=== PATIENT | male | born 1990 | race Caucasian/White ===

== ENCOUNTER 2016-06-02 12:19 | Emergency (ER) | payer OTHER ==
[2016-06-02 12:43] VITALS: BP 153/84; PULSE 72; RESP 20; TEMP 97.4
[2016-06-02] MEDS ORDERED: DIPH,PERTUS(ACELL)TETVAC-LF 0.5 ML VIAL IM ONE (13:10)
--- NOTE | 2016-06-02 13:13 | ED ---
Wound/Laceration HPI - General Chief Complaint: Wound/Laceration Stated Complaint: Finger Laceration Time Seen by Provider: 06/02/16 12:49 Source: patient, RN notes reviewed Mode of arrival: ambulatory Limitations: no limitations - History of Present Illness Initial Comments: 26-year-old male presents emergency Department chief complaint of left hand fifth digit laceration. Patient states she is cleaning some stuff up cut his finger on a piece of sheet metal. Patient states his tetanus is not up-to- date. Patient denies any decreased range of motion or paresthesias. Patient states that he did rinse out the wound and covered it. - Related Data Previous Rx's Medication Instructions Recorded Ibuprofen [Motrin] 600 mg PO Q8HR PRN #20 tab 02/02/16 Methocarbamol [Robaxin-750] 750 mg PO TID PRN #30 tablet 02/02/16 Allergies Allergy/AdvReac Type Severity Reaction Status Date / Time No Known Allergies Allergy Verified 02/02/16 04:05 Review of Systems ROS Statement: Those systems with pertinent positive or pertinent negative responses have been documented in the HPI. ROS Other: All systems not noted in ROS Statement are negative. Past Medical History Past Medical History: No Reported History Additional Past Medical History / Comment(s): chronic back pain History of Any Multi-Drug Resistant Organisms: None Reported Past Surgical History: Orthopedic Surgery Past Psychological History: No Psychological Hx Reported Smoking Status: Current every day smoker Past Alcohol Use History: Occasional Past Drug Use History: Marijuana General Exam Limitations: no limitations General appearance: alert, in no apparent distress Head exam: Present: atraumatic, normocephalic, normal inspection Respiratory exam: Present: normal lung sounds bilaterally. Absent: respiratory distress, wheezes, rales, rhonchi, stridor Cardiovascular Exam: Present: regular rate, normal rhythm, normal heart sounds. Absent: systolic murmur, diastolic murmur, rubs, gallop, clicks Extremities exam: Present: other (left hand fifth digit there is a 2 cm laceration patient has full range of motion neurovascular intact no active bleeding.) Course Vital Signs 06/02/16 12:41 Temperature 97.4 F L Pulse Rate 72 Respiratory 20 Rate Blood Pressure 153/84 O2 Sat by Pulse 99 Oximetry Procedures - Laceration Laceration #1 Consent Obtained: verbal consent Indication: laceration Site: hand (left hand fifth digit) Size (cm): 2 Description: linear Depth: simple, single layer Anesthetic Used: lidocaine 1%, without epi Anesthesia Technique: local infiltration Amount (mls): 2 Pre-repair: wound explored, irrigated extensively Type of Sutures: nylon Size of Sutures: 4-0 Number of Sutures: 3 Technique: simple, interrupted Patient Tolerated Procedure: well, no complications Disposition Clinical Impression: Laceration of finger of left hand Disposition: HOME SELF-CARE Condition: Stable Instructions: Care For Your Stitches (ED), Finger Laceration (ED) Additional Instructions: having your sutures removed in 10 days.Please return to the Emergency Department if symptoms worsen or any other concerns. Time of Disposition: 13:13
== END 2016-06-02 13:31 | disposition home or self-care (01) ==
LOC: EC 12:19
DX: S61.217A Laceration without foreign body of left little finger without damage to nail, initial encounter (principal); F17.200 Nicotine dependence, unspecified, uncomplicated; Z23 Encounter for immunization; W45.8XXA Other foreign body or object entering through skin, initial encounter; Y93.89 Activity, other specified
CPT/HCPCS: 12001; 90471; 90715; 99282

== ENCOUNTER → 2016-12-04 | Outpatient (CLI) | payer OTHER ==
[2016-12-04 16:42] LABS: CH 31.2; CHCM 33.7; HCT 47.2 % (39.0-53.0); HGB 16.2 gm/dL (13.0-17.5); MCH 31.9 pg (25.0-35.0); MCHC 34.3 g/dL (31.0-37.0); MCV 93.1 fL (80.0-100.0); Mean Platelet Volume 6.8; RBC 5.07 m/uL (4.30-5.90); RDW 13.8 % (11.5-15.5)
[2016-12-04 16:44] LABS: WBC 25.3 k/uL (3.8-10.6)
[2016-12-04 16:53] LABS: ALT 35 U/L (21-72); AST 19 U/L (17-59); Alkaline Phosphatase 50 U/L (38-126); Anion Gap 13 mmol/L; Blood Urea Nitrogen 12 mg/dL (9-20); C Reactive Protein <5.0 mg/L (<10.0); Calcium 10.5 mg/dL (8.4-10.2); Carbon Dioxide 28 mmol/L (22-30); Chloride 102 mmol/L (98-107); Glucose 104 mg/dL (74-99); Non-African American GFR(MDRD) >60 (>60 ml/min/1.73 sqM); Potassium 4.6 mmol/L (3.5-5.1); Sodium 143 mmol/L (137-145); Total Bilirubin 0.6 mg/dL (0.2-1.3); Total Protein 7.7 g/dL (6.3-8.2)
[2016-12-04 17:56] LABS: Erythrocyte Sedimentation Rate 2 mm/hr (0-15)
[2016-12-05 01:17] LABS: Gliadin AB IgA, Deaminated NEGATIVE (NEGATIVE); Gliadin AB IgG, Deaminated NEGATIVE (NEGATIVE); Gliadin AB IgG, Unit 0.4 U/mL; Tis Transglutaminase IgA Unit <0.5 AI; Tis Transglutaminase IgG Unit <0.8 U/mL
== END | disposition home or self-care (01) ==
LOC: LABWHC1 16:18
PROVIDERS: ATTEND Internal Medicine Gastroenterology
DX: K58.9 Irritable bowel syndrome, unspecified (principal)
CPT/HCPCS: 36415; 80053; 83516; 85027; 85652; 86140

== ENCOUNTER → 2017-06-12 | Outpatient (CLI) | payer OTHER ==
--- NOTE | 2017-06-12 23:11 | MR ---
EXAMINATION TYPE: MR knee LT wo con DATE OF EXAM: 06/12/2017 COMPARISON: NONE HISTORY: Left knee pain/injured playing hockey several years ago TECHNIQUE: Multiplanar, multisequence imaging of the left knee is performed without IV contrast. FINDINGS: The anterior and posterior cruciate ligaments are intact. There is a mild to moderate knee joint effu leah. There is a small truncation defect in the posterior horn medial meniscus. The anterior horn med ial meniscus appears intact. The lateral meniscus appears intact. The collateral ligaments are intact. There is no evidence of a f racture. I see no bony destructive process. The patella appears intact. IMPRESSION: There is a [id number] knee joint effusion. There is a vertical tear through the posterior horn of the medial meniscus. No fracture. No evidence of ligamentous tear.
== END | disposition home or self-care (01) ==
LOC: RADMRIMAIN 18:01
PROVIDERS: ATTEND Orthopaedic Surgery
DX: S83.242A Other tear of medial meniscus, current injury, left knee, initial encounter (principal)

== ENCOUNTER → 2017-06-30 | Outpatient (CLI) | payer OTHER ==
[2017-06-30 11:58] LABS: Basophils # (A) 0.1 k/uL (0-0.2); Basophils % (A) 0 %; Eosinophils # (A) 0.1 k/uL (0-0.7); Eosinophils % (A) 1 %; HCT 48.3 % (39.0-53.0); HGB 16.8 gm/dL (13.0-17.5); Lymphocytes # (A) 2.2 k/uL (1.0-4.8); Lymphocytes % (A) 16 %; MCH 31.1 pg (25.0-35.0); MCHC 34.7 g/dL (31.0-37.0); MCV 89.7 fL (80.0-100.0); Mean Platelet Volume 6.5; Monocytes # (A) 0.7 k/uL (0-1.0); Monocytes % (A) 5 %; Neutrophils # (A) 10.3 k/uL (1.3-7.7); Neutrophils % (A) 76 %; Platelet Count 308 k/uL (150-450); RBC 5.38 m/uL (4.30-5.90); RDW 13.7 % (11.5-15.5); WBC 13.5 k/uL (3.8-10.6)
[2017-06-30 12:10] LABS: Potassium 3.5 mmol/L (3.5-5.1)
== END | disposition home or self-care (01) ==
LOC: LABPAT 11:44
PROVIDERS: ATTEND Orthopaedic Surgery
DX: Z01.812 Encounter for preprocedural laboratory examination (principal); M23.92 Unspecified internal derangement of left knee
CPT/HCPCS: 36415; 80051; 85025

== ENCOUNTER 2017-07-03 07:47 | Day surgery (SDC) | payer OTHER ==
[2017-06-30 15:32] VITALS: BMI 23.5
--- NOTE | 2017-07-02 08:36 | HP ---
HISTORY AND PHYSICAL CHIEF COMPLAINT: Left knee pain. HISTORY OF PRESENT ILLNESS: The patient is a 27-year-old male who presents with progressive left knee pain, worsening over the past several months. He notes he had an old hockey injury when he was younger. He had 2 previous surgeries for that. He notes intermittent locking and giving way. He also has pain with stairs and at night. He has been taking anti- inflammatories. PAST MEDICAL HISTORY: Significant for depression. PAST SURGICAL HISTORY: Significant for bilateral knee arthroscopies. CURRENT MEDICATIONS: 1. Naprosyn. 2. Remeron. 3. Zanaflex. ALLERGIES: He denies drug allergies. FAMILY HISTORY: Significant for cancer. SOCIAL HISTORY: Significant for 1 pack per day tobacco use. REVIEW OF SYSTEMS: Sixteen-point review of systems otherwise reviewed and is noncontributory. PHYSICAL EXAMINATION: On examination, the patient is approximately 6 feet 1 inch, 160 pounds of mesomorphic habitus. HEENT exam is nonfocal. Neck is supple. He has painless passive motion of his left hip. Straight leg raise is negative. Active motion left knee -6 to 120 degrees of flexion. He has a trace effusion. He is tender about the medial joint line. Collaterals are stable, Mina's negative, Gabino's elicits medial pain. His distal neurovascular exam appears intact in the left lower extremity. MRI report for the left knee from 06/12/2017 shows a posterior medial meniscal tear. IMPRESSION: 1. Left knee internal derangement with symptomatic medial meniscal tear. 2. Left knee mild medial compartment osteoarthrosis. RECOMMENDATIONS: I talked to the patient at length regarding his treatment options. At this point, he is having persistent pain and mechanical symptoms that limit him. After thorough discussion, he opts to proceed with surgery. We will plan to proceed with arthroscopic evaluation with probable partial medial meniscectomy. Risks and benefits were discussed at length in layman's terms. We will likely perform that as an outpatient procedure. MMODL / IJN: [id number] /
[~2017-07-03 07:47] MED LIST: DEXAMETHASONE SOD PHOSPHATE 10 MG/ML 1 ML VIAL IV ONE; LACTATED RINGERS 1,000 ML IV SCH; MIDAZOLAM 2 MG/2 ML VIAL IV PRN; ONDANSETRON 4 MG/2 ML VIAL IVP ONE; SCOPOLAMINE 1.5MG/72HR PATCH TRANSDERM ONE; ceFAZolin 1,000 MG in DEXTROSE/WATER 1 50ML.BAG IVPB ONE; fentaNYL (PF) 50 MCG/ML 2 ML AMP IV PRN
[2017-07-03] MEDS ORDERED: MIDAZOLAM 2 MG/2 ML VIAL ONE (09:26)
[2017-07-03] MEDS ORDERED: fentaNYL (PF) 50 MCG/ML 2 ML AMP ONE (09:26)
[2017-07-03] MEDS ORDERED: SUCCINYLCHOLINE CHLORIDE 100 MG/5 ML SYR IV ONE (09:26)
[2017-07-03] MEDS ORDERED: LIDOCAINE 1% INJ 10MG/ML (20 ML MDV) ONE (09:26)
[2017-07-03] MEDS ORDERED: PROPOFOL 10 MG/ML 20 ML VIAL IV ONE (09:26)
[2017-07-03] MEDS ORDERED: KETOROLAC 30 MG/ML 1 ML VIAL ONE (09:26)
[2017-07-03] MEDS ORDERED: EPINEPHrine (PF) 1 ML in SODIUM CHLORIDE 0.9% IRRIGATIO 3,000 ML IRRIGATION ONE ×4 (09:30)
--- NOTE | 2017-07-03 10:19 | P.OP ---
Date of Procedure: 07/03/17 Preoperative Diagnosis: Left knee internal derangement Postoperative Diagnosis: Left knee posterior medial meniscal tear/middle one third lateral meniscal tear/ grade 3 chondral injury medial patellar facet/reactive synovitis Procedure(s) Performed: Left knee arthroscopic partial medial meniscectomy/partial lateral meniscectomy/ medial patellar facet chondroplasty/partial synovectomy of the medial, lateral, and patellofemoral compartments Anesthesia: GETA Surgeon: Mayur Velazquez Estimated Blood Loss (ml): 10 Pathology: none sent Condition: stable Disposition: PACU Indications for Procedure: The patient's a 27-year-old male who presents progressive left knee pain and mechanical symptoms despite conservative measures. A discussion of the risks and benefits of operative intervention versus continued conservative measures was made with the patient. He opted to proceed with surgery. Operative risks to include infection, neurovascular injury, development of blood clots, possible incomplete resolution of symptoms, possible worsening symptoms and need for subsequent procedures was discussed. Informed consent was obtained. Operative Findings: As below Description of Procedure: The patient was brought to the operating room, and after induction of general anesthesia examined the left knee. Collaterals were stable, Mina was negative, and posterior drawer was negative. The left lower extremity was prepped and draped in normal fashion. A superior lateral portals made through a 3 mm skin incision superior and lateral to the patella. This was used for outflow. A lateral portal was made through a 5 mm vertical skin incision lateral to the patella tendon above the joint line. Diagnostic arthroscopy was performed. A medial portal was made through a similar incision medial to the patella tendon above the joint line. On inspection the medial compartment, and oblique tear involving the posterior horn of the medial meniscus was noted. This was not amenable to repair. This debrided back to stable base with straight baskets and a motorized shaver. The edges were contoured. The previous partial meniscectomy was also noted. Mild degenerative changes involving medial compartment were noted. Reactive synovitis involving anterior medial and anterolateral compartments was debrided with motorized shaver. On inspection the notch the anterior cruciate ligament appeared to be intact. On inspection lateral compartment, and oblique tear involving the middle one third of the lateral meniscus was noted in the white-white junction. This was debrided back to a stable base with straight baskets and a motorized shaver. The remaining lateral meniscus was stable and intact. Grade 2 chondral changes were noted involving the distal central portion lateral femoral condyle. On inspection patellofemoral articulation, there is marked rectus and advised to be with a motorized shaver. A grade 3 chondral injury involving the medial patella facet was noted with a loose chondral fragment. It was debrided back to a stable base with a motorized shaver. The gutters were clear of debris. The knee was then thoroughly irrigated. The portals were closed with Steri- Strips. A sterile dressing was applied in addition to a compression stocking. The patient was awoken from general anesthesia and transferred to recovery room in good condition. Blood loss was estimated at 10 mL. No complications were incurred.
[2017-07-03 10:22] VITALS: TEMP 97.4
[2017-07-03] MEDS: MEPERIDINE 50 MG/ML SYRINGE IVP ONE ×2 (10:29→10:43)
[2017-07-03] MEDS ORDERED: PROMETHAZINE INJ 25 MG/ML 1 ML VIAL IVPB ONE (11:08)
[2017-07-03] MEDS ORDERED: HYDROcodone/APAP 5-325MG 1 EACH TAB PO ONE (11:58)
[2017-07-03 12:19] VITALS: BP 137/84; PULSE 49; RESP 16
== END 2017-07-03 12:41 | disposition home or self-care (01) ==
LOC: OR 07:47
PROVIDERS: ATTEND Orthopaedic Surgery
DX: S83.242A Other tear of medial meniscus, current injury, left knee, initial encounter (principal); S83.282A Other tear of lateral meniscus, current injury, left knee, initial encounter; S83.32XA Tear of articular cartilage of left knee, current, initial encounter; X58.XXXA Exposure to other specified factors, initial encounter; F17.210 Nicotine dependence, cigarettes, uncomplicated; K21.9 Gastro-esophageal reflux disease without esophagitis; F32.9 Major depressive disorder, single episode, unspecified; Z79.1 Long term (current) use of non-steroidal anti-inflammatories (NSAID); Z79.899 Other long term (current) drug therapy
CPT/HCPCS: 29880; J2250; J1100; J2550; J2175; J2405; J0171; J2001; J3010; J1885; J0690; J0330; J2704

== ENCOUNTER → 2017-07-10 | Outpatient (CLI) | payer OTHER ==
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
== END | disposition home or self-care (01) ==
LOC: RADMRIMAIN 14:48
PROVIDERS: ATTEND Psychiatry & Neurology Neurology
DX: M50.222 Other cervical disc displacement at C5-C6 level (principal); M51.27 Other intervertebral disc displacement, lumbosacral region
CPT/HCPCS: 72141; 72148

== ENCOUNTER → 2017-09-30 | Outpatient (CLI) | payer OTHER ==
--- NOTE | 2017-09-30 16:18 | US ---
EXAMINATION TYPE: US thyroid st tissue head/neck DATE OF EXAM: 09/30/2017 COMPARISON: NONE CLINICAL HISTORY: E04.1 thyroid nodule. Hoarseness x 6 months. Pain on left side of neck. GLAND SIZE: Right Lobe: 5.2 x 2.0 x 1.5 cm cm Overall Parenchyma: homogenous Left Lobe: 5.3 x 2.4 x 1.3 cm cm Overall Parenchyma: homogeneous Isthmus Thickness: 0.5 cm NODULES RIGHT: # of nodules measured on right: 1 1. 0.3 X 0.3 x 0.2 cm hypoechoic cystic nodule at the mid pole with well-defined margins; . This n odule is wider than tall and shows no intranodular vascularity. Prior size: No previous LEFT: # of nodules measured on left: 0 ISTHMUS: # of nodules measured in the isthmus: 0 Bilateral neck scanned, no evidence of lymphadenopathy. IMPRESSION: Small cystic nodule right thyroid lobe. Otherwise unremarkable study.
== END | disposition home or self-care (01) ==
LOC: RADUSWWP 15:38
PROVIDERS: ATTEND Family Medicine
DX: E04.1 Nontoxic single thyroid nodule (principal)
CPT/HCPCS: 76536

== ENCOUNTER → 2017-10-30 | Outpatient (CLI) | payer OTHER ==
--- NOTE | 2017-11-01 15:16 | CT ---
EXAMINATION TYPE: CT soft tissue neck wo con DATE OF EXAM: 10/30/2017 HISTORY: Dysphonia x 6 months. COMPARISON: Thyroid ultrasound dated 09/23/2016 CT DLP: 407 mGycm. Automated Exposure Control for Dose Reduction was Utilized. TECHNIQUE: CT scan of the neck is performed without contrast, axial images are obtained, coronal and sagittal reformatted images are reviewed. FINDINGS: Airway: The supraglottic airway and infraglottic airway are patent. Valleculae and piriform sinuses a re symmetric and unremarkable. There is slight thickening of the true vocal cords bilaterally, left m inimally greater than right. No focal mass is seen although evaluation is limited without intravenous contrast. False vocal cords are symmetric and unremarkable. Fossa of Rosenmuller are symmetric and u nremarkable. Torus tubarius and epiglottis are also unremarkable. Uvula and palatine tonsils are with in normal limits. Parotid/submandibular glands: No surrounding fat stranding is seen to suggest inflammatory process. Carotid/Vascular Structures: No significant calcific atheromatous change. There is limitation without intravenous contrast. Osseous Structures: Osseous structures are intact. Small posterior disc osteophyte complexes seen at C6-C7 without significant spinal canal stenosis on CT Other: Solitary bleb is noted within the right upper lobe. Within the anterior superior mediastinum s trand-like density likely represents residual thymic gland. No enlarged adenopathy in the neck. IMPRESSION: Slightly asymmetric thickening of the true vocal cords that could relate to focal lesion or sequela o f inflammatory change. Direct visualization is recommended. False focal cords are unremarkable and ai rway is maintained.
== END ==
LOC: RADCTMAIN 17:59
PROVIDERS: ATTEND Family Medicine
DX: R49.0 Dysphonia (principal)
CPT/HCPCS: 70490

== ENCOUNTER 2017-11-06 15:58 | Emergency (ER) | payer OTHER ==
[2017-11-06 16:09] VITALS: BP 130/78; PULSE 105; RESP 18; TEMP 96.1
[2017-11-06] MEDS ORDERED: LIDOCAINE 1% INJ 10MG/ML (20 ML MDV) SQ ONE (16:10)
--- NOTE | 2017-11-06 16:26 | XR ---
EXAMINATION TYPE: XR finger RT DATE OF EXAM: 11/06/2017 COMPARISON: NONE HISTORY: Right thumb laceration from chainsaw injury TECHNIQUE: 3 views of the right thumb were obtained FINDINGS: There is no evidence of osseous laceration or fracture. No radiopaque foreign body is seen. Right thumb appears intact. Osseous mineralization is within normal limits. No significant arthropat hy. IMPRESSION: No evidence of osseous fracture, laceration, or radiopaque foreign body within the right thumb.
--- NOTE | 2017-11-06 16:35 | ED ---
Wound/Laceration HPI - General Chief Complaint: Wound/Laceration Stated Complaint: Thumb Lac Time Seen by Provider: 11/06/17 16:07 Source: patient, RN notes reviewed Mode of arrival: ambulatory Limitations: no limitations - History of Present Illness Initial Comments: this is a 27-year-old male who presents to the emergency department with chief complaint of right thumb laceration. Patient states that approximately 45 minutes to an hour ago he accidentally cut his right thumb with a chainsaw. He states he is up-to-date with his tetanus vaccination. States he has full range of motion of the right thumb and has normal sensation. Denies any other injuries or trauma. Denies recent fevers or chills, chest pain or shortness of breath, abdominal pain, nausea or vomiting, no numbness or tingling, weakness. - Related Data Home Medications Medication Instructions Recorded Confirmed Dicyclomine [Bentyl] 10 mg PO BID PRN 06/30/17 07/03/17 Mirtazapine [Remeron] 30 mg PO HS 06/30/17 07/03/17 Naproxen [Naprosyn] 500 mg PO Q12HR PRN 06/30/17 06/30/17 Nicotine 21Mg/24Hr Patch [Habitrol 1 each TRANSDERM DAILY 06/30/17 07/03/17 21Mg/24Hr Patch] Wellbutrin(Dose Unknown) 1 tab PO DAILY 06/30/17 06/30/17 tiZANidine [Zanaflex] 2 mg PO TID PRN 06/30/17 06/30/17 Previous Rx's Medication Instructions Recorded Hydrocodone/Acetaminophen [Madison 1 each PO Q6HR PRN #20 tab 07/03/17 5-325] Allergies Allergy/AdvReac Type Severity Reaction Status Date / Time No Known Allergies Allergy Verified 11/06/17 16:07 Review of Systems ROS Statement: Those systems with pertinent positive or pertinent negative responses have been documented in the HPI. ROS Other: All systems not noted in ROS Statement are negative. Past Medical History Past Medical History: No Reported History Additional Past Medical History / Comment(s): chronic back pain History of Any Multi-Drug Resistant Organisms: None Reported Past Surgical History: Orthopedic Surgery Past Psychological History: Anxiety, Depression Smoking Status: Current some day smoker Past Alcohol Use History: Occasional Past Drug Use History: Marijuana General Exam Limitations: no limitations General appearance: alert, in no apparent distress Head exam: Present: atraumatic, normocephalic Eye exam: Present: normal appearance, PERRL, EOMI ENT exam: Present: normal exam, normal oropharynx, mucous membranes moist Neck exam: Present: normal inspection, full ROM Respiratory exam: Present: normal lung sounds bilaterally. Absent: respiratory distress, wheezes, rales, rhonchi, stridor Cardiovascular Exam: Present: regular rate, tachycardia, normal heart sounds Extremities exam: Present: full ROM, other (1.0 cm linear laceration right proximal dorsal thumb. bleeding controlled. sensation is intact. radial pulses are 2+, equal and palpable bilaterally. ) Course Vital Signs 11/06/17 16:07 Temperature 96.1 F L Pulse Rate 105 H Respiratory 18 Rate Blood Pressure 130/78 O2 Sat by Pulse 98 Oximetry Procedures - Laceration Laceration #1 Consent Obtained: verbal consent Indication: laceration Site: upper extremity (right proximal dorsal thumb ) Size (cm): 1 Description: linear, flap Depth: simple, single layer Anesthetic Used: lidocaine 1% Anesthesia Technique: nerve block Amount (mls): 2 Pre-repair: wound explored, irrigated extensively, deep structures intact Type of Sutures: nylon Size of Sutures: 5-0 Number of Sutures: 5 Technique: simple, interrupted Patient Tolerated Procedure: well, no complications Medical Decision Making - Medical Decision Making this is a 27-year-old male who presents to the emergency department with chief complaint of right thumb laceration. Patient sustained an approximately 1.0 cm linear, flap like laceration to the dorsal aspect of the right thumb. X-ray was obtained which revealed no acute abnormalities. Wound was cleansed and 5 sutures are placed. Patient tolerated the procedure well without complication. Recommended removal of sutures in 10-14 days. Patient is in no acute distress and will be discharged home at this time. He is in agreement with plan and voices understanding. All questions were answered. - Radiology Data Radiology results: report reviewed X-ray of right thumb impression: No evidence of osseous fracture, laceration, or radiopaque foreign body within the right thumb. Disposition Clinical Impression: Thumb laceration Disposition: HOME SELF-CARE Condition: Good Instructions: Finger Laceration (ED) Additional Instructions: Please have sutures removed in 10-14 days. Please return to emergency department if she develops any new or worsening symptoms. Is patient prescribed a controlled substance at d/c from ED?: No Referrals: Lamonte Schwab Jr, DO [Primary Care Provider] - 1-2 days Time of Disposition: 16:40
== END 2017-11-06 16:51 | disposition home or self-care (01) ==
LOC: EC 15:58
DX: S61.011A Laceration without foreign body of right thumb without damage to nail, initial encounter (principal); F41.9 Anxiety disorder, unspecified; F32.9 Major depressive disorder, single episode, unspecified; F17.200 Nicotine dependence, unspecified, uncomplicated; Z79.899 Other long term (current) drug therapy; W29.3XXA Contact with powered garden and outdoor hand tools and machinery, initial encounter
CPT/HCPCS: 73140; 99283; 12001; J2001

== ENCOUNTER → 2017-12-28 | Outpatient (CLI) | payer OTHER ==
[2017-12-28 17:25] LABS: HCT 42.3 % (39.0-53.0); MCH 30.6 pg (25.0-35.0); MCV 92.9 fL (80.0-100.0); Mean Platelet Volume 6.7; Platelet Count 287 k/uL (150-450); RBC 4.56 m/uL (4.30-5.90); RDW 13.4 % (11.5-15.5); WBC 11.2 k/uL (3.8-10.6)
== END | disposition home or self-care (01) ==
LOC: LABWHC1 16:35
PROVIDERS: ATTEND Otolaryngology Otolaryngic Allergy
DX: D38.0 Neoplasm of uncertain behavior of larynx (principal)
CPT/HCPCS: 36415; 85027

== ENCOUNTER → 2018-01-16 | Outpatient (CLI) | payer OTHER ==
--- NOTE | 2018-01-16 17:50 | PE ---
EXAMINATION TYPE: PET CT fusion skull to thigh DATE OF EXAM: 01/16/2018 COMPARISON: CT neck October 30, 2017 HISTORY: Laryngeal cancer on biopsy December 2017. TECHNIQUE: Following the intravenous administration of 13.35 mCi of F-18 FDG, whole body images are performed from the skull base to the midthigh. Images are reviewed on the computer in the coronal, a xial, and sagittal planes. Reconstructed rotating images are created on independent workstation and reviewed on the computer. A noncontrast CT is performed in conjunction with the PET scan. Dedicated PET/CT imaging of the neck is also performed. SCAN: Initial Scan FINDINGS: SKULL BASE AND NECK: Corresponding to area of concern on prior CT there is further increase in asymm etric soft tissue thickening at level of left false and true vocal cords there are axial image 62 wit h some obliteration of the left paraform sinus on current study and mass effect on the left wall of t he hypopharyngeal airway, mass lesion now measures roughly 2.3 x 1.3 cm with max SUV of 11.05, hyperm etabolic uptake is more prominent anteriorly in the lesion which may be falsely measured larger on no ncontrast CT. No definitive areas of additional hypermetabolic uptake or suspicious adenopathy identified. CHEST, MEDIASTINUM, AND HILAR REGION: No suspicious areas of hypermetabolic uptake are present. ABDOMEN AND PELVIS: No suspicious areas of abnormal hypermetabolic uptake are seen. OSSEOUS STRUCTURES: No suspicious areas of hypermetabolic uptake are present. OTHER CT: Mild underlying emphysematous change is felt present. Patient has very little intra-abdominal fat. IMPRESSION: Abnormal uptake at known site of biopsy-proven malignancy left vocal cords. No evidence f or abnormal thoracic adenopathy or metastatic malignancy.
== END | disposition home or self-care (01) ==
LOC: RADPETMAIN 12:27
PROVIDERS: ATTEND Otolaryngology Otolaryngic Allergy
DX: R94.8 Abnormal results of function studies of other organs and systems (principal); C32.8 Malignant neoplasm of overlapping sites of larynx
CPT/HCPCS: 78815; A9552

== ENCOUNTER 2018-05-03 13:36 | Emergency (ER) | payer OTHER ==
[2018-05-03 13:41] VITALS: BP 125/71; PULSE 66; RESP 18; TEMP 97.4
--- NOTE | 2018-05-03 14:15 | ED ---
ENT HPI - General Chief complaint: ENT Stated complaint: Ear pain Time Seen by Provider: 05/03/18 13:58 Source: patient, RN notes reviewed, old records reviewed Mode of arrival: ambulatory Limitations: no limitations - History of Present Illness Initial comments: 28-year-old male presents restarted today with complaints of left ear pain onset 1 day. He states that the pain radiates finger slightly to the neck. It is tender to palpation over the area. Patient has a history of larynx and vocal cord cancer. He reports that he completed radiation. He does have follow -up on with his ENT specialist. Patient states that it seems like the pain seems started just today. Patient is a smoker occasional smoker. Patient states that he has had no fevers or chills. He denies any chest pain associated shortness breath or coughing. He reports that he has a chronic sore throat after the radiation treatments. Patient states that he has had no fevers or chills. Denies any history of sick contacts. He reports he does feel some pressure behind the left ear. - Related Data Home Medications Medication Instructions Recorded Confirmed Dicyclomine [Bentyl] 10 mg PO BID PRN 06/30/17 07/03/17 Mirtazapine [Remeron] 30 mg PO HS 06/30/17 07/03/17 Naproxen [Naprosyn] 500 mg PO Q12HR PRN 06/30/17 06/30/17 Nicotine 21Mg/24Hr Patch [Habitrol 1 each TRANSDERM DAILY 06/30/17 07/03/17 21Mg/24Hr Patch] Wellbutrin(Dose Unknown) 1 tab PO DAILY 06/30/17 06/30/17 tiZANidine [Zanaflex] 2 mg PO TID PRN 06/30/17 06/30/17 Previous Rx's Medication Instructions Recorded Hydrocodone/Acetaminophen [[place] 1 each PO Q6HR PRN #20 tab 07/03/17 5-325] Amoxicillin 500 mg PO Q12HR #14 cap 05/03/18 Allergies Allergy/AdvReac Type Severity Reaction Status Date / Time No Known Allergies Allergy Verified 11/06/17 16:07 Review of Systems ROS Statement: Those systems with pertinent positive or pertinent negative responses have been documented in the HPI. ROS Other: All systems not noted in ROS Statement are negative. Past Medical History Past Medical History: No Reported History, Cancer Additional Past Medical History / Comment(s): chronic back pain, larnyx cancer History of Any Multi-Drug Resistant Organisms: None Reported Past Surgical History: Orthopedic Surgery Additional Past Surgical History / Comment(s): B knee, Past Psychological History: Anxiety, Depression Smoking Status: Current some day smoker Past Alcohol Use History: Occasional Past Drug Use History: Marijuana General Exam Limitations: no limitations General appearance: alert, in no apparent distress Head exam: Present: atraumatic, normocephalic, normal inspection Eye exam: Present: normal appearance, PERRL, EOMI. Absent: scleral icterus, conjunctival injection, periorbital swelling ENT exam: Present: mucous membranes moist, other (Tenderness to palpation over the left anterior auricle.). Absent: normal exam (Slightly erythematous left TM.), TM's normal bilaterally Neck exam: Present: normal inspection. Absent: tenderness, meningismus, lymphadenopathy Respiratory exam: Present: normal lung sounds bilaterally. Absent: respiratory distress, wheezes, rales, rhonchi, stridor Cardiovascular Exam: Present: regular rate, normal rhythm, normal heart sounds. Absent: systolic murmur, diastolic murmur, rubs, gallop, clicks GI/Abdominal exam: Present: soft, normal bowel sounds. Absent: distended, tenderness, guarding, rebound, rigid Extremities exam: Present: normal inspection, full ROM, normal capillary refill. Absent: tenderness, pedal edema, joint swelling, calf tenderness Back exam: Present: normal inspection Neurological exam: Present: alert, oriented X3, CN II-XII intact Psychiatric exam: Present: normal affect, normal mood Skin exam: Present: warm, dry, intact, normal color. Absent: rash Course Vital Signs 05/03/18 13:38 Temperature 97.4 F L Pulse Rate 66 Respiratory 18 Rate Blood Pressure 125/71 O2 Sat by Pulse 98 Oximetry Medical Decision Making - Medical Decision Making Patient is a 28 year old male presents to ED with complaints of left TM pain. Patient reports that the symptoms started today. He does have a slightly erythematous TM. He reports that is tender to palpation of the auricle and towards the neck. He denies any chest pain or shortness of breath. He does have history of larynx cancer. He is otherwise healthy. He has had no fever. Does report some sinus congestion. This time recommended Patient to use decongestant medication such as Sudafed. Also recommended with his history of throat cancer for correction we'll put the Patient a short course of amoxicillin. Discussed strict return parameters. Patient has an appointment on with ENT specialist. Patient agrees treatment plan will comply. Return parameters were discussed. Disposition Clinical Impression: Left ear pain, Muscle pain, cervical Disposition: HOME SELF-CARE Condition: Good Instructions (If sedation given, give patient instructions): Earache (ED) Additional Instructions: Patient is to follow-up with the primary care physician and ENT specialist. Also recommend using decongestant medications. Patient has a Motrin Tylenol as erected. Patient should apply warm compresses over the area. Return to emergency department if any alarming signs or symptoms occur. Return to emergency department if any alarming signs or symptoms occur. Prescriptions: Amoxicillin 500 mg PO Q12HR #14 cap Is patient prescribed a controlled substance at d/c from ED?: No Referrals: Juan Kim MD [Primary Care Provider] - 1-2 days Time of Disposition: 14:14
== END 2018-05-03 14:31 | disposition home or self-care (01) ==
LOC: EC 13:36
DX: H92.02 Otalgia, left ear (principal); M79.18 Myalgia, other site; H73.892 Other specified disorders of tympanic membrane, left ear; R09.81 Nasal congestion; J31.2 Chronic pharyngitis; F32.9 Major depressive disorder, single episode, unspecified; F41.9 Anxiety disorder, unspecified; F17.200 Nicotine dependence, unspecified, uncomplicated; Z79.899 Other long term (current) drug therapy; Z92.3 Personal history of irradiation; Z85.21 Personal history of malignant neoplasm of larynx
CPT/HCPCS: 99283

== ENCOUNTER 2018-05-17 09:05 | Emergency (ER) | payer OTHER ==
[2018-05-17 09:09] VITALS: BP 143/77; PULSE 83; RESP 18; TEMP 97.5
[2018-05-17] MEDS ORDERED: ONDANSETRON 4 MG/2 ML VIAL IVP STA ×2 (09:27→12:30)
[2018-05-17] MEDS ORDERED: SODIUM CHLORIDE 0.9% 1,000 ML IV ONE (09:27)
[2018-05-17] MEDS ORDERED: FAMOTIDINE 20 MG/2 ML VIAL IV STA (09:28)
[2018-05-17] MEDS ORDERED: SODIUM CHLORIDE 0.9% 1,000 ML IV STA ×2 (09:28)
[2018-05-17] MEDS ORDERED: KETOROLAC 30 MG/ML 1 ML VIAL IVP STA (09:28)
[2018-05-17] MEDS ORDERED: SODIUM CHLORIDE 0.9% 1,000 ML IV SCH (09:30)
--- NOTE | 2018-05-17 09:36 | ED ---
Nausea/Vomiting/Diarrhea HPI - General Chief complaint: Nausea/Vomiting/Diarrhea Stated complaint: vomiting Time Seen by Provider: 05/17/18 09:11 Source: patient, RN notes reviewed, old records reviewed Mode of arrival: ambulatory Limitations: no limitations - History of Present Illness Initial comments: Patient is a 28-year-old male presents return today with 1 day of nausea and vomiting and epigastric abdominal pain. Patient states these had some episodes of diarrhea as well. Patient reports that his sister and nephew had similar symptoms. Patient states that he's been having persistent vomiting for the past few hours and is only able to vomit bile. Patient reports Patient has a history of laryngeal cancer which she is recently in remission after radiation. Denies any recent antibiotic use. He was seen by myself a few weeks ago for right otitis media peritonitis. He states he never had the antibiotic prescription filled. - Related Data Previous Rx's Medication Instructions Recorded Ondansetron Odt [Zofran Odt] 4 mg PO Q8HR PRN #20 tab 05/17/18 Allergies Allergy/AdvReac Type Severity Reaction Status Date / Time No Known Allergies Allergy Verified 05/17/18 09:34 Review of Systems ROS Statement: Those systems with pertinent positive or pertinent negative responses have been documented in the HPI. ROS Other: All systems not noted in ROS Statement are negative. Past Medical History Past Medical History: Cancer Additional Past Medical History / Comment(s): chronic back pain, larnyx cancer History of Any Multi-Drug Resistant Organisms: None Reported Past Surgical History: Orthopedic Surgery Additional Past Surgical History / Comment(s): B knee, Past Psychological History: Anxiety, Depression Smoking Status: Current some day smoker Past Alcohol Use History: Occasional Past Drug Use History: Marijuana General Exam - General Exam Comments Initial Comments: Well appearing 28 year old male, no distress. Limitations: no limitations General appearance: alert, in no apparent distress Head exam: Present: atraumatic, normocephalic, normal inspection Eye exam: Present: normal appearance, PERRL, EOMI. Absent: scleral icterus, conjunctival injection, periorbital swelling ENT exam: Present: normal exam, mucous membranes moist Neck exam: Present: normal inspection. Absent: tenderness, meningismus, lymphadenopathy Respiratory exam: Present: normal lung sounds bilaterally. Absent: respiratory distress, wheezes, rales, rhonchi, stridor Cardiovascular Exam: Present: regular rate, normal rhythm, normal heart sounds. Absent: systolic murmur, diastolic murmur, rubs, gallop, clicks GI/Abdominal exam: Present: soft, normal bowel sounds, hyperactive bowel sounds. Absent: distended, tenderness, guarding, rebound, rigid Back exam: Present: normal inspection Neurological exam: Present: alert, oriented X3, CN II-XII intact Psychiatric exam: Present: normal affect, normal mood Skin exam: Present: warm, dry, intact, normal color. Absent: rash Course Vital Signs 05/17/18 05/17/18 09:06 14:15 Temperature 97.5 F L 97.5 F L Pulse Rate 83 83 Respiratory 18 18 Rate Blood Pressure 143/77 143/77 O2 Sat by Pulse 98 98 Oximetry Medical Decision Making - Medical Decision Making Patient is a 28 year old male whom presents today with complaints of nausea and vomiting for one day. Patient has history of sick contacts in home with sgastroenteritis. Patient has had some episode of diarrhea and vomiting in ED. Given 2 L bolus and nausea medication. Patient has no abdominal tenderness. Patient has lab work obtained, some leukocytosis noted, likely in response to vomiting. Discussed close follow up with PCP and will DC with nausea medication. - Lab Data Result diagrams: 05/17/18 09:24 05/17/18 09:24 Lab Results 05/17/18 05/17/18 05/17/18 Range/Units 09:24 09:24 11:12 WBC 15.7 H (3.8-10.6) k/uL RBC 5.65 (4.30-5.90) m/uL Hgb 17.0 (13.0-17.5) gm/dL Hct 50.5 (39.0-53.0) % MCV 89.4 (80.0-100.0) fL MCH 30.2 (25.0-35.0) pg MCHC 33.8 (31.0-37.0) g/dL RDW 14.3 (11.5-15.5) % Plt Count 279 (150-450) k/uL Neutrophils % 80 % Lymphocytes % 12 % Monocytes % 5 % Eosinophils % 2 % Basophils % 1 % Neutrophils # 12.5 H (1.3-7.7) k/uL Lymphocytes # 1.8 (1.0-4.8) k/uL Monocytes # 0.8 (0-1.0) k/uL Eosinophils # 0.4 (0-0.7) k/uL Basophils # 0.1 (0-0.2) k/uL Sodium 142 (137-145) mmol/L Potassium 4.3 (3.5-5.1) mmol/L Chloride 107 (98-107) mmol/L Carbon Dioxide 23 (22-30) mmol/L Anion Gap 12 mmol/L BUN 12 (9-20) mg/dL Creatinine 0.86 (0.66-1.25) mg/dL Est GFR (CKD-EPI)AfAm >90 (>60 ml/min/1.73 sqM) Est GFR (CKD-EPI)NonAf >90 (>60 ml/min/1.73 sqM) Glucose 98 (74-99) mg/dL Calcium 10.6 H (8.4-10.2) mg/dL Total Bilirubin 0.7 (0.2-1.3) mg/dL AST 33 (17-59) U/L ALT 40 (21-72) U/L Alkaline Phosphatase 49 (38-126) U/L Total Protein 8.7 H (6.3-8.2) g/dL Albumin 5.3 H (3.5-5.0) g/dL Amylase 118 H (30-110) U/L Lipase 68 (23-300) U/L Urine Color Light [place] Urine Appearance Turbid (Clear) Urine pH 5.5 (5.0-8.0) Ur Specific [place] 1.024 (1.001-1.035) Urine Protein 1+ H (Negative) Urine Glucose (UA) Negative (Negative) Urine Ketones Trace H (Negative) Urine Blood Negative (Negative) Urine Nitrite Negative (Negative) Urine Bilirubin Negative (Negative) Urine Urobilinogen <2.0 (<2.0) mg/dL Ur Leukocyte Esterase Negative (Negative) Amorphous Sediment Few H (None) /hpf Urine Mucus Many H (None) /hpf - Radiology Data Radiology results: report reviewed Normal KUB gas pattern. Disposition Clinical Impression: Gastroenteritis Disposition: HOME SELF-CARE Condition: Good Instructions (If sedation given, give patient instructions): Acute Nausea and Vomiting (ED) Additional Instructions: Patient advised to rest, have a bland diet for the next 24-48 hours. Encourage fluid intake. Return to emergency department if any alarming signs or symptoms occur. Prescriptions: Ondansetron Odt [Zofran Odt] 4 mg PO Q8HR PRN #20 tab PRN Reason: Nausea Is patient prescribed a controlled substance at d/c from ED?: No Referrals: Juan Kim MD [Primary Care Provider] - 1-2 days Time of Disposition: 12:30
[2018-05-17 10:04] LABS: ALT 40 U/L (21-72); AST 33 U/L (17-59); Albumin 5.3 g/dL (3.5-5.0); Alkaline Phosphatase 49 U/L (38-126); Amylase 118 U/L (30-110); Anion Gap 12 mmol/L; Blood Urea Nitrogen 12 mg/dL (9-20); Calcium 10.6 mg/dL (8.4-10.2); Carbon Dioxide 23 mmol/L (22-30); Chloride 107 mmol/L (98-107); Glucose 98 mg/dL (74-99); Lipase 68 U/L (23-300); Potassium 4.3 mmol/L (3.5-5.1); Sodium 142 mmol/L (137-145); Total Bilirubin 0.7 mg/dL (0.2-1.3); Total Protein 8.7 g/dL (6.3-8.2)
[2018-05-17 10:11] LABS: Basophils # (A) 0.1 k/uL (0-0.2); Basophils % (A) 1 %; Eosinophils # (A) 0.4 k/uL (0-0.7); Eosinophils % (A) 2 %; HCT 50.5 % (39.0-53.0); Lymphocytes # (A) 1.8 k/uL (1.0-4.8); Lymphocytes % (A) 12 %; MCH 30.2 pg (25.0-35.0); MCHC 33.8 g/dL (31.0-37.0); MCV 89.4 fL (80.0-100.0); Mean Platelet Volume 6.4; Monocytes # (A) 0.8 k/uL (0-1.0); Monocytes % (A) 5 %; Neutrophils # (A) 12.5 k/uL (1.3-7.7); Neutrophils % (A) 80 %; Platelet Count 279 k/uL (150-450); RBC 5.65 m/uL (4.30-5.90); RDW 14.3 % (11.5-15.5); WBC 15.7 k/uL (3.8-10.6)
[2018-05-17 12:00] LABS: Amorphous Sediment,Urine Few /hpf; Appearance,Urine Turbid (Clear); Bilirubin,Urine Negative (Negative); Blood,Urine Negative (Negative); Color,Urine Light Orange; Glucose,Urine (UA) Negative (Negative); Ketones,Urine Trace (Negative); Leukocyte Esterase,Urine Negative (Negative); Mucus,Urine Many /hpf; Nitrite,Urine Negative (Negative); PH, Urine 5.5 (5.0-8.0); Protein,Urine 1+ (Negative); Specific Gravity,Urine 1.024 (1.001-1.035); Urobilinogen,Urine <2.0 mg/dL (<2.0)
[2018-05-17] MEDS ORDERED: METOCLOPRAMIDE 5 MG/ML 2 ML VIAL IVP STA (12:57)
[2018-05-17] MEDS ORDERED: diphenhydrAMINE 50 MG/ML 1 ML VIAL IVP STA (12:57)
--- NOTE | 2018-05-17 13:11 | XR ---
EXAMINATION TYPE: XR KUB DATE OF EXAM: 05/17/2018 COMPARISON: NONE HISTORY: Pain TECHNIQUE: Single supine KUB image of the abdomen is obtained FINDINGS: Small bowel demonstrates no evidence for dilatation or air fluid levels. Gas and fecal material is seen in non-distended colon. No convincing evidence for pneumoperitoneum. No unusual calcifications. The lung bases are clear. The osseous structures are intact. IMPRESSION: 1. Overall nonobstructive bowel gas pattern.
== END 2018-05-17 14:29 | disposition home or self-care (01) ==
LOC: EC 09:05
DX: K52.9 Noninfective gastroenteritis and colitis, unspecified (principal); D72.829 Elevated white blood cell count, unspecified; F17.200 Nicotine dependence, unspecified, uncomplicated; Z85.21 Personal history of malignant neoplasm of larynx
CPT/HCPCS: 99284; 96374; 96375 ×4; 96376; 96361 ×2; 36415; 80053; 82150; 83690; 85025; 81001; 74018; J1200; J2765; J2405; J1885

== ENCOUNTER → 2018-05-22 | Outpatient (CLI) | payer OTHER ==
--- NOTE | 2018-05-26 18:55 | PE ---
EXAMINATION TYPE: PET CT fusion skull to thigh DATE OF EXAM: 05/22/2018 COMPARISON: CT neck 10/30/2017 Prior PET/CT: 01/16/2018 HISTORY: Throat cancer TECHNIQUE: Following the intravenous administration of 11.85 mCi of F-18 FDG, whole body images are performed from the skull base to the midthigh. Images are reviewed on the computer in the coronal, a xial, and sagittal planes. Reconstructed rotating images are created on independent workstation and reviewed on the computer. A localization and attenuation correction CT is performed in conjunction with the PET scan. DLP: 66.2 and 237.78 mGycm SCAN: Subsequent Blood glucose: 82 mg/dL Average Mediastinum SUV: 1.15 Average Liver SUV: 1.65 FINDINGS: NECK: There is intense uptake to the bilateral tonsillar pillars. SUV 3.4 - 5.47 . Some contiguous intense uptake appears to be along the soft palate. Intense uptake is within the tongue region of lef t and right of midline. Tongue uptake could be related to motion following the patient's radiotracer injection. There is uptake within the prevertebral space at the level of the vocal cords. This extends to the po sterior left and right vocal cord level. This area is new compared to the prior study but may be rela law to treatment of the vocal cord level. Correlate with history. SUV value 2.75. THORAX: No abnormal uptake ABDOMEN: No abnormal uptake PELVIS: No abnormal uptake OSSEOUS STRUCTURES: No abnormal uptake LOCALIZATION CT: No obvious masses within the throat are evident. There is very subtle asymmetry at t he level with slight straightening of the left vocal cord. The ascending thoracic aorta at the level the main pulmonary artery is 3.0 cm the main pulmonary samaria ry bifurcation is 3.0 cm. COMPARISON: Exam is compared to 01/16/2018 PET/CT uptake within the tonsillar pillars soft palate and tongue regions appear stable. Previous anterior left vocal cord uptake has largely resolved. Uptake within the posterior larynx and prevertebral space is new. This could be postsurgical in nature. Correlate with history. IMPRESSION: 1. Intense uptake within the bilateral tonsillar pillars with extension towards soft palate has an MAHONEY V value of 5.7. This appears to be increasing. Correlate with the surgical history and direct visuali zation is recommended. 2. There is some increasing uptake within the tongue bilaterally. This could be related to motion dur ing the injection. 3. Previous anterior left vocal cord uptake has largely resolved. There is new uptake within the post erior left and right vocal cord levels and prevertebral space, which could be related to patient's tr eatment. Correlate with the patient's history. Consider direct visualization. 4. No suspicious distant uptake to suggest metastatic disease.
== END | disposition home or self-care (01) ==
LOC: RADPETMAIN 10:21
PROVIDERS: ATTEND Otolaryngology
DX: C14.0 Malignant neoplasm of pharynx, unspecified (principal); R94.8 Abnormal results of function studies of other organs and systems
CPT/HCPCS: 78815; A9552

== ENCOUNTER 2018-10-05 11:20 | Emergency (ER) | payer OTHER ==
[2018-10-05 11:45] VITALS: BP 121/73
[2018-10-05] MEDS ORDERED: KETOROLAC 30 MG/ML 1 ML VIAL IVP STA (12:24)
--- NOTE | 2018-10-05 12:26 | ED ---
General Adult HPI - General Chief complaint: Recheck/Abnormal Lab/Rx Stated complaint: neck & face pain/swelling Time Seen by Provider: 10/05/18 11:42 Source: patient, RN notes reviewed Mode of arrival: ambulatory Limitations: no limitations - History of Present Illness Initial comments: Duane is a 28-year-old male who presents to the emergency department for a chief complaint of neck swelling. Patient has a history of larynx cancer. Patient last received radiation in March 2018 and had his epiglottis and surrounding lymph nodes removed 08/28/2018. Patient states that he woke up today and he had significant edema noted to the external neck and face. States his eyelids are swollen as well. States that this did improve significantly after he was awake. States that he called his surgeon who recommended he be evaluated in the emergency determine. Patient denies any difficulty breathing or swelling. Denies feeling any sensation of swelling in the throat. States this has not happened to him before.Patient has no other complaints at this time including shortness of breath, chest pain, abdominal pain, nausea or vomiting, headache, or visual changes. - Related Data Home Medications Medication Instructions Recorded Confirmed Acetaminophen [Tylenol 8 Hour] 1,300 mg PO BID PRN 10/05/18 10/05/18 Ibuprofen [Motrin Ib] 400 - 800 mg PO TID PRN 10/05/18 10/05/18 Allergies Allergy/AdvReac Type Severity Reaction Status Date / Time No Known Allergies Allergy Verified 10/05/18 12:03 Review of Systems ROS Statement: Those systems with pertinent positive or pertinent negative responses have been documented in the HPI. ROS Other: All systems not noted in ROS Statement are negative. 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 Absent: scleral icterus, conjunctival injection, periorbital swelling ENT exam: Present: normal exam, normal oropharynx (Unremarkable), mucous membranes moist, normal external ear exam Neck exam: Present: normal inspection, full ROM, other (Mild left-sided soft tissue edema noted. No significant edema. No erythema or increased warmth.). Absent: tenderness, meningismus, lymphadenopathy Respiratory exam: Present: normal lung sounds bilaterally. Absent: respiratory distress, wheezes, rales, rhonchi, stridor Cardiovascular Exam: Present: regular rate, normal rhythm, normal heart sounds. Absent: systolic murmur, diastolic murmur, rubs, gallop, clicks Neurological exam: Present: alert, oriented X3, CN II-XII intact Psychiatric exam: Present: normal affect, normal mood Course Vital Signs 10/05/18 11:42 Temperature 97 F L Pulse Rate 58 L Respiratory 18 Rate Blood Pressure 121/73 O2 Sat by Pulse 97 Oximetry Medical Decision Making - Medical Decision Making Duane is a 28-year-old male who presents to the emergency department for a chief complaint of neck swelling. Patient has a history of larynx cancer and last received radiation in March 2018 and had his epiglottis and surrounding lymph nodes removed on 08/28/2018. She states this morning he woke up and had significant edema noted of his neck and face. States that this had resolved before he came to the emergency Department but when he called his surgeon he wanted him to be evaluated. On exam this is very minimal soft tissue swelling. Vitals are stable. Patient is well appearing. Denies any difficulty swallowing or breathing and oropharynx appears patent. CBC and CMP are unremarkable. CT soft tissue neck with contrast showed diffuse neck soft tissue edema involving the subcutaneous tissues, musculature ,mucosal space. No retropharyngeal cellulitis abscess or airway compromise. Patient reevaluated, feeling well at this time. Swelling could be secondary to the lymph node removal and seems dependent in nature. Patient will be discharged home to follow-up with his surgeon. Patient will return here if he has any worsening symptoms. - Lab Data Result diagrams: 10/05/18 12:33 10/05/18 12:33 Lab Results 10/05/18 10/05/18 Range/Units 12:33 12:33 WBC 7.0 (3.8-10.6) k/uL RBC 4.00 L (4.30-5.90) m/uL Hgb 11.7 L (13.0-17.5) gm/dL Hct 36.3 L (39.0-53.0) % MCV 90.6 (80.0-100.0) fL MCH 29.3 (25.0-35.0) pg MCHC 32.4 (31.0-37.0) g/dL RDW 13.8 (11.5-15.5) % Plt Count 252 (150-450) k/uL Neutrophils % 68 % Lymphocytes % 20 % Monocytes % 6 % Eosinophils % 4 % Basophils % 1 % Neutrophils # 4.7 (1.3-7.7) k/uL Lymphocytes # 1.4 (1.0-4.8) k/uL Monocytes # 0.4 (0-1.0) k/uL Eosinophils # 0.3 (0-0.7) k/uL Basophils # 0.1 (0-0.2) k/uL Sodium 142 (137-145) mmol/L Potassium 4.0 (3.5-5.1) mmol/L Chloride 105 (98-107) mmol/L Carbon Dioxide 29 (22-30) mmol/L Anion Gap 8 mmol/L BUN 12 (9-20) mg/dL Creatinine 0.71 (0.66-1.25) mg/dL Est GFR (CKD-EPI)AfAm >90 (>60 ml/min/1.73 sqM) Est GFR (CKD-EPI)NonAf >90 (>60 ml/min/1.73 sqM) Glucose 91 (74-99) mg/dL Calcium 9.1 (8.4-10.2) mg/dL Total Bilirubin 0.1 L (0.2-1.3) mg/dL AST 17 (17-59) U/L ALT 20 L (21-72) U/L Alkaline Phosphatase 34 L (38-126) U/L Total Protein 5.9 L (6.3-8.2) g/dL Albumin 3.7 (3.5-5.0) g/dL Disposition Clinical Impression: History of neck swelling Disposition: HOME SELF-CARE Condition: Good Instructions (If sedation given, give patient instructions): Lymphadenopathy (ED) Additional Instructions: Please follow-up with your surgeon as soon as possible. If you're having any worsening symptoms, worsening swelling, or difficulty swallowing or breathing return immediately to the nearest emergency department. Is patient prescribed a controlled substance at d/c from ED?: No Referrals: Juan Kim MD [Primary Care Provider] - 1-2 days Time of Disposition: 14:48
[2018-10-05 12:50] LABS: Basophils # (A) 0.1 k/uL (0-0.2); Basophils % (A) 1 %; Eosinophils # (A) 0.3 k/uL (0-0.7); Eosinophils % (A) 4 %; HCT 36.3 % (39.0-53.0); HGB 11.7 gm/dL (13.0-17.5); Lymphocytes # (A) 1.4 k/uL (1.0-4.8); Lymphocytes % (A) 20 %; MCH 29.3 pg (25.0-35.0); MCHC 32.4 g/dL (31.0-37.0); MCV 90.6 fL (80.0-100.0); Mean Platelet Volume 6.9; Monocytes # (A) 0.4 k/uL (0-1.0); Monocytes % (A) 6 %; Neutrophils # (A) 4.7 k/uL (1.3-7.7); Neutrophils % (A) 68 %; Platelet Count 252 k/uL (150-450); RDW 13.8 % (11.5-15.5)
[2018-10-05 13:01] LABS: ALT 20 U/L (21-72); AST 17 U/L (17-59); African American GFR (CKD) >90 (>60 ml/min/1.73 sqM); Albumin 3.7 g/dL (3.5-5.0); Alkaline Phosphatase 34 U/L (38-126); Anion Gap 8 mmol/L; Blood Urea Nitrogen 12 mg/dL (9-20); Calcium 9.1 mg/dL (8.4-10.2); Carbon Dioxide 29 mmol/L (22-30); Chloride 105 mmol/L (98-107); Glucose 91 mg/dL (74-99); Sodium 142 mmol/L (137-145); Total Bilirubin 0.1 mg/dL (0.2-1.3); Total Protein 5.9 g/dL (6.3-8.2)
--- NOTE | 2018-10-05 14:03 | CT ---
EXAMINATION TYPE: CT soft tissue neck w con DATE OF EXAM: 10/05/2018 COMPARISON: 05/22/2018 HISTORY: 28-year-old male Neck & face swelling. Patient with history of left vocal fold cancer. TECHNIQUE: Contiguous axial scanning of the soft tissues of the neck performed with IV Contrast, kolby ent injected with 100 mL of Isovue 300. Coronal/sagittal reconstructions performed. CT DLP: 231.7 mGycm Automated exposure control for dose reduction was used. FINDINGS: Visualized intracranial structures, paranasal sinuses, and mastoid air cells appear clear. Nasopharynx and oropharynx appears clear. Epiglottis and prevertebral soft tissues are normal. There is marked generalized soft tissue swelling along the neck. Edematous change extends along the deeper planes with mild generalized thickening of the mucosal spac e. Slight asymmetric soft tissue prominence along the left aryepiglottic fold is unchanged. The tracheal column is clear. Minimal emphysematous change in the visualized upper lungs. There is no airway compromise. No obvious lymphadenopathy though assessment is limited due to the diffuse edema. Thyroid gland, subm andibular glands, and parotid glands appear satisfactory. IMPRESSION: CLINICALLY CORRELATE TO THE ETIOLOGY OF PATIENT'S DIFFUSE NECK SOFT TISSUE EDEMA INVOLVING THE SUB CUTANEOUS TISSUES, MUSCULATURE, DEEPER PLANES, AND MUCOSAL SPACE. QUERY ANY RECENT RADIATION THERAPY. THERE IS NO RETROPHARYNGEAL CELLULITIS, ABSCESS, OR AIRWAY COMPROMISE SEEN.
[2018-10-05 14:59] VITALS: PULSE 63; RESP 19; TEMP 98.3
== END 2018-10-05 14:58 | disposition home or self-care (01) ==
LOC: EC 11:20
DX: R22.1 Localized swelling, mass and lump, neck (principal); Z85.21 Personal history of malignant neoplasm of larynx; Z92.3 Personal history of irradiation; Z87.891 Personal history of nicotine dependence
CPT/HCPCS: 36415; 80053; 85025; 70491; 99284; 96374; J1885; Q9967

== ENCOUNTER 2018-11-14 13:44 | Emergency (ER) | payer OTHER ==
[2018-11-14 13:48] VITALS: TEMP 97.7
[2018-11-14] MEDS ORDERED: SODIUM CHLORIDE 0.9% 2,000 ML IV STA (14:12)
[2018-11-14] MEDS ORDERED: diphenhydrAMINE 50 MG/ML 1 ML VIAL IVP STA (14:12)
[2018-11-14] MEDS ORDERED: ONDANSETRON 4 MG/2 ML VIAL IVP STA (14:12)
--- NOTE | 2018-11-14 14:34 | ED ---
Nausea/Vomiting/Diarrhea HPI - General Chief complaint: Nausea/Vomiting/Diarrhea Stated complaint: Vomiting Time Seen by Provider: 11/14/18 13:53 Source: patient, RN notes reviewed Mode of arrival: ambulatory Limitations: no limitations - History of Present Illness Initial comments: 28-year-old male presented emergency from chief complaint of nausea vomiting. Patient states started 4 hours ago. Patient states she's had he has some abdominal discomfort. Patient denies any fevers or chills. Does admit to some hot and cold flashes. Patient denies any sick contacts at this time no diarrhea. Patient states she's had no prior abdominal surgeries. Patient states that he just feels dehydrated he denies any other associated complaints. - Related Data Home Medications Medication Instructions Recorded Confirmed Acetaminophen [Tylenol 8 Hour] 1,300 mg PO BID PRN 10/05/18 10/05/18 Ibuprofen [Motrin Ib] 400 - 800 mg PO TID PRN 10/05/18 10/05/18 Previous Rx's Medication Instructions Recorded Ondansetron Odt [Zofran Odt] 4 mg PO Q8HR PRN #10 tab 11/14/18 Allergies Allergy/AdvReac Type Severity Reaction Status Date / Time No Known Allergies Allergy Verified 10/05/18 12:03 Review of Systems ROS Statement: Those systems with pertinent positive or pertinent negative responses have been documented in the HPI. ROS Other: All systems not noted in ROS Statement are negative. 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 History of Any Multi-Drug Resistant Organisms: None Reported Past Surgical History: Orthopedic Surgery Additional Past Surgical History / Comment(s): B knee, tumor removal from larynx with lymph node removal Past Psychological History: Anxiety, Depression Smoking Status: Former smoker Past Alcohol Use History: Occasional Past Drug Use History: Marijuana General Exam Limitations: no limitations General appearance: alert, in no apparent distress Head exam: Present: atraumatic, normocephalic, normal inspection ENT exam: Present: normal exam, mucous membranes moist Neck exam: Present: normal inspection, full ROM. Absent: tenderness, meningismus, lymphadenopathy Respiratory exam: Present: normal lung sounds bilaterally. Absent: respiratory distress, wheezes, rales, rhonchi, stridor Cardiovascular Exam: Present: regular rate, normal rhythm, normal heart sounds. Absent: systolic murmur, diastolic murmur, rubs, gallop, clicks GI/Abdominal exam: Present: soft, tenderness (Mild diffuse), normal bowel sounds. Absent: distended, guarding, rebound, rigid Back exam: Absent: CVA tenderness (R), CVA tenderness (L) Skin exam: Present: warm, dry, intact, normal color. Absent: rash Course Vital Signs 11/14/18 13:45 Temperature 97.7 F Pulse Rate 56 L Respiratory 18 Rate Blood Pressure 145/72 O2 Sat by Pulse 97 Oximetry Medical Decision Making - Medical Decision Making 28-year-old male presents emergency Department with chief complaint of nausea vomiting. Patient's and diffuse abdominal discomfort no localized pain. Patient had urinalysis labs is given antiemetics and IV fluids and which sym ptoms have greatly improved. Patient will be discharged at this time with antiemetics and will follow-up with PCP. - Lab Data Result diagrams: 11/14/18 14:20 11/14/18 14:20 Lab Results 11/14/18 11/14/18 11/14/18 Range/Units 14:20 14:20 15:06 WBC 14.6 H (3.8-10.6) k/uL RBC 5.22 (4.30-5.90) m/uL Hgb 15.8 D (13.0-17.5) gm/dL Hct 47.4 (39.0-53.0) % MCV 90.7 (80.0-100.0) fL MCH 30.2 (25.0-35.0) pg MCHC 33.3 (31.0-37.0) g/dL RDW 15.6 H (11.5-15.5) % Plt Count 294 (150-450) k/uL Neutrophils % 83 % Lymphocytes % 11 % Monocytes % 3 % Eosinophils % 1 % Basophils % 0 % Neutrophils # 12.2 H (1.3-7.7) k/uL Lymphocytes # 1.7 (1.0-4.8) k/uL Monocytes # 0.5 (0-1.0) k/uL Eosinophils # 0.1 (0-0.7) k/uL Basophils # 0.1 (0-0.2) k/uL Sodium 143 (137-145) mmol/L Potassium 4.6 (3.5-5.1) mmol/L Chloride 106 (98-107) mmol/L Carbon Dioxide 25 (22-30) mmol/L Anion Gap 12 mmol/L BUN 10 (9-20) mg/dL Creatinine 0.70 (0.66-1.25) mg/dL Est GFR (CKD-EPI)AfAm >90 (>60 ml/min/1.73 sqM) Est GFR (CKD-EPI)NonAf >90 (>60 ml/min/1.73 sqM) Glucose 102 H (74-99) mg/dL Calcium 10.2 (8.4-10.2) mg/dL Total Bilirubin 0.5 (0.2-1.3) mg/dL AST 26 (17-59) U/L ALT 35 (21-72) U/L Alkaline Phosphatase 52 (38-126) U/L Total Protein 8.2 (6.3-8.2) g/dL Albumin 5.1 H (3.5-5.0) g/dL Lipase 35 (23-300) U/L Urine Color Yellow Urine Appearance Clear (Clear) Urine pH 7.5 (5.0-8.0) Ur Specific [place] 1.018 (1.001-1.035) Urine Protein Negative (Negative) Urine Glucose (UA) Negative (Negative) Urine Ketones Negative (Negative) Urine Blood Negative (Negative) Urine Nitrite Negative (Negative) Urine Bilirubin Negative (Negative) Urine Urobilinogen <2.0 (<2.0) mg/dL Ur Leukocyte Esterase Negative (Negative) Disposition Clinical Impression: Nausea & vomiting Disposition: HOME SELF-CARE Condition: Stable Instructions (If sedation given, give patient instructions): Acute Nausea and Vomiting (ED) Additional Instructions: Please return to the Emergency Department if symptoms worsen or any other concerns. Prescriptions: Ondansetron Odt [Zofran Odt] 4 mg PO Q8HR PRN #10 tab PRN Reason: Nausea Is patient prescribed a controlled substance at d/c from ED?: No Referrals: Juan Kim MD [Primary Care Provider] - 1-2 days Time of Disposition: 15:50
[2018-11-14 14:46] LABS: ALT 35 U/L (21-72); AST 26 U/L (17-59); African American GFR (CKD) >90 (>60 ml/min/1.73 sqM); Albumin 5.1 g/dL (3.5-5.0); Alkaline Phosphatase 52 U/L (38-126); Anion Gap 12 mmol/L; Basophils # (A) 0.1 k/uL (0-0.2); Basophils % (A) 0 %; Blood Urea Nitrogen 10 mg/dL (9-20); Calcium 10.2 mg/dL (8.4-10.2); Carbon Dioxide 25 mmol/L (22-30); Chloride 106 mmol/L (98-107); Eosinophils # (A) 0.1 k/uL (0-0.7); Eosinophils % (A) 1 %; Glucose 102 mg/dL (74-99); HCT 47.4 % (39.0-53.0); Lymphocytes # (A) 1.7 k/uL (1.0-4.8); Lymphocytes % (A) 11 %; MCH 30.2 pg (25.0-35.0); MCHC 33.3 g/dL (31.0-37.0); MCV 90.7 fL (80.0-100.0); Monocytes # (A) 0.5 k/uL (0-1.0); Monocytes % (A) 3 %; Neutrophils # (A) 12.2 k/uL (1.3-7.7); Neutrophils % (A) 83 %; Non-African American GFR(CKD) >90 (>60 ml/min/1.73 sqM); Platelet Count 294 k/uL (150-450); Potassium 4.6 mmol/L (3.5-5.1); RBC 5.22 m/uL (4.30-5.90); RDW 15.6 % (11.5-15.5); Sodium 143 mmol/L (137-145); Total Bilirubin 0.5 mg/dL (0.2-1.3); Total Protein 8.2 g/dL (6.3-8.2); WBC 14.6 k/uL (3.8-10.6)
[2018-11-14 14:47] LABS: HGB 15.8 gm/dL (13.0-17.5)
[2018-11-14 15:18] LABS: Appearance,Urine Clear (Clear); Bilirubin,Urine Negative (Negative); Blood,Urine Negative (Negative); Color,Urine Yellow; Glucose,Urine (UA) Negative (Negative); Ketones,Urine Negative (Negative); Leukocyte Esterase,Urine Negative (Negative); Nitrite,Urine Negative (Negative); PH, Urine 7.5 (5.0-8.0); Protein,Urine Negative (Negative); Specific Gravity,Urine 1.018 (1.001-1.035); Urobilinogen,Urine <2.0 mg/dL (<2.0)
[2018-11-14 16:49] VITALS: BP 132/76; PULSE 73; RESP 16
== END 2018-11-14 16:49 | disposition home or self-care (01) ==
LOC: EC 13:44
DX: R11.2 Nausea with vomiting, unspecified (principal); R19.8 Other specified symptoms and signs involving the digestive system and abdomen; Z87.891 Personal history of nicotine dependence; Z85.21 Personal history of malignant neoplasm of larynx; Z92.3 Personal history of irradiation; Z98.890 Other specified postprocedural states
CPT/HCPCS: 36415; 80053; 83690; 85025; 81003; 99284; 96374; 96375; 96361 ×2; J1200; J2405

== ENCOUNTER → 2018-12-27 | Outpatient (CLI) | payer OTHER ==
--- NOTE | 2018-12-27 17:50 | CT ---
EXAMINATION TYPE: CT neck chest w con DATE OF EXAM: 12/27/2018 COMPARISON: 10/05/2018 HISTORY: Laryngeal cancer follow up. CT DLP: 1217 mGycm CONTRAST: Patient injected with 100 mL of Isovue 300. TECHNIQUE: Axial images at 3 mm thick sections. Reconstructed images in the coronal plane and sagitt al plane are reviewed. FINDINGS: Limited CT sections are obtained the lung apices. The lung apices appear clear. CT neck: The torus tubarius and fossa of Rosenmuller are normal. Wrecking Mechanic spaces are normal. Para nasal sinuses and mastoid air cells are clear. Parotid glands appear normal and symmetrical. Submandibular glands, are normal. Parapharyngeal spac es are normal. No suspicious adenopathy is evident. The hypopharynx appears within normal limits. Vocal cord level appear symmetrical. There does appear to be some change between the 10/05/2018 and the current examination to the vocal cord level. Thyroid as visualized is normal. Osseous structures are normal. IMPRESSIONS: 1. No suspicious changes within the soft tissues of the neck EXAMINATION TYPE: CT neck chest w con DATE OF EXAM: 12/27/2018 COMPARISON: None HISTORY: Laryngeal cancer follow up. CT DLP: 1217 mGycm, Automated exposure control for dose reduction was used. CONTRAST: Performed injected with 100 mL of Isovue 300. TECHNIQUE: Axial images were obtained at 5 mm thick sections. Reconstructed images are reviewed on [employer] computer in the coronal plane. FINDINGS: Portion of the thyroid visualized is normal. No suspicious lung nodules or focal infiltrates are present. No enlarged mediastinal or hilar adenopathy is evident. The ascending aorta diameter at the level o f the main pulmonary artery is 2.7 cm. The main pulmonary artery diameter at the bifurcation is 2.[address] sections are obtained through the upper abdomen. Abdomen is essentially unremarkable. IMPRESSIONS: 1. No suspicious changes to suggest recurrent or metastatic laryngeal carcinoma.
== END | disposition home or self-care (01) ==
LOC: RADCTMAIN 15:05
PROVIDERS: ATTEND Otolaryngology
DX: C32.0 Malignant neoplasm of glottis (principal); F17.210 Nicotine dependence, cigarettes, uncomplicated; Z92.3 Personal history of irradiation
CPT/HCPCS: 70491; 71260; Q9967

== ENCOUNTER → 2019-01-08 | Outpatient (CLI) | payer OTHER ==
--- NOTE | 2019-01-08 16:42 | CT ---
EXAMINATION TYPE: CT abdomen pelvis wo con DATE OF EXAM: 01/08/2019 COMPARISON: None HISTORY: Back pain and LLQ pain CT DLP: 345.1 mGycm Automated exposure control for dose reduction was used. TECHNIQUE: Helical acquisition of images was performed from the lung bases through the pelvis. FINDINGS: The lung bases are clear. There is no pleural effusion. Heart size is normal. There is no sign of per icardial effusion. Liver spleen pancreas stomach gallbladder appear normal. Bile ducts are not dilate d. There is no adrenal mass. Kidneys have normal size. There is no hydronephrosis. Ureters are not dilat ed. Appendix appears normal. There is no retroperitoneal adenopathy. Bladder distends smoothly. There is no inguinal hernia. There is no free fluid in the pelvis. There i s no small bowel mesenteric edema. There is no sign of ascites or free air. There is no evidence of a bowel obstruction. There is very minimal edema around the proximal sigmoid colon and descending colo n. Lumbar vertebra have normal spacing and alignment. Posterior elements are intact. There is no comp ression fracture. Bony pelvis appears intact. IMPRESSION: THERE IS VERY MINIMAL INFLAMMATORY CHANGES AROUND THE DESCENDING COLON AND PROXIMAL SIGMOID COLON JOSHUA T COULD RELATE TO MILD COLITIS. NORMAL APPENDIX.
== END ==
LOC: RADCTMAIN 10:07
PROVIDERS: ATTEND Family Medicine
DX: R19.09 Other intra-abdominal and pelvic swelling, mass and lump (principal); R10.31 Right lower quadrant pain
CPT/HCPCS: 74176

== ENCOUNTER 2019-02-28 10:14 | Emergency (ER) | payer OTHER ==
[2019-02-28 10:22] VITALS: BP 118/51; PULSE 67; RESP 18; TEMP 97.9
[2019-02-28] MEDS ORDERED: TOBRAMYCIN 0.3% OPHTH DROPS 5 ML BTL LEFT EYE STA (10:31)
[2019-02-28] MEDS ORDERED: PROPARACAINE 0.5% OPHTH DROPS 15 ML BTL LEFT EYE STA (10:31)
--- NOTE | 2019-02-28 10:37 | ED ---
Eye Problem HPI - General Chief complaint: Eye Problems Stated complaint: eye injury Time Seen by Provider: 02/28/19 10:29 Source: patient, RN notes reviewed Mode of arrival: ambulatory Limitations: no limitations - History of Present Illness Initial comments: 29-year-old male presents emergency Department with chief complaint left eye pain. Patient states that he was clearing some brush states that a branch scratched his left eye. He states he put an eye patch on last night states he woke up states that some irritation had intermittent blurred vision with tearing. Patient states his last tetanus was approximately 3 years ago. He does not wear any contacts or glasses. - Related Data Home Medications Medication Instructions Recorded Confirmed Acetaminophen [Tylenol 8 Hour] 1,300 mg PO BID PRN 10/05/18 10/05/18 Ibuprofen [Motrin Ib] 400 - 800 mg PO TID PRN 10/05/18 10/05/18 Previous Rx's Medication Instructions Recorded Ondansetron Odt [Zofran Odt] 4 mg PO Q8HR PRN #10 tab 11/14/18 Allergies Allergy/AdvReac Type Severity Reaction Status Date / Time No Known Allergies Allergy Verified 02/28/19 10:19 Review of Systems ROS Statement: Those systems with pertinent positive or pertinent negative responses have been documented in the HPI. ROS Other: All systems not noted in ROS Statement are negative. 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 Absent: normal appearance, scleral icterus, periorbital swelling Pupils: Present: normal accommodation, other (Patient for relief of symptoms with proparacaine, no blurred vision, fluorescein dye and Wood's lamp were used there is uptake in the central cornea region no foreign body identified) ENT exam: Present: normal exam, normal oropharynx, mucous membranes moist, TM's normal bilaterally, normal external ear exam Neck exam: Present: normal inspection, full ROM. Absent: tenderness, meningismus, lymphadenopathy Respiratory exam: Present: normal lung sounds bilaterally. Absent: respiratory distress, wheezes, rales, rhonchi, stridor Cardiovascular Exam: Present: regular rate, normal rhythm, normal heart sounds. Absent: systolic murmur, diastolic murmur, rubs, gallop, clicks Neurological exam: Present: alert, oriented X3 Skin exam: Present: warm, dry, intact, normal color. Absent: rash Course Vital Signs 02/28/19 10:19 Temperature 97.9 F Pulse Rate 67 Respiratory 18 Rate Blood Pressure 118/51 O2 Sat by Pulse 97 Oximetry Medical Decision Making - Medical Decision Making Patient's found to have a left corneal abrasion. Patient was placed on Tobrex eyedrops instructed use one dropperful 4 hours for next 7 days. Patient will be given follow-up. Disposition Clinical Impression: Corneal abrasion Disposition: HOME SELF-CARE Condition: Stable Instructions (If sedation given, give patient instructions): Corneal Abrasion (ED) Additional Instructions: Please return to the Emergency Department if symptoms worsen or any other concerns. Is patient prescribed a controlled substance at d/c from ED?: No Referrals: Juan Kim MD [Primary Care Provider] - 1-2 days Stanley Landis MD [STAFF PHYSICIAN] - 1-2 days Time of Disposition: 10:55
== END 2019-02-28 11:38 | disposition home or self-care (01) ==
LOC: EC 10:14
DX: S05.02XA Injury of conjunctiva and corneal abrasion without foreign body, left eye, initial encounter (principal); Z87.891 Personal history of nicotine dependence; W22.8XXA Striking against or struck by other objects, initial encounter
CPT/HCPCS: 99283

== ENCOUNTER 2019-04-14 09:06 | Emergency (ER) | payer OTHER ==
[2019-04-14 09:11] VITALS: TEMP 97.4
[2019-04-14] MEDS ORDERED: KETOROLAC 30 MG/ML 1 ML VIAL IVP STA (09:59)
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
--- NOTE | 2019-04-14 10:19 | XR ---
EXAMINATION TYPE: XR chest 2V DATE OF EXAM: 04/14/2019 COMPARISON: NONE HISTORY: Chest pain TECHNIQUE: Frontal and lateral views of the chest are obtained. FINDINGS: There is no focal air space opacity, pleural effusion, or pneumothorax seen. The cardiac silhouette size is within normal limits. The osseous structures are intact. Surgical clips are seen from the lung apices. IMPRESSION: No acute cardiopulmonary process.
[2019-04-14 10:24] LABS: Basophils # (A) 0.1 k/uL (0-0.2); Basophils % (A) 1 %; Eosinophils # (A) 0.5 k/uL (0-0.7); Eosinophils % (A) 5 %; HGB 14.8 gm/dL (13.0-17.5); Lymphocytes % (A) 24 %; MCH 30.6 pg (25.0-35.0); MCHC 33.6 g/dL (31.0-37.0); MCV 90.9 fL (80.0-100.0); Mean Platelet Volume 7.5; Monocytes # (A) 0.4 k/uL (0-1.0); Monocytes % (A) 5 %; Neutrophils # (A) 5.3 k/uL (1.3-7.7); Neutrophils % (A) 64 %; Platelet Count 277 k/uL (150-450); RBC 4.84 m/uL (4.30-5.90); RDW 13.8 % (11.5-15.5); WBC 8.4 k/uL (3.8-10.6)
[2019-04-14 10:35] LABS: ALT 15 U/L (4-49); AST 27 U/L (17-59); African American GFR (CKD) >90 (>60 ml/min/1.73 sqM); Albumin 4.4 g/dL (3.5-5.0); Alkaline Phosphatase 43 U/L (38-126); Anion Gap 8 mmol/L; Blood Urea Nitrogen 9 mg/dL (9-20); C Reactive Protein <5.0 mg/L (<10.0); Calcium 9.4 mg/dL (8.4-10.2); Carbon Dioxide 26 mmol/L (22-30); Chloride 106 mmol/L (98-107); Glucose 85 mg/dL (74-99); Magnesium 1.9 mg/dL (1.6-2.3); Non-African American GFR(CKD) >90 (>60 ml/min/1.73 sqM); Potassium 4.2 mmol/L (3.5-5.1); Sodium 140 mmol/L (137-145); Total Bilirubin 0.4 mg/dL (0.2-1.3); Total Protein 7.2 g/dL (6.3-8.2)
[2019-04-14 10:42] LABS: D-Dimer 0.2 mg/L FEU (<0.60); INR 0.9 (<1.2); Partial Thromboplastin Time 27.7 sec (22.0-30.0)
[2019-04-14 11:39] VITALS: PULSE 50; RESP 18
[2019-04-14 12:20] VITALS: BP 133/70
== END 2019-04-14 12:20 | disposition home or self-care (01) ==
LOC: EC 09:06
DX: R07.9 Chest pain, unspecified (principal); Z85.21 Personal history of malignant neoplasm of larynx; Z87.891 Personal history of nicotine dependence
CPT/HCPCS: 36415; 93005; 85379; 80053; 83690; 83735; 84484; 85025; 85610; 85730; 86140; 71046; 99285; 96374; J1885

== ENCOUNTER → 2019-04-22 | Outpatient (CLI) | payer OTHER ==
[2019-04-22 20:30] LABS: T4, Free (Free Thyroxine) 1.2 ng/dL (0.80-1.80)
== END | disposition home or self-care (01) ==
LOC: LABWHC1 13:16
PROVIDERS: ATTEND Otolaryngology
DX: C32.0 Malignant neoplasm of glottis (principal); F17.210 Nicotine dependence, cigarettes, uncomplicated; Z92.3 Personal history of irradiation; Z85.21 Personal history of malignant neoplasm of larynx
CPT/HCPCS: 36415; 84439; 84443; 84481

== ENCOUNTER 2019-05-21 11:34 | Emergency (ER) | payer OTHER ==
[2019-05-21 11:40] VITALS: RESP 20; TEMP 98
--- NOTE | 2019-05-21 12:02 | ED ---
Upper Extremity HPI - General Chief Complaint: Extremity Injury, Upper Stated Complaint: Right Wrist Pain Time Seen by Provider: 05/21/19 11:41 Source: patient Mode of arrival: ambulatory Limitations: no limitations - History of Present Illness Initial Comments: 29-year-old male presenting today for chief complaint of right distal forearm pain x 1 week. Patient states that 2 weeks ago he punched something with his right hand he states he mostly noted pain in the knuckles however once the pain and knuckles subsided he began to notice pain in the right wrist along the side of the thumb. Patient states is more the distal forearm rather than the wrist joint itself. 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 Patient denies any hand swelling, chest pain. He states he feels that there is some swelling localized over the dorsal aspect of the left left forearm radial side. Patient denies redness, skin changes. Patient was concerned that when he punched the wall that he had hurt his forearm and no noticed secondary to the hand pain. Remaining ROS (-). Upon arrival patient appears well there is no signs of acute distress. - Related Data Home Medications Medication Instructions Recorded Confirmed No Known Home Medications 02/28/19 04/14/19 Allergies Allergy/AdvReac Type Severity Reaction Status Date / Time No Known Allergies Allergy Verified 05/21/19 11:40 Review of Systems ROS Statement: Those systems with pertinent positive or pertinent negative responses have been documented in the HPI. ROS Other: All systems not noted in ROS Statement are negative. 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 No nystagmus. There is normal conjunctiva bilaterally. No signs of icterus. Cardiovascular: There is a regular rate and rhythm. No murmur, rub or gallop is appreciated. Respiratory: Lungs are clear to auscultation, respirations are non-labored, breath sounds are equal. No wheezes, stridor, rales, or rhonchi. Musculoskeletal: Upon inspection of the wrist bilaterally there is no erythema there is slight raised area on radial aspect of distal forearm dorsal side, + Mary Anne. Patient has no pain over the ventral aspect of wrist. Patient has no hand swelling, or pain along humerous, proximal forearm. Normal ROM at the wrist and elbow joints there is no tenderness. No scaphoid tenderness to palpation. Strength 5/5. Sensation intact. Radial pulses equal bilaterally 2+. Neurological: A&O x 3. CN II-XII intact grossly, There are no obvious motor or sensory deficits. Coordination appears grossly intact. Speech is normal. Skin: Skin is warm and dry and no rashes or lesions are noted. Psychiatric: Cooperative, appropriate mood & affect, normal judgment. Limitations: no limitations Course Vital Signs 05/21/19 05/21/19 05/21/19 11:38 11:40 12:40 Temperature 98.0 F Pulse Rate 60 62 Respiratory 20 20 20 Rate Blood Pressure 126/70 121/78 O2 Sat by Pulse 99 99 Oximetry 05/21/19 12:54 Temperature Pulse Rate Respiratory 20 Rate Blood Pressure O2 Sat by Pulse Oximetry Medical Decision Making - Medical Decision Making XR (-) for osseous injury. Able to range at wrist, no redness, no fevers. + Mary Anne. Repetitive hammering motion with right wrist. At this time I feel this is most likely a tendonitis from overuse Patient will be treated wtih nsaids, rest, ICE and orthopedic and PCP f/u Patient agreeable to care plan. discussed care plan with Dr. Mathis who is agreeable to discharge. Disposition Clinical Impression: Right forearm pain, Overuse injury Disposition: HOME SELF-CARE Condition: Good Instructions (If sedation given, give patient instructions): Tendinitis (ED) Additional Instructions: Please use medication as discussed. Please follow-up with family doctor in the next 2 days, if symptoms are persistent please follow-up with orthopedics as discussed otherwise he may follow up with primary care provider. Please return to emergency room if the symptoms increase or worsen or for any other concerns. Is patient prescribed a controlled substance at d/c from ED?: No Referrals: Lamonte Schwab Jr, DO [Primary Care Provider] - 1-2 days Ivan Mosher DO [Medical Doctor] - 1-2 days Time of Disposition: 12:43
[2019-05-21] MEDS ORDERED: ACET/COD 300 MG/30 MG STARTER PACK 6 TAB BTL PO STA (12:43)
[2019-05-21 12:53] VITALS: BP 121/78; PULSE 62
--- NOTE | 2019-05-21 13:01 | XR ---
EXAMINATION TYPE: XR forearm RT , 2 VIEWS DATE OF EXAM ORDERED: 05/21/2019 HISTORY: pain, injury 2 weeks ago. COMPARISON: None. FINDINGS: No fracture or dislocation is seen. IMPRESSION: NO ACUTE OSSEOUS LESION.
== END 2019-05-21 12:54 | disposition home or self-care (01) ==
LOC: EC 11:34
DX: S69.91XA Unspecified injury of right wrist, hand and finger(s), initial encounter (principal); M79.631 Pain in right forearm; Z87.891 Personal history of nicotine dependence; Z85.21 Personal history of malignant neoplasm of larynx; Z92.3 Personal history of irradiation; Z98.890 Other specified postprocedural states; W22.01XA Walked into wall, initial encounter
CPT/HCPCS: 99283

== ENCOUNTER 2019-06-09 13:38 | Emergency (ER) | payer OTHER ==
[2019-06-09 13:43] VITALS: BP 125/69; PULSE 58; RESP 18; TEMP 97.6
[2019-06-09] MEDS ORDERED: PANTOPRAZOLE 40 MG/10 ML VIAL IVP STA (14:19)
[2019-06-09] MEDS ORDERED: ONDANSETRON 4 MG/2 ML VIAL IVP STA (14:19)
[2019-06-09] MEDS ORDERED: SODIUM CHLORIDE 0.9% 1,000 ML IV STA ×2 (14:19)
[2019-06-09 15:14] LABS: Basophils % (A) 0 %; Eosinophils # (A) 0.3 k/uL (0-0.7); Eosinophils % (A) 3 %; HCT 41.7 % (39.0-53.0); HGB 14.2 gm/dL (13.0-17.5); Lymphocytes # (A) 2.8 k/uL (1.0-4.8); Lymphocytes % (A) 25 %; MCH 30.8 pg (25.0-35.0); MCHC 33.9 g/dL (31.0-37.0); MCV 90.7 fL (80.0-100.0); Mean Platelet Volume 7.2; Monocytes # (A) 0.7 k/uL (0-1.0); Monocytes % (A) 6 %; Neutrophils % (A) 64 %; Platelet Count 252 k/uL (150-450); RDW 13.8 % (11.5-15.5)
[2019-06-09 15:20] LABS: ALT 14 U/L (4-49); AST 22 U/L (17-59); African American GFR (CKD) >90 (>60 ml/min/1.73 sqM); Albumin 4.2 g/dL (3.5-5.0); Alkaline Phosphatase 36 U/L (38-126); Anion Gap 7 mmol/L; Blood Urea Nitrogen 11 mg/dL (9-20); Carbon Dioxide 26 mmol/L (22-30); Chloride 105 mmol/L (98-107); Glucose 91 mg/dL (74-99); Non-African American GFR(CKD) >90 (>60 ml/min/1.73 sqM); Potassium 3.9 mmol/L (3.5-5.1); Sodium 138 mmol/L (137-145); Total Bilirubin 0.4 mg/dL (0.2-1.3); Total Protein 6.8 g/dL (6.3-8.2)
--- NOTE | 2019-06-09 15:22 | ED ---
GI Bleed HPI - General Chief complaint: GI Bleed Stated complaint: rectal bleeding Time Seen by Provider: 06/09/19 13:49 Source: patient, RN notes reviewed, old records reviewed Mode of arrival: ambulatory Limitations: no limitations - History of Present Illness Initial comments: Patient is a pleasant 29-year-old male with a history of throat cancer currently in remission. He presents emergency Department today with complaints of bloody stools, and left sided abdominal pain severe cramping for the past 24 hours. Patient reports is not on blood thinners. Patient reports he's been diagnosed intimately with colitis. He states that he's been on steroids or sees a GI specialist at this time. Patient denies any fevers or chills. - Related Data Previous Rx's Medication Instructions Recorded Amoxic-Pot Clav 875-125Mg 1 tab PO Q12HR #20 tablet 06/09/19 [Augmentin 875-125] Allergies Allergy/AdvReac Type Severity Reaction Status Date / Time No Known Allergies Allergy Verified 06/09/19 13:43 Review of Systems ROS Statement: Those systems with pertinent positive or pertinent negative responses have been documented in the HPI. ROS Other: All systems not noted in ROS Statement are negative. 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 No significant distress. Limitations: no limitations General appearance: alert, in no apparent distress Head exam: Present: atraumatic, normocephalic, normal inspection Eye exam: Present: normal appearance ENT exam: Present: normal exam, mucous membranes moist Neck exam: Present: normal inspection. Absent: tenderness, meningismus, lymphadenopathy Respiratory exam: Present: normal lung sounds bilaterally. Absent: respiratory distress, wheezes, rales, rhonchi, stridor Cardiovascular Exam: Present: regular rate, normal rhythm, normal heart sounds. Absent: systolic murmur, diastolic murmur, rubs, gallop, clicks GI/Abdominal exam: Present: soft, normal bowel sounds. Absent: distended, tenderness, guarding, rebound, rigid Extremities exam: Present: normal inspection, full ROM, normal capillary refill. Absent: tenderness, pedal edema, joint swelling, calf tenderness Back exam: Present: normal inspection Neurological exam: Present: alert, oriented X3, CN II-XII intact Psychiatric exam: Present: normal affect, normal mood Skin exam: Present: warm, dry, intact, normal color. Absent: rash Course Vital Signs 06/09/19 13:39 Temperature 97.6 F Pulse Rate 58 L Respiratory 18 Rate Blood Pressure 125/69 O2 Sat by Pulse 98 Oximetry Medical Decision Making - Medical Decision Making 29-year-old male presented today for evaluation for bloody stools left-sided abdominal pain for one day. Patient admits to some left-sided tenderness. No significant rebound or guarding. Patient's labwork was reviewed also normal. Hemoglobin is stable. CT abdomen and pelvis shows evidence of focal colitis. Discussed treatment for treatment of this time with antibiotic anti-inflammatory medication. I discussed return parameters and PCP follow-up. All questions were answered return parameters were discussed. - Lab Data Result diagrams: 06/09/19 15:00 06/09/19 15:00 Lab Results 06/09/19 06/09/19 06/09/19 Range/Units 15:00 15:00 15:00 WBC 11.0 H (3.8-10.6) k/uL RBC 4.60 (4.30-5.90) m/uL Hgb 14.2 (13.0-17.5) gm/dL Hct 41.7 (39.0-53.0) % MCV 90.7 (80.0-100.0) fL MCH 30.8 (25.0-35.0) pg MCHC 33.9 (31.0-37.0) g/dL RDW 13.8 (11.5-15.5) % Plt Count 252 (150-450) k/uL Neutrophils % 64 % Lymphocytes % 25 % Monocytes % 6 % Eosinophils % 3 % Basophils % 0 % Neutrophils # 7.0 (1.3-7.7) k/uL Lymphocytes # 2.8 (1.0-4.8) k/uL Monocytes # 0.7 (0-1.0) k/uL Eosinophils # 0.3 (0-0.7) k/uL Basophils # 0.0 (0-0.2) k/uL APTT 25.2 (22.0-30.0) sec Sodium 138 (137-145) mmol/L Potassium 3.9 (3.5-5.1) mmol/L Chloride 105 (98-107) mmol/L Carbon Dioxide 26 (22-30) mmol/L Anion Gap 7 mmol/L BUN 11 (9-20) mg/dL Creatinine 0.75 (0.66-1.25) mg/dL Est GFR (CKD-EPI)AfAm >90 (>60 ml/min/1.73 sqM) Est GFR (CKD-EPI)NonAf >90 (>60 ml/min/1.73 sqM) Glucose 91 (74-99) mg/dL Calcium 9.0 (8.4-10.2) mg/dL Total Bilirubin 0.4 (0.2-1.3) mg/dL AST 22 (17-59) U/L ALT 14 (4-49) U/L Alkaline Phosphatase 36 L (38-126) U/L Total Protein 6.8 (6.3-8.2) g/dL Albumin 4.2 (3.5-5.0) g/dL - Radiology Data Radiology results: report reviewed Short segment of wall thickening mid to lower descending colon with mild focal that stranding. Correlating for regional colitis. Additional circumferential bladder wall thickening. Correlate to exclude cystitis. Disposition Clinical Impression: Colitis Disposition: HOME SELF-CARE Condition: Good Instructions (If sedation given, give patient instructions): Colitis (ED) Additional Instructions: Patient advised clear liquid diet for the next 12-24 hours and advance to bananas, rice applesauce and toast diet. Follow-up with your primary care doctor. Return to the emergency department if any alarming signs or symptoms occur. Prescriptions: Amoxic-Pot Clav 875-125Mg [Augmentin 875-125] 1 tab PO Q12HR #20 tablet Is patient prescribed a controlled substance at d/c from ED?: No Referrals: Lamonte Schwab Jr, DO [Primary Care Provider] - 1-2 days Mikie Mirza MD [STAFF PHYSICIAN] - 1-2 days Time of Disposition: 16:39
--- NOTE | 2019-06-09 16:32 | CT ---
EXAMINATION TYPE: CT abdomen pelvis w con DATE OF EXAM: 06/09/2019 COMPARISON: 01/08/2019 HISTORY: 29-year-old male pain, Rectal bleeding TECHNIQUE: Contiguous axial scanning of the abdomen and pelvis following administration of 100 ml Iso libby 300 IV contrast. Delayed images through the kidneys and coronal/sagittal reconstructions perform ed. CT DLP: 903.4 mGycm Automated exposure control for dose reduction was used. FINDINGS: LUNG BASES: Some dependent hazy atelectasis. No pleural effusion. Tiny hiatal hernia. LIVER/GB: No significant abnormality is appreciated. No biliary ductal dilatation. Portal venous syst em is patent. PANCREAS: No significant abnormality is seen. SPLEEN: No significant abnormality is seen. ADRENALS: No significant abnormality is seen. KIDNEYS: No significant abnormality is seen. LYMPH NODES: No mesenteric or retroperitoneal lymphadenopathy. REPRODUCTIVE ORGANS: Prostate gland measures 4.5 cm wide. Mild circumferential bladder wall thickenin g. No abnormal fluid collection in the pelvis or pelvic lymphadenopathy. BOWEL: No dilated small bowel, free fluid, or free air. Normal appendix. Short segment circumferent ial wall thickening mid to lower descending colon. Minimal pericolonic fat stranding is noted here. N o other pericolonic inflammatory change identified. BONES: No osseous destructive process. IMPRESSION: 1. Short segment wall thickening of the mid to lower descending colon with mild focal fat stranding h ere. Correlate for mild nonspecific regional colitis. 2. Additional mild circumferential bladder wall thickening. Correlate to exclude cystitis.
[2019-06-09] MEDS ORDERED: AMOXIC-POT CLAV 875MG STARTER PACK 2 TAB BTL PO STA (16:40)
[2019-06-09] MEDS ORDERED: ACET/COD 300 MG/30 MG STARTER PACK 6 TAB BTL PO STA (16:41)
== END 2019-06-09 17:05 | disposition home or self-care (01) ==
LOC: EC 13:38
DX: K50.10 Crohn's disease of large intestine without complications (principal); Z85.819 Personal history of malignant neoplasm of unspecified site of lip, oral cavity, and pharynx; Z87.891 Personal history of nicotine dependence; Z92.3 Personal history of irradiation; Z98.890 Other specified postprocedural states
CPT/HCPCS: 36415; 80053; 85025; 85730; 82272; 74177; 96374; 96375; 96361; 99285; J2405; C9113; Q9967

== ENCOUNTER 2019-11-04 21:08 | Emergency (ER) | payer OTHER ==
[2019-11-04 21:12] VITALS: RESP 16; TEMP 98.4
[2019-11-04] MEDS ORDERED: DEXAMETHASONE SOD PHOSPHATE 10 MG/ML 1 ML VIAL IM STA (21:55)
--- NOTE | 2019-11-04 22:12 | ED ---
General Adult HPI - General Chief complaint: ENT Stated complaint: throat pain Time Seen by Provider: 11/04/19 21:25 Source: patient, RN notes reviewed Mode of arrival: ambulatory Limitations: no limitations - History of Present Illness Initial comments: 29-year-old male with a past medical history of laryngeal cancer with radiation and resection one year ago presents to the emergency room for a chief complaint of throat pain. Patient states he's had a sore throat for about 3 days. States it feels a little swollen as well. states the pain in his throat is causing him to speak differently and his voice to be hoarse. Patient states he was seen in urgent care and had a negative strep test performed. This was yesterday. Patient denies fevers or chills. Patient denies any difficulty swallowing solids. States it is painful to swallow liquids but he is able to do so.Patient has no other complaints at this time including shortness of breath, chest pain, abdominal pain, nausea or vomiting, headache, or visual changes. - Related Data Home Medications Medication Instructions Recorded Confirmed Acetaminophen Tab [Tylenol] 650 mg PO Q4H PRN 11/04/19 11/04/19 Betamethasone Dipropionate 1 applic TOPICAL HS 11/04/19 11/04/19 [Betamethasone Dipropionate 0.05%] Ibuprofen [Motrin Ib] 600 mg PO Q8H PRN 11/04/19 11/04/19 Allergies Allergy/AdvReac Type Severity Reaction Status Date / Time No Known Allergies Allergy Verified 11/04/19 21:52 Review of Systems ROS Statement: Those systems with pertinent positive or pertinent negative responses have been documented in the HPI. ROS Other: All systems not noted in ROS Statement are negative. 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 Absent: scleral icterus, conjunctival injection, periorbital swelling ENT exam: Present: normal exam, mucous membranes moist, TM's normal bilaterally, normal external ear exam. Absent: normal oropharynx (patient has erythema noted to the posterior oropharynx however no tonsillar exudates bilaterally. No evidence for peritonsillar abscess. No swelling of the tonsils.) Neck exam: Present: normal inspection, full ROM. Absent: tenderness, meningismus, lymphadenopathy Respiratory exam: Present: normal lung sounds bilaterally. Absent: respiratory distress, wheezes, rales, rhonchi, stridor Cardiovascular Exam: Present: regular rate, normal rhythm, normal heart sounds. Absent: systolic murmur, diastolic murmur, rubs, gallop, clicks GI/Abdominal exam: Present: soft, normal bowel sounds. Absent: distended, tenderness, guarding, rebound, rigid Neurological exam: Present: alert Course Vital Signs 11/04/19 21:09 Temperature 98.4 F Pulse Rate 62 Respiratory 16 Rate Blood Pressure 158/70 O2 Sat by Pulse 97 Oximetry Medical Decision Making - Medical Decision Making I did offer to do a CT of patient's soft tissue neck however he reports that he just had a CT last month which was clear. He reports he has an appointment with his surgeon early next week. Strep was repeated which was negative. Heterophile profile negative. No fevers. Patient will be given a dose of Decadron here in the emergency room. he is tolerating oral intake. He has no difficulty handling oral secretions. He will follow up with primary care in 1-2 days. He will return here for any worsening symptoms. - Lab Data Lab Results 11/04/19 11/04/19 Range/Units 22:01 22:02 Heterophile Antibody Negative (Negative) Group A Strep Rapid Negative (Negative) Disposition Clinical Impression: Pharyngitis Disposition: HOME SELF-CARE Condition: Good Instructions (If sedation given, give patient instructions): Pharyngitis (ED) Additional Instructions: Please follow up with your surgeon next week at your appointment. however if you develop worsening symptoms return to the emergency room. Is patient prescribed a controlled substance at d/c from ED?: No Referrals: Lamonte Schwab Jr, [Primary Care Provider] - 1-2 days Time of Disposition: 22:34
[2019-11-04 22:42] VITALS: BP 130/90; PULSE 64
== END 2019-11-04 22:43 | disposition home or self-care (01) ==
LOC: EC 21:08
DX: J02.9 Acute pharyngitis, unspecified (principal); Z20.828 Contact with and (suspected) exposure to other viral communicable diseases; Z87.891 Personal history of nicotine dependence; Z92.3 Personal history of irradiation; Z85.21 Personal history of malignant neoplasm of larynx; Z98.890 Other specified postprocedural states
CPT/HCPCS: 36415; 86308; 87081; 87430; 99283; 96372; U0003; J1100

== ENCOUNTER 2019-11-06 05:58 | Emergency (ER) | payer OTHER ==
[2019-11-06 06:06] VITALS: RESP 16
[2019-11-06] MEDS ORDERED: ACET/COD 300 MG/30 MG STARTER PACK 6 TAB BTL PO STA (06:25)
[2019-11-06] MEDS ORDERED: methylPREDNISolone SOD SUCCI 125 MG/2 ML VIAL IM STA (06:25)
--- NOTE | 2019-11-06 06:53 | ED ---
General Adult HPI - General Chief complaint: ENT Stated complaint: Throat pain Time Seen by Provider: 11/06/19 06:18 Source: patient, RN notes reviewed, old records reviewed Mode of arrival: ambulatory Limitations: no limitations - History of Present Illness Initial comments: 29-year-old male patient past medical history of laryngeal cancer status post resection and radiation approximately one year ago presents ED chief complaint of sore throat. Patient reports that has ongoing for the last 3 days. Denies any shortness of breath or any fevers. Patient reports that he was in here 2 days ago and he has started shot which he felt helped. He felt relief for a day and then pain again last night. Patient reports that he is seeing his surgeon on and will defer imaging to him. He reports that he had a computed tomography scan and endoscopy last month which was negative. He is requesting symptomatic relief. He states he available to tolerate orals without difficulty. He denies any other acute complaints. Systemic: Pt denies fatigue, fever/chills, rash. Pt denies weakness, night sweats, weight loss. Neuro: Pt denies headache, visual disturbances, syncope or pre-syncope. HEENT: Pt denies ocular discharge or irritation, otalgia, rhinorrhea, or notable lymphadenopathy. Cardiopulmonary: Pt denies chest pain, SOB, heart palpitations, dyspnea on exertion. Abdominal/GI: Pt denies abdominal pain, n/v/d. : Pt denies dysuria, burning w/ urination, frequency/urgency. Denies new onset urinary or bowel incontinence. MSK: Pt denies myalgia, loss of strength or function in extremities. Neuro: Pt denies new onset weakness, paresthesias. - Related Data Home Medications Medication Instructions Recorded Confirmed Acetaminophen Tab [Tylenol] 650 mg PO Q4H PRN 11/04/19 11/04/19 Betamethasone Dipropionate 1 applic TOPICAL HS 11/04/19 11/04/19 [Betamethasone Dipropionate 0.05%] Ibuprofen [Motrin Ib] 600 mg PO Q8H PRN 11/04/19 11/04/19 Previous Rx's Medication Instructions Recorded predniSONE [predniSONE 5 MG/5 ML 25 mg PO Q12HR 4 Days #1 bottle 11/06/19 Oral Soln] Allergies Allergy/AdvReac Type Severity Reaction Status Date / Time No Known Allergies Allergy Verified 11/04/19 21:52 Review of Systems ROS Statement: Those systems with pertinent positive or pertinent negative responses have been documented in the HPI. ROS Other: All systems not noted in ROS Statement are negative. 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 HEENT: NC/AT, trachea midline, neck supple, no lymphadenopathy. Left anterior cervical region is mildly tender to palpation without any skin changes warmth or fluctuance. Posterior pharynx non erythematous, without exudates. External ears appear normal, without discharge. Mucous membranes moist. Eyes PERRLA, EOM intact. There is no scleral icterus. No pallor noted. Cardiopulmonary: RRR, no murmurs, rubs or gallops, no JVD noted. Lungs CTAB in anterior and posterior saini. No peripheral edema. Abdominal exam: Abdomen soft and non-distended. Abdomen non-tender to palpation in all 4 quadrants. Bowel sounds active in LLQ. No hepatosplenomegaly. No ecchymosis Neuro: CN II-XII grossly intact. No nuchal rigidity. No raccon eyes, no tamayo sign, no hemotympanum. No cervical spinal tenderness. MSK: Full active ROM in upper and lower extremities, 5/5 stregnth. Limitations: no limitations Course Vital Signs 11/06/19 11/06/19 06:02 07:22 Temperature 98.1 F 97.6 F Pulse Rate 72 62 Respiratory 16 16 Rate Blood Pressure 140/94 138/102 O2 Sat by Pulse 96 96 Oximetry Medical Decision Making - Medical Decision Making 29-year-old male patient proceeded chief complaint of sore throat. Patient is requesting symptomatic relief. Patient will be initiated on burst steroid treatment will follow-up with his primary care provider as well as his surgery on . He will return to ED if condition worsens. Csae discussed with Dr. Gupta. Disposition Clinical Impression: Sore throat Disposition: HOME SELF-CARE Condition: Stable Instructions (If sedation given, give patient instructions): Strep Throat (ED) Additional Instructions: Follow-up with primary care provider tomorrow follow-up with surgeon at scheduled appointment. Return to ER if any worsening symptoms. Prescriptions: predniSONE [predniSONE 5 MG/5 ML Oral Soln] 25 mg PO Q12HR 4 Days #1 bottle Is patient prescribed a controlled substance at d/c from ED?: No Referrals: Lamonte Schwab Jr, [Primary Care Provider] - 1-2 days
[2019-11-06 07:23] VITALS: BP 138/102; PULSE 62; TEMP 97.6
== END 2019-11-06 07:23 | disposition home or self-care (01) ==
LOC: EC 05:58
DX: J02.9 Acute pharyngitis, unspecified (principal); Z87.891 Personal history of nicotine dependence; Z85.21 Personal history of malignant neoplasm of larynx; Z92.3 Personal history of irradiation
CPT/HCPCS: 99283; 96372; J2930

== ENCOUNTER 2019-11-07 08:33 | Emergency (ER) | payer OTHER ==
[2019-11-07 08:38] VITALS: TEMP 97.9
--- NOTE | 2019-11-07 08:40 | ED ---
ENT HPI - General Chief complaint: ENT Stated complaint: throat problems-revisit Time Seen by Provider: 11/07/19 08:38 Source: patient Mode of arrival: ambulatory - History of Present Illness Initial comments: Patient is a 29-year-old male with history of laryngeal cancer presenting to the emergency department with a chief complaint of sore throat. Patient states she underwent radiation 2 years ago and had throat surgery last year with complete left ovary removal in the neck. Patient states over the last week he has developed sore throat with increasing severity. Patient reports her last 2 days developed dysphagia and down aphasia. Patient reports he is also developed a hoarse voice. Patient states that this point is only able to keep fluids down or even that is painful. Denies any night sweats fevers or chills. Denies any facial or semitubular swelling. States she has appointment with the surgeon on . States he was given Decadron yesterday which helped the symptoms and was discharged with prednisone. Patient does report improvement of symptoms. Patient states he had a CAT scan and scope by the surgeon and it was unremarkable. - Related Data Home Medications Medication Instructions Recorded Confirmed Acetaminophen-Codeine 300-30mg 1 tab PO Q6H PRN 11/07/19 11/07/19 [Tylenol w/codeine #3] predniSONE [Deltasone] 20 mg PO BID 11/07/19 11/07/19 Allergies Allergy/AdvReac Type Severity Reaction Status Date / Time No Known Allergies Allergy Verified 11/07/19 09:07 Review of Systems ROS Statement: Those systems with pertinent positive or pertinent negative responses have been documented in the HPI. ROS Other: All systems not noted in ROS Statement are negative. 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 History of Any Multi-Drug Resistant Organisms: None Reported Past Surgical History: Orthopedic Surgery Additional Past Surgical History / Comment(s): B knee, tumor removal from larynx with lymph node removal Past Psychological History: Anxiety, Depression Smoking Status: Former smoker Past Alcohol Use History: Occasional Past Drug Use History: Marijuana General Exam Limitations: no limitations General appearance: alert, in no apparent distress Head exam: Present: atraumatic, normocephalic, normal inspection Eye exam: Present: normal appearance, PERRL, EOMI Pupils: Present: normal accommodation ENT exam: Present: normal exam, mucous membranes moist, TM's normal bilaterally, normal external ear exam, other (Scarring from previous surgery in the anterior aspect of the neck. No submandibular tenderness or any tenderness on the floor the mouth.). Absent: normal oropharynx (Mild to moderate pharyngeal and tonsillar erythema but no exudates or swelling.) Neck exam: Present: normal inspection, full ROM. Absent: tenderness Respiratory exam: Present: normal lung sounds bilaterally. Absent: respiratory distress, wheezes, rales Cardiovascular Exam: Present: regular rate, normal rhythm, normal heart sounds Extremities exam: Present: normal inspection, full ROM. Absent: tenderness Course Vital Signs 11/07/19 11/07/19 08:35 11:17 Temperature 97.9 F Pulse Rate 71 60 Respiratory 18 14 Rate Blood Pressure 137/80 129/82 O2 Sat by Pulse 98 98 Oximetry Medical Decision Making - Medical Decision Making Patient is a 29-year-old male with history of laryngeal cancer presenting to emergency Department with chief complaint of sore throat. Patient has been in the emergency department twice previously for the exact same symptoms. Patient was started on Decadron and then discharged with prednisone which she has not been able to take because her tablets. No signs of fluids angina. There is no significant some inability swelling. Exam only reveals pharyngeal erythema with no signs of edema or exudates. CT of the soft tissue neck reveals asymmetry the vocal cords with vallecula left greater than the right with hypoechoic mass noted in the left measuring 1.3 cm. Recurrent neoplasm cannot be excluded. Patient does have hoarse voice which could be explained by this finding. Prior to discharge, patient was able to tolerate orals. He ate some parts of his sandwich, multiple puddings. Tolerating fluids without an issue. I spoke with from [facility] who states there is a concerned for recurrance of the cancer. He will f/p with patient in 3 days. Strict return parameters were thoroughly discussed with patient's attending agreeable. Case discussed physician. - Lab Data Result diagrams: 11/07/19 09:11 11/07/19 09:11 Lab Results 11/07/19 11/07/19 Range/Units 09:11 09:11 WBC 20.3 H (3.8-10.6) k/uL RBC 4.38 (4.30-5.90) m/uL Hgb 13.2 (13.0-17.5) gm/dL Hct 40.5 (39.0-53.0) % MCV 92.4 (80.0-100.0) fL MCH 30.2 (25.0-35.0) pg MCHC 32.7 (31.0-37.0) g/dL RDW 13.7 (11.5-15.5) % Plt Count 312 (150-450) k/uL Neutrophils % 89 % Lymphocytes % 6 % Monocytes % 3 % Eosinophils % 1 % Basophils % 0 % Neutrophils # 17.9 H (1.3-7.7) k/uL Lymphocytes # 1.3 (1.0-4.8) k/uL Monocytes # 0.7 (0-1.0) k/uL Eosinophils # 0.2 (0-0.7) k/uL Basophils # 0.0 (0-0.2) k/uL Sodium 138 (137-145) mmol/L Potassium 3.8 (3.5-5.1) mmol/L Chloride 103 (98-107) mmol/L Carbon Dioxide 26 (22-30) mmol/L Anion Gap 9 mmol/L BUN 15 (9-20) mg/dL Creatinine 0.62 L (0.66-1.25) mg/dL Est GFR (CKD-EPI)AfAm >90 (>60 ml/min/1.73 sqM) Est GFR (CKD-EPI)NonAf >90 (>60 ml/min/1.73 sqM) Glucose 125 H (74-99) mg/dL Calcium 9.1 (8.4-10.2) mg/dL Total Bilirubin 0.6 (0.2-1.3) mg/dL AST 24 (17-59) U/L ALT 17 (4-49) U/L Alkaline Phosphatase 43 (38-126) U/L Total Protein 7.1 (6.3-8.2) g/dL Albumin 4.3 (3.5-5.0) g/dL Disposition Clinical Impression: Sore throat, Vocal cord mass Disposition: HOME SELF-CARE Condition: Stable Instructions (If sedation given, give patient instructions): Strep Throat (DC) Additional Instructions: Follow-up with your surgeon. Return to emergency department if symptoms worsen. Is patient prescribed a controlled substance at d/c from ED?: No Referrals: Lamonte Schwab Jr, [Primary Care Provider] - 1-2 days Time of Disposition: 11:45
[2019-11-07] MEDS ORDERED: SODIUM CHLORIDE 0.9% 1,000 ML IV STA (09:03)
[2019-11-07] MEDS ORDERED: DEXAMETHASONE SOD PHOSPHATE 10 MG/ML 1 ML VIAL IV STA (09:03)
[2019-11-07 09:21] LABS: Basophils % (A) 0 %; Eosinophils # (A) 0.2 k/uL (0-0.7); Eosinophils % (A) 1 %; HCT 40.5 % (39.0-53.0); HGB 13.2 gm/dL (13.0-17.5); Lymphocytes # (A) 1.3 k/uL (1.0-4.8); Lymphocytes % (A) 6 %; MCH 30.2 pg (25.0-35.0); MCHC 32.7 g/dL (31.0-37.0); MCV 92.4 fL (80.0-100.0); Mean Platelet Volume 7.2; Monocytes # (A) 0.7 k/uL (0-1.0); Monocytes % (A) 3 %; Neutrophils # (A) 17.9 k/uL (1.3-7.7); Neutrophils % (A) 89 %; Platelet Count 312 k/uL (150-450); RBC 4.38 m/uL (4.30-5.90); RDW 13.7 % (11.5-15.5); WBC 20.3 k/uL (3.8-10.6)
[2019-11-07 09:34] LABS: ALT 17 U/L (4-49); AST 24 U/L (17-59); African American GFR (CKD) >90 (>60 ml/min/1.73 sqM); Albumin 4.3 g/dL (3.5-5.0); Alkaline Phosphatase 43 U/L (38-126); Anion Gap 9 mmol/L; Blood Urea Nitrogen 15 mg/dL (9-20); Calcium 9.1 mg/dL (8.4-10.2); Carbon Dioxide 26 mmol/L (22-30); Chloride 103 mmol/L (98-107); Glucose 125 mg/dL (74-99); Non-African American GFR(CKD) >90 (>60 ml/min/1.73 sqM); Potassium 3.8 mmol/L (3.5-5.1); Sodium 138 mmol/L (137-145); Total Bilirubin 0.6 mg/dL (0.2-1.3); Total Protein 7.1 g/dL (6.3-8.2)
--- NOTE | 2019-11-07 09:42 | CT ---
EXAMINATION TYPE: CT soft tissue neck w con DATE OF EXAM: 11/07/2019 COMPARISON: None HISTORY: Sore thraot and difficulty swallowing for 7 days, CT DLP: 325.4 mGycm CONTRAST: CT scan of the neck is performed with IV Contrast, patient injected with 100 mL of Isovue 300. Contrast enhanced CT of the neck was performed from the skull base through the lung apices. AIRWAY: There is asymmetry of the vocal cords and vallecula left greater than right with hypoechoic m ass noted on the left measuring 1.3 cm. Direct visualization is advised. Recurrent neoplasm not exclu ded. Base of the tongue is unremarkable. Supra glottic airway is within normal limits. SALIVARY GLANDS: The submandibular and parotid glands are free of mass or inflammatory process. THYROID GLAND: No nodules or masses seen. LYMPH NODES: Changes of left-sided lymph node dissection within the internal jugular chain. No adenop athy seen greater than 1cm. LUNG APICES: No nodule or mass is seen. OTHER: Vascular structures are patent. No significant degenerative change of the cervical spine. N o abscess seen. IMPRESSION: 1.There is asymmetry of the vocal cords and vallecula left greater than right with hypoechoic mass no law on the left measuring 1.3 cm. Direct visualization is advised. Recurrent neoplasm not excluded.
[2019-11-07] MEDS ORDERED: KETOROLAC 30 MG/ML 1 ML VIAL IVP STA (09:51)
[2019-11-07] MEDS ORDERED: MORPHINE SULFATE 4 MG/ML SYRINGE IVP STA (10:40)
[2019-11-07 11:17] VITALS: BP 129/82; PULSE 60; RESP 14
== END 2019-11-07 11:47 | disposition home or self-care (01) ==
LOC: EC 08:33
DX: J02.9 Acute pharyngitis, unspecified (principal); R22.1 Localized swelling, mass and lump, neck; G89.29 Other chronic pain; M54.9 Dorsalgia, unspecified; Z79.52 Long term (current) use of systemic steroids; Z87.891 Personal history of nicotine dependence; Z92.23 Personal history of estrogen therapy; Z90.89 Acquired absence of other organs; Z85.21 Personal history of malignant neoplasm of larynx
CPT/HCPCS: 36415; 80053; 85025; 70491; 99284; 96374; 96375 ×2; 96361; J2270; J1100; J1885; Q9967

== ENCOUNTER 2020-05-04 16:30 | Emergency (ER) | payer OTHER ==
[2020-05-04 16:47] VITALS: BP 130/80; PULSE 62; RESP 18; TEMP 98.3
[2020-05-04] MEDS ORDERED: SULFAMETHOX-TMP 800-160MG 1 EACH TAB PO STA (17:09)
--- NOTE | 2020-05-04 17:17 | ED ---
Skin/Abscess/FB HPI - General Chief complaint: Skin/Abscess/Foreign Body Stated complaint: Facial Abscess Time Seen by Provider: 05/04/20 16:50 Source: patient Mode of arrival: ambulatory Limitations: no limitations - History of Present Illness Initial comments: 30-year-old male with history of laryngeal cancer presents emergency from chief complaint of an abscess. Patient reports he does have a history of cysts on his face which typically are not problematic. However, over the last few days noticed increased discomfort on an existing cyst on the right-sided face. States he attempted to squeeze and only blood was removed with some clear liquid. He denies any overlying cellulitic skin changes but does report tenderness to the touch. States it also grew in size. He denies any night sweats or chills. - Related Data Home Medications Medication Instructions Recorded Confirmed Acetaminophen-Codeine 300-30mg 1 tab PO Q6H PRN 11/07/19 11/07/19 [Tylenol w/codeine #3] predniSONE [Deltasone] 20 mg PO BID 11/07/19 11/07/19 Previous Rx's Medication Instructions Recorded Sulfamethox-Tmp 800-160Mg [Bactrim 1 each PO Q12HR #20 tab 05/04/20 Ds] Allergies Allergy/AdvReac Type Severity Reaction Status Date / Time No Known Allergies Allergy Verified 05/04/20 16:47 Review of Systems ROS Statement: Those systems with pertinent positive or pertinent negative responses have been documented in the HPI. ROS Other: All systems not noted in ROS Statement are negative. 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 History of Any Multi-Drug Resistant Organisms: None Reported Past Surgical History: Orthopedic Surgery Additional Past Surgical History / Comment(s): B knee, tumor removal from larynx with lymph node removal Past Psychological History: Anxiety, Depression Smoking Status: Former smoker Past Alcohol Use History: None Reported Past Drug Use History: Marijuana General Exam Limitations: no limitations General appearance: alert, in no apparent distress Head exam: Present: atraumatic, normocephalic, normal inspection Eye exam: Present: normal appearance, PERRL, EOMI Pupils: Present: normal accommodation ENT exam: Present: normal exam, normal oropharynx (Upper dentures.), mucous membranes moist, TM's normal bilaterally, normal external ear exam, other (Skin lesion noted on the right side of the fascia measuring approximately 1.5cm in diameter. It is fluctuant. No overlying cellulitic skin changes.) Neck exam: Present: normal inspection, full ROM, lymphadenopathy (Right submandibular lymph node). Absent: tenderness Respiratory exam: Present: normal lung sounds bilaterally. Absent: respiratory distress, wheezes, rales Cardiovascular Exam: Present: regular rate, normal rhythm, normal heart sounds Extremities exam: Present: normal inspection, full ROM, normal capillary refill. Absent: tenderness, pedal edema, joint swelling Back exam: Present: normal inspection, full ROM Neurological exam: Present: alert, oriented X3, normal gait Psychiatric exam: Present: normal affect, normal mood Skin exam: Present: warm, dry, intact, normal color Course Vital Signs 05/04/20 16:45 Temperature 98.3 F Pulse Rate 62 Respiratory 18 Rate Blood Pressure 130/80 O2 Sat by Pulse 100 Oximetry Procedures - Incision & Drainage Consent Obtained: verbal consent Indication: Abscess Site: face Size (cm): 2 I&D Cleaning Method: Alcohol Wipe Sterile Field Used?: No Needle Aspiration Performed?: Yes Irrigation Performed?: No I&D Drainage Obtained: Blood Culture Obtained?: No Patient Tolerated Procedure: well, no complications Medical Decision Making - Medical Decision Making 30-year-old male presents to emergency department with chief complaint of an abscess. Physical examination, there is a lesion on the right side of his measuring approximately 1.5 cm in diameter. No overlying cellulitic skin changes. He will be started on Bactrim. He cannot swallow tablets while soda tablets will be crushed and this was okayed by inpatient pharmacy. He'll be discharged in 10 day course of Bactrim. I did perform needle aspiration and only blood was removed. No signs of any pustular drainage. He was advised to apply warm compresses to the region. Return parameters discussed the patient is understanding and agreeable. Case discussed with Dr owens Disposition Clinical Impression: Cutaneous abscess Disposition: HOME SELF-CARE Condition: Stable Instructions (If sedation given, give patient instructions): Abscess (ED) Additional Instructions: Take prescribed medication as directed. Follow up with specialist. Return to emergency department if symptoms worsen. Prescriptions: Sulfamethox-Tmp 800-160Mg [Bactrim Ds] 1 each PO Q12HR #20 tab Is patient prescribed a controlled substance at d/c from ED?: No Referrals: Lamonte Schwab Jr, [Primary Care Provider] - 1-2 days Time of Disposition: 17:18
== END 2020-05-04 17:28 | disposition home or self-care (01) ==
LOC: EC 16:30
DX: L02.01 Cutaneous abscess of face (principal); Z85.21 Personal history of malignant neoplasm of larynx; Z87.891 Personal history of nicotine dependence; Z92.3 Personal history of irradiation; Z98.890 Other specified postprocedural states
CPT/HCPCS: 10060; 99282

== ENCOUNTER 2020-05-12 16:27 | Emergency (ER) | payer OTHER ==
[2020-05-12 16:33] VITALS: BP 134/84; PULSE 54; RESP 18; TEMP 98.6
[2020-05-12] MEDS ORDERED: MORPHINE SULFATE 4 MG/ML SYRINGE IM STA (16:52)
[2020-05-12] MEDS ORDERED: KETOROLAC 15 MG/ML 1 ML VIAL IM STA (16:52)
[2020-05-12] MEDS ORDERED: CEPHALEXIN 500MG STARTER PACK 4 CAP BTL PO STA (17:06)
[2020-05-12] MEDS ORDERED: DOXYCYCLINE 100 MG CAP PO STA (17:06)
--- NOTE | 2020-05-12 17:11 | ED ---
General Adult HPI - General Chief complaint: Recheck/Abnormal Lab/Rx Stated complaint: Cyst, ENT Time Seen by Provider: 05/12/20 16:35 Source: patient, RN notes reviewed, old records reviewed Mode of arrival: ambulatory Limitations: no limitations - History of Present Illness Initial comments: 30-year-old male history of laryngeal cancer, currently following with oncology presenting for reevaluation of a right facial abscess. Patient was seen approximately one week ago had a needle aspiration and was started on antibiotics of a right facial abscess. He states that he was unable to tolerate the antibiotics secondary to ALLERGIC reaction. He was put on Bactrim at that time. He states that this is continuing to swell, no significant drainage. No fevers. He reports only minimal surrounding redness. He's been trying warm compresses with minimal relief. - Related Data Home Medications Medication Instructions Recorded Confirmed Acetaminophen-Codeine 300-30mg 1 tab PO Q6H PRN 11/07/19 11/07/19 [Tylenol w/codeine #3] predniSONE [Deltasone] 20 mg PO BID 11/07/19 11/07/19 Previous Rx's Medication Instructions Recorded Sulfamethox-Tmp 800-160Mg [Bactrim 1 each PO Q12HR #20 tab 05/04/20 Ds] Cephalexin [Keflex] 500 mg PO Q6HR 7 Days #28 cap 05/12/20 Doxycycline [Vibramycin] 100 mg PO BID 1 Days #14 capsule 05/12/20 HYDROcodone/APAP 5-325MG [[place] 1 tab PO Q6HR PRN #12 tab 05/12/20 5-325] Allergies Allergy/AdvReac Type Severity Reaction Status Date / Time sulfamethoxazole Allergy Rash/Hives Verified 05/12/20 16:33 [From Bactrim] trimethoprim [From Bactrim] Allergy Rash/Hives Verified 05/12/20 16:33 Review of Systems ROS Statement: Those systems with pertinent positive or pertinent negative responses have been documented in the HPI. ROS Other: All systems not noted in ROS Statement are negative. 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 History of Any Multi-Drug Resistant Organisms: None Reported Past Surgical History: Orthopedic Surgery Additional Past Surgical History / Comment(s): B knee, tumor removal from larynx with lymph node removal, half of epigottis removed Past Psychological History: Anxiety, Depression Smoking Status: Former smoker Past Alcohol Use History: None Reported Past Drug Use History: Marijuana General Exam Limitations: no limitations General appearance: alert, in no apparent distress Head exam: Present: atraumatic, normocephalic Eye exam: Present: normal appearance ENT exam: Present: other (Right cheek, there is a approximately 2 cm x 2 cm abscess with central fluctuance, minimal surrounding cellulitis) Neck exam: Absent: lymphadenopathy Respiratory exam: Present: normal lung sounds bilaterally. Absent: respiratory distress, wheezes Cardiovascular Exam: Present: regular rate, normal rhythm GI/Abdominal exam: Present: soft. Absent: distended, tenderness, guarding Extremities exam: Present: normal inspection, normal capillary refill. Absent: pedal edema Neurological exam: Present: alert, oriented X3, CN II-XII intact. Absent: motor sensory deficit Psychiatric exam: Present: normal affect, normal mood Skin exam: Present: warm Course Vital Signs 05/12/20 16:29 Temperature 98.6 F Pulse Rate 54 L Respiratory 18 Rate Blood Pressure 134/84 O2 Sat by Pulse 98 Oximetry Procedures - Incision & Drainage Consent Obtained: verbal consent (Patient advised that this may leave more significant of a scar and needle aspiration but that incision with 11 blade was recommended given the size of this abscess. Patient in full agreement, requesti ng drainage of abscess.) Site: face Size (cm): 2 I&D Cleaning Method: Chloroprep Sterile Field Used?: Yes Scalpel Used: #11 Needle Aspiration Performed?: No Irrigation Performed?: No I&D Drainage Obtained: Pus, Blood Packing: Iodoform Culture Obtained?: Yes Patient Tolerated Procedure: well Medical Decision Making - Medical Decision Making 30-year-old male presenting for right facial abscess. Patient nontoxic appearing unable to tolerate Bactrim secondary to ALLERGIC reaction. Patient is requesting incision and drainage, I did discuss the aspiration versus incision with 11 blade and the patient prefers mL complete drainage at this time. A 5 mm incision is made over the central fluctuant region of the abscess with approximately 10 mL of purulent drainage with minimal blood. Iodoform packing is placed. Patient will continue warm compresses. He is switched to Keflex and doxycycline. He has a follow-up with his oncologist within the next 2 weeks. He will follow-up with his primary care physician for reevaluation within 24-48 hours. Disposition Clinical Impression: Facial abscess, Cutaneous abscess Disposition: HOME SELF-CARE Condition: Fair Instructions (If sedation given, give patient instructions): Abscess Incision and Drainage (ED), Abscess (ED) Prescriptions: Cephalexin [Keflex] 500 mg PO Q6HR 7 Days #28 cap HYDROcodone/APAP 5-325MG [[place] 5-325] 1 tab PO Q6HR PRN #12 tab PRN Reason: Pain Doxycycline [Vibramycin] 100 mg PO BID 1 Days #14 capsule Is patient prescribed a controlled substance at d/c from ED?: No Referrals: Lamonte Schwab Jr, [Primary Care Provider] - 1-2 days Time of Disposition: 17:11
== END 2020-05-12 17:31 | disposition home or self-care (01) ==
LOC: EC 16:27
DX: L02.01 Cutaneous abscess of face (principal); Z88.1 Allergy status to other antibiotic agents; Z88.2 Allergy status to sulfonamides; Z87.891 Personal history of nicotine dependence; Z85.21 Personal history of malignant neoplasm of larynx; Z92.3 Personal history of irradiation
CPT/HCPCS: 87070; 87205; 99283; 96372 ×2; 10060; J2270; J1885

== ENCOUNTER 2020-05-14 10:33 | Emergency (ER) | payer OTHER ==
--- NOTE | 2020-05-14 11:28 | ED ---
Chest Pain HPI - General Chief Complaint: Chest Pain Stated Complaint: chest pain, hand/foot numbness Time Seen by Provider: 05/14/20 11:13 Source: patient Mode of arrival: ambulatory Limitations: no limitations - History of Present Illness Initial Comments: 30-year-old male with history of active larynx cancer with previous removal of left side of larynx and removal of 1/2 epiglottis (2016) presenting for cc of intermittent chest pain 1 month (states "main complaint"), episode of neck pain left sided that lasted 10 minutes last night, tingling in hands and feet b/l for the past 3 days. Patient states that he has had intermittent sharp stabbing chest pain as mostly left side that has been ongoing for the last month. Patient denies any significant shortness of breath denies calf pain, hemoptysis. He denies a nausea vomiting he denies pressure he does of being a pattern with ambulation or activity. Patient states is very intermittent and random when it does occur. Patient states last night near his area of radiation and previous laryngectomy he had a sharp pain in the neck that lasted approximately 10 minutes and has resolved and not returned. He states he does have chronic left- sided neck pain since the surgery until 15. Patient also states a past days he has had a tingling sensation in his hands and feet bilaterally states today he feels better he denies unilateral tingling weakness sensation deficits states changes visual changes or loss of vision, speech changes. Pt denies cough, fevers. Patient denies additional complaints. Upon arrival patient appears well nontoxic in no distress. - Related Data Home Medications Medication Instructions Recorded Confirmed Levothyroxine Sodium [Synthroid] 100 mcg PO DAILY 05/14/20 05/14/20 Previous Rx's Medication Instructions Recorded Cephalexin [Keflex] 500 mg PO Q6HR 7 Days #28 cap 05/12/20 Doxycycline [Vibramycin] 100 mg PO BID 1 Days #14 capsule 05/12/20 HYDROcodone/APAP 5-325MG [[place] 1 tab PO Q6HR PRN #12 tab 05/12/20 5-325] Allergies Allergy/AdvReac Type Severity Reaction Status Date / Time sulfamethoxazole Allergy Rash/Hives Verified 05/14/20 11:47 [From Bactrim] trimethoprim [From Bactrim] Allergy Rash/Hives Verified 05/14/20 11:47 Review of Systems ROS Statement: Those systems with pertinent positive or pertinent negative responses have been documented in the HPI. ROS Other: All systems not noted in ROS Statement are negative. 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 History of Any Multi-Drug Resistant Organisms: None Reported Past Surgical History: Orthopedic Surgery Additional Past Surgical History / Comment(s): B knee, tumor removal from larynx with lymph node removal, half of epigottis removed Past Psychological History: Anxiety, Depression Smoking Status: Former smoker Past Alcohol Use History: None Reported Past Drug Use History: Marijuana General Exam - General Exam Comments Initial Comments: General: The patient is awake and alert, in no distress Eye: +3 mm pupils are equal, round and reactive to light, extra-ocular movements are intact. No nystagmus. There is normal conjunctiva bilaterally. No signs of icterus. Ears, nose, mouth and throat: There are moist mucous membranes and no oral lesions. Neck: The neck is supple, there is no tenderness or JVD. Cardiovascular: There is a regular rate and rhythm. No murmur, rub or gallop is appreciated. Respiratory: Lungs are clear to auscultation, respirations are non-labored, breath sounds are equal. No wheezes, stridor, rales, or rhonchi. Gastrointestinal: [Soft, non-distended, non-tender abdomen without masses or organomegaly noted. There is no rebound or guarding present. Musculoskeletal: Normal ROM, no tenderness. Strength 5/5 of the UE and LE b/l including admin dir strength. Sensation intact of the UE and LE equal b/l. Radial and DP pulses equal bilaterally 2+. Neurological: A&O x 3. CN II-XII intact, There are no obvious motor or sensory deficits. Coordination appears grossly intact. Speech is normal. Skin: Skin is warm and dry and no rashes or lesions are noted. No calf pain, no LE edema. Psychiatric: Cooperative, appropriate mood & affect, normal judgment. Limitations: no limitations Course Vital Signs 05/14/20 05/14/20 10:48 13:36 Temperature 98.2 F 97.8 F Pulse Rate 61 58 L Respiratory 18 16 Rate Blood Pressure 135/89 128/70 O2 Sat by Pulse 98 98 Oximetry Chest Pain MDM - MDM 30yo male presenting for cc of neck pain x once. paresthesias x 3 dayss b/l hands and feet. Chest pain x 1 month, sharp. Pt CTA no PE. No aneursym. Trop (- ). EKG bradycardia otherwise no ischemic findings. Patient labs stable. CT of neck no acute findings. pt pain appear atypical. pt case discussed with Dr. العلي who reviewed EKG.at this time we feel patient is stable for discharge with outpatient follow-up return for any shortness of breath worsening pain or progressive symptoms/ Patient agreeable tot his care plan. pt was requesting pa in medications for his chronic pain-not new pains. patient discharged appearing well, agreeable to care plan. Disposition Clinical Impression: Chest pain, Neck pain Disposition: HOME SELF-CARE Condition: Good Instructions (If sedation given, give patient instructions): Chest Pain (ED) Additional Instructions: Please use medication as discussed. Please follow-up with family doctor in the next 2 days. Please return to emergency room if the symptoms increase or worsen or for any other concerns. Is patient prescribed a controlled substance at d/c from ED?: No Referrals: Lamonte Schwab Jr, DO [Primary Care Provider] - 1-2 days Time of Disposition: 13:07
[2020-05-14 11:45] LABS: Basophils # (A) 0.1 k/uL (0-0.2); Basophils % (A) 2 %; Eosinophils # (A) 0.7 k/uL (0-0.7); Eosinophils % (A) 8 %; HCT 49.6 % (39.0-53.0); HGB 16.6 gm/dL (13.0-17.5); Lymphocytes # (A) 2.5 k/uL (1.0-4.8); Lymphocytes % (A) 31 %; MCH 28.1 pg (25.0-35.0); MCHC 33.4 g/dL (31.0-37.0); Monocytes # (A) 0.4 k/uL (0-1.0); Monocytes % (A) 5 %; Neutrophils # (A) 4.2 k/uL (1.3-7.7); Neutrophils % (A) 52 %; Platelet Count 345 k/uL (150-450); RDW 14.7 % (11.5-15.5)
[2020-05-14] MEDS ORDERED: HYDROmorphone 0.5 MG/0.5 ML SYRINGE IVP STA (11:54)
[2020-05-14 11:56] LABS: ALT 25 U/L (4-49); AST 30 U/L (17-59); African American GFR (CKD) >90 (>60 ml/min/1.73 sqM); Albumin 5.4 g/dL (3.5-5.0); Alkaline Phosphatase 57 U/L (38-126); Anion Gap 14 mmol/L; Blood Urea Nitrogen 8 mg/dL (9-20); Calcium 10.5 mg/dL (8.4-10.2); Carbon Dioxide 25 mmol/L (22-30); Chloride 103 mmol/L (98-107); Glucose 90 mg/dL (74-99); Non-African American GFR(CKD) >90 (>60 ml/min/1.73 sqM); Potassium 4.4 mmol/L (3.5-5.1); Sodium 142 mmol/L (137-145); Total Bilirubin 0.6 mg/dL (0.2-1.3); Total Protein 9.1 g/dL (6.3-8.2)
[2020-05-14 12:02] LABS: Partial Thromboplastin Time 27.5 sec (22.0-30.0); Prothrombin Time 11.1 sec (9.0-12.0)
--- NOTE | 2020-05-14 12:20 | XR ---
EXAMINATION TYPE: XR chest 2V DATE OF EXAM: 05/14/2020 COMPARISON: 04/14/2019 HISTORY: 30-year-old male chest pain TECHNIQUE: AP and lateral views FINDINGS: The cardiomediastinal silhouette, aorta, and pulmonary vasculature are within normal limits. Lungs an d pleural spaces are clear. Surgical clips along the base of the neck on both sides. IMPRESSION: No acute cardiopulmonary process.
--- NOTE | 2020-05-14 12:33 | CT ---
EXAMINATION TYPE: CT chest angio for PE DATE OF EXAM: 05/14/2020 COMPARISON: None HISTORY: chest pain, neck pain, larynx CA CT DLP: 367.3 mGycm CONTRAST: CT chest with contrast and 3D reconstruction with MIP imaging is performed with IV Contrast, patient injected with 80 mL of Isovue 370. Contrast-enhanced CT of the chest was performed through the course of the pulmonary arteries with nella g and mediastinal window settings submitted. 3D reconstruction with MIP imaging was also performed. PULMONARY ARTERIES: The pulmonary arteries and their major tributaries are patent. I do not see brayan dence for sizable filling defect to suggest pulmonary embolic process. LUNGS: The lungs are clear and free of infiltrate. No evidence for atelectasis. No pulmonary nodule or mass is detected. No pleural effusion. MEDIASTINUM: Thoracic aorta is of normal caliber,however, evaluation is limited given timing of the contrast bolus. If there is concern for thoracic aortic pathology consider CLAUDETTE. Correlate clinicall y . The heart is not enlarged. No evidence for mediastinal mass. No mediastinal lymph nodes greater than 1cm. HILAR STRUCTURES: No evidence for mass. No hilar lymph nodes greater than 1 cm. UPPER ABDOMEN: No significant abnormality is seen. IMPRESSION: 1. No evidence for Pulmonary embolism at this time.
--- NOTE | 2020-05-14 12:36 | CT ---
EXAMINATION TYPE: CT angio neck DATE OF EXAM: 05/14/2020 COMPARISON: None HISTORY: chest pain, neck pain, larynx CA CT DLP: 367.3 mGycm CONTRAST: CTA cervical carotids is performed and with IV Contrast, patient injected with 80 mL of Isovue 370. Contrast CTA of the cervical carotids was performed 3-D reconstruction imaging obtained at a separate workstation. Right carotid system: No plaque is seen of the right common carotid artery. There is no significant plaque noted at the carotid bulb or proximal ICA. ECA is patent. Right vertebral artery appears un remarkable. Left carotid system: No plaque is seen of the left common carotid artery. There is no significant no law at the carotid bulb ECA is patent. Left vertebral artery appears unremarkable. IMPRESSION: No evidence for dissection or hemodynamically significant stenosis.
[2020-05-14] MEDS ORDERED: MORPHINE SULFATE 2 MG/ML SYRINGE IVP STA (13:10)
[2020-05-14 13:37] VITALS: BP 128/70; PULSE 58; RESP 16; TEMP 97.8
== END 2020-05-14 13:37 | disposition home or self-care (01) ==
LOC: EC 10:33
DX: C32.9 Malignant neoplasm of larynx, unspecified (principal); R07.9 Chest pain, unspecified; Z92.3 Personal history of irradiation; Z87.891 Personal history of nicotine dependence; Z90.02 Acquired absence of larynx; Z88.1 Allergy status to other antibiotic agents; Z88.2 Allergy status to sulfonamides
CPT/HCPCS: 36415; 93005; 83880; 80053; 83735; 84484; 85025; 85610; 85730; 71046; 70498; 71275; 99285; 96374; 96375; J2270; J1170; Q9967

== ENCOUNTER 2020-05-31 16:28 | Emergency (ER) | payer OTHER ==
[2020-05-31] MEDS ORDERED: ACETAMINOPHEN TAB 500 MG TAB PO STA (17:17)
[2020-05-31] MEDS ORDERED: ONDANSETRON 4 MG/2 ML VIAL IVP STA (17:17)
[2020-05-31] MEDS ORDERED: SODIUM CHLORIDE 0.9% 1,000 ML IV ONE (17:17)
[2020-05-31 17:26] LABS: Basophils % (A) 0 %; Eosinophils # (A) 0.2 k/uL (0-0.7); Eosinophils % (A) 2 %; HGB 15.3 gm/dL (13.0-17.5); Lymphocytes # (A) 1.1 k/uL (1.0-4.8); Lymphocytes % (A) 12 %; MCH 28.5 pg (25.0-35.0); MCHC 34.7 g/dL (31.0-37.0); MCV 82.2 fL (80.0-100.0); Mean Platelet Volume 6.5; Monocytes # (A) 0.5 k/uL (0-1.0); Monocytes % (A) 5 %; Neutrophils # (A) 7.9 k/uL (1.3-7.7); Neutrophils % (A) 80 %; Platelet Count 280 k/uL (150-450); RBC 5.35 m/uL (4.30-5.90); RDW 14.2 % (11.5-15.5); WBC 9.9 k/uL (3.8-10.6)
[2020-05-31 17:40] LABS: ALT 18 U/L (4-49); AST 22 U/L (17-59); African American GFR (CKD) >90 (>60 ml/min/1.73 sqM); Alkaline Phosphatase 54 U/L (38-126); Anion Gap 13 mmol/L; Blood Urea Nitrogen 7 mg/dL (9-20); Carbon Dioxide 26 mmol/L (22-30); Chloride 98 mmol/L (98-107); Creatine Kinase 97 U/L (55-170); Glucose 108 mg/dL (74-99); Non-African American GFR(CKD) >90 (>60 ml/min/1.73 sqM); Potassium 3.6 mmol/L (3.5-5.1); Sodium 137 mmol/L (137-145); Total Bilirubin 0.6 mg/dL (0.2-1.3); Total Protein 8.1 g/dL (6.3-8.2)
--- NOTE | 2020-05-31 18:09 | ED ---
General Adult HPI - General Chief complaint: Recheck/Abnormal Lab/Rx Stated complaint: Chest pain Time Seen by Provider: 05/31/20 16:30 Source: patient Mode of arrival: ambulatory Limitations: no limitations - History of Present Illness Initial comments: 30-year-old male with past medical history of chronic back pain, laryngeal cancer with radiation who presents to the emergency department with reported myalgias and fevers. Patient states that he received his second Moderna vaccine yesterday around 11 AM. He reports that when he went to bed around 9 PM he began having shaking chills and diffuse body aches. He did not attempt to take any medications for his symptoms. Did not have this reaction with this first vaccine. No nausea, vomiting or diarrhea. No chest pain or shortness of breath. Denies known Covid infection. No adverse events to vaccines in the past. Has not attempted to take any medications for his symptoms. Denies any numbness or tingling in his extremities. No other alleviating, precipitating or modifying factors - Related Data Home Medications Medication Instructions Recorded Confirmed Levothyroxine Sodium [Synthroid] 100 mcg PO DAILY 05/14/20 05/14/20 Previous Rx's Medication Instructions Recorded Cephalexin [Keflex] 500 mg PO Q6HR 7 Days #28 cap 05/12/20 Doxycycline [Vibramycin] 100 mg PO BID 1 Days #14 capsule 05/12/20 HYDROcodone/APAP 5-325MG [[place] 1 tab PO Q6HR PRN #12 tab 05/12/20 5-325] Allergies Allergy/AdvReac Type Severity Reaction Status Date / Time sulfamethoxazole Allergy Rash/Hives Verified 05/14/20 11:47 [From Bactrim] trimethoprim [From Bactrim] Allergy Rash/Hives Verified 05/14/20 11:47 Review of Systems ROS Statement: Those systems with pertinent positive or pertinent negative responses have been documented in the HPI. ROS Other: All systems not noted in ROS Statement are negative. 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 History of Any Multi-Drug Resistant Organisms: None Reported Past Surgical History: Orthopedic Surgery Additional Past Surgical History / Comment(s): B knee, tumor removal from larynx with lymph node removal, half of epigottis removed Past Psychological History: Anxiety, Depression Smoking Status: Former smoker Past Alcohol Use History: None Reported Past Drug Use History: Marijuana General Exam Limitations: no limitations General appearance: alert, in no apparent distress Head exam: Present: atraumatic, normocephalic, normal inspection Eye exam: Present: normal appearance, PERRL, EOMI. Absent: scleral icterus, conjunctival injection, periorbital swelling ENT exam: Present: normal exam, mucous membranes moist Neck exam: Present: normal inspection. Absent: tenderness, meningismus, lymphadenopathy Respiratory exam: Present: normal lung sounds bilaterally. Absent: respiratory distress, wheezes, rales, rhonchi, stridor Cardiovascular Exam: Present: regular rate, normal rhythm, normal heart sounds. Absent: systolic murmur, diastolic murmur, rubs, gallop, clicks GI/Abdominal exam: Present: soft, normal bowel sounds. Absent: distended, tenderness, guarding, rebound, rigid Extremities exam: Present: normal inspection, full ROM, normal capillary refill. Absent: tenderness, pedal edema, joint swelling, calf tenderness Back exam: Present: normal inspection Neurological exam: Present: alert, oriented X3, CN II-XII intact Psychiatric exam: Present: normal affect, normal mood Skin exam: Present: warm, dry, intact, normal color. Absent: rash Course Vital Signs 05/31/20 05/31/20 05/31/20 16:32 17:00 17:06 Temperature 98.3 F 100.2 F H Pulse Rate 98 88 Respiratory 18 18 18 Rate Blood Pressure 142/85 150/89 O2 Sat by Pulse 99 100 Oximetry 05/31/20 05/31/20 18:08 19:32 Temperature 99.2 F 98.7 F Pulse Rate 99 63 Respiratory 16 16 Rate Blood Pressure 136/74 138/57 O2 Sat by Pulse 98 97 Oximetry Medical Decision Making - Medical Decision Making Upon arrival the patient is placed into room 10. A thorough history and physical exam was performed. IV is established. Laboratory studies are conducted. Patient was given 4 mg of Zofran and thousand milligrams of Tylenol. Laboratory studies are conducted and reviewed. Patient does have a slight fever upon arrival. Temp is rechecked and is normal. Patient is requesting pain medication for his chronic back pain. He was given a dose of Toradol. Patient is reevaluated after medication minutes duration reports improvement in his symptoms. Patient will be discharged home at this time. Encourage fluid intake. May alternate taking Motrin and Tylenol for fever and pain. Follow up with his doctor in 2-4 days. Return to the emergency room for any new or worsening symptoms. She was in agreement with plan and discharged home in stable condition - Lab Data Result diagrams: 05/31/20 17:20 05/31/20 17:20 Lab Results 05/31/20 05/31/20 05/31/20 Range/Units 17:20 17:20 17:20 WBC 9.9 (3.8-10.6) k/uL RBC 5.35 (4.30-5.90) m/uL Hgb 15.3 (13.0-17.5) gm/dL Hct 44.0 (39.0-53.0) % MCV 82.2 (80.0-100.0) fL MCH 28.5 (25.0-35.0) pg MCHC 34.7 (31.0-37.0) g/dL RDW 14.2 (11.5-15.5) % Plt Count 280 (150-450) k/uL MPV 6.5 Neutrophils % 80 % Lymphocytes % 12 % Monocytes % 5 % Eosinophils % 2 % Basophils % 0 % Neutrophils # 7.9 H (1.3-7.7) k/uL Lymphocytes # 1.1 (1.0-4.8) k/uL Monocytes # 0.5 (0-1.0) k/uL Eosinophils # 0.2 (0-0.7) k/uL Basophils # 0.0 (0-0.2) k/uL Sodium 137 (137-145) mmol/L Potassium 3.6 (3.5-5.1) mmol/L Chloride 98 (98-107) mmol/L Carbon Dioxide 26 (22-30) mmol/L Anion Gap 13 mmol/L BUN 7 L (9-20) mg/dL Creatinine 1.02 (0.66-1.25) mg/dL Est GFR (CKD-EPI)AfAm >90 (>60 ml/min/1.73 sqM) Est GFR (CKD-EPI)NonAf >90 (>60 ml/min/1.73 sqM) Glucose 108 H (74-99) mg/dL Calcium 10.0 (8.4-10.2) mg/dL Total Bilirubin 0.6 (0.2-1.3) mg/dL AST 22 (17-59) U/L ALT 18 (4-49) U/L Alkaline Phosphatase 54 (38-126) U/L Creatine Kinase 97 (55-170) U/L Total Protein 8.1 (6.3-8.2) g/dL Albumin 5.0 (3.5-5.0) g/dL Coronavirus (PCR) Not Detected (Not Detectd) Disposition Clinical Impression: Myalgia after COVID-19 vaccination, Pyrexia Disposition: HOME SELF-CARE Condition: Stable Instructions (If sedation given, give patient instructions): Adverse Drug Reaction (ED) Additional Instructions: Please follow up with the primary care doctor in 2-4 days. Return to the emergency room for any new or worsening symptoms. Take Motrin and Tylenol alternating for pain and fevers Is patient prescribed a controlled substance at d/c from ED?: No Referrals: Lamonte Schwab Jr, [Primary Care Provider] - 1-2 days Time of Disposition: 18:08
[2020-05-31 18:11] VITALS: RESP 16
[2020-05-31] MEDS ORDERED: KETOROLAC 15 MG/ML 1 ML VIAL IVP STA (18:27)
[2020-05-31 19:33] VITALS: BP 138/57; PULSE 63; TEMP 98.7
== END 2020-05-31 19:33 | disposition home or self-care (01) ==
LOC: EC 16:28
DX: R50.83 Postvaccination fever (principal); T50.Z95A Adverse effect of other vaccines and biological substances, initial encounter; M79.10 Myalgia, unspecified site; Z20.822 Contact with and (suspected) exposure to COVID-19; Z88.1 Allergy status to other antibiotic agents; Z88.2 Allergy status to sulfonamides; Z87.891 Personal history of nicotine dependence; Z85.21 Personal history of malignant neoplasm of larynx; Z90.49 Acquired absence of other specified parts of digestive tract; Z92.3 Personal history of irradiation
CPT/HCPCS: 36415; 80053; 82550; 85025; 87635; 99284; 96374; 96375; 96361; J2405; J1885

== ENCOUNTER 2020-06-12 20:22 | Emergency (ER) | payer OTHER ==
[2020-06-12 20:26] VITALS: BP 143/84; PULSE 102; RESP 18; TEMP 97.4
--- NOTE | 2020-06-12 21:16 | ED ---
Upper Extremity HPI - General Chief Complaint: Extremity Injury, Upper Stated Complaint: Rib Pain Time Seen by Provider: 06/12/20 20:27 Source: patient, RN notes reviewed Mode of arrival: ambulatory Limitations: no limitations - History of Present Illness Initial Comments: This a 30-year-old male presents emergency Department chief complaint of fall one week ago. Patient states he slipped on ice. Patient complains of right sided rib pain. Patient states he did strike his head but states it no loss conscious he has no headache dizziness. Vision or any neck pain this time. Patient states his shoulder was sore there is also improving. [id number] full range of motion. - Related Data Home Medications Medication Instructions Recorded Confirmed Levothyroxine Sodium [Synthroid] 100 mcg PO DAILY 05/14/20 05/14/20 Previous Rx's Medication Instructions Recorded Cephalexin [Keflex] 500 mg PO Q6HR 7 Days #28 cap 05/12/20 Doxycycline [Vibramycin] 100 mg PO BID 1 Days #14 capsule 05/12/20 HYDROcodone/APAP 5-325MG [[place] 1 tab PO Q6HR PRN #12 tab 05/12/20 5-325] Ibuprofen [Motrin] 600 mg PO Q8HR PRN #20 tab 06/12/20 Allergies Allergy/AdvReac Type Severity Reaction Status Date / Time sulfamethoxazole Allergy Rash/Hives Verified 06/12/20 20:26 [From Bactrim] trimethoprim [From Bactrim] Allergy Rash/Hives Verified 06/12/20 20:26 Review of Systems ROS Statement: Those systems with pertinent positive or pertinent negative responses have been documented in the HPI. ROS Other: All systems not noted in ROS Statement are negative. 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 Absent: scleral icterus, conjunctival injection, periorbital swelling ENT exam: Present: normal exam, normal oropharynx, mucous membranes moist Neck exam: Present: normal inspection, full ROM. Absent: tenderness, meningismus, lymphadenopathy Respiratory exam: Present: normal lung sounds bilaterally, chest wall tenderness (Right lateral to posterior rib tenderness). Absent: respiratory distress, wheezes, rales, rhonchi, stridor Cardiovascular Exam: Present: regular rate, normal rhythm, normal heart sounds. Absent: systolic murmur, diastolic murmur, rubs, gallop, clicks Extremities exam: Present: normal inspection, full ROM, normal capillary refill. Absent: tenderness, pedal edema, joint swelling, calf tenderness Back exam: Present: full ROM. Absent: tenderness, paraspinal tenderness, vertebral tenderness Neurological exam: Present: alert, oriented X3, CN II-XII intact, reflexes normal. Absent: motor sensory deficit Skin exam: Present: warm, dry, intact, normal color. Absent: rash Course Vital Signs 06/12/20 20:24 Temperature 97.4 F L Pulse Rate 102 H Respiratory 18 Rate Blood Pressure 143/84 O2 Sat by Pulse 97 Oximetry Medical Decision Making - Medical Decision Making X-rays are negative for acute fracture. Patient has right-sided rib contusion. Patient discharged in stable condition return parameters were discussed. Disposition Clinical Impression: Fall, Contusion of rib on right side Disposition: HOME SELF-CARE Condition: Stable Instructions (If sedation given, give patient instructions): Rib Contusion (ED) Additional Instructions: Please return to the Emergency Department if symptoms worsen or any other concerns. Prescriptions: Ibuprofen [Motrin] 600 mg PO Q8HR PRN #20 tab PRN Reason: Pain Is patient prescribed a controlled substance at d/c from ED?: No Referrals: Juan Kim MD [Primary Care Provider] - 1-2 days Time of Disposition: 22:04
--- NOTE | 2020-06-12 21:29 | XR ---
EXAMINATION TYPE: XR ribs RT w pa chest xray DATE OF EXAM: 06/12/2020 CLINICAL HISTORY: History of laryngeal cancer presents with chest and right-sided rib pain after fall injury. TECHNIQUE: Single frontal view of the chest is obtained. A frontal and oblique images of the right-si ded ribs. COMPARISON: Chest x-ray May 2020. FINDINGS: There is chronic parenchyma change without suspicious new focal air space opacity, pleural effusion, or pneumothorax seen. The cardiac silhouette size is stable and within normal limits. T he osseous structures are intact. Surgical changes bilateral Supraclavicular regions are demonstrated . Dedicated images right-sided ribs show no acute displaced fracture. Overlying soft tissue is unremark able. IMPRESSION: 1. No acute cardiopulmonary process. 2. No acute displaced right-sided rib fracture.
[2020-06-12] MEDS ORDERED: ACET/COD 300 MG/30 MG STARTER PACK 6 TAB BTL PO STA (22:04)
== END 2020-06-12 22:34 | disposition home or self-care (01) ==
LOC: EC 20:22
DX: S20.211A Contusion of right front wall of thorax, initial encounter (principal); G89.29 Other chronic pain; M54.9 Dorsalgia, unspecified; F41.9 Anxiety disorder, unspecified; F32.9 Major depressive disorder, single episode, unspecified; F12.90 Cannabis use, unspecified, uncomplicated; Z79.1 Long term (current) use of non-steroidal anti-inflammatories (NSAID); Z87.891 Personal history of nicotine dependence; Z88.1 Allergy status to other antibiotic agents; Z88.2 Allergy status to sulfonamides; W00.0XXA Fall on same level due to ice and snow, initial encounter
CPT/HCPCS: 99284

== ENCOUNTER 2020-07-09 13:36 | Emergency (ER) | payer OTHER ==
[2020-07-09 13:46] VITALS: BP 118/87; PULSE 66; RESP 18; TEMP 97.6
--- NOTE | 2020-07-09 13:47 | ED ---
General Adult HPI - General Stated complaint: chest pain Time Seen by Provider: 07/09/20 13:44 Source: patient, RN notes reviewed Mode of arrival: ambulatory Limitations: no limitations - History of Present Illness Initial comments: This a 30-year-old male presents emergency Department chief complaint chest pain. Patient states that he was admitted a month ago for chest pain but states he [employer]. Patient States She's Having Worsening Chest Pain. He Does Have Shortness Breath. Patient Has a History of Laryngeal Cancer. Patient Did Have Surgery. Patient Had Chemotherapy. He States Is Chronic Changes to His Voice. - Related Data Home Medications Medication Instructions Recorded Confirmed Levothyroxine Sodium [Synthroid] 100 mcg PO DAILY 05/14/20 05/14/20 Previous Rx's Medication Instructions Recorded Doxycycline [Vibramycin] 100 mg PO BID 1 Days #14 capsule 05/12/20 HYDROcodone/APAP 5-325MG [[place] 1 tab PO Q6HR PRN #12 tab 05/12/20 5-325] cephALEXin [Keflex] 500 mg PO Q6HR 7 Days #28 cap 05/12/20 Ibuprofen [Motrin] 600 mg PO Q8HR PRN #20 tab 06/12/20 Allergies Allergy/AdvReac Type Severity Reaction Status Date / Time sulfamethoxazole Allergy Rash/Hives Verified 07/09/20 13:41 [From Bactrim] trimethoprim [From Bactrim] Allergy Rash/Hives Verified 07/09/20 13:41 Review of Systems ROS Statement: Those systems with pertinent positive or pertinent negative responses have been documented in the HPI. ROS Other: All systems not noted in ROS Statement are negative. 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, History of Any Multi-Drug Resistant Organisms: None Reported Past Surgical History: Orthopedic Surgery Additional Past Surgical History / Comment(s): B knee, tumor removal from larynx with lymph node removal, half of epigottis removed, Past Psychological History: Anxiety, Depression Smoking Status: Former smoker Past Alcohol Use History: Occasional Past Drug Use History: Marijuana General Exam General appearance: alert, in no apparent distress Head exam: Present: atraumatic, normocephalic, normal inspection Eye exam: Present: normal appearance, PERRL, EOMI. Absent: scleral icterus, conjunctival injection, periorbital swelling ENT exam: Present: normal exam, mucous membranes moist Neck exam: Present: normal inspection, full ROM. Absent: tenderness, meningismus, lymphadenopathy Respiratory exam: Present: normal lung sounds bilaterally. Absent: respiratory distress, wheezes, rales, rhonchi, stridor Cardiovascular Exam: Present: regular rate, normal rhythm, normal heart sounds. Absent: systolic murmur, diastolic murmur, rubs, gallop, clicks Course Vital Signs 07/09/20 13:41 Temperature 97.6 F Pulse Rate 66 Respiratory 18 Rate Blood Pressure 118/87 O2 Sat by Pulse 100 Oximetry Medical Decision Making - Medical Decision Making Patient left AMA - Lab Data Result diagrams: 07/09/20 13:57 07/09/20 13:57 Lab Results 07/09/20 07/09/20 07/09/20 Range/Units 13:57 13:57 13:57 WBC 8.2 (3.8-10.6) k/uL RBC 5.25 (4.30-5.90) m/uL Hgb 15.6 (13.0-17.5) gm/dL Hct 44.6 (39.0-53.0) % MCV 84.9 (80.0-100.0) fL MCH 29.7 (25.0-35.0) pg MCHC 35.0 (31.0-37.0) g/dL RDW 15.4 (11.5-15.5) % Plt Count 284 (150-450) k/uL MPV 6.3 Neutrophils % 60 % Lymphocytes % 26 % Monocytes % 6 % Eosinophils % 5 % Basophils % 1 % Neutrophils # 4.9 (1.3-7.7) k/uL Lymphocytes # 2.1 (1.0-4.8) k/uL Monocytes # 0.5 (0-1.0) k/uL Eosinophils # 0.4 (0-0.7) k/uL Basophils # 0.1 (0-0.2) k/uL PT 10.7 (9.0-12.0) sec INR 1.0 (<1.2) APTT 24.9 (22.0-30.0) sec Sodium 137 (137-145) mmol/L Potassium 4.1 (3.5-5.1) mmol/L Chloride 100 (98-107) mmol/L Carbon Dioxide 29 (22-30) mmol/L Anion Gap 8 mmol/L BUN 9 (9-20) mg/dL Creatinine 0.94 (0.66-1.25) mg/dL Est GFR (CKD-EPI)AfAm >90 (>60 ml/min/1.73 sqM) Est GFR (CKD-EPI)NonAf >90 (>60 ml/min/1.73 sqM) Glucose 88 (74-99) mg/dL Calcium 10.0 (8.4-10.2) mg/dL Magnesium 2.2 (1.6-2.3) mg/dL Total Bilirubin 0.7 (0.2-1.3) mg/dL AST 22 (17-59) U/L ALT 18 (4-49) U/L Alkaline Phosphatase 48 (38-126) U/L Troponin I (0.000-0.034) ng/mL Total Protein 7.8 (6.3-8.2) g/dL Albumin 4.9 (3.5-5.0) g/dL 07/09/20 Range/Units 13:57 WBC (3.8-10.6) k/uL RBC (4.30-5.90) m/uL Hgb (13.0-17.5) gm/dL Hct (39.0-53.0) % MCV (80.0-100.0) fL MCH (25.0-35.0) pg MCHC (31.0-37.0) g/dL RDW (11.5-15.5) % Plt Count (150-450) k/uL MPV Neutrophils % % Lymphocytes % % Monocytes % % Eosinophils % % Basophils % % Neutrophils # (1.3-7.7) k/uL Lymphocytes # (1.0-4.8) k/uL Monocytes # (0-1.0) k/uL Eosinophils # (0-0.7) k/uL Basophils # (0-0.2) k/uL PT (9.0-12.0) sec INR (<1.2) APTT (22.0-30.0) sec Sodium (137-145) mmol/L Potassium (3.5-5.1) mmol/L Chloride (98-107) mmol/L Carbon Dioxide (22-30) mmol/L Anion Gap mmol/L BUN (9-20) mg/dL Creatinine (0.66-1.25) mg/dL Est GFR (CKD-EPI)AfAm (>60 ml/min/1.73 sqM) Est GFR (CKD-EPI)NonAf (>60 ml/min/1.73 sqM) Glucose (74-99) mg/dL Calcium (8.4-10.2) mg/dL Magnesium (1.6-2.3) mg/dL Total Bilirubin (0.2-1.3) mg/dL AST (17-59) U/L ALT (4-49) U/L Alkaline Phosphatase (38-126) U/L Troponin I <0.012 (0.000-0.034) ng/mL Total Protein (6.3-8.2) g/dL Albumin (3.5-5.0) g/dL Disposition Clinical Impression: Chest discomfort Disposition: Left Against Medical Advice Referrals: Juan Kim MD [Primary Care Provider] - 1-2 days
[2020-07-09 14:08] LABS: Basophils # (A) 0.1 k/uL (0-0.2); Basophils % (A) 1 %; Eosinophils # (A) 0.4 k/uL (0-0.7); Eosinophils % (A) 5 %; HCT 44.6 % (39.0-53.0); HGB 15.6 gm/dL (13.0-17.5); Lymphocytes # (A) 2.1 k/uL (1.0-4.8); Lymphocytes % (A) 26 %; MCH 29.7 pg (25.0-35.0); MCV 84.9 fL (80.0-100.0); Mean Platelet Volume 6.3; Monocytes # (A) 0.5 k/uL (0-1.0); Monocytes % (A) 6 %; Neutrophils # (A) 4.9 k/uL (1.3-7.7); Neutrophils % (A) 60 %; Platelet Count 284 k/uL (150-450); RBC 5.25 m/uL (4.30-5.90); RDW 15.4 % (11.5-15.5); WBC 8.2 k/uL (3.8-10.6)
--- NOTE | 2020-07-09 14:19 | XR ---
EXAMINATION TYPE: XR chest 2V DATE OF EXAM: 07/09/2020 COMPARISON: NONE HISTORY: Chest pain TECHNIQUE: Frontal and lateral views of the chest are obtained. FINDINGS: There is no focal air space opacity. No evidence for pneumothorax. No pleural effusion. The cardiac silhouette size is within normal limits. The osseous structures are grossly intact. IMPRESSION: 1. No acute cardiopulmonary process.
[2020-07-09 14:20] LABS: ALT 18 U/L (4-49); AST 22 U/L (17-59); African American GFR (CKD) >90 (>60 ml/min/1.73 sqM); Albumin 4.9 g/dL (3.5-5.0); Alkaline Phosphatase 48 U/L (38-126); Anion Gap 8 mmol/L; Blood Urea Nitrogen 9 mg/dL (9-20); Carbon Dioxide 29 mmol/L (22-30); Chloride 100 mmol/L (98-107); Glucose 88 mg/dL (74-99); Magnesium 2.2 mg/dL (1.6-2.3); Non-African American GFR(CKD) >90 (>60 ml/min/1.73 sqM); Potassium 4.1 mmol/L (3.5-5.1); Sodium 137 mmol/L (137-145); Total Bilirubin 0.7 mg/dL (0.2-1.3); Total Protein 7.8 g/dL (6.3-8.2)
[2020-07-09 14:26] LABS: Partial Thromboplastin Time 24.9 sec (22.0-30.0); Prothrombin Time 10.7 sec (9.0-12.0)
== END 2020-07-09 15:00 | disposition left against medical advice (07) ==
LOC: EC 13:36
DX: R07.89 Other chest pain (principal); F32.9 Major depressive disorder, single episode, unspecified; F41.9 Anxiety disorder, unspecified; F12.90 Cannabis use, unspecified, uncomplicated; Z87.891 Personal history of nicotine dependence
CPT/HCPCS: 36415; 71046; 80053; 83735; 84484; 85025; 85610; 85730; 93005; 99285

== ENCOUNTER 2020-09-27 13:27 | Emergency (ER) | payer OTHER ==
[2020-09-27 13:40] VITALS: TEMP 97.7
[2020-09-27] MEDS ORDERED: MORPHINE SULFATE 4 MG/ML SYRINGE IV STA (14:12)
--- NOTE | 2020-09-27 15:04 | XR ---
EXAMINATION TYPE: XR lumbar spine 2 or 3V DATE OF EXAM: 09/27/2020 CLINICAL HISTORY: Back pain TECHNIQUE: Frontal, lateral, and coned-down images of the lumbar spine are obtained. COMPARISON: None FINDINGS: There are 5 lumbar type vertebral bodies identified. The lumbar spine shows satisfactory alignment without evidence of acute fracture or dislocation. Vertebral body heights and disk space he ights are within normal limits. The overlying soft tissue appears unremarkable. IMPRESSION: No acute fracture or dislocation is seen in the lumbar spine.
--- NOTE | 2020-09-27 15:13 | ED ---
Back Pain HPI - General Chief Complaint: Back Pain/Injury Stated Complaint: back & jaw pain Time Seen by Provider: 09/27/20 13:55 Source: patient, RN notes reviewed Limitations: no limitations - History of Present Illness Initial Comments: Patient is a 30-year-old male that presented to the emergency room complaining of low back pain that radiates down bilateral legs. He notes that he was sitting in his chair yesterday when he felt a pain and some numbness and tingling. He notes he does have a history of sciatica. He also notes he has a history of larynx cancer which he gets chemo for. He notes that he is not allowed to get steroids at this time as it does interact with his chemotherapy. He notes that he is also scheduled for a computed tomography scan on Thursday for some newfound nodules. He notes that this morning he woke up had to crawl to his chair but eventually was able to walk. He denied any bladder or bowel incontinence/retention. He denied any weakness in his lower extremities just numbness and tingling. He notes if he moves a certain whether numbness tingling increases. He denied any injury or trauma chest pain first breath headache nausea vomiting diarrhea constipation fever fatigue chills. - Related Data Home Medications Medication Instructions Recorded Confirmed Levothyroxine Sodium [Synthroid] 100 mcg PO DAILY 05/14/20 05/14/20 Previous Rx's Medication Instructions Recorded Doxycycline [Vibramycin] 100 mg PO BID 1 Days #14 capsule 05/12/20 HYDROcodone/APAP 5-325MG [[place] 1 tab PO Q6HR PRN #12 tab 05/12/20 5-325] cephALEXin [Keflex] 500 mg PO Q6HR 7 Days #28 cap 05/12/20 Ibuprofen [Motrin] 600 mg PO Q8HR PRN #20 tab 06/12/20 Allergies Allergy/AdvReac Type Severity Reaction Status Date / Time sulfamethoxazole Allergy Rash/Hives Verified 09/27/20 13:40 [From Bactrim] trimethoprim [From Bactrim] Allergy Rash/Hives Verified 09/27/20 13:40 Review of Systems ROS Statement: Those systems with pertinent positive or pertinent negative responses have been documented in the HPI. ROS Other: All systems not noted in ROS Statement are negative. 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 Absent: scleral icterus, conjunctival injection, periorbital swelling Neck exam: Present: normal inspection Respiratory exam: Present: normal lung sounds bilaterally. Absent: respiratory distress, wheezes, rales, rhonchi, stridor Cardiovascular Exam: Present: regular rate, normal rhythm, normal heart sounds. Absent: systolic murmur, diastolic murmur, rubs, gallop, clicks Extremities exam: Present: normal inspection, full ROM, normal capillary refill, other (Positive straight leg test bilateral). Absent: tenderness, pedal edema, joint swelling, calf tenderness Back exam: Present: normal inspection, tenderness (Over the left and right SI) Neurological exam: Present: alert, oriented X3 Psychiatric exam: Present: normal affect, normal mood Skin exam: Present: warm, dry, intact, normal color. Absent: rash Course Vital Signs 09/27/20 13:36 Temperature 97.7 F Pulse Rate 71 Respiratory 20 Rate Blood Pressure 137/89 O2 Sat by Pulse 99 Oximetry Medical Decision Making - Medical Decision Making 6-year-old male complaining of low back pain with radicular symptoms down bilateral lower extremities. 4 g of morphine, x-ray lumbar spine ordered. X-ray negative for any acute fractures or dislocations. Given clinical symptoms and negative x-ray most likely sciatica with radiculopathy. Case discussed with Dr. Duncan, patient discharge home with follow-up primary care. Disposition Clinical Impression: Sciatica, Lumbar radiculopathy Disposition: HOME SELF-CARE Condition: Stable Instructions (If sedation given, give patient instructions): Acute Low Back Pain (ED) Additional Instructions: Please return to the Emergency Department if symptoms worsen or any other concerns. Take Tylenol Motrin as needed for pain. Follow-up primary care in the next several days. Heating pads may help. Is patient prescribed a controlled substance at d/c from ED?: No Referrals: Juan Kim MD [Primary Care Provider] - 1-2 days Time of Disposition: 15:16
[2020-09-27 15:35] VITALS: BP 132/84; PULSE 84; RESP 18
== END 2020-09-27 15:49 | disposition home or self-care (01) ==
LOC: EC 13:27
DX: M54.16 Radiculopathy, lumbar region (principal); M54.40 Lumbago with sciatica, unspecified side; R68.84 Jaw pain; F32.9 Major depressive disorder, single episode, unspecified; F41.9 Anxiety disorder, unspecified; F12.90 Cannabis use, unspecified, uncomplicated; Z87.891 Personal history of nicotine dependence
CPT/HCPCS: 72100; 99283; 96374; J2270

== ENCOUNTER 2020-09-30 14:21 | Emergency (ER) | payer OTHER ==
[2020-09-30] MEDS ORDERED: SODIUM CHLORIDE 0.9% 1,000 ML IV STA (14:46)
[2020-09-30 15:27] LABS: Basophils # (A) 0.1 k/uL (0-0.2); Basophils % (A) 0 %; Eosinophils # (A) 2.1 k/uL (0-0.7); Eosinophils % (A) 19 %; HGB 16.1 gm/dL (13.0-17.5); Lymphocytes # (A) 1.7 k/uL (1.0-4.8); Lymphocytes % (A) 15 %; MCH 30.9 pg (25.0-35.0); MCHC 34.2 g/dL (31.0-37.0); MCV 90.3 fL (80.0-100.0); Monocytes # (A) 0.5 k/uL (0-1.0); Monocytes % (A) 5 %; Neutrophils # (A) 6.8 k/uL (1.3-7.7); Neutrophils % (A) 61 %; Platelet Count 296 k/uL (150-450); RDW 14.1 % (11.5-15.5); WBC 11.2 k/uL (3.8-10.6)
[2020-09-30] MEDS ORDERED: KETOROLAC 15 MG/ML 1 ML VIAL IVP STA (15:29)
[2020-09-30] MEDS ORDERED: ONDANSETRON 4 MG/2 ML VIAL IVP STA (15:29)
[2020-09-30 15:39] LABS: Partial Thromboplastin Time 24.8 sec (22.0-30.0); Prothrombin Time 10.4 sec (9.0-12.0)
[2020-09-30 15:40] LABS: ALT 15 U/L (4-49); AST 44 U/L (17-59); African American GFR (CKD) >90 (>60 ml/min/1.73 sqM); Albumin 5.2 g/dL (3.5-5.0); Alkaline Phosphatase 56 U/L (38-126); Amylase 79 U/L (30-110); Anion Gap 13 mmol/L; Blood Urea Nitrogen 11 mg/dL (9-20); Calcium 9.9 mg/dL (8.4-10.2); Carbon Dioxide 25 mmol/L (22-30); Chloride 103 mmol/L (98-107); Glucose 96 mg/dL (74-99); Lipase 53 U/L (23-300); Magnesium 2.2 mg/dL (1.6-2.3); Non-African American GFR(CKD) >90 (>60 ml/min/1.73 sqM); Potassium 4.1 mmol/L (3.5-5.1); Sodium 141 mmol/L (137-145); Total Bilirubin 0.4 mg/dL (0.2-1.3); Total Protein 7.8 g/dL (6.3-8.2)
--- NOTE | 2020-09-30 16:11 | XR ---
EXAMINATION TYPE: XR chest 2V DATE OF EXAM: 09/30/2020 COMPARISON: 07/09/2020 HISTORY: Chest pain TECHNIQUE: FINDINGS: Heart and mediastinum are normal. Lungs are clear. Diaphragm is normal. Bony thorax is inta ct. There are chest leads. IMPRESSION: Normal chest. No change.
--- NOTE | 2020-09-30 16:40 | ED ---
Chest Pain HPI - General Chief Complaint: Chest Pain Stated Complaint: Chest Pain, L arm numb Time Seen by Provider: 09/30/20 14:43 Source: patient, RN notes reviewed Mode of arrival: wheelchair Limitations: no limitations - History of Present Illness Initial Comments: Patient is a 30-year-old male that presents to emergency room complaining of chest pain and left arm numbness. He notes that he does have chronic cervical disc herniation and has been numbness in his left arm for a while now. He was recently seen 2 days ago for back pain. He notes that his back is still in mild pain. He wanted to come in to get evaluated to make sure there was okay. Patient did not appear to be in any distress or pain while sitting up in bed during exam and interview. Patient was pleasant answer questions appropriately. He denied any shortness of breath headache nausea vomiting diarrhea constipation fever fatigue chills. - Related Data Home Medications Medication Instructions Recorded Confirmed Levothyroxine Sodium [Synthroid] 100 mcg PO DAILY 05/14/20 09/30/20 Acetaminophen Tab [Tylenol Tab] 500 mg PO Q6H PRN 09/30/20 09/30/20 Hydrocortisone Cream 1 applicate TOPICAL BID 09/30/20 09/30/20 [Hydrocortisone 2.5% Cream] Ibuprofen [Motrin Ib] 800 mg PO Q8H PRN 09/30/20 09/30/20 Meclizine HCl 25 mg PO TID PRN 09/30/20 09/30/20 Ondansetron [Zofran] 4 mg PO Q8HR PRN 09/30/20 09/30/20 oxyCODONE HCL [OxyIR] 5 mg PO Q6H PRN 09/30/20 09/30/20 Allergies Allergy/AdvReac Type Severity Reaction Status Date / Time sulfamethoxazole Allergy Rash/Hives Verified 09/30/20 15:49 [From Bactrim] trimethoprim [From Bactrim] Allergy Rash/Hives Verified 09/30/20 15:49 Review of Systems ROS Statement: Those systems with pertinent positive or pertinent negative responses have been documented in the HPI. ROS Other: All systems not noted in ROS Statement are negative. EKG Findings - EKG Comments: EKG Findings:: Ventricular rate 61 bpm, NM interval 140 ms, QRS duration 104 ms, QT/QTc 408/410 ms, PRT axis 26/86/60. Normal sinus rhythm, incomplete right bundle branch block, borderline ECG. 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 Absent: scleral icterus, conjunctival injection, periorbital swelling Neck exam: Present: normal inspection Respiratory exam: Present: normal lung sounds bilaterally. Absent: respiratory distress, wheezes, rales, rhonchi, stridor Cardiovascular Exam: Present: regular rate, normal rhythm, normal heart sounds. Absent: systolic murmur, diastolic murmur, rubs, gallop, clicks GI/Abdominal exam: Present: soft, normal bowel sounds. Absent: distended, tenderness, guarding, rebound, rigid Extremities exam: Present: normal inspection, full ROM, normal capillary refill. Absent: tenderness, pedal edema, joint swelling, calf tenderness Neurological exam: Present: alert, oriented X3 Psychiatric exam: Present: normal affect, normal mood Skin exam: Present: warm, dry, intact, normal color. Absent: rash Course Vital Signs 09/30/20 14:31 Temperature 98.1 F Pulse Rate 63 Respiratory 16 Rate Blood Pressure 131/83 O2 Sat by Pulse 96 Oximetry Chest Pain [facility] Patient is a 30-year-old male that frequency emergency department for several different complaints on including chest pain with left extremity numbness. Patient reports cervical disc herniation that is chronic. Labs, EKG, clinical research monitor, 1 L normal saline, 15 mg of Toradol, 4 mg Zofran, chest x-ray ordered. Chest x-ray: Normal chest. No change. Labs unremarkable and similar previous studies. EKG similar to previous studies. Case discussed with Dr. Gupta, patient can discharge in stable condition to follow up with his primary care and specialist for chemo. Disposition Clinical Impression: Atypical chest pain, Cervical radiculopathy Disposition: HOME SELF-CARE Condition: Stable Instructions (If sedation given, give patient instructions): Chest Pain (ED) Additional Instructions: Please return to the Emergency Department if symptoms worsen or any other concerns. Follow-up primary care and specialist as needed. Take, Motrin as needed for pain control. Is patient prescribed a controlled substance at d/c from ED?: No Referrals: Juan Kim MD [Primary Care Provider] - 1-2 days Time of Disposition: 16:41
[2020-09-30 17:28] VITALS: BP 128/78; PULSE 82; RESP 18; TEMP 97.9
== END 2020-09-30 17:25 | disposition home or self-care (01) ==
LOC: EC 14:21
DX: R07.89 Other chest pain (principal); M54.12 Radiculopathy, cervical region; F32.9 Major depressive disorder, single episode, unspecified; F41.9 Anxiety disorder, unspecified; F12.90 Cannabis use, unspecified, uncomplicated; Z87.891 Personal history of nicotine dependence; Z79.1 Long term (current) use of non-steroidal anti-inflammatories (NSAID); Z79.899 Other long term (current) drug therapy; Z88.1 Allergy status to other antibiotic agents; Z88.2 Allergy status to sulfonamides
CPT/HCPCS: 36415; 93005; 80053; 82150; 83690; 83735; 84484; 85025; 85610; 85730; 71046; 99285; 96374; 96375; J2405; J1885

== ENCOUNTER 2020-12-02 13:37 | Emergency (ER) | payer OTHER ==
[2020-12-02 13:41] VITALS: RESP 18; TEMP 98.1
[2020-12-02] MEDS ORDERED: HYDROmorphone 1 MG/ML 1 ML SYRINGE IVP STA ×2 (13:54→14:54)
[2020-12-02] MEDS ORDERED: ONDANSETRON 4 MG/2 ML VIAL IVP STA (13:54)
[2020-12-02] MEDS ORDERED: SODIUM CHLORIDE 0.9% 1,000 ML IV STA (13:54)
--- NOTE | 2020-12-02 13:54 | ED ---
Abdominal Pain HPI <Coral Gupta P - Last Filed: 12/02/20 16:32> - General Source: patient Mode of arrival: ambulatory Limitations: no limitations <Crystal Francois - Last Filed: 12/08/20 17:17> - General Chief Complaint: Abdominal Pain Stated Complaint: Abd Pain Time Seen by Provider: 12/02/20 13:43 - History of Present Illness Initial Comments: The patient is a 30-year-old male with past medical history of laryngeal cancer presents emergency room with reported left lower quadrant abdominal pain. He states the pain has been going on for the past 2-3 days. Denies any provocative factors. It is tender to palpation. Denies any previous history of abdominal surgeries. States he was once diagnosed with colitis. He admits to nausea with vomiting. No fevers or chills. No sick contacts with similar symptoms. He denies hematemesis. Admits to some bright red blood per rectum when he wipes. No rectal pain. Denies diarrhea or constipation. Patient has not had anything to eat since yesterday. No numbness, tingling or weakness into his lower extremities. He is currently on immunotherapy treatment for his laryngeal cancer. No other alleviating, precipitating or modifying factors (Crystal Francois) - Related Data Home Medications Medication Instructions Recorded Confirmed Levothyroxine Sodium [Synthroid] 100 mcg PO DAILY 05/14/20 12/07/20 buPROPion XL [Wellbutrin Xl] 300 mg PO DAILY 09/30/20 12/07/20 oxyCODONE HCL [OxyIR] 5 mg PO Q6H PRN 09/30/20 12/07/20 Previous Rx's Medication Instructions Recorded Dicyclomine [Bentyl] 20 mg PO TID PRN #20 tablet 12/03/20 Ondansetron [Zofran ODT] 4 mg PO Q8HR PRN #15 tab 12/03/20 Allergies Allergy/AdvReac Type Severity Reaction Status Date / Time sulfamethoxazole Allergy Rash/Hives Verified 12/07/20 16:47 [From Bactrim] trimethoprim [From Bactrim] Allergy Rash/Hives Verified 12/07/20 16:47 Review of Systems ROS Other: All systems not noted in ROS Statement are negative. <Coral Gupta - Last Filed: 12/02/20 16:32> ROS Other: All systems not noted in ROS Statement are negative. <Crystal Francois A - Last Filed: 12/08/20 17:17> ROS Statement: Those systems with pertinent positive or pertinent negative responses have been documented in the HPI. 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, History of Any Multi-Drug Resistant Organisms: None Reported Past Surgical History: Orthopedic Surgery Additional Past Surgical History / Comment(s): B knee, tumor removal from larynx with lymph node removal, half of epigottis removed, Past Psychological History: Anxiety, Depression Smoking Status: Former smoker Past Alcohol Use History: Occasional Past Drug Use History: Marijuana <Crystal Francois - Last Filed: 12/08/20 17:17> General Exam Limitations: no limitations General appearance: alert, in no apparent distress Head exam: Present: atraumatic, normocephalic, normal inspection Eye exam: Present: normal appearance, PERRL, EOMI. Absent: scleral icterus, conjunctival injection, periorbital swelling ENT exam: Present: normal exam, mucous membranes moist Neck exam: Present: normal inspection. Absent: tenderness, meningismus, lymphadenopathy Respiratory exam: Present: normal lung sounds bilaterally. Absent: respiratory distress, wheezes, rales, rhonchi, stridor Cardiovascular Exam: Present: regular rate, normal rhythm, normal heart sounds. Absent: systolic murmur, diastolic murmur, rubs, gallop, clicks GI/Abdominal exam: Present: soft, tenderness (llq), normal bowel sounds. Absent: distended, guarding, rebound, rigid Extremities exam: Present: normal inspection, full ROM, normal capillary refill. Absent: tenderness, pedal edema, joint swelling, calf tenderness Back exam: Present: normal inspection Neurological exam: Present: alert, oriented X3, CN II-XII intact Psychiatric exam: Present: normal affect, normal mood Skin exam: Present: warm, dry, intact, normal color. Absent: rash <Crystal Francois - Last Filed: 12/08/20 17:17> Course Vital Signs 12/02/20 12/02/20 13:38 16:08 Temperature 98.1 F Pulse Rate 77 56 L Respiratory 18 18 Rate Blood Pressure 123/79 125/85 O2 Sat by Pulse 97 97 Oximetry Medical Decision Making - Lab Data Result diagrams: 12/02/20 14:07 12/02/20 14:07 <Coral Gupta - Last Filed: 12/02/20 16:32> - Lab Data Result diagrams: 12/02/20 14:07 12/02/20 14:07 <Crystal Francois - Last Filed: 12/08/20 17:17> - Medical Decision Making Patient care was signed out to me by Dr. Francois, patient presented with left- sided abdominal pain, labs were unremarkable he received 2 rounds of antiemetics and pain medications. At the time of sign out CT results were pending. CT results with no acute findings upon reevaluation patient reports his pain has resolved he's feeling much better he was advised of the CT results. At this time patient is comfortable with the plan for discharge home outpatient follow- up. Patient be referred to surgery for colonoscopy if for any persistent pain. (Coral Gupta) Upon arrival the patient is placed into room 15. A thorough history and physical symptoms performed. IV is established. The patient is given 1 mg of Dilaudid for pain control and 4 mg of Zofran for nausea. He is also given a liter bolus of normal saline. Laboratory studies were conducted. I did discuss the risks and benefits of performing a CT at this time. Patient does opt for CT. Patient has taken over for imaging. He is reevaluated her requesting more pain and nausea medications. She is given an additional dose of dilaudid, 10 mg of reglan and 25 mg of benadryl. I am awaiting CT results. Patient will be signed out to Dr. Gupta (Crystal Francois) - Lab Data Lab Results 12/02/20 12/02/20 12/02/20 Range/Units 14:07 14:07 14:07 WBC 9.2 (3.8-10.6) k/uL RBC 5.42 (4.30-5.90) m/uL Hgb 16.9 (13.0-17.5) gm/dL Hct 49.9 (39.0-53.0) % MCV 92.1 (80.0-100.0) fL MCH 31.2 (25.0-35.0) pg MCHC 33.9 (31.0-37.0) g/dL RDW 13.4 (11.5-15.5) % Plt Count 345 (150-450) k/uL MPV 7.4 Neutrophils % 66 % Lymphocytes % 17 % Monocytes % 8 % Eosinophils % 7 % Basophils % 1 % Neutrophils # 6.1 (1.3-7.7) k/uL Lymphocytes # 1.5 (1.0-4.8) k/uL Monocytes # 0.7 (0-1.0) k/uL Eosinophils # 0.7 (0-0.7) k/uL Basophils # 0.0 (0-0.2) k/uL Sodium 137 (137-145) mmol/L Potassium 3.5 (3.5-5.1) mmol/L Chloride 104 (98-107) mmol/L Carbon Dioxide 27 (22-30) mmol/L Anion Gap 6 mmol/L BUN 10 (9-20) mg/dL Creatinine 0.84 (0.66-1.25) mg/dL Est GFR (CKD-EPI)AfAm >90 (>60 ml/min/1.73 sqM) Est GFR (CKD-EPI)NonAf >90 (>60 ml/min/1.73 sqM) Glucose 101 H (74-99) mg/dL Plasma Lactic Acid New (0.7-2.0) mmol/L Calcium 9.2 (8.4-10.2) mg/dL Total Bilirubin 0.3 (0.2-1.3) mg/dL AST 21 (17-59) U/L ALT <6 (4-49) U/L Alkaline Phosphatase 39 (38-126) U/L Total Protein 5.7 L (6.3-8.2) g/dL Albumin 3.5 (3.5-5.0) g/dL Lipase 74 (23-300) U/L Urine Color Yellow Urine Appearance Clear (Clear) Urine pH 6.0 (5.0-8.0) Ur Specific [place] 1.028 (1.001-1.035) Urine Protein Trace H (Negative) Urine Glucose (UA) Negative (Negative) Urine Ketones 1+ H (Negative) Urine Blood Negative (Negative) Urine Nitrite Negative (Negative) Urine Bilirubin Negative (Negative) Urine Urobilinogen <2.0 (<2.0) mg/dL Ur Leukocyte Esterase Negative (Negative) 12/02/20 Range/Units 14:07 WBC (3.8-10.6) k/uL RBC (4.30-5.90) m/uL Hgb (13.0-17.5) gm/dL Hct (39.0-53.0) % MCV (80.0-100.0) fL MCH (25.0-35.0) pg MCHC (31.0-37.0) g/dL RDW (11.5-15.5) % Plt Count (150-450) k/uL MPV Neutrophils % % Lymphocytes % % Monocytes % % Eosinophils % % Basophils % % Neutrophils # (1.3-7.7) k/uL Lymphocytes # (1.0-4.8) k/uL Monocytes # (0-1.0) k/uL Eosinophils # (0-0.7) k/uL Basophils # (0-0.2) k/uL Sodium (137-145) mmol/L Potassium (3.5-5.1) mmol/L Chloride (98-107) mmol/L Carbon Dioxide (22-30) mmol/L Anion Gap mmol/L BUN (9-20) mg/dL Creatinine (0.66-1.25) mg/dL Est GFR (CKD-EPI)AfAm (>60 ml/min/1.73 sqM) Est GFR (CKD-EPI)NonAf (>60 ml/min/1.73 sqM) Glucose (74-99) mg/dL Plasma Lactic Acid New 0.8 (0.7-2.0) mmol/L Calcium (8.4-10.2) mg/dL Total Bilirubin (0.2-1.3) mg/dL AST (17-59) U/L ALT (4-49) U/L Alkaline Phosphatase (38-126) U/L Total Protein (6.3-8.2) g/dL Albumin (3.5-5.0) g/dL Lipase (23-300) U/L Urine Color Urine Appearance (Clear) Urine pH (5.0-8.0) Ur Specific [place] (1.001-1.035) Urine Protein (Negative) Urine Glucose (UA) (Negative) Urine Ketones (Negative) Urine Blood (Negative) Urine Nitrite (Negative) Urine Bilirubin (Negative) Urine Urobilinogen (<2.0) mg/dL Ur Leukocyte Esterase (Negative) Disposition Is patient prescribed a controlled substance at d/c from ED?: No <Coral Gupta P - Last Filed: 12/02/20 16:32> <Crystal Francois A - Last Filed: 12/08/20 17:17> Clinical Impression: Abdominal pain Disposition: HOME SELF-CARE Condition: Stable Instructions (If sedation given, give patient instructions): Abdominal Pain (E D) Referrals: Juan Kim MD [Primary Care Provider] - 1-2 days Rei Ruiz MD [STAFF PHYSICIAN] - 1-2 days
[2020-12-02 14:20] LABS: Appearance,Urine Clear (Clear); Basophils % (A) 1 %; Bilirubin,Urine Negative (Negative); Blood,Urine Negative (Negative); Color,Urine Yellow; Eosinophils # (A) 0.7 k/uL (0-0.7); Eosinophils % (A) 7 %; Glucose,Urine (UA) Negative (Negative); HCT 49.9 % (39.0-53.0); HGB 16.9 gm/dL (13.0-17.5); Ketones,Urine 1+ (Negative); Leukocyte Esterase,Urine Negative (Negative); Lymphocytes # (A) 1.5 k/uL (1.0-4.8); Lymphocytes % (A) 17 %; MCH 31.2 pg (25.0-35.0); MCHC 33.9 g/dL (31.0-37.0); MCV 92.1 fL (80.0-100.0); Mean Platelet Volume 7.4; Monocytes # (A) 0.7 k/uL (0-1.0); Monocytes % (A) 8 %; Neutrophils # (A) 6.1 k/uL (1.3-7.7); Neutrophils % (A) 66 %; Nitrite,Urine Negative (Negative); Platelet Count 345 k/uL (150-450); Protein,Urine Trace (Negative); RBC 5.42 m/uL (4.30-5.90); RDW 13.4 % (11.5-15.5); Specific Gravity,Urine 1.028 (1.001-1.035); Urobilinogen,Urine <2.0 mg/dL (<2.0); WBC 9.2 k/uL (3.8-10.6)
[2020-12-02 14:29] LABS: ALT <6 U/L (4-49); AST 21 U/L (17-59); African American GFR (CKD) >90 (>60 ml/min/1.73 sqM); Albumin 3.5 g/dL (3.5-5.0); Alkaline Phosphatase 39 U/L (38-126); Anion Gap 6 mmol/L; Blood Urea Nitrogen 10 mg/dL (9-20); Calcium 9.2 mg/dL (8.4-10.2); Carbon Dioxide 27 mmol/L (22-30); Chloride 104 mmol/L (98-107); Glucose 101 mg/dL (74-99); Lipase 74 U/L (23-300); Non-African American GFR(CKD) >90 (>60 ml/min/1.73 sqM); Potassium 3.5 mmol/L (3.5-5.1); Sodium 137 mmol/L (137-145); Total Bilirubin 0.3 mg/dL (0.2-1.3); Total Protein 5.7 g/dL (6.3-8.2)
[2020-12-02] MEDS ORDERED: METOCLOPRAMIDE 5 MG/ML 2 ML VIAL IVP STA (14:54)
[2020-12-02] MEDS ORDERED: diphenhydrAMINE 50 MG/ML 1 ML VIAL IVP STA (14:55)
--- NOTE | 2020-12-02 15:10 | CT ---
EXAMINATION TYPE: CT abdomen pelvis w con DATE OF EXAM: 12/02/2020 COMPARISON: 06/09/2019 HISTORY: Left sided pain with black emesis CT DLP: 785.8 mGycm Automated exposure control for dose reduction was used. CONTRAST: Performed with IV Contrast, patient injected with 100 mL of Isovue 300. Lung bases are clear. There is no pleural effusion. Heart size is normal. There is no pericardial eff usion. Liver spleen stomach pancreas gallbladder appear intact. Bile ducts are not dilated. There is no adrenal mass. Kidneys show satisfactory contrast opacification. There is no hydronephrosi s. Appendix is posterior and appears normal. Bladder distends smoothly. There is no inguinal hernia. There is no free fluid in the pelvis. There is no sign of a pelvic mass. There is no mesenteric edema. There is no ascites or free air. There is no evidence of a bowel obstru ction. The lumbar vertebra have normal alignment. There is mild narrowing at L4-5 and L5-S1 disc spac es. There is no compression fracture. Bony pelvis is intact. Sacroiliac joints appear normal. The hip joints are intact. IMPRESSION: Negative CT scan abdomen and pelvis. Normal appendix. No adverse change.
[2020-12-02 16:09] VITALS: BP 125/85; PULSE 56
== END 2020-12-02 16:08 | disposition home or self-care (01) ==
LOC: EC 13:37
DX: R10.32 Left lower quadrant pain (principal); C32.9 Malignant neoplasm of larynx, unspecified; F41.9 Anxiety disorder, unspecified; F32.9 Major depressive disorder, single episode, unspecified; F12.90 Cannabis use, unspecified, uncomplicated; Z88.1 Allergy status to other antibiotic agents; Z88.2 Allergy status to sulfonamides; Z87.891 Personal history of nicotine dependence
CPT/HCPCS: 99284; 96374; 96375 ×3; 96376; 96361; 36415; 80053; 83605; 83690; 85025; 81003; 74177; J1200; J2765; J2405; J1170; Q9967

== ENCOUNTER 2020-12-03 12:25 | Emergency (ER) | payer OTHER ==
[2020-12-03 12:30] VITALS: BP 109/72; PULSE 48; RESP 18; TEMP 98.2
[2020-12-03] MEDS ORDERED: ONDANSETRON 4 MG/2 ML VIAL IVP STA (13:05)
[2020-12-03] MEDS ORDERED: HYDROmorphone 0.5 MG/0.5 ML SYRINGE IVP STA (13:05)
[2020-12-03] MEDS ORDERED: SODIUM CHLORIDE 0.9% 1,000 ML IV STA (13:05)
[2020-12-03 13:16] LABS: Basophils % (A) 1 %; Eosinophils # (A) 0.6 k/uL (0-0.7); Eosinophils % (A) 7 %; HCT 47.4 % (39.0-53.0); HGB 15.9 gm/dL (13.0-17.5); Lymphocytes # (A) 1.4 k/uL (1.0-4.8); Lymphocytes % (A) 17 %; MCH 31.7 pg (25.0-35.0); MCHC 33.6 g/dL (31.0-37.0); MCV 94.2 fL (80.0-100.0); Mean Platelet Volume 7.2; Monocytes # (A) 0.7 k/uL (0-1.0); Monocytes % (A) 8 %; Neutrophils # (A) 5.4 k/uL (1.3-7.7); Neutrophils % (A) 65 %; Platelet Count 350 k/uL (150-450); RBC 5.03 m/uL (4.30-5.90); RDW 14.2 % (11.5-15.5); WBC 8.4 k/uL (3.8-10.6)
[2020-12-03 13:29] LABS: ALT <6 U/L (4-49); AST 20 U/L (17-59); African American GFR (CKD) >90 (>60 ml/min/1.73 sqM); Albumin 3.1 g/dL (3.5-5.0); Alkaline Phosphatase 31 U/L (38-126); Amylase 56 U/L (30-110); Anion Gap 5 mmol/L; Blood Urea Nitrogen 7 mg/dL (9-20); Calcium 8.5 mg/dL (8.4-10.2); Carbon Dioxide 27 mmol/L (22-30); Chloride 104 mmol/L (98-107); Glucose 91 mg/dL (74-99); Lipase 67 U/L (23-300); Non-African American GFR(CKD) >90 (>60 ml/min/1.73 sqM); Potassium 3.7 mmol/L (3.5-5.1); Sodium 136 mmol/L (137-145); Total Bilirubin 0.2 mg/dL (0.2-1.3); Total Protein 5.2 g/dL (6.3-8.2)
[2020-12-03 13:42] LABS: Appearance,Urine Clear (Clear); Bilirubin,Urine Negative (Negative); Blood,Urine Negative (Negative); Color,Urine Yellow; Glucose,Urine (UA) Negative (Negative); Ketones,Urine Negative (Negative); Leukocyte Esterase,Urine Negative (Negative); Nitrite,Urine Negative (Negative); Protein,Urine Negative (Negative); Specific Gravity,Urine 1.016 (1.001-1.035); Urobilinogen,Urine <2.0 mg/dL (<2.0)
[2020-12-03] MEDS ORDERED: KETOROLAC 15 MG/ML 1 ML VIAL IVP STA (14:00)
[2020-12-03] MEDS ORDERED: METOCLOPRAMIDE 5 MG/ML 2 ML VIAL IVP STA (14:00)
--- NOTE | 2020-12-03 14:37 | ED ---
General Adult HPI - General Chief complaint: Recheck/Abnormal Lab/Rx Stated complaint: abd pain, vomiting Time Seen by Provider: 12/03/20 12:40 Source: patient, RN notes reviewed Mode of arrival: ambulatory Limitations: no limitations - History of Present Illness Initial comments: 30-year-old male with a past medical history of chronic back pain presents to the emergency room for a chief complaint of abdominal pain. Patient has had abdominal pain for the past few days. She says most of the left lower quadrant. States he also has nausea with this. Patient states she was seen in the ER yesterday and symptoms did improve however worsen again. Patient denies fevers or chills.Patient has no other complaints at this time including shortness of br eath, chest pain, vomiting, headache, or visual changes. - Related Data Home Medications Medication Instructions Recorded Confirmed Levothyroxine Sodium [Synthroid] 100 mcg PO DAILY 05/14/20 12/03/20 buPROPion XL [Wellbutrin Xl] 300 mg PO DAILY 09/30/20 12/03/20 oxyCODONE HCL [OxyIR] 5 mg PO Q6H PRN 09/30/20 12/03/20 Previous Rx's Medication Instructions Recorded Dicyclomine [Bentyl] 20 mg PO TID PRN #20 tablet 12/03/20 Ondansetron [Zofran ODT] 4 mg PO Q8HR PRN #15 tab 12/03/20 Allergies Allergy/AdvReac Type Severity Reaction Status Date / Time sulfamethoxazole Allergy Rash/Hives Verified 12/03/20 13:24 [From Bactrim] trimethoprim [From Bactrim] Allergy Rash/Hives Verified 12/03/20 13:24 Review of Systems ROS Statement: Those systems with pertinent positive or pertinent negative responses have been documented in the HPI. ROS Other: All systems not noted in ROS Statement are negative. 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 Absent: scleral icterus, conjunctival injection ENT exam: Present: normal exam, mucous membranes moist Neck exam: Present: normal inspection, full ROM. Absent: tenderness Respiratory exam: Present: normal lung sounds bilaterally. Absent: respiratory distress, wheezes Cardiovascular Exam: Present: regular rate, normal rhythm, normal heart sounds GI/Abdominal exam: Present: soft, tenderness (Mild generalized lower abdominal tenderness), normal bowel sounds. Absent: distended, guarding, rebound, rigid Course Vital Signs 12/03/20 12:27 Temperature 98.2 F Pulse Rate 48 L Respiratory 18 Rate Blood Pressure 109/72 O2 Sat by Pulse 96 Oximetry Medical Decision Making - Medical Decision Making Vitals are stable. Laboratory evaluation unremarkable. CBC CMP is unremarkable. CT abdomen and pelvis with contrast was obtained yesterday which was negative for acute process. I did review the films as well and I do not see any cause of left lower quadrant abdominal pain. Patient was given pain medication and nausea medication and did have improvement in symptoms. At this time patient discharged to follow up with primary care. I will give him Bentyl and Zofran. He'll return here for any worsening symptoms. - Lab Data Result diagrams: 12/03/20 13:05 12/03/20 13:05 Lab Results 12/03/20 12/03/20 12/03/20 Range/Units 13:05 13:05 13:05 WBC 8.4 (3.8-10.6) k/uL RBC 5.03 (4.30-5.90) m/uL Hgb 15.9 (13.0-17.5) gm/dL Hct 47.4 (39.0-53.0) % MCV 94.2 (80.0-100.0) fL MCH 31.7 (25.0-35.0) pg MCHC 33.6 (31.0-37.0) g/dL RDW 14.2 (11.5-15.5) % Plt Count 350 (150-450) k/uL MPV 7.2 Neutrophils % 65 % Lymphocytes % 17 % Monocytes % 8 % Eosinophils % 7 % Basophils % 1 % Neutrophils # 5.4 (1.3-7.7) k/uL Lymphocytes # 1.4 (1.0-4.8) k/uL Monocytes # 0.7 (0-1.0) k/uL Eosinophils # 0.6 (0-0.7) k/uL Basophils # 0.0 (0-0.2) k/uL Sodium 136 L (137-145) mmol/L Potassium 3.7 (3.5-5.1) mmol/L Chloride 104 (98-107) mmol/L Carbon Dioxide 27 (22-30) mmol/L Anion Gap 5 mmol/L BUN 7 L (9-20) mg/dL Creatinine 0.84 (0.66-1.25) mg/dL Est GFR (CKD-EPI)AfAm >90 (>60 ml/min/1.73 sqM) Est GFR (CKD-EPI)NonAf >90 (>60 ml/min/1.73 sqM) Glucose 91 (74-99) mg/dL Plasma Lactic Acid New (0.7-2.0) mmol/L Calcium 8.5 (8.4-10.2) mg/dL Total Bilirubin 0.2 (0.2-1.3) mg/dL AST 20 (17-59) U/L ALT <6 (4-49) U/L Alkaline Phosphatase 31 L (38-126) U/L Total Protein 5.2 L (6.3-8.2) g/dL Albumin 3.1 L (3.5-5.0) g/dL Amylase 56 (30-110) U/L Lipase 67 (23-300) U/L Urine Color Yellow Urine Appearance Clear (Clear) Urine pH 6.0 (5.0-8.0) Ur Specific [place] 1.016 (1.001-1.035) Urine Protein Negative (Negative) Urine Glucose (UA) Negative (Negative) Urine Ketones Negative (Negative) Urine Blood Negative (Negative) Urine Nitrite Negative (Negative) Urine Bilirubin Negative (Negative) Urine Urobilinogen <2.0 (<2.0) mg/dL Ur Leukocyte Esterase Negative (Negative) 12/03/20 Range/Units 13:05 WBC (3.8-10.6) k/uL RBC (4.30-5.90) m/uL Hgb (13.0-17.5) gm/dL Hct (39.0-53.0) % MCV (80.0-100.0) fL MCH (25.0-35.0) pg MCHC (31.0-37.0) g/dL RDW (11.5-15.5) % Plt Count (150-450) k/uL MPV Neutrophils % % Lymphocytes % % Monocytes % % Eosinophils % % Basophils % % Neutrophils # (1.3-7.7) k/uL Lymphocytes # (1.0-4.8) k/uL Monocytes # (0-1.0) k/uL Eosinophils # (0-0.7) k/uL Basophils # (0-0.2) k/uL Sodium (137-145) mmol/L Potassium (3.5-5.1) mmol/L Chloride (98-107) mmol/L Carbon Dioxide (22-30) mmol/L Anion Gap mmol/L BUN (9-20) mg/dL Creatinine (0.66-1.25) mg/dL Est GFR (CKD-EPI)AfAm (>60 ml/min/1.73 sqM) Est GFR (CKD-EPI)NonAf (>60 ml/min/1.73 sqM) Glucose (74-99) mg/dL Plasma Lactic Acid New 0.6 L (0.7-2.0) mmol/L Calcium (8.4-10.2) mg/dL Total Bilirubin (0.2-1.3) mg/dL AST (17-59) U/L ALT (4-49) U/L Alkaline Phosphatase (38-126) U/L Total Protein (6.3-8.2) g/dL Albumin (3.5-5.0) g/dL Amylase (30-110) U/L Lipase (23-300) U/L Urine Color Urine Appearance (Clear) Urine pH (5.0-8.0) Ur Specific [place] (1.001-1.035) Urine Protein (Negative) Urine Glucose (UA) (Negative) Urine Ketones (Negative) Urine Blood (Negative) Urine Nitrite (Negative) Urine Bilirubin (Negative) Urine Urobilinogen (<2.0) mg/dL Ur Leukocyte Esterase (Negative) Disposition Clinical Impression: Abdominal pain, Nausea Disposition: HOME SELF-CARE Condition: Good Instructions (If sedation given, give patient instructions): Abdominal Pain (ED) Additional Instructions: Take medications as directed. Please follow-up with your doctor in one to 2 days. Return to the emergency room for any worsening symptoms. Prescriptions: Dicyclomine [Bentyl] 20 mg PO TID PRN #20 tablet PRN Reason: abdominal pain Ondansetron [Zofran ODT] 4 mg PO Q8HR PRN #15 tab PRN Reason: Nausea Is patient prescribed a controlled substance at d/c from ED?: No Referrals: Juan Kim MD [Primary Care Provider] - 1-2 days Time of Disposition: 14:34
== END 2020-12-03 15:10 | disposition home or self-care (01) ==
LOC: EC 12:25
DX: R10.32 Left lower quadrant pain (principal); R11.0 Nausea; F41.9 Anxiety disorder, unspecified; F32.9 Major depressive disorder, single episode, unspecified; F12.90 Cannabis use, unspecified, uncomplicated; Z88.1 Allergy status to other antibiotic agents; Z88.2 Allergy status to sulfonamides; Z85.21 Personal history of malignant neoplasm of larynx; Z87.891 Personal history of nicotine dependence
CPT/HCPCS: 99284; 96374; 96375 ×3; 96361; 36415; 80053; 82150; 83605; 83690; 85025; 81003; J2765; J2405; J1885; J1170

== ENCOUNTER 2020-12-04 16:36 | Emergency (ER) | payer OTHER ==
[2020-12-04 17:02] VITALS: RESP 18
[2020-12-04] MEDS ORDERED: HYDROmorphone 1 MG/ML 1 ML SYRINGE IVP STA (17:38)
[2020-12-04 18:17] LABS: Basophils % (A) 1 %; Eosinophils # (A) 0.5 k/uL (0-0.7); Eosinophils % (A) 7 %; HCT 45.8 % (39.0-53.0); HGB 15.7 gm/dL (13.0-17.5); Lymphocytes # (A) 1.2 k/uL (1.0-4.8); Lymphocytes % (A) 17 %; MCHC 34.2 g/dL (31.0-37.0); MCV 93.7 fL (80.0-100.0); Monocytes # (A) 0.6 k/uL (0-1.0); Monocytes % (A) 8 %; Neutrophils # (A) 4.8 k/uL (1.3-7.7); Neutrophils % (A) 66 %; Platelet Count 311 k/uL (150-450); RBC 4.89 m/uL (4.30-5.90); RDW 14.3 % (11.5-15.5); WBC 7.3 k/uL (3.8-10.6)
[2020-12-04 18:26] LABS: ALT <6 U/L (4-49); AST 23 U/L (17-59); African American GFR (CKD) >90 (>60 ml/min/1.73 sqM); Alkaline Phosphatase 29 U/L (38-126); Amylase 48 U/L (30-110); Anion Gap 6 mmol/L; Blood Urea Nitrogen 6 mg/dL (9-20); Calcium 8.5 mg/dL (8.4-10.2); Carbon Dioxide 25 mmol/L (22-30); Chloride 105 mmol/L (98-107); Glucose 90 mg/dL (74-99); Lipase 32 U/L (23-300); Non-African American GFR(CKD) >90 (>60 ml/min/1.73 sqM); Potassium 3.4 mmol/L (3.5-5.1); Sodium 136 mmol/L (137-145); Total Bilirubin 0.2 mg/dL (0.2-1.3); Total Protein 5.2 g/dL (6.3-8.2)
--- NOTE | 2020-12-04 18:37 | XR ---
EXAMINATION TYPE: XR KUB DATE OF EXAM: 12/04/2020 COMPARISON: NONE HISTORY: Abdominal pain TECHNIQUE: 2 views FINDINGS: There is no sign of intestinal obstruction or pneumoperitoneum. Fecal pattern is normal. Cammy ng bases are clear. There are no pathologic calcifications over the kidneys. IMPRESSION: Nonacute abdomen.
--- NOTE | 2020-12-04 18:44 | ED ---
Abdominal Pain HPI - General Source: patient, RN notes reviewed Mode of arrival: ambulatory Limitations: no limitations <Adalberto Alonzo - Last Filed: 12/04/20 18:42> <Crystal Francois - Last Filed: 12/08/20 14:39> - General Chief Complaint: Abdominal Pain Stated Complaint: revisit-abd pain Time Seen by Provider: 12/04/20 17:32 - History of Present Illness Initial Comments: 30-year-old male with a history of larynx cancer presenting to the emergency room with abdominal pain and discomfort. He notes that this is been an ongoing issue in the emergency room several times for. He notes he does have a follow- up with primary care and oncologist tomorrow. He notes that he really came in for symptomatically relief at this time. He denied any changes in bowel habits appetite. He was a otherwise well-appearing 30-year-old male. He denied any chest pain shortness of breath headache nausea vomiting diarrhea constipation fever fatigue chills. (Adalberto Alonzo) - Related Data Home Medications Medication Instructions Recorded Confirmed Levothyroxine Sodium [Synthroid] 100 mcg PO DAILY 05/14/20 12/07/20 buPROPion XL [Wellbutrin Xl] 300 mg PO DAILY 09/30/20 12/07/20 oxyCODONE HCL [OxyIR] 5 mg PO Q6H PRN 09/30/20 12/07/20 Previous Rx's Medication Instructions Recorded Dicyclomine [Bentyl] 20 mg PO TID PRN #20 tablet 12/03/20 Ondansetron [Zofran ODT] 4 mg PO Q8HR PRN #15 tab 12/03/20 Allergies Allergy/AdvReac Type Severity Reaction Status Date / Time sulfamethoxazole Allergy Rash/Hives Verified 12/07/20 16:47 [From Bactrim] trimethoprim [From Bactrim] Allergy Rash/Hives Verified 12/07/20 16:47 Review of Systems ROS Other: All systems not noted in ROS Statement are negative. <Adalberto Alonzo - Last Filed: 12/04/20 18:42> ROS Other: All systems not noted in ROS Statement are negative. <Crystal Francois - Last Filed: 12/08/20 14:39> ROS Statement: Those systems with pertinent positive or pertinent negative responses have been documented in the HPI. 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, History of Any Multi-Drug Resistant Organisms: None Reported Past Surgical History: Orthopedic Surgery Additional Past Surgical History / Comment(s): B knee, tumor removal from larynx with lymph node removal, half of epigottis removed, Past Psychological History: Anxiety, Depression Smoking Status: Former smoker Past Alcohol Use History: Occasional Past Drug Use History: Marijuana <Adalberto Alonzo - Last Filed: 12/04/20 18:42> General Exam Limitations: no limitations General appearance: alert, in no apparent distress Head exam: Present: atraumatic, normocephalic, normal inspection Eye exam: Present: normal appearance, PERRL, EOMI. Absent: scleral icterus, conjunctival injection, periorbital swelling Neck exam: Present: normal inspection Respiratory exam: Present: normal lung sounds bilaterally. Absent: respiratory distress, wheezes, rales, rhonchi, stridor Cardiovascular Exam: Present: regular rate, normal rhythm, normal heart sounds. Absent: systolic murmur, diastolic murmur, rubs, gallop, clicks GI/Abdominal exam: Present: soft, normal bowel sounds. Absent: distended, tenderness, guarding, rebound, rigid Extremities exam: Present: normal inspection, full ROM, normal capillary refill. Absent: tenderness, pedal edema, joint swelling, calf tenderness Neurological exam: Present: alert, oriented X3 Psychiatric exam: Present: normal affect, normal mood Skin exam: Present: warm, dry, intact, normal color. Absent: rash <Adalberto Alonzo - Last Filed: 12/04/20 18:42> Course Vital Signs 12/04/20 12/04/20 16:59 19:02 Temperature 98.2 F 97.8 F Pulse Rate 70 62 Respiratory 18 18 Rate Blood Pressure 114/68 134/72 O2 Sat by Pulse 99 98 Oximetry Medical Decision Making - Lab Data Result diagrams: 12/04/20 18:08 12/04/20 18:08 - Radiology Data Radiology results: report reviewed, image reviewed <Adalberto Alonzo - Last Filed: 12/04/20 18:42> - Lab Data Result diagrams: 12/04/20 18:08 12/04/20 18:08 <Crystal Francois - Last Filed: 12/08/20 14:39> - Medical Decision Making 30-year-old male complaining of abdominal pain that is on and off. History of larynx cancer. Basic labs, KUB, 1 mg of Dilaudid ordered. Labs unremarkable. KUB negative for any acute process. Case discussed with Dr. Francois, patient can discharge home with follow-up to his primary care in oncologist as planned. (Adalberto Alonzo) I was available for consultation in the emergency department. The history and physical exam were done by the midlevel provider. I was consulted for this patients care. I reviewed the case with the midlevel provider and based on their presentation of the patient, I agree with the assessment, medical decision making and plan of care as documented. Chart was dictated using [employer] dictation software. Attempts were made to correct any dictation errors however some typographical errors may persist. Patient was seen during a national state of emergency due to the Covid-19 pandemic. (Crystal Francois) - Lab Data Lab Results 12/04/20 12/04/20 Range/Units 18:08 18:08 WBC 7.3 (3.8-10.6) k/uL RBC 4.89 (4.30-5.90) m/uL Hgb 15.7 (13.0-17.5) gm/dL Hct 45.8 (39.0-53.0) % MCV 93.7 (80.0-100.0) fL MCH 32.0 (25.0-35.0) pg MCHC 34.2 (31.0-37.0) g/dL RDW 14.3 (11.5-15.5) % Plt Count 311 (150-450) k/uL MPV 7.0 Neutrophils % 66 % Lymphocytes % 17 % Monocytes % 8 % Eosinophils % 7 % Basophils % 1 % Neutrophils # 4.8 (1.3-7.7) k/uL Lymphocytes # 1.2 (1.0-4.8) k/uL Monocytes # 0.6 (0-1.0) k/uL Eosinophils # 0.5 (0-0.7) k/uL Basophils # 0.0 (0-0.2) k/uL Sodium 136 L (137-145) mmol/L Potassium 3.4 L (3.5-5.1) mmol/L Chloride 105 (98-107) mmol/L Carbon Dioxide 25 (22-30) mmol/L Anion Gap 6 mmol/L BUN 6 L (9-20) mg/dL Creatinine 0.84 (0.66-1.25) mg/dL Est GFR (CKD-EPI)AfAm >90 (>60 ml/min/1.73 sqM) Est GFR (CKD-EPI)NonAf >90 (>60 ml/min/1.73 sqM) Glucose 90 (74-99) mg/dL Calcium 8.5 (8.4-10.2) mg/dL Total Bilirubin 0.2 (0.2-1.3) mg/dL AST 23 (17-59) U/L ALT <6 (4-49) U/L Alkaline Phosphatase 29 L (38-126) U/L Total Protein 5.2 L (6.3-8.2) g/dL Albumin 3.0 L (3.5-5.0) g/dL Amylase 48 (30-110) U/L Lipase 32 (23-300) U/L - Radiology Data KUB: Nonacute abdomen. (Adalberto Alonzo) Disposition Is patient prescribed a controlled substance at d/c from ED?: No Time of Disposition: 18:44 <Adalberto Alonzo - Last Filed: 12/04/20 18:42> <Crystal Francois - Last Filed: 12/08/20 14:39> Clinical Impression: Abdominal pain, Nausea Disposition: HOME SELF-CARE Condition: Stable Instructions (If sedation given, give patient instructions): Abdominal Pain (ED) Additional Instructions: Please return to the Emergency Department if symptoms worsen or any other concerns. Follow-up with primary care in 1-2 days. Follow-up with oncologist in 1-2 days. Take at home medications as prescribed. Referrals: Juan Kim MD [Primary Care Provider] - 1-2 days
[2020-12-04 19:04] VITALS: BP 134/72; PULSE 62; TEMP 97.8
[2020-12-04] MEDS ORDERED: ONDANSETRON 4 MG/2 ML VIAL IVP STA (19:04)
== END 2020-12-04 19:07 | disposition home or self-care (01) ==
LOC: EC 16:36
DX: R10.9 Unspecified abdominal pain (principal); R11.0 Nausea; F41.9 Anxiety disorder, unspecified; F32.9 Major depressive disorder, single episode, unspecified; Z87.891 Personal history of nicotine dependence; F12.90 Cannabis use, unspecified, uncomplicated
CPT/HCPCS: 36415; 80053; 82150; 83690; 85025; 74018; 99284; 96374; 96375; J2405; J1170

== ENCOUNTER 2020-12-07 14:50 | Emergency (ER) | payer OTHER ==
[2020-12-07 15:08] VITALS: TEMP 97.9
[2020-12-07] MEDS ORDERED: ONDANSETRON 4 MG/2 ML VIAL IVP STA (16:01)
[2020-12-07] MEDS ORDERED: MORPHINE SULFATE 2 MG/ML SYRINGE IVP STA (16:01)
[2020-12-07] MEDS ORDERED: SODIUM CHLORIDE 0.9% 1,000 ML IV STA (16:01)
[2020-12-07 16:26] LABS: Basophils # (A) 0.1 k/uL (0-0.2); Basophils % (A) 1 %; Eosinophils # (A) 0.5 k/uL (0-0.7); Eosinophils % (A) 6 %; HCT 53.5 % (39.0-53.0); HGB 17.4 gm/dL (13.0-17.5); Lymphocytes # (A) 1.2 k/uL (1.0-4.8); Lymphocytes % (A) 15 %; MCH 30.5 pg (25.0-35.0); MCHC 32.5 g/dL (31.0-37.0); MCV 93.9 fL (80.0-100.0); Mean Platelet Volume 7.1; Monocytes # (A) 0.7 k/uL (0-1.0); Monocytes % (A) 9 %; Neutrophils # (A) 5.5 k/uL (1.3-7.7); Neutrophils % (A) 68 %; Platelet Count 322 k/uL (150-450); Poikilocytosis Slight; RDW 14.4 % (11.5-15.5); WBC 8.2 k/uL (3.8-10.6)
[2020-12-07 16:29] LABS: Appearance,Urine Clear (Clear); Bilirubin,Urine 1+ (Negative); Blood,Urine Negative (Negative); Color,Urine Yellow; Glucose,Urine (UA) Negative (Negative); Ketones,Urine Trace (Negative); Leukocyte Esterase,Urine Negative (Negative); Nitrite,Urine Negative (Negative); PH, Urine 6.5 (5.0-8.0); Protein,Urine Trace (Negative); Specific Gravity,Urine 1.025 (1.001-1.035); Urobilinogen,Urine <2.0 mg/dL (<2.0)
[2020-12-07 16:36] LABS: ALT <6 U/L (4-49); AST 34 U/L (17-59); African American GFR (CKD) >90 (>60 ml/min/1.73 sqM); Albumin 3.4 g/dL (3.5-5.0); Alkaline Phosphatase 38 U/L (38-126); Anion Gap 5 mmol/L; Blood Urea Nitrogen 7 mg/dL (9-20); Calcium 9.1 mg/dL (8.4-10.2); Carbon Dioxide 30 mmol/L (22-30); Chloride 101 mmol/L (98-107); Glucose 95 mg/dL (74-99); Non-African American GFR(CKD) >90 (>60 ml/min/1.73 sqM); Potassium 3.5 mmol/L (3.5-5.1); Sodium 136 mmol/L (137-145); Total Bilirubin 0.4 mg/dL (0.2-1.3); Total Protein 5.6 g/dL (6.3-8.2)
--- NOTE | 2020-12-07 16:44 | ED ---
Nausea/Vomiting/Diarrhea HPI - General Chief complaint: Nausea/Vomiting/Diarrhea Stated complaint: Dizziness Time Seen by Provider: 12/07/20 15:42 Source: patient, RN notes reviewed Mode of arrival: ambulatory Limitations: no limitations - History of Present Illness Initial comments: Patient is a 30-year-old male that presents to emergency department complaining of being dehydrated and sent by his oncologist for IV fluids. Patient is a frequent flier in the ER regularly requesting pain medication. He notes that he just got a refill of his oxycodone's by his oncologist and primary care. He notes that his oncologist told to come in if he does feel lightheaded for IV fluids. Patient then requested pain medication and nausea medication while sit ting in bed during exam and interview. Patient was in no apparent distress or pain while sitting up. He denied any other issues or complaints at this time. He denied any chest pain shortness breath headache nausea vomiting diarrhea constipation fever fatigue chills. - Related Data Home Medications Medication Instructions Recorded Confirmed Levothyroxine Sodium [Synthroid] 100 mcg PO DAILY 05/14/20 12/03/20 buPROPion XL [Wellbutrin Xl] 300 mg PO DAILY 09/30/20 12/03/20 oxyCODONE HCL [OxyIR] 5 mg PO Q6H PRN 09/30/20 12/03/20 Previous Rx's Medication Instructions Recorded Dicyclomine [Bentyl] 20 mg PO TID PRN #20 tablet 12/03/20 Ondansetron [Zofran ODT] 4 mg PO Q8HR PRN #15 tab 12/03/20 Allergies Allergy/AdvReac Type Severity Reaction Status Date / Time sulfamethoxazole Allergy Rash/Hives Verified 12/07/20 15:08 [From Bactrim] trimethoprim [From Bactrim] Allergy Rash/Hives Verified 12/07/20 15:08 Review of Systems ROS Statement: Those systems with pertinent positive or pertinent negative responses have been documented in the HPI. ROS Other: All systems not noted in ROS Statement are negative. 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 Absent: scleral icterus, conjunctival injection, periorbital swelling Neck exam: Present: normal inspection Respiratory exam: Present: normal lung sounds bilaterally. Absent: respiratory distress, wheezes, rales, rhonchi, stridor Cardiovascular Exam: Present: regular rate, normal rhythm, normal heart sounds. Absent: systolic murmur, diastolic murmur, rubs, gallop, clicks GI/Abdominal exam: Present: soft, normal bowel sounds. Absent: distended, tenderness, guarding, rebound, rigid Extremities exam: Present: normal inspection, full ROM, normal capillary refill. Absent: tenderness, pedal edema, joint swelling, calf tenderness Neurological exam: Present: alert, oriented X3 Psychiatric exam: Present: normal affect, normal mood Skin exam: Present: warm, dry, intact, normal color. Absent: rash Course Vital Signs 12/07/20 15:05 Temperature 97.9 F Pulse Rate 61 Respiratory 16 Rate Blood Pressure 106/69 O2 Sat by Pulse 97 Oximetry Medical Decision Making - Medical Decision Making 30-year-old male requesting IV rehydration per his oncologist request. Also requesting pain medication. Labs, 1 L normal saline, 4 mg of Zofran, 2 mg of morphine ordered. Labs unremarkable from previous studies from several days ago. Case discussed with Dr. Orellana, patient discharge home with continued follow-up to his oncologist and primary care. - Lab Data Result diagrams: 12/07/20 16:12 12/07/20 16:12 Lab Results 12/07/20 12/07/20 12/07/20 Range/Units 16:12 16:12 16:12 WBC 8.2 (3.8-10.6) k/uL RBC 5.70 (4.30-5.90) m/uL Hgb 17.4 (13.0-17.5) gm/dL Hct 53.5 H (39.0-53.0) % MCV 93.9 (80.0-100.0) fL MCH 30.5 (25.0-35.0) pg MCHC 32.5 (31.0-37.0) g/dL RDW 14.4 (11.5-15.5) % Plt Count 322 (150-450) k/uL MPV 7.1 Neutrophils % 68 % Lymphocytes % 15 % Monocytes % 9 % Eosinophils % 6 % Basophils % 1 % Neutrophils # 5.5 (1.3-7.7) k/uL Lymphocytes # 1.2 (1.0-4.8) k/uL Monocytes # 0.7 (0-1.0) k/uL Eosinophils # 0.5 (0-0.7) k/uL Basophils # 0.1 (0-0.2) k/uL Poikilocytosis Slight Sodium 136 L (137-145) mmol/L Potassium 3.5 (3.5-5.1) mmol/L Chloride 101 (98-107) mmol/L Carbon Dioxide 30 (22-30) mmol/L Anion Gap 5 mmol/L BUN 7 L (9-20) mg/dL Creatinine 0.97 (0.66-1.25) mg/dL Est GFR (CKD-EPI)AfAm >90 (>60 ml/min/1.73 sqM) Est GFR (CKD-EPI)NonAf >90 (>60 ml/min/1.73 sqM) Glucose 95 (74-99) mg/dL Calcium 9.1 (8.4-10.2) mg/dL Total Bilirubin 0.4 (0.2-1.3) mg/dL AST 34 (17-59) U/L ALT <6 (4-49) U/L Alkaline Phosphatase 38 (38-126) U/L Total Protein 5.6 L (6.3-8.2) g/dL Albumin 3.4 L (3.5-5.0) g/dL Urine Color Yellow Urine Appearance Clear (Clear) Urine pH 6.5 (5.0-8.0) Ur Specific [place] 1.025 (1.001-1.035) Urine Protein Trace H (Negative) Urine Glucose (UA) Negative (Negative) Urine Ketones Trace H (Negative) Urine Blood Negative (Negative) Urine Nitrite Negative (Negative) Urine Bilirubin 1+ H (Negative) Urine Urobilinogen <2.0 (<2.0) mg/dL Ur Leukocyte Esterase Negative (Negative) Disposition Clinical Impression: Dehydration, Abdominal pain, Nausea Disposition: HOME SELF-CARE Condition: Stable Instructions (If sedation given, give patient instructions): Abdominal Pain (ED) Additional Instructions: Please return to the Emergency Department if symptoms worsen or any other concerns. Follow-up with primary care and oncologist as planned. Increase oral fluid intake. Continue take at home pain medications. Is patient prescribed a controlled substance at d/c from ED?: No Referrals: Juan Kim MD [Primary Care Provider] - 1-2 days Time of Disposition: 16:44
[2020-12-07] MEDS ORDERED: MORPHINE SULFATE 2 MG/ML SYRINGE IVP ONE (17:27)
[2020-12-07 18:13] VITALS: BP 132/78; PULSE 74; RESP 20
== END 2020-12-07 18:13 | disposition home or self-care (01) ==
LOC: EC 14:50
DX: E86.0 Dehydration (principal); R10.9 Unspecified abdominal pain; R11.0 Nausea; F41.9 Anxiety disorder, unspecified; F32.9 Major depressive disorder, single episode, unspecified; Z72.89 Other problems related to lifestyle; Z87.891 Personal history of nicotine dependence
CPT/HCPCS: 36415; 80053; 85025; 81003; 99284; 96374; 96375; 96376; 96361; J2405; J2270

== ENCOUNTER → 2020-12-21 | Outpatient (CLI) | payer OTHER ==
--- NOTE | 2020-12-25 08:59 | PE ---
EXAMINATION TYPE: PET CT fusion skull to thigh DATE OF EXAM: 12/21/2020 COMPARISON: CT abdomen and pelvis December 02, 2020. CT neck May 2020. Prior PET/CT January 16 HISTORY: Laryngeal cancer on biopsy December 2017 with recurrence 2018 and 2019. TECHNIQUE: Following the intravenous administration of 12.85 mCi of F-18 FDG, whole body images are performed from the skull base to the midthigh. Images are reviewed on the computer in the coronal, a xial, and sagittal planes. Reconstructed rotating images are created on independent workstation and reviewed on the computer. A localization and attenuation correction CT is performed in conjunction with the PET scan. Dedicated PET/CT imaging of the head and neck. Blood glucose level equals 100. SCAN: Subsequent Scan FINDINGS: HEAD AND NECK: No suspicious hypermetabolic uptake along the oropharynx or hypopharyngeal airway. No suspicious hypermetabolic neck lymph nodes. CHEST, MEDIASTINUM, AND HILAR REGION: No new areas of abnormal hypermetabolic uptake. ABDOMEN AND PELVIS: No new areas of abnormal hypermetabolic uptake. OSSEOUS STRUCTURES: No new areas of abnormal hypermetabolic uptake. OTHER CT: Nasal septum deviated to the left of midline. Surgical changes bilateral neck submandibular and supraclavicular level . Mild underlying emphysematous change. Patient has little intra-abdominal fat similar to prior. IMPRESSION: No suspicious hypermetabolic uptake to suggest active recurrent malignancy.
== END | disposition home or self-care (01) ==
LOC: RADPETMAIN 15:36
PROVIDERS: ATTEND Otolaryngology
DX: C32.9 Malignant neoplasm of larynx, unspecified (principal)
CPT/HCPCS: 78815; A9552

== ENCOUNTER 2021-05-03 15:44 | Emergency (ER) | payer OTHER ==
[2021-05-03 15:51] VITALS: TEMP 98
[2021-05-03] MEDS ORDERED: LIDOCAINE VISCOUS 2% 15 ML CUP MUCOUS MEM ONE (16:37)
[2021-05-03] MEDS ORDERED: KETOROLAC 15 MG/ML 1 ML VIAL IVP STA (16:37)
[2021-05-03] MEDS ORDERED: DEXAMETHASONE SOD PHOSPHATE 10 MG/ML 1 ML VIAL IVP STA (16:37)
[2021-05-03] MEDS ORDERED: MORPHINE SULFATE 4 MG/ML SYRINGE IVP STA ×2 (16:37→17:55)
[2021-05-03 16:59] LABS: Basophils # (A) 0.1 k/uL (0-0.2); Basophils % (A) 0 %; Eosinophils # (A) 0.9 k/uL (0-0.7); Eosinophils % (A) 7 %; HCT 41.2 % (39.0-53.0); HGB 14.6 gm/dL (13.0-17.5); Lymphocytes # (A) 2.3 k/uL (1.0-4.8); Lymphocytes % (A) 17 %; MCH 32.5 pg (25.0-35.0); MCHC 35.4 g/dL (31.0-37.0); MCV 91.9 fL (80.0-100.0); Mean Platelet Volume 6.8; Monocytes # (A) 0.6 k/uL (0-1.0); Monocytes % (A) 5 %; Neutrophils # (A) 9.2 k/uL (1.3-7.7); Neutrophils % (A) 69 %; Platelet Count 262 k/uL (150-450); RBC 4.48 m/uL (4.30-5.90); RDW 13.3 % (11.5-15.5); WBC 13.3 k/uL (3.8-10.6)
--- NOTE | 2021-05-03 17:09 | XR ---
EXAMINATION TYPE: XR chest 2V DATE OF EXAM: 05/03/2021 5:03 PM COMPARISON: 09/30/2020 TECHNIQUE: Frontal and lateral views of the chest. CLINICAL INDICATION:Male, 31 years old with history of cough; FINDINGS: Lungs/Pleura: There is no evidence of pleural effusion, focal consolidation, or pneumothorax. Pulmonary vascularity: Unremarkable. Heart/mediastinum: Cardiomediastinal silhouette is unremarkable. Musculoskeletal:No acute osseous pathology. Other findings: Lower neck surgical clips are present bilaterally. IMPRESSION: No acute cardiopulmonary disease/process.
[2021-05-03 17:10] LABS: African American GFR (CKD) >90 (>60 ml/min/1.73 sqM); Anion Gap 7 mmol/L; Blood Urea Nitrogen 9 mg/dL (9-20); Calcium 9.4 mg/dL (8.4-10.2); Carbon Dioxide 25 mmol/L (22-30); Chloride 105 mmol/L (98-107); Glucose 116 mg/dL (74-99); Non-African American GFR(CKD) >90 (>60 ml/min/1.73 sqM); Potassium 3.4 mmol/L (3.5-5.1); Sodium 137 mmol/L (137-145)
--- NOTE | 2021-05-03 17:37 | CT ---
EXAMINATION TYPE: CT soft tissue neck w con CT DLP: 257.9 mGycm, Automated exposure control for dose reduction was used. DATE OF EXAM: 05/03/2021 5:05 PM COMPARISON: CT neck 05/14/2020. CLINICAL INDICATION:Male, 31 years old with history of sore throat, history of laryngeal cancer, sore throat, history of laryngeal cancer TECHNIQUE: Standard enhanced CT of the neck following intravenous administration of 100 cc of Isovue 300. Axial sections with coronal and sagittal reformats were obtained. FINDINGS: Brain: Visualized portions are grossly unremarkable. Orbits: Unremarkable Sinuses: Grossly unremarkable. Spaces of the neck: Clear and symmetric. Musculoskeletal: No acute osseous pathology. Lymph nodes: Multiple nonenlarged lymph nodes are seen along both anterior chains of the neck. Vascular structures: Visualized major arteries are patent without evidence of aneurysm. Thoracic Inlet/airway: There is apparent thickening of the aryepiglottic folds bilaterally compared t o prior on 05/14/2020. Airway is patent. The lung apices are clear. Soft tissues/Thyroid: Thyroid and remainder of the soft tissues are unremarkable. Other: Surgical clips are seen in the neck. IMPRESSION 1. There is thickening of the larynx aryepiglottic fold bilaterally when compared to prior to , recommend direct visualization given patient's history and clinical correlation.
--- NOTE | 2021-05-03 17:58 | ED ---
General Adult HPI - General Chief complaint: ENT Stated complaint: sore throat, lung pain Time Seen by Provider: 05/03/21 15:53 Source: patient, RN notes reviewed, old records reviewed Mode of arrival: ambulatory Limitations: no limitations - History of Present Illness Initial comments: Patient is a 31-year-old male with past medical history remarkable for laryngeal cancer, chronic back pain on oxycodone, receives frequent direct visualization endoscopies of his larynx last occurring 4 weeks ago presents emergency Department complaining of a sore throat the last few days. States he intermittently has a hoarse voice as well. No known sick contacts. Concerned that he may have COVID-19. Is a mild nonproductive cough. States he is able swallow, however has difficulty secondary to pain. Requesting pain medications. States office scoped since his last procedure over a year ago for mass removal have been normal. He is concerned that he may have development of masses since then. He presents emergency Department seeking imaging as well as infectious testing. He denies any fevers. Denies any chest pain, abdominal pain, nausea, vomiting, diarrhea. Denies any headaches or joint pain. His no other acute complaint at this time. I evaluated the patient when placed in room.Chief complaint of left "lung pain" and when I discussed this with the patient, he states that he has mild concern for aspiration, as he does have a history of it. Denies any current chest pain or "bone pain". - Related Data Home Medications Medication Instructions Recorded Confirmed Levothyroxine Sodium [Synthroid] 100 mcg PO DAILY 05/14/20 05/03/21 oxyCODONE HCL [OxyIR] 5 mg PO Q6H PRN 09/30/20 05/03/21 Hydrocortisone Cream 1 applic TOPICAL BID PRN 05/03/21 05/03/21 [Hydrocortisone 2.5% Cream] Ketoconazole 2% Cream [Nizoral 2%] 1 applic TOPICAL BID PRN 05/03/21 05/03/21 Ondansetron Odt [Zofran Odt] 8 mg PO TID PRN 05/03/21 05/03/21 Triamcinolone 0.1% Cream [Kenalog 1 applicatio TOPICAL BID PRN 05/03/21 05/03/21 0.1% Cream] Previous Rx's Medication Instructions Recorded Dexamethasone [Decadron] 6 mg PO ONCE #1 tablet 05/03/21 Allergies Allergy/AdvReac Type Severity Reaction Status Date / Time sulfamethoxazole Allergy Rash/Hives Verified 05/03/21 16:31 [From Bactrim] trimethoprim [From Bactrim] Allergy Rash/Hives Verified 05/03/21 16:31 Review of Systems ROS Statement: Those systems with pertinent positive or pertinent negative responses have been documented in the HPI. Review of Systems: CONST: Denies fever EYES: Denies blurry vision ENT: Endorses sore throat C/V: Denies Chest pain RESP: Denies shortness of breath GI: Denies abdominal pain : Denies dysuria SKIN: Denies rash. MSK: Denies joint pain. NEURO: Denies headache ROS Other: All systems not noted in ROS Statement are negative. 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, History of Any Multi-Drug Resistant Organisms: None Reported Past Surgical History: Orthopedic Surgery Additional Past Surgical History / Comment(s): B knee, tumor removal from larynx with lymph node removal, half of epigottis removed, Past Psychological History: Anxiety, Depression Smoking Status: Former smoker Past Alcohol Use History: Occasional Past Drug Use History: Marijuana General Exam - General Exam Comments Initial Comments: General: Appears in no acute distress. HEAD: Normal with no signs of head trauma. EYES: PERRLA, EOMI, conjunctiva normal, no discharge. ENT: Hearing grossly intact. Posterior oropharynx is erythematous. No obvious exudates. No masses visualized. No stridor on auscultation. RESPIRATORY: Clear breath sounds bilaterally. No wheezes, rales, or rhonchi. C/V: Regular rate and rhythm. S1 and S2 auscultated, no edema, peripheral pulses 2+ and intact throughout ABD: Abd is soft, nontender, nondistended EXT: Normal range of motion, no obvious deformity SKIN: No rashes or lesions observed on exposed skin. NEURO: Alert and oriented 4. Limitations: no limitations Course Vital Signs 05/03/21 15:48 Temperature 98.0 F Pulse Rate 85 Respiratory 16 Rate Blood Pressure 127/89 O2 Sat by Pulse 99 Oximetry Medical Decision Making - Medical Decision Making Based on patient's presentation and physical exam, he is concerned for possible return of the patient's laryngeal cancer. Rule out infectious etiology. We will obtaine basic labs, infectious swabs, as well as CT soft tissue of the neck as well as chest x-ray. He was in agreement this plan. He'll be administered IV morphine, viscous lidocaine, IV Toradol, as well as Decadron for symptomatic control. Patient's laboratory studies are remarkable for mild hypokalemia at 3.4. Patien t is a mild leukocytosis of 13.3. Kidney function is within normal limits. Patient is Covid, flu, strep negative. Chest x-ray showed no acute cardiopulmonary process. Neck CTA revealed mild thickening of the larynx aryepiglottic fold but no other signs of masses or cancer. On Reevaluation patient is feeling improved. Can tolerate oral intake. Discussed with the patient admission versus discharge home, and as he recently had a normal endoscopy for weeks ago, he was due for repeat here in the next few weeks I did recommend that he follow-up with his normal doctor palpation. He was in agreement this plan. He like to go home. He'll be given an additional pill of Decadron to take in 2 days. I advised that he follow-up with his doctor that is performed his prior scopes within the next 2 days and he was in agreement this plan. He plans on calling and a sinus series. He is likely exp eriencing a viral pharyngitis. I will provide the patient with a prescription for 1 tablet of Decadron. I instructed the patient to follow up with their PCP in the next 3 days. I explained that the patient should return to the emergency department if they experience any worsening symptoms. Strict return precautions were discussed with the patient. The patient expressed understanding of these instructions. I answered all questions that the patient had. The patient was discharged home in good condition with their prescriptions and follow up information. - Lab Data Result diagrams: 05/03/21 16:51 05/03/21 16:51 Lab Results 05/03/21 05/03/21 05/03/21 Range/Units 16:51 16:51 16:51 WBC (3.8-10.6) k/uL RBC (4.30-5.90) m/uL Hgb (13.0-17.5) gm/dL Hct (39.0-53.0) % MCV (80.0-100.0) fL MCH (25.0-35.0) pg MCHC (31.0-37.0) g/dL RDW (11.5-15.5) % Plt Count (150-450) k/uL MPV Neutrophils % % Lymphocytes % % Monocytes % % Eosinophils % % Basophils % % Neutrophils # (1.3-7.7) k/uL Lymphocytes # (1.0-4.8) k/uL Monocytes # (0-1.0) k/uL Eosinophils # (0-0.7) k/uL Basophils # (0-0.2) k/uL Sodium (137-145) mmol/L Potassium (3.5-5.1) mmol/L Chloride (98-107) mmol/L Carbon Dioxide (22-30) mmol/L Anion Gap mmol/L BUN (9-20) mg/dL Creatinine (0.66-1.25) mg/dL Est GFR (CKD-EPI)AfAm (>60 ml/min/1.73 sqM) Est GFR (CKD-EPI)NonAf (>60 ml/min/1.73 sqM) Glucose (74-99) mg/dL Calcium (8.4-10.2) mg/dL Coronavirus (PCR) Not Detected (Not Detectd) Influenza Type A RNA Not Detected (Not Detectd) Influenza Type B (PCR) Not Detected (Not Detectd) Group A Strep Rapid Negative (Negative) 05/03/21 05/03/21 Range/Units 16:51 16:51 WBC 13.3 H (3.8-10.6) k/uL RBC 4.48 (4.30-5.90) m/uL Hgb 14.6 (13.0-17.5) gm/dL Hct 41.2 (39.0-53.0) % MCV 91.9 (80.0-100.0) fL MCH 32.5 (25.0-35.0) pg MCHC 35.4 (31.0-37.0) g/dL RDW 13.3 (11.5-15.5) % Plt Count 262 (150-450) k/uL MPV 6.8 Neutrophils % 69 % Lymphocytes % 17 % Monocytes % 5 % Eosinophils % 7 % Basophils % 0 % Neutrophils # 9.2 H (1.3-7.7) k/uL Lymphocytes # 2.3 (1.0-4.8) k/uL Monocytes # 0.6 (0-1.0) k/uL Eosinophils # 0.9 H (0-0.7) k/uL Basophils # 0.1 (0-0.2) k/uL Sodium 137 (137-145) mmol/L Potassium 3.4 L (3.5-5.1) mmol/L Chloride 105 (98-107) mmol/L Carbon Dioxide 25 (22-30) mmol/L Anion Gap 7 mmol/L BUN 9 (9-20) mg/dL Creatinine 0.74 (0.66-1.25) mg/dL Est GFR (CKD-EPI)AfAm >90 (>60 ml/min/1.73 sqM) Est GFR (CKD-EPI)NonAf >90 (>60 ml/min/1.73 sqM) Glucose 116 H (74-99) mg/dL Calcium 9.4 (8.4-10.2) mg/dL Coronavirus (PCR) (Not Detectd) Influenza Type A RNA (Not Detectd) Influenza Type B (PCR) (Not Detectd) Group A Strep Rapid (Negative) Disposition Clinical Impression: Sore throat (viral), History of laryngeal cancer Disposition: HOME SELF-CARE Condition: Good Instructions (If sedation given, give patient instructions): Pharyngitis (ED) Prescriptions: Dexamethasone [Decadron] 6 mg PO ONCE #1 tablet Is patient prescribed a controlled substance at d/c from ED?: No Referrals: Juan Kim MD [Primary Care Provider] - 1-2 days
[2021-05-03 18:12] VITALS: BP 135/78; PULSE 96; RESP 18
== END 2021-05-03 18:12 | disposition home or self-care (01) ==
LOC: EC 15:44
DX: J02.9 Acute pharyngitis, unspecified (principal); Z85.21 Personal history of malignant neoplasm of larynx; Z20.822 Contact with and (suspected) exposure to COVID-19; F41.9 Anxiety disorder, unspecified; F32.A Depression, unspecified; Z87.891 Personal history of nicotine dependence; F12.90 Cannabis use, unspecified, uncomplicated; Z72.89 Other problems related to lifestyle
CPT/HCPCS: 36415; 70491; 71046; 80048; 85025; 87081; 87430; 87502; 87635; 96374; 96375; 96376; 99284

== ENCOUNTER → 2021-08-09 | Outpatient (CLI) | payer OTHER ==
--- NOTE | 2021-08-12 06:50 | PE ---
EXAMINATION TYPE: PET CT fusion skull to thigh DATE OF EXAM: 08/09/2021 COMPARISON: Prior PET/CT December 21, 2020 and older studies HISTORY: Laryngeal cancer originally diagnosed in 2018 completed immunotherapy April 2021 TECHNIQUE: Following the intravenous administration of 9.18 mCi of F-18 FDG, whole body images are p erformed from the skull base to the midthigh. Images are reviewed on the computer in the coronal, ax ial, and sagittal planes. Reconstructed rotating images are created on independent workstation and r eviewed on the computer. A localization and attenuation correction CT is performed in conjunction w ith the PET scan. Blood glucose level equals 101 SCAN: Subsequent Scan FINDINGS: HEAD AND NECK: No suspicious new asymmetric hypermetabolic uptake along the oropharynx or hypopharyn geal airway. No suspicious new hypermetabolic neck lymph nodes. CHEST, MEDIASTINUM, AND HILAR REGION: No new areas of abnormal hypermetabolic uptake. ABDOMEN AND PELVIS: No new areas of abnormal hypermetabolic uptake. Normal excretion redemonstrated. OSSEOUS STRUCTURES: No new areas of abnormal hypermetabolic uptake. OTHER CT: Nasal septum redemonstrated deviated to the left of midline. Surgical changes bilateral sub mandibular and supraclavicular level redemonstrated. Mild underlying emphysematous change again seen. Patient has little intra-abdominal fat similar to pr ior. Spine is straightened on sagittal images. IMPRESSION: No suspicious new hypermetabolic uptake to suggest active recurrent malignancy.
== END | disposition home or self-care (01) ==
LOC: RADXRMAIN 09:47
PROVIDERS: ATTEND Internal Medicine Hematology & Oncology
DX: C76.0 Malignant neoplasm of head, face and neck (principal)
CPT/HCPCS: 78815; A9552

== ENCOUNTER 2022-01-07 15:24 | Emergency (ER) | payer OTHER ==
[2022-01-07 15:28] VITALS: RESP 16; TEMP 97.8
[2022-01-07] MEDS ORDERED: SODIUM CHLORIDE 0.9% 1,000 ML IV STA (15:43)
[2022-01-07] MEDS ORDERED: ONDANSETRON 4 MG/2 ML VIAL IVP STA (15:43)
[2022-01-07] MEDS ORDERED: KETOROLAC 15 MG/ML 1 ML VIAL IVP STA (15:43)
[2022-01-07] MEDS ORDERED: PANTOPRAZOLE 40 MG/10 ML VIAL IVP STA (15:43)
--- NOTE | 2022-01-07 15:53 | ED ---
Nausea/Vomiting/Diarrhea HPI - General Chief complaint: Nausea/Vomiting/Diarrhea Stated complaint: Dizziness,weakness,vomiting Time Seen by Provider: 01/07/22 15:37 Source: patient, RN notes reviewed, old records reviewed Mode of arrival: ambulatory Limitations: no limitations - History of Present Illness Initial comments: 31-year-old male presents to the emergency room with complaints of sore throat, nausea and vomiting that started this morning with some dizziness. Denies any fevers. States that he has a history of laryngeal cancer. Radiation therapy in 2018 which did not work. He did immune therapy last year. He has an appointment with his surgeon scheduled this . He does see Dr. Hackett for oncology. MD complaint: nausea, vomiting -: days(s) (1) Description of Vomiting: watery Associated Abdominal Pain: Yes Severity scale (1-10): 7 Associated Symptoms: nausea/vomiting, other (sore throat, dizziness) - Related Data Home Medications Medication Instructions Recorded Confirmed oxyCODONE HCL [OxyIR] 5 mg PO Q6H PRN 09/30/20 01/07/22 Previous Rx's Medication Instructions Recorded Ondansetron Odt [Zofran Odt] 4 mg PO Q8HR PRN #10 tab 01/07/22 Allergies Allergy/AdvReac Type Severity Reaction Status Date / Time sulfamethoxazole Allergy Rash/Hives Verified 01/07/22 17:00 [From Bactrim] trimethoprim [From Bactrim] Allergy Rash/Hives Verified 01/07/22 17:00 Review of Systems ROS Statement: Those systems with pertinent positive or pertinent negative responses have been documented in the HPI. ROS Other: All systems not noted in ROS Statement are negative. 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, History of Any Multi-Drug Resistant Organisms: None Reported Past Surgical History: Orthopedic Surgery Additional Past Surgical History / Comment(s): B knee, tumor removal from larynx with lymph node removal, half of epigottis removed, Past Psychological History: Anxiety, Depression Smoking Status: Former smoker Past Alcohol Use History: Occasional Past Drug Use History: Marijuana General Exam Limitations: no limitations General appearance: alert Eye exam: Absent: scleral icterus, conjunctival injection ENT exam: Present: mucous membranes dry Expanded Mouth exam: Present: tongue normal, tongue elevation. Absent: drooling, trismus Throat exam: tonsillar erythema, tonsillomegaly, other (erythematous). negative: tonsillar exudate, R peritonsillar mass, L peritonsillar mass Neck exam: Present: full ROM. Absent: tenderness, meningismus Respiratory exam: Present: normal lung sounds bilaterally. Absent: respiratory distress, wheezes, rales, rhonchi, stridor, chest wall tenderness, accessory muscle use Cardiovascular Exam: Present: regular rate GI/Abdominal exam: Present: soft, tenderness (diffuse), other (Actively vomiting clear watery emesis). Absent: distended, guarding, rebound, rigid Extremities exam: Present: normal inspection, full ROM, normal capillary refill. Absent: tenderness, pedal edema, joint swelling Neurological exam: Present: alert, oriented X3 Psychiatric exam: Present: normal affect, normal mood Skin exam: Present: warm, dry, normal color. Absent: cyanosis, diaphoretic, petechiae, pallor Course Vital Signs 01/07/22 01/07/22 15:26 18:19 Temperature 97.8 F Pulse Rate 87 59 L Respiratory 16 16 Rate Blood Pressure 161/84 132/82 O2 Sat by Pulse 96 100 Oximetry Medical Decision Making - Medical Decision Making Patient presents with chronic sore throat from laryngeal cancer and sudden onset of nausea and vomiting today. Denies any abdominal pain. No fevers, no difficulty breathing. A CT soft tissue neck was performed May 03 this year shows a thickening of the larynx aryepiglottic fold bilaterally compared to prior study in May 2020. PET scan was also performed August 2021 with no acute malignancy. Labs show a mild leukocytosis likely reactive to persistent vomiting today. Electrolytes are unremarkable. Coronavirus testing is negative. Patient was offered viscous lidocaine and declined stating that it does not help. He was given IV fluids, Dilaudid, Zofran and is feeling better. No further vomiting. Abdomen soft and nontender. Denies any chest pain or difficulty in breathing. He is tolerating fluids in the emergency room. Patient will be discharged home, directed to follow up with his doctor as scheduled this . He is agreeable to this plan of care. Prescription for Zofran was given. Case discussed with Dr. Mathis. - Lab Data Result diagrams: 01/07/22 15:57 01/07/22 15:57 Lab Results 01/07/22 01/07/22 01/07/22 Range/Units 15:57 15:57 15:57 WBC 15.3 H (3.8-10.6) k/uL RBC 4.97 (4.30-5.90) m/uL Hgb 15.2 (13.0-17.5) gm/dL Hct 44.8 (39.0-53.0) % MCV 90.0 (80.0-100.0) fL MCH 30.6 (25.0-35.0) pg MCHC 34.0 (31.0-37.0) g/dL RDW 13.7 (11.5-15.5) % Plt Count 358 (150-450) k/uL MPV 7.3 Neutrophils % 80 % Lymphocytes % 14 % Monocytes % 4 % Eosinophils % 1 % Basophils % 0 % Neutrophils # 12.3 H (1.3-7.7) k/uL Lymphocytes # 2.1 (1.0-4.8) k/uL Monocytes # 0.6 (0-1.0) k/uL Eosinophils # 0.1 (0-0.7) k/uL Basophils # 0.1 (0-0.2) k/uL Sodium 141 (137-145) mmol/L Potassium 4.0 (3.5-5.1) mmol/L Chloride 100 (98-107) mmol/L Carbon Dioxide 25 (22-30) mmol/L Anion Gap 16 mmol/L BUN 12 (9-20) mg/dL Creatinine 0.78 (0.66-1.25) mg/dL Est GFR (CKD-EPI)AfAm >90 (>60 ml/min/1.73 sqM) Est GFR (CKD-EPI)NonAf >90 (>60 ml/min/1.73 sqM) Glucose 92 (74-99) mg/dL Calcium 9.3 (8.4-10.2) mg/dL Total Bilirubin 0.5 (0.2-1.3) mg/dL AST 31 (17-59) U/L ALT 26 (4-49) U/L Alkaline Phosphatase 65 (38-126) U/L Total Protein 7.7 (6.3-8.2) g/dL Albumin 5.1 H (3.5-5.0) g/dL Coronavirus (PCR) Not Detected (Not Detectd) Disposition Clinical Impression: Nausea & vomiting Disposition: HOME SELF-CARE Instructions (If sedation given, give patient instructions): Acute Nausea and Vomiting (ED) Additional Instructions: Slowly advance your diet. Start with bananas, rice, applesauce and toast. Avoid greasy and spicy foods for at least 48 hours. Take Zofran as needed for any nausea. Follow-up with primary care doctor as scheduled this . Return to the emergency room with any new or concerning symptoms including fevers, difficulty swallowing, persistent nausea vomiting or pain. Prescriptions: Ondansetron Odt [Zofran Odt] 4 mg PO Q8HR PRN #10 tab PRN Reason: Nausea Is patient prescribed a controlled substance at d/c from ED?: No Referrals: Juan Kim MD [Primary Care Provider] - 1-2 days Time of Disposition: 17:32
[2022-01-07] MEDS ORDERED: HYDROmorphone 0.5 MG/0.5 ML SYRINGE IVP STA ×2 (16:00→17:34)
[2022-01-07] MEDS ORDERED: DEXAMETHASONE SOD PHOSPHATE 10 MG/ML 1 ML VIAL IVP STA (16:05)
[2022-01-07 16:34] LABS: Basophils # (A) 0.1 k/uL (0-0.2); Basophils % (A) 0 %; Eosinophils # (A) 0.1 k/uL (0-0.7); Eosinophils % (A) 1 %; HCT 44.8 % (39.0-53.0); HGB 15.2 gm/dL (13.0-17.5); Lymphocytes # (A) 2.1 k/uL (1.0-4.8); Lymphocytes % (A) 14 %; MCH 30.6 pg (25.0-35.0); Mean Platelet Volume 7.3; Monocytes # (A) 0.6 k/uL (0-1.0); Monocytes % (A) 4 %; Neutrophils # (A) 12.3 k/uL (1.3-7.7); Neutrophils % (A) 80 %; Platelet Count 358 k/uL (150-450); RBC 4.97 m/uL (4.30-5.90); RDW 13.7 % (11.5-15.5); WBC 15.3 k/uL (3.8-10.6)
[2022-01-07 16:43] LABS: ALT 26 U/L (4-49); AST 31 U/L (17-59); African American GFR (CKD) >90 (>60 ml/min/1.73 sqM); Albumin 5.1 g/dL (3.5-5.0); Alkaline Phosphatase 65 U/L (38-126); Anion Gap 16 mmol/L; Blood Urea Nitrogen 12 mg/dL (9-20); Calcium 9.3 mg/dL (8.4-10.2); Carbon Dioxide 25 mmol/L (22-30); Chloride 100 mmol/L (98-107); Glucose 92 mg/dL (74-99); Non-African American GFR(CKD) >90 (>60 ml/min/1.73 sqM); Sodium 141 mmol/L (137-145); Total Bilirubin 0.5 mg/dL (0.2-1.3); Total Protein 7.7 g/dL (6.3-8.2)
[2022-01-07] MEDS ORDERED: ONDANSETRON 4 MG ODT STARTER PACK 2 TAB BTL PO STA (17:32)
[2022-01-07 18:20] VITALS: BP 132/82; PULSE 59
== END 2022-01-07 18:21 | disposition home or self-care (01) ==
LOC: EC 15:24
DX: R11.2 Nausea with vomiting, unspecified (principal); F41.9 Anxiety disorder, unspecified; F32.A Depression, unspecified; Z87.891 Personal history of nicotine dependence; F12.90 Cannabis use, unspecified, uncomplicated; Z88.2 Allergy status to sulfonamides; Z79.899 Other long term (current) drug therapy; Z20.822 Contact with and (suspected) exposure to COVID-19
CPT/HCPCS: 36415; 80053; 85025; 87635; 99284; 96374; 96375 ×4; 96376; 96361; J1100; J2405; J1885; S0119; C9113; J1170

== ENCOUNTER 2022-01-09 09:16 | Emergency (ER) | payer OTHER ==
[2022-01-09 09:45] VITALS: TEMP 98.1
[2022-01-09] MEDS ORDERED: MORPHINE SULFATE 4 MG/ML SYRINGE IVP STA (10:13)
--- NOTE | 2022-01-09 10:27 | ED ---
General Adult HPI - General Chief complaint: Shortness of Breath Stated complaint: sob Time Seen by Provider: 01/09/22 10:07 Source: patient, RN notes reviewed, old records reviewed Mode of arrival: ambulatory Limitations: no limitations - History of Present Illness Initial comments: Patient is a 31-year-old male presents the emergency room with complaints of difficulty in breathing and bilateral posterior rib pain worse with deep inspiration. He was in the emergency room 2 days ago for sudden onset nausea and vomiting workup showed mild leukocytosis and he was Covid negative he was discharged home on oral Zofran. He reports no further nausea or vomiting but he does note chills. He is unsure as he if he has had fevers. He denies any abd ominal pain at this time. He denies any typical chest pain, altered mental status, headaches, dizziness or known exposure to influenza or Covid. He has a history of laryngeal cancer and aspiration pneumonia. - Related Data Home Medications Medication Instructions Recorded Confirmed oxyCODONE HCL [OxyIR] 5 mg PO Q6H PRN 09/30/20 01/09/22 Ibuprofen [Motrin Ib] 600 mg PO Q8H PRN 01/09/22 01/09/22 Previous Rx's Medication Instructions Recorded Cyclobenzaprine [Flexeril] 10 mg PO TID PRN 7 Days #21 tab 01/09/22 Allergies Allergy/AdvReac Type Severity Reaction Status Date / Time sulfamethoxazole Allergy Itchy and Verified 01/09/22 12:03 [From Bactrim] red hands/feet trimethoprim [From Bactrim] Allergy Itchy and Verified 01/09/22 12:03 red hands/feet Review of Systems ROS Statement: Those systems with pertinent positive or pertinent negative responses have been documented in the HPI. ROS Other: All systems not noted in ROS Statement are negative. 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, History of Any Multi-Drug Resistant Organisms: None Reported Past Surgical History: Orthopedic Surgery Additional Past Surgical History / Comment(s): B knee, tumor removal from larynx with lymph node removal, half of epigottis removed, Past Psychological History: Anxiety, Depression Smoking Status: Former smoker Past Alcohol Use History: Occasional Past Drug Use History: Marijuana General Exam Limitations: no limitations General appearance: alert, in no apparent distress Head exam: Present: atraumatic, normocephalic, normal inspection Neck exam: Present: lymphadenopathy, other (Multiple scars) Respiratory exam: Present: decreased breath sounds (Bibasilar). Absent: respiratory distress, wheezes, rales, rhonchi, stridor Cardiovascular Exam: Present: regular rate, normal rhythm, normal heart sounds. Absent: systolic murmur, diastolic murmur, rubs, gallop, clicks GI/Abdominal exam: Present: soft, normal bowel sounds. Absent: distended, tenderness, guarding, rebound, rigid Extremities exam: Absent: pedal edema, joint swelling Back exam: Present: tenderness (Bilateral ribs flank region). Absent: CVA tenderness (R), CVA tenderness (L), muscle spasm, paraspinal tenderness, verteb ral tenderness Neurological exam: Present: alert, oriented X3, CN II-XII intact Psychiatric exam: Present: normal affect, normal mood Skin exam: Present: warm, dry, intact, normal color. Absent: rash Course Vital Signs 01/09/22 09:40 Temperature 98.1 F Pulse Rate 68 Respiratory 20 Rate Blood Pressure 153/93 O2 Sat by Pulse 99 Oximetry Medical Decision Making - Medical Decision Making 31-year-old male presenting to the emergency room with difficulty breathing and bilateral rib pain with inspiration high risk for aspiration pneumonia. Will check EKG, CBC, CMP, lactic acid, influenza and COVID swabs along with chest x-ray. Will give morphine for pain. No evidence of hypoxemia or hypotension will hold fluid boluses and IV fluid antibiotics at this time. CBC reveals improving leukocytosis with resolved left shift. Electrolytes and renal function normal. Chest x-ray negative for acute cardiopulmonary process. EKG shows sinus bradycardia with incomplete bundle branch block. COVID and in fluenza negative. No significant improvement in pain from morphine will give Dilaudid and monitor response. Pain improved with Dilaudid. Will discharge home with muscle relaxer for bilateral posterior rib spasms/pain and follow-up with his primary care provider. Case discussed with Dr. العلي. - Lab Data Result diagrams: 01/09/22 10:01/09/22 10: Lab Results 01/09/22 01/09/22 01/09/22 Range/Units 10: 10: 10: WBC 11.0 H (3.8-10.6) k/uL RBC 4.55 (4.30-5.90) m/uL Hgb 13.7 (13.0-17.5) gm/dL Hct 40.6 (39.0-53.0) % MCV 89.4 (80.0-100.0) fL MCH 30.1 (25.0-35.0) pg MCHC 33.7 (31.0-37.0) g/dL RDW 13.7 (11.5-15.5) % Plt Count 306 (150-450) k/uL MPV 7.3 Neutrophils % 69 % Lymphocytes % 23 % Monocytes % 5 % Eosinophils % 1 % Basophils % 0 % Neutrophils # 7.6 (1.3-7.7) k/uL Lymphocytes # 2.5 (1.0-4.8) k/uL Monocytes # 0.6 (0-1.0) k/uL Eosinophils # 0.1 (0-0.7) k/uL Basophils # 0.0 (0-0.2) k/uL PT 10.2 (9.0-12.0) sec INR 0.9 (<1.2) APTT 25.3 (22.0-30.0) sec Sodium 138 (137-145) mmol/L Potassium 3.6 (3.5-5.1) mmol/L Chloride 102 (98-107) mmol/L Carbon Dioxide 26 (22-30) mmol/L Anion Gap 10 mmol/L BUN 14 (9-20) mg/dL Creatinine 0.80 (0.66-1.25) mg/dL Est GFR (CKD-EPI)AfAm >90 (>60 ml/min/1.73 sqM) Est GFR (CKD-EPI)NonAf >90 (>60 ml/min/1.73 sqM) Glucose 92 (74-99) mg/dL Plasma Lactic Acid New (0.7-2.0) mmol/L Calcium 9.0 (8.4-10.2) mg/dL Total Bilirubin 0.5 (0.2-1.3) mg/dL AST 26 (17-59) U/L ALT 23 (4-49) U/L Alkaline Phosphatase 49 (38-126) U/L Troponin I (0.000-0.034) ng/mL Total Protein 6.7 (6.3-8.2) g/dL Albumin 4.2 (3.5-5.0) g/dL Coronavirus (PCR) (Not Detectd) Influenza Type A RNA (Not Detectd) Influenza Type B (PCR) (Not Detectd) 01/09/22 01/09/22 01/09/22 Range/Units 10:27 10:27 10:27 WBC (3.8-10.6) k/uL RBC (4.30-5.90) m/uL Hgb (13.0-17.5) gm/dL Hct (39.0-53.0) % MCV (80.0-100.0) fL MCH (25.0-35.0) pg MCHC (31.0-37.0) g/dL RDW (11.5-15.5) % Plt Count (150-450) k/uL MPV Neutrophils % % Lymphocytes % % Monocytes % % Eosinophils % % Basophils % % Neutrophils # (1.3-7.7) k/uL Lymphocytes # (1.0-4.8) k/uL Monocytes # (0-1.0) k/uL Eosinophils # (0-0.7) k/uL Basophils # (0-0.2) k/uL PT (9.0-12.0) sec INR (<1.2) APTT (22.0-30.0) sec Sodium (137-145) mmol/L Potassium (3.5-5.1) mmol/L Chloride (98-107) mmol/L Carbon Dioxide (22-30) mmol/L Anion Gap mmol/L BUN (9-20) mg/dL Creatinine (0.66-1.25) mg/dL Est GFR (CKD-EPI)AfAm (>60 ml/min/1.73 sqM) Est GFR (CKD-EPI)NonAf (>60 ml/min/1.73 sqM) Glucose (74-99) mg/dL Plasma Lactic Acid New 1.1 (0.7-2.0) mmol/L Calcium (8.4-10.2) mg/dL Total Bilirubin (0.2-1.3) mg/dL AST (17-59) U/L ALT (4-49) U/L Alkaline Phosphatase (38-126) U/L Troponin I <0.012 (0.000-0.034) ng/mL Total Protein (6.3-8.2) g/dL Albumin (3.5-5.0) g/dL Coronavirus (PCR) (Not Detectd) Influenza Type A RNA Not Detected (Not Detectd) Influenza Type B (PCR) Not Detected (Not Detectd) 01/09/22 Range/Units 10:27 WBC (3.8-10.6) k/uL RBC (4.30-5.90) m/uL Hgb (13.0-17.5) gm/dL Hct (39.0-53.0) % MCV (80.0-100.0) fL MCH (25.0-35.0) pg MCHC (31.0-37.0) g/dL RDW (11.5-15.5) % Plt Count (150-450) k/uL MPV Neutrophils % % Lymphocytes % % Monocytes % % Eosinophils % % Basophils % % Neutrophils # (1.3-7.7) k/uL Lymphocytes # (1.0-4.8) k/uL Monocytes # (0-1.0) k/uL Eosinophils # (0-0.7) k/uL Basophils # (0-0.2) k/uL PT (9.0-12.0) sec INR (<1.2) APTT (22.0-30.0) sec Sodium (137-145) mmol/L Potassium (3.5-5.1) mmol/L Chloride (98-107) mmol/L Carbon Dioxide (22-30) mmol/L Anion Gap mmol/L BUN (9-20) mg/dL Creatinine (0.66-1.25) mg/dL Est GFR (CKD-EPI)AfAm (>60 ml/min/1.73 sqM) Est GFR (CKD-EPI)NonAf (>60 ml/min/1.73 sqM) Glucose (74-99) mg/dL Plasma Lactic Acid New (0.7-2.0) mmol/L Calcium (8.4-10.2) mg/dL Total Bilirubin (0.2-1.3) mg/dL AST (17-59) U/L ALT (4-49) U/L Alkaline Phosphatase (38-126) U/L Troponin I (0.000-0.034) ng/mL Total Protein (6.3-8.2) g/dL Albumin (3.5-5.0) g/dL Coronavirus (PCR) Not Detected (Not Detectd) Influenza Type A RNA (Not Detectd) Influenza Type B (PCR) (Not Detectd) - EKG Data EKG Comments: Sinus bradycardia, incomplete right bundle branch block, ventricular rate 55 bpm, NH interval 106 6 ms, QRS duration 109 ms QT T/QTC 435/423 ms, axes 58, 83, 59 - Radiology Data Radiology results: report reviewed, image reviewed Two-view chest x-ray shows no acute cardiopulmonary disease/process. No significant change from prior exam. Disposition Clinical Impression: Rib pain Disposition: HOME SELF-CARE Condition: Stable Instructions (If sedation given, give patient instructions): Costochondritis (ED) Prescriptions: Cyclobenzaprine [Flexeril] 10 mg PO TID PRN 7 Days #21 tab PRN Reason: Muscle Spasm Is patient prescribed a controlled substance at d/c from ED?: No Referrals: Juan Kim MD [STAFF PHYSICIAN] - 1-2 days Time of Disposition: 12:13
[2022-01-09 10:44] LABS: Basophils % (A) 0 %; Eosinophils # (A) 0.1 k/uL (0-0.7); Eosinophils % (A) 1 %; HCT 40.6 % (39.0-53.0); HGB 13.7 gm/dL (13.0-17.5); Lymphocytes # (A) 2.5 k/uL (1.0-4.8); Lymphocytes % (A) 23 %; MCH 30.1 pg (25.0-35.0); MCHC 33.7 g/dL (31.0-37.0); MCV 89.4 fL (80.0-100.0); Mean Platelet Volume 7.3; Monocytes # (A) 0.6 k/uL (0-1.0); Monocytes % (A) 5 %; Neutrophils # (A) 7.6 k/uL (1.3-7.7); Neutrophils % (A) 69 %; Platelet Count 306 k/uL (150-450); RBC 4.55 m/uL (4.30-5.90); RDW 13.7 % (11.5-15.5)
[2022-01-09 10:54] LABS: INR 0.9 (<1.2); Partial Thromboplastin Time 25.3 sec (22.0-30.0); Prothrombin Time 10.2 sec (9.0-12.0)
[2022-01-09 10:59] LABS: ALT 23 U/L (4-49); AST 26 U/L (17-59); African American GFR (CKD) >90 (>60 ml/min/1.73 sqM); Albumin 4.2 g/dL (3.5-5.0); Alkaline Phosphatase 49 U/L (38-126); Anion Gap 10 mmol/L; Blood Urea Nitrogen 14 mg/dL (9-20); Carbon Dioxide 26 mmol/L (22-30); Chloride 102 mmol/L (98-107); Glucose 92 mg/dL (74-99); Non-African American GFR(CKD) >90 (>60 ml/min/1.73 sqM); Potassium 3.6 mmol/L (3.5-5.1); Sodium 138 mmol/L (137-145); Total Bilirubin 0.5 mg/dL (0.2-1.3); Total Protein 6.7 g/dL (6.3-8.2)
--- NOTE | 2022-01-09 11:12 | XR ---
EXAMINATION TYPE: XR chest 2V DATE OF EXAM: 01/09/2022 11:07 AM COMPARISON: Chest radiographs from 04/25/2021 TECHNIQUE: XR chest 2V Frontal and lateral views of the chest. CLINICAL INDICATION:Male, 31 years old with history of difficulty breathing; FINDINGS: Lungs/Pleura: There is no evidence of pleural effusion, focal consolidation, or pneumothorax. Pulmonary vascularity: Unremarkable. Heart/mediastinum: Cardiomediastinal silhouette is unremarkable. Musculoskeletal: No acute osseous pathology. Other findings: Lower neck surgical clips are present bilaterally. IMPRESSION: No acute cardiopulmonary disease/process. No significant change from prior examination.
[2022-01-09] MEDS ORDERED: HYDROmorphone 1 MG/ML 1 ML SYRINGE IVP STA (11:37)
[2022-01-09 12:25] VITALS: BP 124/84; PULSE 74; RESP 18
== END 2022-01-09 12:25 | disposition home or self-care (01) ==
LOC: EC 09:16
DX: R07.81 Pleurodynia (principal); R00.1 Bradycardia, unspecified; Z20.822 Contact with and (suspected) exposure to COVID-19; I45.4 Nonspecific intraventricular block; Z87.891 Personal history of nicotine dependence; Z88.2 Allergy status to sulfonamides; Z88.1 Allergy status to other antibiotic agents
CPT/HCPCS: 36415; 93005; 80053; 83605; 84484; 85025; 85610; 85730; 87502; 87635; 71046; 99285; 96374; 96375; J2270; J1170

== ENCOUNTER 2022-02-26 01:45 | Emergency (ER) | payer OTHER ==
[2022-02-26 01:51] VITALS: BP 132/79; RESP 16; TEMP 98.2
[2022-02-26] MEDS ORDERED: oxyCODONE-APAP 10-325MG 1 EACH TAB PO STA (02:01)
[2022-02-26] MEDS ORDERED: DEXAMETHASONE SOD PHOSPHATE 10 MG/ML 1 ML VIAL IM STA (02:01)
--- NOTE | 2022-02-26 02:11 | ED ---
General Adult HPI - General Chief complaint: Shortness of Breath Stated complaint: SOB Time Seen by Provider: 02/26/22 01:53 Source: patient, RN notes reviewed Mode of arrival: ambulatory Limitations: no limitations - History of Present Illness Initial comments: This is a pleasant 32-year-old male with a history of laryngeal cancer which is recurrent. Patient also has chronic back pain. Patient currently under the care of oncology, Dr. Hackett. Patient states that his laryngeal cancer has returned, he is under no therapy at this time. Patient apparently is going to be set up for immunotherapy and surgical intervention. Patient states for the past 2 weeks he has had sensation of shortness of breath. He has also had some voice change. No difficulty swallowing. No difficulty taking fluids. Patient has had no fever but states that he previously has had some problems with some aspiration. Patient has had a cough for 2 weeks and has actually coughed up small specks of blood at times. No headache, no fever or chills, no changes in vision or hearing, no sore throat or difficulty with speech, no neck pain, no chest pain, no abdominal pain, no nausea or vomiting, no changes in urination or bowel movements, no numbness or tingling, no extremity pain, no skin rashes or lesions. Past medical, surgical, social, and family history reviewed. Former cigarette smoker - Related Data Home Medications Medication Instructions Recorded Confirmed oxyCODONE HCL [OxyIR] 5 mg PO Q6H PRN 09/30/20 01/09/22 Ibuprofen [Motrin Ib] 600 mg PO Q8H PRN 01/09/22 01/09/22 Previous Rx's Medication Instructions Recorded Cyclobenzaprine [Flexeril] 10 mg PO TID PRN 7 Days #21 tab 01/09/22 Albuterol Inhaler [Ventolin Hfa 2 puff INHALATION Q4HR PRN #1 each 02/26/22 Inhaler] Allergies Allergy/AdvReac Type Severity Reaction Status Date / Time sulfamethoxazole Allergy Itchy and Verified 02/26/22 01:48 [From Bactrim] red hands/feet trimethoprim [From Bactrim] Allergy Itchy and Verified 02/26/22 01:48 red hands/feet Review of Systems ROS Statement: Those systems with pertinent positive or pertinent negative responses have been documented in the HPI. ROS Other: All systems not noted in ROS Statement are negative. 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, larnyx cancer positive biopsy 2021 History of Any Multi-Drug Resistant Organisms: None Reported Past Surgical History: Orthopedic Surgery Additional Past Surgical History / Comment(s): B knee, tumor removal from larynx with lymph node removal, half of epigottis removed, Past Psychological History: Anxiety, Depression Smoking Status: Former smoker Past Alcohol Use History: Occasional Past Drug Use History: Marijuana General Exam - General Exam Comments Initial Comments: Vital signs stable, patient afebrile. Note that the patient's pulse oximetry is 100% on room air. There is no tachypnea. No adventitious lung sounds. Patient notably has a hoarse voice. However there is no stridor or evidence of airway compromise. Patient shows no evidence of systemic illness. Limitations: no limitations General appearance: alert, in no apparent distress Head exam: Present: atraumatic, normocephalic, normal inspection Eye exam: Present: normal appearance, PERRL, EOMI. Absent: scleral icterus, conjunctival injection, periorbital swelling ENT exam: Present: normal exam, mucous membranes moist Neck exam: Present: normal inspection. Absent: tenderness, meningismus, lymphadenopathy Respiratory exam: Present: normal lung sounds bilaterally. Absent: respiratory distress, wheezes, rales, rhonchi, stridor Cardiovascular Exam: Present: regular rate, normal rhythm, normal heart sounds. Absent: systolic murmur, diastolic murmur, rubs, gallop, clicks GI/Abdominal exam: Present: soft, normal bowel sounds. Absent: distended, tenderness, guarding, rebound, rigid Extremities exam: Present: normal inspection, full ROM, normal capillary refill. Absent: tenderness, pedal edema, joint swelling, calf tenderness Back exam: Present: normal inspection Neurological exam: Present: alert, oriented X3, CN II-XII intact Psychiatric exam: Present: normal affect, normal mood Skin exam: Present: warm, dry, intact, normal color. Absent: rash Course Vital Signs 02/26/22 02/26/22 02/26/22 01:48 02:22 02:38 Temperature 98.2 F Pulse Rate 70 74 Respiratory 16 16 Rate Blood Pressure 132/79 O2 Sat by Pulse 100 Oximetry 02/26/22 02:48 Temperature Pulse Rate 78 Respiratory Rate Blood Pressure O2 Sat by Pulse Oximetry Medical Decision Making - Medical Decision Making Patient complaining of ongoing cough with infrequent hemoptysis which is very mild. Patient has had no fever. SpO2 100% on room air. Vital signs stable, patient afebrile. Patient does inform me that he is out of his oxycodone which is prescribed by Dr. Hackett. He is requesting a dose of pain medication here. We'll obtain a chest x-ray. Given the patient's condition, likely plan for discharge. Patient was given a dose of pain medication here. I can give the patient a st arter pack of acetaminophen with codeine. Patient will need to obtain any further oxycodone from his prescribing physician. COVID-19 testing was negative. We'll go ahead and treat the patient with an albuterol inhaler, benefits seemed to outweigh the risks. Patient released in stable condition. The case was discussed in detail with ED attending physician. Presentation, findings, treatment plan discussed in detail. Supervising physician Dr. Rhodes - Lab Data Lab Results 02/26/22 Range/Units 02:22 Coronavirus (PCR) Not Detected (Not Detectd) - Radiology Data Radiology results: report reviewed, image reviewed Two-view chest x-ray read by me shows no evidence of acute pathology. No pneumothorax. No effusion. No cardiomegaly. Normal diaphragms. No free air. No osseous lesion. No evidence of infiltrate. Pending radiology interpretation. Disposition Clinical Impression: Bronchitis, History of laryngeal cancer Disposition: HOME SELF-CARE Condition: Good Instructions (If sedation given, give patient instructions): Acute Bronchitis (ED) Prescriptions: Albuterol Inhaler [Ventolin Hfa Inhaler] 2 puff INHALATION Q4HR PRN #1 each PRN Reason: Wheezing Is patient prescribed a controlled substance at d/c from ED?: No Referrals: Juan Kim MD [Primary Care Provider] - 1-2 days Gustavo Hackett MD [STAFF PHYSICIAN] - 1-2 days Time of Disposition: 03:05
[2022-02-26] MEDS ORDERED: IPRATROPIUM-ALBUTEROL 3 ML NEB INHALATION STA (02:17)
--- NOTE | 2022-02-26 02:18 | XR ---
EXAMINATION TYPE: XR chest 2V DATE OF EXAM: 02/26/2022 COMPARISON: 01/09/2022 HISTORY: Short of breath TECHNIQUE: 2 views FINDINGS: Heart and mediastinum are normal. Lungs are clear. Diaphragm is normal. Bony thorax appears normal. IMPRESSION: Normal chest. No change.
[2022-02-26 02:49] VITALS: PULSE 78
[2022-02-26] MEDS ORDERED: ONDANSETRON ODT 4 MG TAB PO STA (03:03)
[2022-02-26] MEDS ORDERED: ACET/COD 300 MG/30 MG STARTER PACK 6 TAB BTL PO STA (03:06)
== END 2022-02-26 03:16 | disposition home or self-care (01) ==
LOC: EC 01:45
DX: J40 Bronchitis, not specified as acute or chronic (principal); Z85.21 Personal history of malignant neoplasm of larynx; Z20.822 Contact with and (suspected) exposure to COVID-19; Z87.891 Personal history of nicotine dependence; Z88.2 Allergy status to sulfonamides; Z88.1 Allergy status to other antibiotic agents
CPT/HCPCS: 94640; 87635; 71046; 99285; 96372; J1100

== ENCOUNTER 2022-03-07 04:24 | Emergency (ER) | payer OTHER ==
[2022-03-07] MEDS ORDERED: DEXAMETHASONE SOD PHOSPHATE 10 MG/ML 1 ML VIAL IVP STA (04:43)
[2022-03-07] MEDS ORDERED: SODIUM CHLORIDE 0.9% 1,000 ML IV STA ×2 (04:43)
[2022-03-07] MEDS ORDERED: HYDROmorphone 1 MG/ML 1 ML SYRINGE IVP STA ×2 (04:43→10:07)
[2022-03-07] MEDS ORDERED: SODIUM CHLORIDE 0.9% 500 ML 500 ML IV STA (04:43)
--- NOTE | 2022-03-07 04:44 | ED ---
Recheck HPI - General Chief Complaint: Shortness of Breath Stated Complaint: MEÑO Time Seen by Provider: 03/07/22 04:31 Source: patient, RN notes reviewed, old records reviewed Mode of arrival: wheelchair - History of Present Illness Initial Comments: This is a 32-year-old male DF for evaluation of upper respiratory cold and breathing swollen and hoarse voice. Increased cough. No fevers. History of laryngeal cancer MD Complaint: wound re-check, medication refill request -: days(s) Returns Today for: persistent/worsening pain related to initial visit Symptoms Since Prior Visit: worsening pain Context: ran out of medication Associated Symptoms: shortness of breath Treatments Prior to Arrival: Given Pain Meds on - Related Data Home Medications Medication Instructions Recorded Confirmed oxyCODONE HCL [OxyIR] 5 mg PO Q6H PRN 09/30/20 01/09/22 Ibuprofen [Motrin Ib] 600 mg PO Q8H PRN 01/09/22 01/09/22 Previous Rx's Medication Instructions Recorded Cyclobenzaprine [Flexeril] 10 mg PO TID PRN 7 Days #21 tab 01/09/22 Albuterol Inhaler [Ventolin Hfa 2 puff INHALATION Q4HR PRN #1 each 02/26/22 Inhaler] Allergies Allergy/AdvReac Type Severity Reaction Status Date / Time sulfamethoxazole Allergy Itchy and Verified 03/07/22 04:29 [From Bactrim] red hands/feet trimethoprim [From Bactrim] Allergy Itchy and Verified 03/07/22 04:29 red hands/feet Review of Systems ROS Statement: Those systems with pertinent positive or pertinent negative responses have been documented in the HPI. ROS Other: All systems not noted in ROS Statement are negative. 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, larnyx cancer positive biopsy 2021 History of Any Multi-Drug Resistant Organisms: None Reported Past Surgical History: Orthopedic Surgery Additional Past Surgical History / Comment(s): B knee, tumor removal from larynx with lymph node removal, half of epigottis removed, Past Psychological History: Anxiety, Depression Smoking Status: Former smoker Past Alcohol Use History: Occasional Past Drug Use History: Marijuana General Exam - General Exam Comments Initial Comments: Course voice which is baseline General appearance: alert, in no apparent distress Head exam: Present: atraumatic, normocephalic, normal inspection Eye exam: Present: normal appearance, PERRL, EOMI. Absent: scleral icterus, conjunctival injection, periorbital swelling ENT exam: Present: normal exam, mucous membranes moist Neck exam: Present: normal inspection. Absent: tenderness, meningismus, lymphadenopathy Respiratory exam: Present: normal lung sounds bilaterally. Absent: respiratory distress, wheezes, rales, rhonchi, stridor Cardiovascular Exam: Present: regular rate, normal rhythm, normal heart sounds. Absent: systolic murmur, diastolic murmur, rubs, gallop, clicks GI/Abdominal exam: Present: soft, normal bowel sounds. Absent: distended, tenderness, guarding, rebound, rigid Extremities exam: Present: normal inspection, full ROM, normal capillary refill. Absent: tenderness, pedal edema, joint swelling, calf tenderness Back exam: Present: normal inspection Neurological exam: Present: alert, oriented X3, CN II-XII intact Psychiatric exam: Present: normal affect, normal mood Skin exam: Present: warm, dry, intact, normal color. Absent: rash Course Vital Signs 03/07/22 04:27 Temperature 98.4 F Pulse Rate 107 H Respiratory 20 Rate Blood Pressure 133/88 O2 Sat by Pulse 97 Oximetry - Reevaluation(s) Reevaluation #1: 03/07/22 04:53 Medical records reviewed Reevaluation #2: 03/07/22 05:24 Patient symptoms are improved Reevaluation #3: 03/07/22 05:24 Patient's pain is improved informed results and questions are answered Medical Decision Making - Medical Decision Making 32 male DF for some more difficulty breathing hoarseness of throat throat pain. Patient symptoms are improved here in the ER. Patient can be discharged home - EKG Data -: EKG Interpreted by Me (EKG is sinus 83 MO 140 QRS 105 QTC 394) - Radiology Data Radiology results: report reviewed (X-ray soft tissue neck negative for acute disease), image reviewed Disposition Clinical Impression: History of laryngeal cancer, Neck pain Disposition: HOME SELF-CARE Instructions (If sedation given, give patient instructions): Neck Pain (ED) Is patient prescribed a controlled substance at d/c from ED?: No Referrals: Juan Kim MD [Primary Care Provider] - 1-2 days Time of Disposition: 05:30
[2022-03-07] MEDS ORDERED: RACEPINEPHRINE 2.25% NEB 0.5 ML NEBU INHALATION STA (04:54)
--- NOTE | 2022-03-07 05:10 | XR ---
EXAMINATION TYPE: XR soft tissue neck DATE OF EXAM: 03/07/2022 COMPARISON: NONE HISTORY: Cough TECHNIQUE: 2 views FINDINGS: There are numerous surgical clips from surgery in the hypopharynx. The prevertebral soft ti ssues appear normal. The tonsils and adenoids are normal in size. Epiglottis not well seen. No sign o f thickened epiglottis. Subglottic trachea appears intact. IMPRESSION: Epiglottis is not seen and could be surgical changes. No evidence of a mass.
[2022-03-07 06:13] LABS: Basophils # (A) 0.1 k/uL (0-0.2); Basophils % (A) 1 %; Eosinophils # (A) 0.2 k/uL (0-0.7); Eosinophils % (A) 3 %; HGB 14.5 gm/dL (13.0-17.5); Lymphocytes % (A) 21 %; MCHC 34.6 g/dL (31.0-37.0); MCV 89.5 fL (80.0-100.0); Mean Platelet Volume 7.5; Monocytes # (A) 0.8 k/uL (0-1.0); Monocytes % (A) 8 %; Neutrophils # (A) 6.3 k/uL (1.3-7.7); Neutrophils % (A) 65 %; Platelet Count 399 k/uL (150-450); RBC 4.69 m/uL (4.30-5.90); RDW 13.2 % (11.5-15.5); WBC 9.6 k/uL (3.8-10.6)
[2022-03-07 06:28] LABS: ALT 17 U/L (4-49); AST 27 U/L (17-59); African American GFR (CKD) >90 (>60 ml/min/1.73 sqM); Alkaline Phosphatase 60 U/L (38-126); Anion Gap 11 mmol/L; Blood Urea Nitrogen 11 mg/dL (9-20); Calcium 9.4 mg/dL (8.4-10.2); Carbon Dioxide 30 mmol/L (22-30); Chloride 99 mmol/L (98-107); Glucose 108 mg/dL (74-99); Non-African American GFR(CKD) >90 (>60 ml/min/1.73 sqM); Phosphorus 3.8 mg/dL (2.5-4.5); Potassium 4.4 mmol/L (3.5-5.1); Sodium 140 mmol/L (137-145); Total Bilirubin 0.5 mg/dL (0.2-1.3); Total Protein 7.9 g/dL (6.3-8.2)
[2022-03-07] MEDS ORDERED: ONDANSETRON 4 MG/2 ML VIAL IVP STA (10:07)
[2022-03-07 10:21] VITALS: BP 120/83; PULSE 78; RESP 18; TEMP 98
== END 2022-03-07 10:19 | disposition home or self-care (01) ==
LOC: EC 04:24
DX: M54.2 Cervicalgia (principal); Z85.21 Personal history of malignant neoplasm of larynx; F41.9 Anxiety disorder, unspecified; F32.A Depression, unspecified; Z87.891 Personal history of nicotine dependence; F12.90 Cannabis use, unspecified, uncomplicated; Z88.2 Allergy status to sulfonamides
CPT/HCPCS: 36415; 94640; 80053; 83735; 84100; 85025; 70360; 99285; 96374; 96376; 96375 ×2; 96361; J1100; J2405; J1170

== ENCOUNTER → 2022-03-08 | Outpatient (CLI) | payer OTHER ==
--- NOTE | 2022-03-11 08:39 | PE ---
EXAMINATION TYPE: PET CT fusion skull to thigh DATE OF EXAM: 03/08/2022 COMPARISON: Most recent PET CT August 09, 2021 and older studies HISTORY: Laryngeal cancer progress study originally diagnosed in 2018. TECHNIQUE: Following the intravenous administration of 11.69 mCi of F-18 FDG, whole body images are performed from the skull base to the midthigh. Images are reviewed on the computer in the coronal, a xial, and sagittal planes. Reconstructed rotating images are created on independent workstation and reviewed on the computer. A localization and attenuation correction CT is performed in conjunction with the PET scan. Dedicated PET/CT imaging of the neck. Blood glucose level equals 93. SCAN: Subsequent Scan FINDINGS: HEAD AND NECK: New suspicious elongated hypermetabolic uptake left larynx level of the vocal cords e xtending inferiorly. Max SUV at this level is 14.19 on axial image 74. Craniocaudal length of neoplas m involvement roughly 4.2 cm. CHEST, MEDIASTINUM, AND HILAR REGION: No new areas of abnormal hypermetabolic uptake. ABDOMEN AND PELVIS: No new areas of abnormal hypermetabolic uptake. Normal excretion redemonstrated. OSSEOUS STRUCTURES: No new areas of abnormal hypermetabolic uptake. OTHER CT: Nasal septum redemonstrated deviated to the left of midline. Surgical changes bilateral sub mandibular and supraclavicular level redemonstrated. Mild underlying emphysematous change again seen. Patient has little intra-abdominal fat similar to pr ior. Spine is straightened on sagittal images. IMPRESSION: Recurrent active neoplasm left neck as detailed above. No new metastatic disease noted.
== END | disposition home or self-care (01) ==
LOC: RADPETMAIN 11:25
DX: C32.8 Malignant neoplasm of overlapping sites of larynx (principal)
CPT/HCPCS: 78815; A9552

== ENCOUNTER 2022-03-09 08:57 | Emergency (ER) | payer OTHER ==
[2022-03-09 09:06] VITALS: TEMP 98.8
[2022-03-09] MEDS ORDERED: ONDANSETRON 4 MG/2 ML VIAL IVP STA (09:31)
[2022-03-09] MEDS ORDERED: HYDROmorphone 1 MG/ML 1 ML SYRINGE IVP STA ×2 (09:31→12:01)
[2022-03-09] MEDS ORDERED: methylPREDNISolone SOD SUCCI 125 MG/2 ML VIAL IV STA (09:31)
[2022-03-09] MEDS ORDERED: IPRATROPIUM-ALBUTEROL 3 ML NEB INHALATION STA (09:32)
[2022-03-09 11:18] VITALS: RESP 18
[2022-03-09 11:18] LABS: Basophils % (A) 0 %; Eosinophils # (A) 0.2 k/uL (0-0.7); Eosinophils % (A) 2 %; HCT 36.6 % (39.0-53.0); HGB 12.7 gm/dL (13.0-17.5); Lymphocytes # (A) 1.7 k/uL (1.0-4.8); Lymphocytes % (A) 17 %; MCH 31.4 pg (25.0-35.0); MCHC 34.8 g/dL (31.0-37.0); MCV 90.3 fL (80.0-100.0); Mean Platelet Volume 7.6; Monocytes # (A) 0.6 k/uL (0-1.0); Monocytes % (A) 6 %; Neutrophils # (A) 7.5 k/uL (1.3-7.7); Neutrophils % (A) 73 %; Platelet Count 342 k/uL (150-450); RBC 4.05 m/uL (4.30-5.90); RDW 13.7 % (11.5-15.5); WBC 10.2 k/uL (3.8-10.6)
[2022-03-09 11:31] LABS: ALT 15 U/L (4-49); AST 16 U/L (17-59); African American GFR (CKD) >90 (>60 ml/min/1.73 sqM); Alkaline Phosphatase 48 U/L (38-126); Anion Gap 4 mmol/L; Blood Urea Nitrogen 9 mg/dL (9-20); Calcium 8.7 mg/dL (8.4-10.2); Carbon Dioxide 30 mmol/L (22-30); Chloride 105 mmol/L (98-107); Glucose 97 mg/dL (74-99); Non-African American GFR(CKD) >90 (>60 ml/min/1.73 sqM); Potassium 3.7 mmol/L (3.5-5.1); Sodium 139 mmol/L (137-145); Total Bilirubin 0.2 mg/dL (0.2-1.3); Total Protein 6.5 g/dL (6.3-8.2)
--- NOTE | 2022-03-09 11:53 | ED ---
General Adult HPI - General Chief complaint: Shortness of Breath Stated complaint: Cancer pt., MEÑO Time Seen by Provider: 03/09/22 09:08 Source: patient, RN notes reviewed Mode of arrival: ambulatory Limitations: no limitations - History of Present Illness Initial comments: 32-year-old male presents emergency Department chief complaint of throat irritation. Patient states that he is here to day for shortness breath for similar today. He states he felt better after breathing treatment and steroids other day he states he is unable take his pain meds which is not helping. Patient has a history of the laryngeal cancer states that is followed by [facility] here has had surgery at [place]. Patient states that he had a PET scan yesterday they're waiting for follow-up and results. - Related Data Home Medications Medication Instructions Recorded Confirmed oxyCODONE HCL [OxyIR] 5 mg PO Q6H PRN 09/30/20 01/09/22 Ibuprofen [Motrin Ib] 600 mg PO Q8H PRN 01/09/22 01/09/22 Previous Rx's Medication Instructions Recorded Cyclobenzaprine [Flexeril] 10 mg PO TID PRN 7 Days #21 tab 01/09/22 Albuterol Inhaler [Ventolin Hfa 2 puff INHALATION Q4HR PRN #1 each 02/26/22 Inhaler] predniSONE 50 mg PO DAILY #5 tab 03/09/22 Allergies Allergy/AdvReac Type Severity Reaction Status Date / Time sulfamethoxazole Allergy Itchy and Verified 03/09/22 09:06 [From Bactrim] red hands/feet trimethoprim [From Bactrim] Allergy Itchy and Verified 03/09/22 09:06 red hands/feet Review of Systems ROS Statement: Those systems with pertinent positive or pertinent negative responses have been documented in the HPI. ROS Other: All systems not noted in ROS Statement are negative. 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, larnyx cancer positive biopsy 2021 History of Any Multi-Drug Resistant Organisms: None Reported Past Surgical History: Orthopedic Surgery Additional Past Surgical History / Comment(s): B knee, tumor removal from larynx with lymph node removal, half of epigottis removed, Past Psychological History: Anxiety, Depression Smoking Status: Former smoker Past Alcohol Use History: Occasional Past Drug Use History: Marijuana General Exam Limitations: no limitations General appearance: alert, in no apparent distress Head exam: Present: atraumatic, normocephalic, normal inspection Eye exam: Present: normal appearance, PERRL, EOMI. Absent: scleral icterus, conjunctival injection, periorbital swelling ENT exam: Present: mucous membranes moist. Absent: normal exam, normal oropharynx Neck exam: Present: full ROM. Absent: normal inspection (Surgical changes), tenderness, meningismus, lymphadenopathy Respiratory exam: Present: normal lung sounds bilaterally. Absent: respiratory distress, wheezes, rales, rhonchi, stridor Cardiovascular Exam: Present: regular rate, normal rhythm, normal heart sounds. Absent: systolic murmur, diastolic murmur, rubs, gallop, clicks Course Vital Signs 03/09/22 03/09/22 03/09/22 09:03 11:14 11:30 Temperature 98.8 F Pulse Rate 67 68 Respiratory 24 18 Rate Blood Pressure 106/69 O2 Sat by Pulse 99 Oximetry 03/09/22 11:36 Temperature Pulse Rate 70 Respiratory Rate Blood Pressure O2 Sat by Pulse Oximetry Medical Decision Making - Medical Decision Making 32-year-old history of laryngeal cancer presented for regurgitation. He does feel improved at this time. Patient will be discharged with prednisone as it seems to be improving his symptoms. Patient has follow-up appointment Thursday with regarding his PET scan patient feels "will discharged return parameters d iscussed - Lab Data Result diagrams: 03/09/22 11:11 03/09/22 11:11 Lab Results 03/09/22 03/09/22 Range/Units 11:11 11:11 WBC 10.2 (3.8-10.6) k/uL RBC 4.05 L (4.30-5.90) m/uL Hgb 12.7 L (13.0-17.5) gm/dL Hct 36.6 L (39.0-53.0) % MCV 90.3 (80.0-100.0) fL MCH 31.4 (25.0-35.0) pg MCHC 34.8 (31.0-37.0) g/dL RDW 13.7 (11.5-15.5) % Plt Count 342 (150-450) k/uL MPV 7.6 Neutrophils % 73 % Lymphocytes % 17 % Monocytes % 6 % Eosinophils % 2 % Basophils % 0 % Neutrophils # 7.5 (1.3-7.7) k/uL Lymphocytes # 1.7 (1.0-4.8) k/uL Monocytes # 0.6 (0-1.0) k/uL Eosinophils # 0.2 (0-0.7) k/uL Basophils # 0.0 (0-0.2) k/uL Sodium 139 (137-145) mmol/L Potassium 3.7 (3.5-5.1) mmol/L Chloride 105 (98-107) mmol/L Carbon Dioxide 30 (22-30) mmol/L Anion Gap 4 mmol/L BUN 9 (9-20) mg/dL Creatinine 0.66 (0.66-1.25) mg/dL Est GFR (CKD-EPI)AfAm >90 (>60 ml/min/1.73 sqM) Est GFR (CKD-EPI)NonAf >90 (>60 ml/min/1.73 sqM) Glucose 97 (74-99) mg/dL Calcium 8.7 (8.4-10.2) mg/dL Total Bilirubin 0.2 (0.2-1.3) mg/dL AST 16 L (17-59) U/L ALT 15 (4-49) U/L Alkaline Phosphatase 48 (38-126) U/L Total Protein 6.5 (6.3-8.2) g/dL Albumin 4.0 (3.5-5.0) g/dL Disposition Clinical Impression: History of laryngeal cancer, Neck pain, Throat irritation Disposition: HOME SELF-CARE Condition: Stable Instructions (If sedation given, give patient instructions): Pharyngitis (ED) Additional Instructions: Please return to the Emergency Department if symptoms worsen or any other concerns. Prescriptions: predniSONE 50 mg PO DAILY #5 tab Is patient prescribed a controlled substance at d/c from ED?: No Referrals: Juan Kim MD [Primary Care Provider] - 1-2 days Time of Disposition: 13:01
--- NOTE | 2022-03-09 11:55 | XR ---
EXAMINATION TYPE: XR chest 2V DATE OF EXAM: 03/09/2022 11:44 AM COMPARISON: Chest radiographs from 02/26/2022 TECHNIQUE: XR chest 2V Frontal and lateral views of the chest. CLINICAL INDICATION:Male, 32 years old with history of sob; FINDINGS: Lungs/Pleura: There is no evidence of pleural effusion, focal consolidation, or pneumothorax. Pulmonary vascularity: Unremarkable. Heart/mediastinum: Cardiomediastinal silhouette is unremarkable. Musculoskeletal: No acute osseous pathology. IMPRESSION: No acute cardiopulmonary disease/process.
[2022-03-09] MEDS ORDERED: MAG HYDROX/AL HYDROX/SIMETH 30 ML, HYOSCYAMINE ELIXIR 10 ML, LIDOCAINE VISCOUS 2% 10 ML PO STA ×3 (12:00)
[2022-03-09 13:25] VITALS: BP 109/60; PULSE 68
== END 2022-03-09 13:15 | disposition home or self-care (01) ==
LOC: EC 08:57
DX: Z85.21 Personal history of malignant neoplasm of larynx (principal); M54.2 Cervicalgia; J39.2 Other diseases of pharynx; F41.9 Anxiety disorder, unspecified; F32.A Depression, unspecified; Z87.891 Personal history of nicotine dependence; F12.90 Cannabis use, unspecified, uncomplicated; Z88.2 Allergy status to sulfonamides
CPT/HCPCS: 36415; 94640; 80053; 85025; 71046; 99285; 96374; 96376; 96375 ×2; J2930; J2405; J1170

== ENCOUNTER 2022-03-13 13:16 | Emergency (ER) | payer OTHER ==
[2022-03-13] MEDS ORDERED: HYDROmorphone 0.5 MG/0.5 ML SYRINGE IM STA (16:01)
[2022-03-13] MEDS ORDERED: HYDROmorphone 0.5 MG/0.5 ML SYRINGE IVP STA (16:47)
--- NOTE | 2022-03-13 17:01 | ED ---
General Adult HPI - General Chief complaint: Shortness of Breath Stated complaint: MEÑO, cancer pt Time Seen by Provider: 03/13/22 14:11 Source: patient, RN notes reviewed, old records reviewed Mode of arrival: wheelchair - History of Present Illness Initial comments: Is a 32-year-old male with a past medical history significant for laryngeal cancer which was diagnosed in 2018. Patient recently had a PET scan that showed increase of the tumor in the laryngeal area. Patient has come into the emergency department multiple times the last week this is his fourth visit today per patient states his pain when he tries to eat food and so is looking for some pain medication and states he is going to follow up with a surgeon soon. Patient states he is able to drink water. Patient denies any recent fever chills or cough per patient denies any difficulty breathing or shortness of breath. Patient states his hoarse voice is typical for him. Patient states last emesis emergency department he was given steroids he still has steroids at home. - Related Data Home Medications Medication Instructions Recorded Confirmed Ibuprofen [Motrin Ib] 600 mg PO Q8H PRN 01/09/22 03/13/22 ALPRAZolam [Xanax] 0.25 mg PO BID PRN 03/13/22 03/13/22 Acetaminophen [Tylenol 8 Hour] 650 mg PO Q6H PRN 03/13/22 03/13/22 oxyCODONE HCL [oxyCODONE HCL (IR)] 10 mg PO Q6H PRN 03/13/22 03/13/22 Previous Rx's Medication Instructions Recorded Cyclobenzaprine [Flexeril] 10 mg PO TID PRN 7 Days #21 tab 01/09/22 Albuterol Inhaler [Ventolin Hfa 2 puff INHALATION Q4HR PRN #1 each 02/26/22 Inhaler] Allergies Allergy/AdvReac Type Severity Reaction Status Date / Time sulfamethoxazole Allergy Itchy and Verified 03/13/22 14:38 [From Bactrim] red hands/feet trimethoprim [From Bactrim] Allergy Itchy and Verified 03/13/22 14:38 red hands/feet Review of Systems ROS Statement: Those systems with pertinent positive or pertinent negative responses have been documented in the HPI. ROS Other: All systems not noted in ROS Statement are negative. 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, larnyx cancer positive biopsy 2021 History of Any Multi-Drug Resistant Organisms: None Reported Past Surgical History: Orthopedic Surgery Additional Past Surgical History / Comment(s): B knee, tumor removal from larynx with lymph node removal, half of epigottis removed, Past Psychological History: Anxiety, Depression Smoking Status: Former smoker Past Alcohol Use History: Occasional Past Drug Use History: Marijuana General Exam - General Exam Comments Initial Comments: GENERAL: Patient is well-developed and well-nourished. Patient is nontoxic and well- hydrated and is in no acute distress. ENT: Neck is soft and supple. No significant lymphadenopathy is noted. Oropharynx is clear. Moist mucous membranes. Neck has full range of motion without eliciting any pain. EYES: The sclera were anicteric and conjunctiva were pink and moist. Extraocular movements were intact and pupils were equal round and reactive to light. Eyelids were unremarkable. PULMONARY: Unlabored respirations. Good breath sounds bilaterally. No audible rales rhonchi or wheezing was noted. CARDIOVASCULAR: There is a regular rate and rhythm without any murmurs gallops or rubs. ABDOMEN: Soft and nontender with normal bowel sounds. SKIN: Skin is clear with no lesions or rashes and otherwise unremarkable. NEUROLOGIC: Patient is alert and oriented x3. Cranial nerves II through XII are grossly intact. Motor and sensory are also intact. Patient's voice is a little hoarse and quiet he states it's baseline for him. MUSCULOSKELETAL: Normal extremities with adequate strength and full range of motion. LYMPHATICS: No significant lymphadenopathy is noted PSYCHIATRIC: Normal psychiatric evaluation. Course Vital Signs 03/13/22 03/13/22 13:38 15:05 Temperature 97.8 F Pulse Rate 89 Respiratory 18 20 Rate Blood Pressure 124/67 O2 Sat by Pulse 99 Oximetry Medical Decision Making - Medical Decision Making I reviewed the CAT scan that was done on 03 08 and I asked the radiologist to review what he stated that the airway was patent and saw no obstruction in the esophagus. I spoke with the oncologist office Dr. Hackett and they stated they were going to send in a prescription for the patient to get fentanyl patches that it would help with his pain and his ability to eat. I spoke with the patient about this plan of action and he was happy with that and stated he will follow-up with both his oncologist and his surgeon. Disposition Clinical Impression: Dysphagia Disposition: HOME SELF-CARE Condition: Good Instructions (If sedation given, give patient instructions): Dysphagia (ED) Additional Instructions: Patient is to follow-up with his oncologist and his surgeon. Is patient prescribed a controlled substance at d/c from ED?: No Referrals: None,Stated [Primary Care Provider] - 1-2 days Time of Disposition: 17:05
[2022-03-13 17:27] VITALS: BP 143/80; PULSE 87; RESP 16; TEMP 98
== END 2022-03-13 17:30 | disposition home or self-care (01) ==
LOC: EC 13:16
DX: R13.10 Dysphagia, unspecified (principal); F41.9 Anxiety disorder, unspecified; F32.A Depression, unspecified; Z87.891 Personal history of nicotine dependence; F12.90 Cannabis use, unspecified, uncomplicated; Z88.2 Allergy status to sulfonamides
CPT/HCPCS: 99285; 96374; 96372; J1170

== ENCOUNTER 2022-03-31 02:43 | Emergency (ER) | payer OTHER ==
[2022-03-31 02:51] VITALS: TEMP 97.7
[2022-03-31] MEDS ORDERED: RX INFO: IV CONTRAST WAS GIVEN 1 EACH MISC MISCELLANE PRN (02:57)
[2022-03-31] MEDS ORDERED: RACEPINEPHRINE 2.25% NEB 0.5 ML NEBU INHALATION STA (02:57)
[2022-03-31] MEDS ORDERED: MORPHINE SULFATE 4 MG/ML SYRINGE IVP STA (02:57)
[2022-03-31 03:20] LABS: Basophils # (A) 0.1 k/uL (0-0.2); Basophils % (A) 0 %; Eosinophils # (A) 0.1 k/uL (0-0.7); Eosinophils % (A) 1 %; HCT 43.1 % (39.0-53.0); HGB 14.5 gm/dL (13.0-17.5); Lymphocytes # (A) 2.2 k/uL (1.0-4.8); Lymphocytes % (A) 12 %; MCH 30.6 pg (25.0-35.0); MCHC 33.8 g/dL (31.0-37.0); MCV 90.6 fL (80.0-100.0); Mean Platelet Volume 7.6; Monocytes # (A) 0.9 k/uL (0-1.0); Monocytes % (A) 5 %; Neutrophils # (A) 14.6 k/uL (1.3-7.7); Neutrophils % (A) 80 %; Platelet Count 424 k/uL (150-450); RBC 4.75 m/uL (4.30-5.90); RDW 13.5 % (11.5-15.5); WBC 18.3 k/uL (3.8-10.6)
--- NOTE | 2022-03-31 03:25 | ED ---
General Adult HPI - General Chief complaint: Shortness of Breath Stated complaint: Difficulty Breathing, Throat Cancer Time Seen by Provider: 03/31/22 02:48 Source: patient, EMS Mode of arrival: EMS Limitations: no limitations - History of Present Illness Initial comments: This is a 32-year-old male with a past medical history including previous throat cancer that had recurred approximately 3 times presents emergency department currently for increasing shortness of breath. The patient stated that he has a known tumor in the throat that has been increasingly causing him to have shortness of breath. The patient stated that he has had episodes where he breaks into a cold sweat has difficulty breathing and stated that he had an episode prior to evaluation today. The patient stated that he could not catch his breath so he called EMS for evaluation. The patient did have minor stridor on evaluation and had a low voice secondary to his known tumor. The patient did state that he has been taking approximate 40 mg of prednisone daily for his symp toms however stated that the medications that he has at home wasn't helping today. The patient denied any recent sick contacts and stated that he was trying to prevent himself and come into the emergency departments we could enjoy his [place] with his family. The patient stated that he didn't have any fevers or chills but did state that he is having a productive cough and stated that he is prone to aspiration pneumonia secondary to the patient's previous surgeries regarding the throat. The patient himself was resting in bed comfortably, pleasant without any acute pain or distress noted. The patient denied any fevers, chills as well as any nausea and vomiting. - Related Data Home Medications Medication Instructions Recorded Confirmed Ibuprofen [Motrin Ib] 600 mg PO Q8H PRN 01/09/22 03/13/22 ALPRAZolam [Xanax] 0.25 mg PO BID PRN 03/13/22 03/13/22 Acetaminophen [Tylenol 8 Hour] 650 mg PO Q6H PRN 03/13/22 03/13/22 oxyCODONE HCL [oxyCODONE HCL (IR)] 10 mg PO Q6H PRN 03/13/22 03/13/22 Previous Rx's Medication Instructions Recorded Cyclobenzaprine [Flexeril] 10 mg PO TID PRN 7 Days #21 tab 01/09/22 Albuterol Inhaler [Ventolin Hfa 2 puff INHALATION Q4HR PRN #1 each 02/26/22 Inhaler] Allergies Allergy/AdvReac Type Severity Reaction Status Date / Time sulfamethoxazole Allergy Itchy and Verified 03/13/22 14:38 [From Bactrim] red hands/feet trimethoprim [From Bactrim] Allergy Itchy and Verified 03/13/22 14:38 red hands/feet Review of Systems ROS Statement: Those systems with pertinent positive or pertinent negative responses have been documented in the HPI. ROS Other: All systems not noted in ROS Statement are negative. 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, larnyx cancer positive biopsy 2021 History of Any Multi-Drug Resistant Organisms: None Reported Past Surgical History: Orthopedic Surgery Additional Past Surgical History / Comment(s): B knee, tumor removal from larynx with lymph node removal, half of epigottis removed, Past Psychological History: Anxiety, Depression Smoking Status: Former smoker Past Alcohol Use History: Occasional Past Drug Use History: Marijuana General Exam Limitations: no limitations General appearance: alert, in no apparent distress Head exam: Present: atraumatic, normocephalic Eye exam: Present: normal appearance, PERRL Pupils: Present: normal accommodation ENT exam: Present: normal exam, normal oropharynx, mucous membranes moist Neck exam: Present: normal inspection, full ROM Respiratory exam: Present: normal lung sounds bilaterally Cardiovascular Exam: Present: regular rate, normal rhythm, normal heart sounds GI/Abdominal exam: Present: soft, normal bowel sounds Extremities exam: Present: normal inspection, full ROM Back exam: Present: normal inspection, full ROM Neurological exam: Present: alert, oriented X3, CN II-XII intact Psychiatric exam: Present: normal affect, normal mood Skin exam: Present: warm, dry Course Vital Signs 03/31/22 03/31/22 03/31/22 02:44 03:09 03:19 Temperature 97.7 F Pulse Rate 101 H 80 95 Respiratory 20 Rate Blood Pressure 103/84 O2 Sat by Pulse 98 Oximetry 03/31/22 03/31/22 04:13 05:42 Temperature Pulse Rate 85 62 Respiratory 20 Rate Blood Pressure 133/84 O2 Sat by Pulse 100 99 Oximetry Medical Decision Making - Medical Decision Making Was pt. sent in by a medical professional or institution? @ -No Did you speak to anyone other than the patient for history? @ -EMS Did you review nursing and triage notes? @ -Nursing triage notes were reviewed Were old charts reviewed? @ -Yes, old admissions were reviewed Differential Diagnosis? @ -Acute viral URI, metastatic disease, worsening throat cancer, airway narrowing EKG interpreted by me (3pts min.)? @ -[none] X-rays interpreted by me (1pt min.)? @ -[none] CT interpreted by me (1pt min.)? @ -CT of the soft tissues of the neck as well as a CT of the chest was obtained and was interpreted by myself. CT of the soft tissues of the neck with contrast showed soft tissue mass in the left side of the hypopharynx consistent with tumor that has increased in size compared to the old exam. There is progression of the airway narrowing of the upper trachea. CT of the thorax no evidence of pulmonary and wasn't. There was no suspicion for pulmonary mass. U/S interpreted by me (1pt. min.)? @ -[none] What testing was considered but not performed? (CT, X-rays, U/S, labs)? Why? @None What meds were considered but not given? Why? @ -Decadron was considered however the patient did state that he took a total of 40 mg of prednisone throughout the day today therefore this was not given at this time. Did you discuss the management of the patient with other professionals? @ -No Did you reconcile home meds? @ -[none] Was smoking cessation discussed for >3mins.? @ -[none] Was critical care preformed (if so, how long)? @ -[none] Were there social determinants of health that impacted care today? How? (Homelessness, low income, unemployed, alcoholism, drug addiction, transportation, low edu. Level, literacy, decrease access to med. care, half-way, rehab)? @ -None Was there de-escalation of care discussed even if they declined? (Discuss DNR or withdrawal of care, Hospice)? @ -No What co-morbidities impacted this encounter? (DM, HTN, Smoking, COPD, CAD, Cancer, CVA, Hep., AIDS, mental health diagnosis, sleep apnea, morbid obesity)? @ -Known throat cancer Was patient admitted / discharged? @ -The patient was seen and evaluated emergency department. Initially on arrival, the patient was placed on nasal cannula oxygen for symptomatic improvement. The patient's vital signs were however within normal limits and stable. The patient stated that he felt as if he could not take a full deep br eath and get good oxygenation however his pulse ox was above 98%. Due to these findings in the setting of a known throat mass, CT of the chest and soft tissues of the neck were obtained. The patient did receive racemic epinephrine as he did state this is a healthy him in the past. The patient did not receive any steroids at this time as he did receive over 40 mg of steroids at home. The patient's white blood cell count was elevated and is likely secondary to his chronic high-dose steroid use. The patient continued to remain closely monitored and observed and on reevaluation multiple times throughout the hospital stay, the patient stated that his symptoms had improved. Due to the patient's narrowing of the airway in the setting of a throat mass, the patient was offered transfer for evaluation and possible surgery. The patient stated that he would prefer to be discharged home and to follow-up with his surgeon first thing this morning. He did state that there was plans initially to perform a surgical intervention with a trach and PEG as well as resection of the throat mass as early as the of this week. The patient stated that he can get ahold of his surgeon's office this morning and get this set up instead of being transferred and wheezing times in the emergency department. I did give the patient multiple doses of pain medications in the emergency department and he did have improvement of his symptoms. The patient was advised of the risks of going home instead of being transferred and he did understand these. The patient was given a starter pack of Zofran for nausea at home and was told to contact his surgeon in the morning. The patient understood this and all these instructions and the patient was discharged home in stable condition with his father. Undiagnosed new problem with uncertain prognosis? @ -[none] Drug Therapy requiring intensive monitoring for toxicity (Heparin, Nitro, Insulin, Cardizem)? @ -[none] Were any procedures done? @ -[none] Diagnosis/symptom? @ -Shortness of breath secondary to enlarging throat mass Acute, or Chronic, or Acute on Chronic? @ -Acute on chronic Uncomplicated (without systemic symptoms) or Complicated (systemic symptoms)? @ -Complicated Side effects of treatment? @ -[none] Exacerbation, Progression, or Severe Exacerbation] @ -Progression Poses a threat to life or bodily function? @ -[no] - Lab Data Result diagrams: 03/31/22 03:03 03/31/22 02:59 Lab Results 03/31/22 03/31/22 Range/Units 02:59 03:03 WBC 18.3 H (3.8-10.6) k/uL RBC 4.75 (4.30-5.90) m/uL Hgb 14.5 (13.0-17.5) gm/dL Hct 43.1 (39.0-53.0) % MCV 90.6 (80.0-100.0) fL MCH 30.6 (25.0-35.0) pg MCHC 33.8 (31.0-37.0) g/dL RDW 13.5 (11.5-15.5) % Plt Count 424 (150-450) k/uL MPV 7.6 Neutrophils % 80 % Lymphocytes % 12 % Monocytes % 5 % Eosinophils % 1 % Basophils % 0 % Neutrophils # 14.6 H (1.3-7.7) k/uL Lymphocytes # 2.2 (1.0-4.8) k/uL Monocytes # 0.9 (0-1.0) k/uL Eosinophils # 0.1 (0-0.7) k/uL Basophils # 0.1 (0-0.2) k/uL Sodium 138 (137-145) mmol/L Potassium 3.8 (3.5-5.1) mmol/L Chloride 100 (98-107) mmol/L Carbon Dioxide 30 (22-30) mmol/L Anion Gap 8 mmol/L BUN 16 (9-20) mg/dL Creatinine 0.70 (0.66-1.25) mg/dL Est GFR (CKD-EPI)AfAm >90 (>60 ml/min/1.73 sqM) Est GFR (CKD-EPI)NonAf >90 (>60 ml/min/1.73 sqM) Glucose 109 H (74-99) mg/dL Calcium 9.1 (8.4-10.2) mg/dL Magnesium 2.3 (1.6-2.3) mg/dL Total Bilirubin 0.4 (0.2-1.3) mg/dL AST 22 (17-59) U/L ALT 21 (4-49) U/L Alkaline Phosphatase 63 (38-126) U/L Total Protein 7.0 (6.3-8.2) g/dL Albumin 4.2 (3.5-5.0) g/dL Disposition Clinical Impression: Throat cancer, Shortness of breath Disposition: HOME SELF-CARE Condition: Stable Instructions (If sedation given, give patient instructions): Shortness of Breath (ED) Is patient prescribed a controlled substance at d/c from ED?: No Referrals: None,Stated [REFERRING] - 1-2 days Time of Disposition: 05:55
[2022-03-31 03:30] LABS: ALT 21 U/L (4-49); AST 22 U/L (17-59); African American GFR (CKD) >90 (>60 ml/min/1.73 sqM); Albumin 4.2 g/dL (3.5-5.0); Alkaline Phosphatase 63 U/L (38-126); Anion Gap 8 mmol/L; Blood Urea Nitrogen 16 mg/dL (9-20); Calcium 9.1 mg/dL (8.4-10.2); Carbon Dioxide 30 mmol/L (22-30); Chloride 100 mmol/L (98-107); Glucose 109 mg/dL (74-99); Magnesium 2.3 mg/dL (1.6-2.3); Non-African American GFR(CKD) >90 (>60 ml/min/1.73 sqM); Potassium 3.8 mmol/L (3.5-5.1); Sodium 138 mmol/L (137-145); Total Bilirubin 0.4 mg/dL (0.2-1.3)
--- NOTE | 2022-03-31 04:00 | CT ---
EXAMINATION TYPE: CT soft tissue neck w con DATE OF EXAM: 03/31/2022 COMPARISON: 05/03/2021 HISTORY: SOB PT HAS THROAT CA CT DLP: 246.8 mGycm Automated exposure control for dose reduction was used. CONTRAST: Performed with IV Contrast, patient injected with 100 mL of Isovue 300. Images obtained from the thoracic inlet to the top of the frontal sinuses with the IV contrast. There is intact thyroid gland. No evidence of any superior mediastinal adenopathy. The mandibular rin g is intact. Dynamic arches are intact. Nasal bone is intact. No retro-orbital mass. Paranasal sinuse s appear intact. Parotid glands are symmetric. The submandibular salivary glands are symmetric. There is previous surg stacie with apparent resection of the epiglottis and the hypopharynx. There is luminal narrowing of the upper trachea with soft tissue density on the left side. The opening measures 12 x 3 mm. There is sof t tissue mass that measures 3 x 2 cm on the left side of the hypopharynx. The cervical vertebra have normal alignment. There is mild narrowing at C6-7 disc space. Facet joints are intact. IMPRESSION: There is soft tissue mass in the left side of the hypopharynx consistent with tumor that has increase d in size compared to old exam. There is progression of the airway narrowing of the upper trachea.
[2022-03-31] MEDS ORDERED: HYDROmorphone 1 MG/ML 1 ML SYRINGE IVP STA ×2 (04:11→06:03)
[2022-03-31] MEDS ORDERED: ONDANSETRON 4 MG/2 ML VIAL IVP STA (04:17)
--- NOTE | 2022-03-31 04:25 | CT ---
EXAMINATION TYPE: CT chest w con DATE OF EXAM: 03/31/2022 COMPARISON: None HISTORY: PT HAS THROAT TUMOR 2019. INCREASED SOB CT DLP: 246.8 mGycm Automated exposure control for dose reduction was used. CONTRAST: Performed with IV Contrast, patient injected with 100 mL of Isovue 300. There are Three-D postprocessed images. There is no mediastinal adenopathy. There are no hilar masses. Heart size is normal. No pericardial e ffusion. There is no pleural effusion. The lungs are clear of infiltrate. No evidence of a pulmonary mass. There is normal contrast opacific ation of the pulmonary arteries. No filling defect. Thoracic aorta is intact. No aneurysm or dissecti on. The thoracic spine is intact with no compression fracture. Sternum is intact. The upper abdominal sof t tissues appear intact. IMPRESSION: No evidence of pulmonary embolism. No suspicious pulmonary mass.
[2022-03-31] MEDS ORDERED: ONDANSETRON 4 MG ODT STARTER PACK 2 TAB BTL PO STA (06:11)
[2022-03-31 06:13] VITALS: BP 136/62; PULSE 84; RESP 18
== END 2022-03-31 06:18 | disposition home or self-care (01) ==
LOC: EC 02:43
DX: C79.9 Secondary malignant neoplasm of unspecified site (principal); R06.02 Shortness of breath; F41.9 Anxiety disorder, unspecified; F32.A Depression, unspecified; F12.90 Cannabis use, unspecified, uncomplicated; Z87.891 Personal history of nicotine dependence; Z88.2 Allergy status to sulfonamides
CPT/HCPCS: 36415; 94640; 80053; 83735; 85025; 70491; 71260; 99285; 96374; 96375 ×2; 96376; J2270; J2405; J1170; S0119; Q9967

== ENCOUNTER 2022-04-03 01:25 | Emergency (ER) | payer OTHER ==
[2022-04-03 01:33] VITALS: TEMP 97.9
[2022-04-03] MEDS ORDERED: RACEPINEPHRINE 2.25% NEB 0.5 ML NEBU INHALATION STA ×2 (02:08→09:14)
[2022-04-03] MEDS ORDERED: HYDROmorphone 1 MG/ML 1 ML SYRINGE IVP STA ×5 (02:08→12:43)
--- NOTE | 2022-04-03 02:16 | ED ---
General Adult HPI - General Source: patient Mode of arrival: ambulatory <Zaid Tracy - Last Filed: 04/03/22 06:30> <Crystal Francois - Last Filed: 04/04/22 23:25> - General Chief complaint: Shortness of Breath Stated complaint: SOB Time Seen by Provider: 04/03/22 01:36 - History of Present Illness Initial comments: This is a 32-year-old male with a past medical history including throat cancer with recurrent tumor with a planned resection at [facility] on 04/09/22 presents emergency department once again for increasing terms of breath. The patient was seen in the emergency department earlier this week with the same symptoms consistent with his previous shortness of breath secondary to increasing tumor burden. The patient did speak with his surgeon and the surgery is scheduled for next week however he was advised to report back to the emergency department if he had increasing shortness of breath. The patient stated that he had an episode of shortness of breath earlier today but was able to calm himself down and noted that the breathing does improve throughout the day. The patient did state that his breathing does get worse at night. The patient stated that he had significant improvement the last and he was in the emergency department last week when he received racemic epinephrine as well as pain medications. The patient was resting in bed without any acute distress on my evaluation however and denied any lightheadedness or dizziness. The patient stated that the shortness of breath is consistent with his previous, baseline shortness of breath. The patient denied any chest pain however. (Zaid Tracy) - Related Data Home Medications Medication Instructions Recorded Confirmed Ibuprofen [Motrin Ib] 600 mg PO Q8H PRN 01/09/22 04/03/22 ALPRAZolam [Xanax] 0.25 mg PO BID PRN 03/13/22 04/03/22 Acetaminophen [Tylenol 8 Hour] 650 mg PO Q6H PRN 03/13/22 04/03/22 oxyCODONE HCL [oxyCODONE HCL (IR)] 10 mg PO Q6H PRN 03/13/22 04/03/22 Albuterol Inhaler [Ventolin Hfa 2 puff INHALATION RT-Q4H PRN 04/03/22 04/03/22 Inhaler] Naloxone HCl [Narcan] 4 mg NASAL DIRECTED PRN 04/03/22 04/03/22 Ondansetron Odt [Zofran Odt] 4 mg PO Q4H PRN 04/03/22 04/03/22 fentaNYL 25MCG/HR PATCH [Duragesic 1 patch TRANSDERM Q72H 04/03/22 04/03/22 25MCG/HR] predniSONE 40 mg PO DAILY 04/03/22 04/03/22 Allergies Allergy/AdvReac Type Severity Reaction Status Date / Time sulfamethoxazole Allergy Itchy and Verified 04/03/22 01:33 [From Bactrim] red hands/feet trimethoprim [From Bactrim] Allergy Itchy and Verified 04/03/22 01:33 red hands/feet Review of Systems ROS Other: All systems not noted in ROS Statement are negative. <Zaid Tracy - Last Filed: 04/03/22 06:30> ROS Other: All systems not noted in ROS Statement are negative. <Crystal Francois - Last Filed: 04/04/22 23:25> ROS Statement: Those systems with pertinent positive or pertinent negative responses have been documented in the HPI. 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, larnyx cancer positive biopsy 2021 History of Any Multi-Drug Resistant Organisms: None Reported Past Surgical History: Orthopedic Surgery Additional Past Surgical History / Comment(s): B knee, tumor removal from larynx with lymph node removal, half of epigottis removed, Past Psychological History: Anxiety, Depression Smoking Status: Former smoker Past Alcohol Use History: Occasional Past Drug Use History: Marijuana <Zaid Tracy - Last Filed: 04/03/22 06:30> General Exam Limitations: no limitations General appearance: alert, in no apparent distress Head exam: Present: atraumatic, normocephalic Eye exam: Present: normal appearance, PERRL Pupils: Present: normal accommodation ENT exam: Present: normal exam, normal oropharynx, other (Tenderness palpation noted around the anterior neck consistent with his previous pain) Neck exam: Present: normal inspection, tenderness, full ROM Respiratory exam: Present: normal lung sounds bilaterally Cardiovascular Exam: Present: regular rate, normal rhythm, normal heart sounds GI/Abdominal exam: Present: soft, normal bowel sounds Extremities exam: Present: normal inspection, full ROM Back exam: Present: normal inspection, full ROM Neurological exam: Present: alert, oriented X3, CN II-XII intact Psychiatric exam: Present: normal affect, normal mood Skin exam: Present: warm, dry <Zaid Tracy - Last Filed: 04/03/22 06:30> Course Vital Signs 04/03/22 04/03/22 04/03/22 01:30 02:35 02:49 Temperature 97.9 F Pulse Rate 87 86 92 Respiratory 18 Rate Blood Pressure 153/80 O2 Sat by Pulse 97 Oximetry 04/03/22 04/03/22 04/03/22 03:33 05:02 07:04 Temperature Pulse Rate 92 67 73 Respiratory 18 20 16 Rate Blood Pressure 131/88 O2 Sat by Pulse 98 98 100 Oximetry 04/03/22 04/03/22 04/03/22 08:54 09:25 09:33 Temperature Pulse Rate 71 74 76 Respiratory 18 Rate Blood Pressure 153/96 O2 Sat by Pulse 99 Oximetry 04/03/22 11:41 Temperature Pulse Rate 68 Respiratory 20 Rate Blood Pressure 141/94 O2 Sat by Pulse 98 Oximetry Medical Decision Making <Zaid Tracy - Last Filed: 04/03/22 06:30> <Crystal Francois - Last Filed: 04/04/22 23:25> - Medical Decision Making Did you speak to anyone other than the patient for history? @ -No Did you review nursing and triage notes? @ -Nursing triage notes were reviewed Were old charts reviewed? @ -Previous admissions and ER visits were reviewed Differential Diagnosis? @ -Worsening tumor growth, stenosis of the trachea an airway EKG interpreted by me (3pts min.)? @ -[none] X-rays interpreted by me (1pt min.)? @ -[none] CT interpreted by me (1pt min.)? @ -[none] U/S interpreted by me (1pt. min.)? @ -[none] What testing was considered but not performed? (CT, X-rays, U/S, labs)? Why? @Workup including CT and labs were considered however the patient was seen by myself 3 days prior and had a full workup performed. The patient didn't have any change in symptoms however had continued symptoms despite treatment therefore no further imaging or workup was obtained at this time. What meds were considered but not given? Why? @ -[none] Did you discuss the management of the patient with other professionals? @ -Yes, ENT resident at [facility], Dr. Amaro was contacted at [phone]. He did accept the patient for transfer however because ENT could not admit the patient to their service primarily, a hospitalist did need to be required for admission. The patient was still pending phone call from a hospitalist for transfer. The ENT resident did recommend a dose of Decadron in the emergency department here even though the patient did have 40 mg of by mouth prednisone at home. He also did not recommend any further imaging or testing as it was just performed 3 days prior. Did you reconcile home meds? @ -[none] Was smoking cessation discussed for >3mins.? @ -[none] Was critical care preformed (if so, how long)? @ -[none] Were there social determinants of health that impacted care today? How? (Homelessness, low income, unemployed, alcoholism, drug addiction, transportation, low edu. Level, literacy, decrease access to med. care, correction, rehab)? @ -No Was there de-escalation of care discussed even if they declined? (Discuss DNR or withdrawal of care, Hospice)? @ -No What co-morbidities impacted this encounter? (DM, HTN, Smoking, COPD, CAD, Cancer, CVA, Hep., AIDS, mental health diagnosis, sleep apnea, morbid obesity)? @ -Previous throat cancer Was patient admitted / discharged? @ -The patient was seen and evaluated emergency department. Physical exam, the patient was resting in bed without any acute distress however did have stridor at rest. The patient did request the same treatment that was done 3 days ago and did agree with this. The patient received racemic epinephrine as well as a dose of Dilaudid for pain control. On reevaluation 2 hours later, the patient stated that he had continued difficulty breathing and shortness of breath. The patient stated that the medications did not work this time as it had previously. An extensive conversation was had between myself and the patient and it was agreed to transfer the patient down to [facility] for further higher level of care where his surgery was to be taken place. The patient was accepted by the ENT resident on-call however was still pending a call from a hospitalist for admission at this time. The patient did agree to this plan and will be transferred once the hospitalist accepts the patient for admission to the [facility] service with ENT on consult. Undiagnosed new problem with uncertain prognosis? @ -[none] Drug Therapy requiring intensive monitoring for toxicity (Heparin, Nitro, Insulin, Cardizem)? @ -[none] Were any procedures done? @ -[none] Diagnosis/symptom? @ -Worsening shortness of breath secondary to known throat tumor Acute, or Chronic, or Acute on Chronic? @ -Acute on chronic Uncomplicated (without systemic symptoms) or Complicated (systemic symptoms)? @ -Complicated Side effects of treatment? @ -[none] Exacerbation, Progression, or Severe Exacerbation] @ -[no] Poses a threat to life or bodily function? @ -Yes The patient will be signed out to the oncoming physician, Dr. Francois, pending a phone call and admitting hospitalist at [facility]. (Zaid Tracy) 9:00 called back to [facility] as we had not heard from them. Spoke with Marielena in the call center at [facility] - [phone]. Marielena states that they do not contact the hospitalist, that it is our job to contact them separately to see if they will accept the patient. She reports that the procedure is to be performed by Dr. Ugarte at [facility]. She does not feel that the patient should come to [facility] as his surgery isnt scheduled at that facility. Recommends that I contact the ENT to see which facility they would like the patient at. 9:04, 9:37 ENT resident paged x2 9:47 received ENT callback. States that the patient needs to either go to [facility] or possibly can be admitted to an ICU bed at [facility]. States that they will attempt to facilitate an ICU bed and will call us back 10:04 received ENT callback, Dr. Gao, that states that they did facilitate an ICU bed. I need to call the transfer center to ensure completeness of the transfer. Dr. Ugarte will be my accepting physician (the ENT attending) 10:09 spoke with Marielena at the [facility] call center - she states that there is no ICU beds available and that she did not hear about the transfer. If the patient is going to go to the SICU, then I need SICU to accept patient not the ENT service 10:10 SICU paged 10:33 SICU called back. Spoke with Dr. Galindo - resident for SICU attending Dr. Silva. They state that they do have a bed for the patient. SICU accepting. Dr. Ugarte is accepting physician. manager plan at [phone] is stating to SICU that there is bed availability 10:35 Marielena from call center called back. Spoke with her and additional super visor. State that there is NO icu bed. 2 beds on hold for surgical patients currently getting surgery today 1038 - called ENT resident to say that call center will not award a bed. They will contact beds and call me back. 1120 - Spoke with ENT, Dr. Gao. Recommends attempting ER to ER transfer to [place] since [facility] flatbed company driver/RN will not give up an ICU bed at this time 1130 - calling [facility] for transfer, needs to call back 11:54 - [facility] called back with additional questions. attempting to call dr young [phone] - speaking with er doc, Dr. Meier. Dr. Gao, ENT resident also in ED attempting to help facility my transfer. Dr. Meier states okay to send patient to [place] ER at this time as he is accepting (Crystal Francois) - Lab Data Lab Results 04/03/22 Range/Units 10:11 Coronavirus (PCR) Not Detected (Not Detectd) Critical Care Time Critical Care Time: Yes <Crystal Francois - Last Filed: 04/04/22 23:25> Critical Care Time: 40 minutes due to difficult transfer - spoke with multiple services. Continued re-evaluation of the patient due to long length of stay. Repeat vapo treatment (Crystal Francois) Disposition Is patient prescribed a controlled substance at d/c from ED?: No Time of Disposition: 04:43 - Out of Hospital Transfer - Req. Specs Out of Hospital Transfer - Requested Specifics: Other Non-Acute ([facility]) <Zaid Tracy - Last Filed: 04/03/22 06:30> <Crystal Francois - Last Filed: 04/04/22 23:25> Clinical Impression: Throat cancer, Shortness of breath Disposition: OTHER INSTITUTION NOT DEFINED Condition: Stable Referrals: Juan Kim MD [Primary Care Provider] - 1-2 days
[2022-04-03] MEDS ORDERED: DEXAMETHASONE SOD PHOSPHATE 10 MG/ML 1 ML VIAL IVP STA (04:52)
[2022-04-03 11:44] VITALS: BP 141/94; PULSE 68; RESP 20
== END 2022-04-03 13:12 | disposition other institution (70) ==
LOC: EC 01:25
DX: C32.9 Malignant neoplasm of larynx, unspecified (principal); R06.02 Shortness of breath; F41.9 Anxiety disorder, unspecified; F32.A Depression, unspecified; F12.90 Cannabis use, unspecified, uncomplicated; Z87.891 Personal history of nicotine dependence; Z88.8 Allergy status to other drugs, medicaments and biological substances
CPT/HCPCS: 94640 ×2; 87635; 99291; 96374; 96375; 96376 ×4; J1100; J1170

== ENCOUNTER 2022-04-21 11:55 | Emergency (ER) | payer OTHER ==
[2022-04-21] MEDS ORDERED: SODIUM CHLORIDE 0.9% 1,000 ML IV ONE (13:17)
--- NOTE | 2022-04-21 13:26 | ED ---
General Adult HPI - General Chief complaint: Weakness Stated complaint: trach issues Time Seen by Provider: 04/21/22 12:48 Source: patient, RN notes reviewed, old records reviewed Mode of arrival: wheelchair - History of Present Illness Initial comments: This is a 32-year-old male who presents emergency Department with a past medical history significant for laryngeal cancer. Patient states he had surgery 3 days ago down at [facility]. Patient states he comes in today because he has been having hot and cold feeling and is been having some right-sided chest discomfort that sharp in nature. Patient denies shortness of breath. Patient states yesterday he took his tube feedings and threw them up. Patient states he hasn't been taking them as much as they wanted him to because it makes him nauseous. - Related Data Home Medications Medication Instructions Recorded Confirmed Naloxone HCl [Narcan] 4 mg NASAL DIRECTED PRN 04/03/22 04/21/22 Ondansetron Odt [Zofran Odt] 4 mg PEG/G-TUBE Q4-6H PRN 04/03/22 04/21/22 Amoxic-Pot Clav 250-62.5MG/5Ml 500 mg PEG/G-TUBE Q12H 04/21/22 04/21/22 [Augmentin 250-62.5 mg/5 ml Susp.] Calcium Carb/Mag Hydrox/Simeth 1 tab PEG/G-TUBE TID 04/21/22 04/21/22 [Rolaids Adv 1000-200-40 mg Chw] Cholecalciferol [Vitamin D3 (25 25 mcg PEG/G-TUBE DAILY 04/21/22 04/21/22 Mcg = 1000 Iu)] Cyclobenzaprine [Flexeril] 5 mg PEG/G-TUBE TID PRN 04/21/22 04/21/22 Gabapentin Breanne 250mg/5ml 300 mg PEG/G-TUBE BID 04/21/22 04/21/22 Levothyroxine Sodium [Levo-T] 50 mcg PEG/G-TUBE DAILY 04/21/22 04/21/22 Senna Syrup 15 ml PEG/G-TUBE BID 04/21/22 04/21/22 fentaNYL 50MCG/HR PATCH [Duragesic 1 patch TOPICAL Q72H 04/21/22 04/21/22 50MCG/HR] oxyCODONE HCL/ACETAMINOPHEN 20 ml PEG/G-TUBE Q4H PRN 04/21/22 04/21/22 [oxyCODONE HCL/ACETAMINOPHEN 5-325 MG/5 ML] polyethylene glycoL 3350 [Miralax] 17 gm PEG/G-TUBE DAILY 04/21/22 04/21/22 Allergies Allergy/AdvReac Type Severity Reaction Status Date / Time sulfamethoxazole Allergy Itchy and Verified 04/21/22 15:14 [From Bactrim] red hands/feet trimethoprim [From Bactrim] Allergy Itchy and Verified 04/21/22 15:14 red hands/feet Review of Systems ROS Statement: Those systems with pertinent positive or pertinent negative responses have been documented in the HPI. ROS Other: All systems not noted in ROS Statement are negative. 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, larnyx cancer positive biopsy 2021 History of Any Multi-Drug Resistant Organisms: None Reported Past Surgical History: Orthopedic Surgery Additional Past Surgical History / Comment(s): B knee, tumor removal from larynx with lymph node removal, half of epigottis removed, Past Psychological History: Anxiety, Depression Smoking Status: Former smoker Past Alcohol Use History: Occasional Past Drug Use History: Marijuana Course Vital Signs 04/21/22 12:23 Temperature 99 F Pulse Rate 116 H Respiratory 20 Rate Blood Pressure 128/76 O2 Sat by Pulse 98 Oximetry Medical Decision Making - Medical Decision Making Was pt. sent in by a medical professional or institution (, PA, DIE ATTACHING MACHINE TENDER, urgent care, hospital, or fdc...) When possible be specific @ -No Did you speak to anyone other than the patient for history (EMS, parent, family, police, friend...)? What history was obtained from this source @ -Father gave quite a bit of a history since the patient has a recent laryngectomy and was unable to speak Did you review nursing and triage notes (agree or disagree)? Why? @ -I reviewed and agree with nursing and triage notes Were old charts reviewed (outside hosp., previous admission, EMS record, old EKG, old radiological studies, urgent care reports/EKG's, fdc records)? Report findings @ -I reviewed patient's old chart from the hospital as well as old x-rays and old lab work Differential Diagnosis (chest pain, altered mental status, abdominal pain women, abdominal pain men, vaginal bleeding, weakness, fever, dyspnea, syncope, headache, dizziness, GI bleed, back pain, seizure, CVA, palpatations, mental health)? @ -Differential Dyspnea: Coronary syndrome, arrhythmia, tamponade, asthma, COPD, pulmonary embolism, p neumonia, pneumothorax, pulmonary effusion, anaphylaxis, diabetic ketoacidosis, flailed chest, pulmonary contusion, diaphragmatic rupture, anemia, neuromuscular, this is not meant to be an all-inclusive list. EKG interpreted by me (3pts min.). @ -As above X-rays interpreted by me (1pt min.). @ -Chest x-ray was interpreted by myself showed no acute abnormality CT interpreted by me (1pt min.). @ -None done U/S interpreted by me (1pt. min.). @ -None done What testing was considered but not performed or refused? (CT, X-rays, U/S, labs)? Why? @ -None What meds were considered but not given or refused? Why? @ -None Did you discuss the management of the patient with other professionals (professionals i.e. , PA, DIE ATTACHING MACHINE TENDER, lab, RT, psych nurse, social work administrator, film maker, teacher, optics technical officer, case resource manager)? Give summary @ -No Was smoking cessation discussed for >3mins.? @ -No Was critical care preformed (if so, how long)? @ -No Were there social determinants of health that impacted care today? How? (Homelessness, low income, unemployed, alcoholism, drug addiction, transportation, low edu. Level, literacy, decrease access to med. care, fpc, rehab)? @ -No Was there de-escalation of care discussed even if they declined (Discuss DNR or withdrawal of care, Hospice)? DNR status @ -No What co-morbidities impacted this encounter? (DM, HTN, Smoking, COPD, CAD, Cancer, CVA, ARF, Chemo, Hep., AIDS, mental health diagnosis, sleep apnea, morbid obesity)? @ -None Was patient admitted / discharged? Hospital course, mention meds given and route, prescriptions, significant lab abnormalities, going to OR and other pertinent info. @ -Patient came in after having a recent laryngectomy stating that he did not feel well little bit short of breath and he himself felt as though he needs to be admitted to the hospital. Patient had a workup done in the ER showed an elevated white count and an elevated lactic acid at this point time I spoke with the surgeon Dr. Ugarte and he wanted the patient transferred down to [facility] to be admitted. Patient was given Unasyn and pain medicine in the ER. I told the patient I wanted to transfer him down by and visit his father wanted to drive him and the patient was fine with that so patient will be discharged to go down to [facility]. Patient was given his lab work and x-ray results Undiagnosed new problem with uncertain prognosis? @ -No Drug Therapy requiring intensive monitoring for toxicity (Heparin, Nitro, Insulin, Cardizem)? @ -No Were any procedures done? @ -No Diagnosis/symptom? @ -Postsurgical infection Acute, or Chronic, or Acute on Chronic? @ -Acute Uncomplicated (without systemic symptoms) or Complicated (systemic symptoms)? @ -Complicated Side effects of treatment? @ -No Exacerbation, Progression, or Severe Exacerbation? @ -No Poses a threat to life or bodily function? How? (Chest pain, [place], AL, pneumonia, PE, COPD, DKA, ARF, appy, cholecystitis, CVA, Diverticulitis, Homicidal, Suicidal, threat to staff... and all critical care pts) @ -Yes if the patient becomes septic. - Lab Data Result diagrams: 04/21/22 13:33 04/21/22 13:33 Lab Results 04/21/22 04/21/22 04/21/22 Range/Units 13:33 13:33 13:33 WBC 15.6 H (3.8-10.6) k/uL RBC 4.40 (4.30-5.90) m/uL Hgb 13.2 (13.0-17.5) gm/dL Hct 39.6 (39.0-53.0) % MCV 90.1 (80.0-100.0) fL MCH 29.9 (25.0-35.0) pg MCHC 33.2 (31.0-37.0) g/dL RDW 13.2 (11.5-15.5) % Plt Count 1176 H* D (150-450) k/uL MPV 7.3 Neutrophils % 77 % Lymphocytes % 13 % Monocytes % 6 % Eosinophils % 2 % Basophils % 0 % Neutrophils # 12.0 H (1.3-7.7) k/uL Lymphocytes # 2.0 (1.0-4.8) k/uL Monocytes # 0.9 (0-1.0) k/uL Eosinophils # 0.4 (0-0.7) k/uL Basophils # 0.1 (0-0.2) k/uL Sodium 139 (137-145) mmol/L Potassium 4.3 (3.5-5.1) mmol/L Chloride 101 (98-107) mmol/L Carbon Dioxide 25 (22-30) mmol/L Anion Gap 13 mmol/L BUN 14 (9-20) mg/dL Creatinine 0.64 L (0.66-1.25) mg/dL Est GFR (CKD-EPI)AfAm >90 (>60 ml/min/1.73 sqM) Est GFR (CKD-EPI)NonAf >90 (>60 ml/min/1.73 sqM) Glucose 107 H (74-99) mg/dL Plasma Lactic Acid New 2.9 H* (0.7-2.0) mmol/L Calcium 9.8 (8.4-10.2) mg/dL Total Bilirubin 0.3 (0.2-1.3) mg/dL AST 24 (17-59) U/L ALT 26 (4-49) U/L Alkaline Phosphatase 69 (38-126) U/L Total Protein 7.8 (6.3-8.2) g/dL Albumin 4.2 (3.5-5.0) g/dL Disposition Clinical Impression: Postoperative infection, History of laryngectomy Disposition: OTHER INSTITUTION NOT DEFINED Referrals: Juan Kim MD [Primary Care Provider] - 1-2 days Time of Disposition: 16:08 - Out of Hospital Transfer - Req. Specs Out of Hospital Transfer - Requested Specifics: Other Emergency Center ([place] emergency department)
[2022-04-21 13:56] LABS: Basophils # (A) 0.1 k/uL (0-0.2); Basophils % (A) 0 %; Eosinophils # (A) 0.4 k/uL (0-0.7); Eosinophils % (A) 2 %; HCT 39.6 % (39.0-53.0); HGB 13.2 gm/dL (13.0-17.5); Lymphocytes % (A) 13 %; MCH 29.9 pg (25.0-35.0); MCHC 33.2 g/dL (31.0-37.0); MCV 90.1 fL (80.0-100.0); Mean Platelet Volume 7.3; Monocytes # (A) 0.9 k/uL (0-1.0); Monocytes % (A) 6 %; Neutrophils % (A) 77 %; RDW 13.2 % (11.5-15.5); WBC 15.6 k/uL (3.8-10.6)
--- NOTE | 2022-04-21 13:57 | XR ---
EXAMINATION TYPE: XR chest 2V DATE OF EXAM: 04/21/2022 1:51 PM COMPARISON: Chest radiographs from 03/09/2022 TECHNIQUE: XR chest 2V Frontal and lateral views of the chest. CLINICAL INDICATION:Male, 32 years old with history of Difficulty breathing ; FINDINGS: Lungs/Pleura: There is no evidence of pleural effusion, focal consolidation, or pneumothorax. Pulmonary vascularity: Unremarkable. Heart/mediastinum: Cardiomediastinal silhouette is unremarkable. Musculoskeletal: No acute osseous pathology. Other findings: Skin marii overlie the neck bilaterally and the left anterior chest. Drainage kael ter in the right neck. IMPRESSION: 1. No acute cardiopulmonary disease/process. 2. Postsurgical changes.
[2022-04-21] MEDS ORDERED: KETOROLAC 15 MG/ML 1 ML VIAL IVP STA (14:00)
[2022-04-21 14:05] LABS: ALT 26 U/L (4-49); AST 24 U/L (17-59); African American GFR (CKD) >90 (>60 ml/min/1.73 sqM); Albumin 4.2 g/dL (3.5-5.0); Alkaline Phosphatase 69 U/L (38-126); Anion Gap 13 mmol/L; Blood Urea Nitrogen 14 mg/dL (9-20); Calcium 9.8 mg/dL (8.4-10.2); Carbon Dioxide 25 mmol/L (22-30); Chloride 101 mmol/L (98-107); Glucose 107 mg/dL (74-99); Non-African American GFR(CKD) >90 (>60 ml/min/1.73 sqM); Potassium 4.3 mmol/L (3.5-5.1); Sodium 139 mmol/L (137-145); Total Bilirubin 0.3 mg/dL (0.2-1.3); Total Protein 7.8 g/dL (6.3-8.2)
[2022-04-21 14:14] LABS: Platelet Count 1176 k/uL (150-450)
[2022-04-21] MEDS ORDERED: AMPICILLIN-SULBACTAM 3 GM in SODIUM CHLORIDE 0.9% 100 ML IVPB STA (15:33)
[2022-04-21] MEDS ORDERED: HYDROmorphone 1 MG/ML 1 ML SYRINGE IVP STA (15:38)
[2022-04-21] MEDS ORDERED: ONDANSETRON 4 MG/2 ML VIAL IVP STA (15:42)
[2022-04-21] MEDS ORDERED: HYDROmorphone 0.5 MG/0.5 ML SYRINGE IVP STA (16:36)
[2022-04-21 18:03] VITALS: BP 139/70; PULSE 102; RESP 16; TEMP 99
== END 2022-04-21 16:55 | disposition other institution (70) ==
LOC: EC 11:55
DX: T81.40XA Infection following a procedure, unspecified, initial encounter (principal); Z85.21 Personal history of malignant neoplasm of larynx; F41.9 Anxiety disorder, unspecified; F32.A Depression, unspecified; F12.90 Cannabis use, unspecified, uncomplicated; Z87.891 Personal history of nicotine dependence; Z88.2 Allergy status to sulfonamides
CPT/HCPCS: 36415; 80053; 83605; 85025; 87040; 71046; 99285; 96365; 96375 ×3; 96376; 96361; J2405; J1170 ×2; J0295; J1885

== ENCOUNTER 2022-08-03 14:03 | Emergency (ER) | payer OTHER ==
[2022-08-03 14:25] VITALS: RESP 18; TEMP 97.6
[2022-08-03] MEDS ORDERED: NITROGLYCERIN SL TABS 0.4 MG TAB SUBLINGUAL STA (15:41)
[2022-08-03] MEDS ORDERED: ASPIRIN 81 MG PO STA (15:41)
--- NOTE | 2022-08-03 15:45 | ED ---
General Adult HPI - General Chief complaint: Chest Pain Stated complaint: Chest Pain Time Seen by Provider: 08/03/22 15:25 Source: patient Mode of arrival: ambulatory Limitations: no limitations - History of Present Illness Initial comments: Patient is a pleasant 32-year-old male presenting to the emergency department with concerns with chest discomfort. Symptoms have been waxing and waning over the past couple of weeks. Discomfort is currently rated 7/10. Patient has had occasional nausea. No diaphoresis. No dyspnea. Patient has several months post op laryngectomy with skin graft and tracheotomy. Patient denies any dyspnea. Patient states this was from a laryngeal cancer. No leg pain or leg swelling. - Related Data Home Medications Medication Instructions Recorded Confirmed Ondansetron Odt [Zofran Odt] 4 mg SL Q8H PRN 04/03/22 08/03/22 ALPRAZolam [Xanax] 0.25 mg PO BID PRN 08/03/22 08/03/22 Amoxicillin [Amoxicillin 250 mg/5 500 mg PO TID 08/03/22 08/03/22 ml] Levothyroxine Sodium [Synthroid] 50 mcg PO DAILY 08/03/22 08/03/22 oxyCODONE HCL [oxyCODONE HCL (IR)] 10 mg PO Q4H PRN 08/03/22 08/03/22 oxyCODONE HCL [oxyCODONE HCL ER] 10 mg PO Q12H PRN 08/03/22 08/03/22 Previous Rx's Medication Instructions Recorded Ibuprofen Oral Susp [Motrin Oral 30 ml PO Q8HR #630 ml 08/03/22 Susp] Allergies Allergy/AdvReac Type Severity Reaction Status Date / Time sulfamethoxazole Allergy Itchy and Verified 08/03/22 18:08 [From Bactrim] red hands/feet trimethoprim [From Bactrim] Allergy Itchy and Verified 08/03/22 18:08 red hands/feet Review of Systems ROS Statement: Those systems with pertinent positive or pertinent negative responses have been documented in the HPI. ROS Other: All systems not noted in ROS Statement are negative. Constitutional: Denies: fever Eyes: Denies: eye pain ENT: Denies: ear pain Respiratory: Denies: cough, dyspnea Cardiovascular: Reports: as per HPI, chest pain Endocrine: Denies: fatigue Gastrointestinal: Denies: abdominal pain Genitourinary: Denies: dysuria Musculoskeletal: Denies: back pain Skin: Denies: rash Neurological: Denies: weakness 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, larnyx cancer positive biopsy 2021 History of Any Multi-Drug Resistant Organisms: None Reported Past Surgical History: Orthopedic Surgery Additional Past Surgical History / Comment(s): B knee, tumor removal from larynx with lymph node removal, half of epigottis removed, Past Psychological History: Anxiety, Depression Smoking Status: Former smoker Past Alcohol Use History: Occasional Past Drug Use History: Marijuana General Exam Limitations: no limitations General appearance: alert, in no apparent distress Head exam: Present: normocephalic Eye exam: Present: normal appearance ENT exam: Present: other (Tracheotomy) Neck exam: Present: normal inspection Respiratory exam: Present: normal lung sounds bilaterally, chest wall tenderness Cardiovascular Exam: Present: regular rate, normal rhythm Expanded Peripheral pulses: 2+: Radial (R), Radial (L), Posterior Tibialis (R), Posterior Tibialis (L) GI/Abdominal exam: Present: soft. Absent: tenderness Extremities exam: Present: normal inspection. Absent: pedal edema, calf tenderness Neurological exam: Present: alert Psychiatric exam: Present: normal affect, normal mood Skin exam: Present: normal color Course Vital Signs 08/03/22 08/03/22 08/03/22 14:23 15:55 17:07 Temperature 97.6 F Pulse Rate 63 66 61 Respiratory 18 18 18 Rate Blood Pressure 148/83 133/80 O2 Sat by Pulse 100 95 99 Oximetry EKG Findings - EKG Results: EKG: interpreted by ERMD (Incomplete right bundle-branch block.), sinus rhythm, normal axis, normal ST/T EKG shows: bradycardia Medical Decision Making - Medical Decision Making Was pt. sent in by a medical professional or institution (, PA, EXTERIOR INTERIOR SPECIALIST, urgent care, hospital, or halfway...) When possible be specific @ -No Did you speak to anyone other than the patient for history (EMS, parent, family, police, friend...)? What history was obtained from this source @ -No Did you review nursing and triage notes (agree or disagree)? Why? @ -I reviewed and agree with nursing and triage notes Were old charts reviewed (outside hosp., previous admission, EMS record, old EKG, old radiological studies, urgent care reports/EKG's, halfway records)? Report findings @ -No old charts were reviewed Differential Diagnosis (chest pain, altered mental status, abdominal pain women, abdominal pain men, vaginal bleeding, weakness, fever, dyspnea, syncope, headache, dizziness, GI bleed, back pain, seizure, CVA, palpatations, mental health)? @ -Differential Chest Pain: Stable Angina, Unstable Angina, STEMI, NSTEMI Aortic Dissection, Pneumothorax, Musculoskeletal, Esophageal Spasm GERD, Cholecystitis, Pancreatitis, Zoster, this is not meant to be an all-inclusive list. EKG interpreted by me (3pts min.). @ -As above X-rays interpreted by me (1pt min.). @ -None done CT interpreted by me (1pt min.). @ -None done U/S interpreted by me (1pt. min.). @ -None done What testing was considered but not performed or refused? (CT, X-rays, U/S, labs)? Why? @ -None What meds were considered but not given or refused? Why? @ -None Did you discuss the management of the patient with other professionals (professionals i.e. , PA, EXTERIOR INTERIOR SPECIALIST, lab, RT, psych nurse, director social, emergency services director, teacher, corporate trust officer, continuous pillowcase cutter)? Give summary @ -Case was discussed in detail with Dr. Chaudhry who is familiar with this patient. He does recommend repeat troponin which was done as well as discharge and follow-up tomorrow. He is concerned for possible early pericarditis and recommends anti-inflammatories. Patient is advised of this. Was smoking cessation discussed for >3mins.? @ -No Was critical care preformed (if so, how long)? @ -No Were there social determinants of health that impacted care today? How? (Homelessness, low income, unemployed, alcoholism, drug addiction, transportation, low edu. Level, literacy, decrease access to med. care, senior living, rehab)? @ -No Was there de-escalation of care discussed even if they declined (Discuss DNR or withdrawal of care, Hospice)? DNR status @ -No What co-morbidities impacted this encounter? (DM, HTN, Smoking, COPD, CAD, Cancer, CVA, ARF, Chemo, Hep., AIDS, mental health diagnosis, sleep apnea, morbid obesity)? @ -None Was patient admitted / discharged? Hospital course, mention meds given and route, prescriptions, significant lab abnormalities, going to OR and other pertinent info. @ -Patient reevaluated and resting comfortably in bed. Patient has second negative troponin. Patient is updated on results and plan. Patient is comfortable with plan. Undiagnosed new problem with uncertain prognosis? @ -No Drug Therapy requiring intensive monitoring for toxicity (Heparin, Nitro, Insul in, Cardizem)? @ -No Were any procedures done? @ -No Diagnosis/symptom? @ -Chest pain Acute, or Chronic, or Acute on Chronic? @ -Acute Uncomplicated (without systemic symptoms) or Complicated (systemic symptoms)? @ -default Side effects of treatment? @ -No Exacerbation, Progression, or Severe Exacerbation? @ -No Poses a threat to life or bodily function? How? (Chest pain, [place], [place], pneumonia, PE, COPD, DKA, ARF, appy, cholecystitis, CVA, Diverticulitis, Homicidal, Suicidal, threat to staff... and all critical care pts) @ -No - Lab Data Result diagrams: 08/03/22 15:24 08/03/22 15:24 Lab Results 08/03/22 08/03/22 08/03/22 Range/Units 15:24 15:24 15:24 WBC 8.6 (3.8-10.6) k/uL RBC 5.11 (4.30-5.90) m/uL Hgb 15.0 (13.0-17.5) gm/dL Hct 43.2 (39.0-53.0) % MCV 84.5 (80.0-100.0) fL MCH 29.3 (25.0-35.0) pg MCHC 34.7 (31.0-37.0) g/dL RDW 14.4 (11.5-15.5) % Plt Count 280 (150-450) k/uL MPV 7.5 Neutrophils % 67 % Lymphocytes % 25 % Monocytes % 5 % Eosinophils % 2 % Basophils % 0 % Neutrophils # 5.8 (1.3-7.7) k/uL Lymphocytes # 2.1 (1.0-4.8) k/uL Monocytes # 0.4 (0-1.0) k/uL Eosinophils # 0.2 (0-0.7) k/uL Basophils # 0.0 (0-0.2) k/uL PT 10.4 (9.0-12.0) sec INR 1.0 (<1.2) APTT 26.4 (22.0-30.0) sec D-Dimer (<0.60) mg/L FEU Sodium 139 (137-145) mmol/L Potassium 4.2 (3.5-5.1) mmol/L Chloride 100 (98-107) mmol/L Carbon Dioxide 27 (22-30) mmol/L Anion Gap 12 mmol/L BUN 9 (9-20) mg/dL Creatinine 0.80 (0.66-1.25) mg/dL Est GFR (CKD-EPI)AfAm >90 (>60 ml/min/1.73 sqM) Est GFR (CKD-EPI)NonAf >90 (>60 ml/min/1.73 sqM) Glucose 94 (74-99) mg/dL Calcium 9.3 (8.4-10.2) mg/dL Magnesium 2.0 (1.6-2.3) mg/dL Total Bilirubin 0.4 (0.2-1.3) mg/dL AST 23 (17-59) U/L ALT 19 (4-49) U/L Alkaline Phosphatase 43 (38-126) U/L Troponin I (0.000-0.034) ng/mL Total Protein 7.5 (6.3-8.2) g/dL Albumin 4.6 (3.5-5.0) g/dL 08/03/22 08/03/22 08/03/22 Range/Units 15:24 15:24 17:30 WBC (3.8-10.6) k/uL RBC (4.30-5.90) m/uL Hgb (13.0-17.5) gm/dL Hct (39.0-53.0) % MCV (80.0-100.0) fL MCH (25.0-35.0) pg MCHC (31.0-37.0) g/dL RDW (11.5-15.5) % Plt Count (150-450) k/uL MPV Neutrophils % % Lymphocytes % % Monocytes % % Eosinophils % % Basophils % % Neutrophils # (1.3-7.7) k/uL Lymphocytes # (1.0-4.8) k/uL Monocytes # (0-1.0) k/uL Eosinophils # (0-0.7) k/uL Basophils # (0-0.2) k/uL PT (9.0-12.0) sec INR (<1.2) APTT (22.0-30.0) sec D-Dimer 0.33 (<0.60) mg/L FEU Sodium (137-145) mmol/L Potassium (3.5-5.1) mmol/L Chloride (98-107) mmol/L Carbon Dioxide (22-30) mmol/L Anion Gap mmol/L BUN (9-20) mg/dL Creatinine (0.66-1.25) mg/dL Est GFR (CKD-EPI)AfAm (>60 ml/min/1.73 sqM) Est GFR (CKD-EPI)NonAf (>60 ml/min/1.73 sqM) Glucose (74-99) mg/dL Calcium (8.4-10.2) mg/dL Magnesium (1.6-2.3) mg/dL Total Bilirubin (0.2-1.3) mg/dL AST (17-59) U/L ALT (4-49) U/L Alkaline Phosphatase (38-126) U/L Troponin I <0.012 <0.012 (0.000-0.034) ng/mL Total Protein (6.3-8.2) g/dL Albumin (3.5-5.0) g/dL Disposition Clinical Impression: Chest pain Disposition: HOME SELF-CARE Condition: Stable Instructions (If sedation given, give patient instructions): Chest Pain (ED) Additional Instructions: Please do follow-up with primary care physician tomorrow. Motrin 600 mg every 8 hours, please follow-up with this tomorrow with your primary care physician, Dr. Chaudhry. A prescription has been sent to the pharmacy. Return for increased pain, fevers, difficulty breathing, worsening or change in symptoms or other concerns. Prescriptions: Ibuprofen Oral Susp [Motrin Oral Susp] 30 ml PO Q8HR #630 ml Is patient prescribed a controlled substance at d/c from ED?: No Referrals: Juan Kim MD [Primary Care Provider] - 1-2 days Time of Disposition: 19:05
--- NOTE | 2022-08-03 15:45 | XR ---
EXAMINATION TYPE: XR chest 2V DATE OF EXAM: 08/03/2022 3:29 PM COMPARISON: Chest radiographs from 05/20/2022 TECHNIQUE: XR chest 2V Frontal and lateral views of the chest. CLINICAL INDICATION:Male, 32 years old with history of Chest Pain; FINDINGS: Lungs/Pleura: There is no evidence of pleural effusion, focal consolidation, or pneumothorax. Pulmonary vascularity: Unremarkable. Heart/mediastinum: Cardiomediastinal silhouette is unremarkable. Musculoskeletal: No acute osseous pathology. IMPRESSION: No acute cardiopulmonary disease/process.
[2022-08-03 15:47] LABS: Basophils % (A) 0 %; Eosinophils # (A) 0.2 k/uL (0-0.7); Eosinophils % (A) 2 %; HCT 43.2 % (39.0-53.0); Lymphocytes # (A) 2.1 k/uL (1.0-4.8); Lymphocytes % (A) 25 %; MCH 29.3 pg (25.0-35.0); MCHC 34.7 g/dL (31.0-37.0); MCV 84.5 fL (80.0-100.0); Mean Platelet Volume 7.5; Monocytes # (A) 0.4 k/uL (0-1.0); Monocytes % (A) 5 %; Neutrophils # (A) 5.8 k/uL (1.3-7.7); Neutrophils % (A) 67 %; Platelet Count 280 k/uL (150-450); Prothrombin Time 10.4 sec (9.0-12.0); RBC 5.11 m/uL (4.30-5.90); RDW 14.4 % (11.5-15.5); WBC 8.6 k/uL (3.8-10.6)
[2022-08-03 15:48] LABS: Partial Thromboplastin Time 26.4 sec (22.0-30.0)
[2022-08-03 15:54] LABS: ALT 19 U/L (4-49); AST 23 U/L (17-59); African American GFR (CKD) >90 (>60 ml/min/1.73 sqM); Albumin 4.6 g/dL (3.5-5.0); Alkaline Phosphatase 43 U/L (38-126); Anion Gap 12 mmol/L; Blood Urea Nitrogen 9 mg/dL (9-20); Calcium 9.3 mg/dL (8.4-10.2); Carbon Dioxide 27 mmol/L (22-30); Chloride 100 mmol/L (98-107); Glucose 94 mg/dL (74-99); Non-African American GFR(CKD) >90 (>60 ml/min/1.73 sqM); Potassium 4.2 mmol/L (3.5-5.1); Sodium 139 mmol/L (137-145); Total Bilirubin 0.4 mg/dL (0.2-1.3); Total Protein 7.5 g/dL (6.3-8.2)
[2022-08-03] MEDS ORDERED: ONDANSETRON 4 MG/2 ML VIAL IVP STA (16:55)
[2022-08-03] MEDS ORDERED: MORPHINE SULFATE 4 MG/ML SYRINGE IVP STA (16:55)
[2022-08-03] MEDS ORDERED: KETOROLAC 15 MG/ML 1 ML VIAL IVP STA (19:02)
[2022-08-03 19:15] VITALS: BP 132/84; PULSE 62
== END 2022-08-03 19:17 | disposition home or self-care (01) ==
LOC: EC 14:03
DX: R07.89 Other chest pain (principal); F32.A Depression, unspecified; F41.9 Anxiety disorder, unspecified; F12.90 Cannabis use, unspecified, uncomplicated; Z87.891 Personal history of nicotine dependence; Z88.1 Allergy status to other antibiotic agents; Z88.2 Allergy status to sulfonamides; Z79.899 Other long term (current) drug therapy
CPT/HCPCS: 99285 ×2; 96374 ×2; 96375 ×3; 36415; 93005; 85379; 80053; 83735; 84484; 85025; 85610; 85730; 71046; J2270; J2405; J1885

== ENCOUNTER 2022-08-26 07:54 | Emergency (ER) | payer OTHER ==
[2022-08-26 07:58] VITALS: TEMP 98.9
[2022-08-26] MEDS ORDERED: SODIUM CHLORIDE 0.9% 1,000 ML IV STA (08:06)
[2022-08-26] MEDS ORDERED: ONDANSETRON 4 MG/2 ML VIAL IVP STA (08:06)
[2022-08-26] MEDS ORDERED: KETOROLAC 15 MG/ML 1 ML VIAL IVP STA (08:07)
--- NOTE | 2022-08-26 08:20 | ED ---
Nausea/Vomiting/Diarrhea HPI - General Chief complaint: Nausea/Vomiting/Diarrhea Stated complaint: Weakness Time Seen by Provider: 08/26/22 07:59 Source: patient, family (father), RN notes reviewed, old records reviewed Mode of arrival: ambulatory Limitations: no limitations - History of Present Illness Initial comments: Nontoxic-appearing 32-year-old male presents to the emergency room with fever chills, headache, nausea vomiting and diarrhea with body aches for the past 2 days. Patient has a history of laryngeal cancer and had a vocal cord surgery 6 days ago at [facility] with Dr Ugarte. Is under the care of Dr. Dover his oncologist.. Symptoms started 2 days ago. Patient does have a history of laryngeal cancer and chronic back pain. States that he does take Mccamey for his chronic pain. He states he took his Mccamey Motrin and Zofran today with no resolution of his symptoms. Denies any chest pain or difficulty breathing. MD complaint: nausea, vomiting, diarrhea -: days(s) (2) Severity scale (1-10): 7 Quality: constant Consistency: constant Improves with: none Context: recent surgery/procedure (vocal cord surgery 6 days ago) Associated Symptoms: fever/chills, headaches, malaise, nausea/vomiting, other (diarrhea) - Related Data Home Medications Medication Instructions Recorded Confirmed Ondansetron Odt [Zofran Odt] 4 mg SL Q8H PRN 04/03/22 08/03/22 ALPRAZolam [Xanax] 0.25 mg PO BID PRN 08/03/22 08/03/22 Amoxicillin [Amoxicillin 250 mg/5 500 mg PO TID 08/03/22 08/03/22 ml] Levothyroxine Sodium [Synthroid] 50 mcg PO DAILY 08/03/22 08/03/22 oxyCODONE HCL [oxyCODONE HCL (IR)] 10 mg PO Q4H PRN 08/03/22 08/03/22 oxyCODONE HCL [oxyCODONE HCL ER] 10 mg PO Q12H PRN 08/03/22 08/03/22 Previous Rx's Medication Instructions Recorded Ibuprofen Oral Susp [Motrin Oral 30 ml PO Q8HR #630 ml 08/03/22 Susp] Allergies Allergy/AdvReac Type Severity Reaction Status Date / Time sulfamethoxazole Allergy Itchy and Verified 08/26/22 07:58 [From Bactrim] red hands/feet trimethoprim [From Bactrim] Allergy Itchy and Verified 08/26/22 07:58 red hands/feet Review of Systems ROS Statement: Those systems with pertinent positive or pertinent negative responses have been documented in the HPI. ROS Other: All systems not noted in ROS Statement are negative. 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, larnyx cancer positive biopsy 2021, Speech box History of Any Multi-Drug Resistant Organisms: None Reported Past Surgical History: Orthopedic Surgery Additional Past Surgical History / Comment(s): B knee, tumor removal from larynx with lymph node removal, half of epigottis removed, Past Psychological History: Anxiety, Depression Smoking Status: Former smoker Past Alcohol Use History: Occasional Past Drug Use History: Marijuana General Exam Limitations: no limitations General appearance: alert, in no apparent distress Head exam: Present: atraumatic Eye exam: Present: normal appearance. Absent: scleral icterus, conjunctival injection, periorbital swelling ENT exam: Present: mucous membranes moist Neck exam: Present: full ROM, other (Tracheostomy). Absent: tenderness, meningismus Respiratory exam: Absent: respiratory distress, accessory muscle use Cardiovascular Exam: Present: regular rate GI/Abdominal exam: Present: soft. Absent: distended, tenderness, guarding, rebound, rigid Back exam: Present: normal inspection, full ROM. Absent: tenderness, CVA tenderness (R), CVA tenderness (L), paraspinal tenderness (thoracic/lumbar), rash noted Neurological exam: Present: alert, oriented X3 Psychiatric exam: Present: normal affect, normal mood Skin exam: Present: warm, dry, normal color. Absent: cyanosis, diaphoretic, petechiae, pallor Course Vital Signs 08/26/22 08/26/22 08/26/22 07:56 08:45 09:18 Temperature 98.9 F Pulse Rate 101 H 95 83 Respiratory 20 20 16 Rate Blood Pressure 125/66 131/83 127/82 O2 Sat by Pulse 98 96 95 Oximetry 08/26/22 08/26/22 10:31 11:19 Temperature Pulse Rate 71 86 Respiratory 18 20 Rate Blood Pressure 125/75 124/71 O2 Sat by Pulse 99 98 Oximetry Medical Decision Making - Medical Decision Making Was pt. sent in by a medical professional or institution (, ZAIN, PROGRAM OFFICER, urgent care, hospital, or fdc...) When possible be specific @ -No Did you speak to anyone other than the patient for history (EMS, parent, family, police, friend...)? What history was obtained from this source @ -Patient's father at bedside was able to communicate who patient's doctors were and that a laryngeal surgical procedure done at [facility] with Dr. Ugarte last week. Did you review nursing and triage notes (agree or disagree)? Why? @ -I reviewed and agree with nursing and triage notes Were old charts reviewed (outside hosp., previous admission, EMS record, old EKG, old radiological studies, urgent care reports/EKG's, fdc records)? Report findings @ -No old charts were reviewed Differential Diagnosis (chest pain, altered mental status, abdominal pain women, abdominal pain men, vaginal bleeding, weakness, fever, dyspnea, syncope, headache, dizziness, GI bleed, back pain, seizure, CVA, palpatations, mental health, musculoskeletal)? @ -Differential Headache: Migraine, tension, cluster, carbon monoxide, central venous thrombosis, pension karma temporal arteritis, acute closure glaucoma, intercranial hemorrhage, mastoiditis, sinusitis, head injury, this is not meant to be an all-inclusive list. EKG interpreted by me (3pts min.). @ -n/a X-rays interpreted by me (1pt min.). @ -None done CT interpreted by me (1pt min.). @ -Yes CT of the brain without contrast interpreted by me shows no evidence of intracranial bleed or midline shift. U/S interpreted by me (1pt. min.). @ -None done What testing was considered but not performed or refused? (CT, X-rays, U/S, labs)? Why? @ -None What meds were considered but not given or refused? Why? @ -Antibiotics were considered however there is no evidence of infection, leukocytosis or fever. Did you discuss the management of the patient with other professionals (professionals i.e. , ZAIN, PROGRAM OFFICER, lab, RT, psych nurse, social professionals, detective precinct, teacher, combat information center officer, manager case)? Give summary @ -No Was smoking cessation discussed for >3mins.? @ -No Was critical care preformed (if so, how long)? @ -No Were there social determinants of health that impacted care today? How? (Homelessness, low income, unemployed, alcoholism, drug addiction, transportation, low edu. Level, literacy, decrease access to med. care, [facility], rehab)? @ -No Was there de-escalation of care discussed even if they declined (Discuss DNR or withdrawal of care, Hospice)? DNR status @ -No What co-morbidities impacted this encounter? (DM, HTN, Smoking, COPD, CAD, Cancer, CVA, ARF, Chemo, Hep., AIDS, mental health diagnosis, sleep apnea, morbid obesity)? @ -Chronic back pain, laryngeal cancer, anxiety, depression Was patient admitted / discharged? Hospital course, mention meds given and route, prescriptions, significant lab abnormalities, going to OR and other pertinent info. @ -Discharge. Nontoxic-appearing 32-year-old male presents to the emergency room with complaints of headache, back pain, body aches, nausea vomiting and diarrhea for 2 days. Patient afebrile. Vital signs are stable. Labs show a mild leukocytosis which is consistent with his recent laryngeal surgery last week. Influenza, coronavirus and RSV swab negative. Patient was given Toradol for pain and Zofran for nausea along with IV fluids upon arrival. He states resolution of his nausea but continues to have headache and back pain. He was given fentanyl. Patient states he continues to have headache and was given Benadryl and Compazine along with another IV fluid bolus. CT of the brain without contrast interpreted by me shows no evidence of intracranial bleed or midline shift. Radiologist interpretation an 8 mm hypodensity right basal ganglia, possibly present on the 2019 CT of the neck. However less pronounced at that time. Consider MRI to exclude worrisome lesion. Otherwise no acute intracranial abnormality seen. Patient was advised of his labs and CT finding. I did recommend that he speak with his primary care Dr. Kim this week and his surgeon regarding CT findings. He states he is feeling better after the Compazine and Benadryl and ready to be discharged home. He states his mom will come pick him up. Patient instructed to return to the emergency room with any new or concerning symptoms. Case is discussed with Dr. Orellana. Patient has history of chronic back pain, laryngeal cancer, vocal cord surgery last week, anxiety, depression, former smoker. Undiagnosed new problem with uncertain prognosis? @ -No Drug Therapy requiring intensive monitoring for toxicity (Heparin, Nitro, Insulin, Cardizem)? @ -No Were any procedures done? @ -No Diagnosis/symptom? @ -Headache, acute nausea vomiting diarrhea Acute, or Chronic, or Acute on Chronic? @ -Acute Uncomplicated (without systemic symptoms) or Complicated (systemic symptoms)? @ -Uncomplicated Side effects of treatment? @ -No Exacerbation, Progression, or Severe Exacerbation? @ -No Poses a threat to life or bodily function? How? (Chest pain, [place], [place], pneumonia, PE, COPD, DKA, ARF, appy, cholecystitis, CVA, Diverticulitis, Homicidal, Suicidal, threat to staff... and all critical care pts) @ -No - Lab Data Result diagrams: 08/26/22 08:43 08/26/22 08:43 Lab Results 08/26/22 08/26/22 08/26/22 Range/Units 08:43 08:43 08:43 WBC 10.9 H (3.8-10.6) k/uL RBC 4.72 (4.30-5.90) m/uL Hgb 13.6 (13.0-17.5) gm/dL Hct 40.0 (39.0-53.0) % MCV 84.9 (80.0-100.0) fL MCH 28.9 (25.0-35.0) pg MCHC 34.1 (31.0-37.0) g/dL RDW 14.0 (11.5-15.5) % Plt Count 353 (150-450) k/uL MPV 6.9 Neutrophils % 85 % Lymphocytes % 7 % Monocytes % 6 % Eosinophils % 1 % Basophils % 0 % Neutrophils # 9.2 H (1.3-7.7) k/uL Lymphocytes # 0.8 L (1.0-4.8) k/uL Monocytes # 0.7 (0-1.0) k/uL Eosinophils # 0.1 (0-0.7) k/uL Basophils # 0.0 (0-0.2) k/uL Sodium 137 (137-145) mmol/L Potassium 4.2 (3.5-5.1) mmol/L Chloride 99 (98-107) mmol/L Carbon Dioxide 29 (22-30) mmol/L Anion Gap 9 mmol/L BUN 5 L (9-20) mg/dL Creatinine 0.84 (0.66-1.25) mg/dL Est GFR (CKD-EPI)AfAm >90 (>60 ml/min/1.73 sqM) Est GFR (CKD-EPI)NonAf >90 (>60 ml/min/1.73 sqM) Glucose 107 H (74-99) mg/dL Calcium 8.8 (8.4-10.2) mg/dL Total Bilirubin 0.6 (0.2-1.3) mg/dL AST 18 (17-59) U/L ALT 17 (4-49) U/L Alkaline Phosphatase 56 (38-126) U/L Total Protein 6.8 (6.3-8.2) g/dL Albumin 4.1 (3.5-5.0) g/dL Amylase 47 (30-110) U/L Lipase 13 L (23-300) U/L Influenza Type A (PCR) Not Detected (Not Detectd) Influenza Type B (PCR) Not Detected (Not Detectd) RSV (PCR) Not Detected (Not Detectd) SARS-CoV-2 (PCR) Not Detected (Not Detectd) Disposition Clinical Impression: Nausea vomiting and diarrhea, Headache Disposition: HOME SELF-CARE Condition: Good Instructions (If sedation given, give patient instructions): Acute Nausea and Vomiting (ED), Acute Diarrhea (ED) Additional Instructions: Continue taking your medicines as previously prescribed. Please follow-up with your primary care doctor, oncologist and surgeon. Discuss with them the findings on CT today showing an 8 mm density right basal ganglia. Return to the emergency room with any new or concerning symptoms. Is patient prescribed a controlled substance at d/c from ED?: No Referrals: Juan Kim MD [STAFF PHYSICIAN] - 1-2 days Armaan Hackett MD [STAFF PHYSICIAN] - 1-2 days Time of Disposition: 11:07
[2022-08-26 08:56] LABS: Basophils % (A) 0 %; Eosinophils # (A) 0.1 k/uL (0-0.7); Eosinophils % (A) 1 %; HGB 13.6 gm/dL (13.0-17.5); Lymphocytes # (A) 0.8 k/uL (1.0-4.8); Lymphocytes % (A) 7 %; MCH 28.9 pg (25.0-35.0); MCHC 34.1 g/dL (31.0-37.0); MCV 84.9 fL (80.0-100.0); Mean Platelet Volume 6.9; Monocytes # (A) 0.7 k/uL (0-1.0); Monocytes % (A) 6 %; Neutrophils # (A) 9.2 k/uL (1.3-7.7); Neutrophils % (A) 85 %; Platelet Count 353 k/uL (150-450); RBC 4.72 m/uL (4.30-5.90); WBC 10.9 k/uL (3.8-10.6)
[2022-08-26] MEDS ORDERED: fentaNYL (PF) 50 MCG/ML 2 ML AMP IVP STA (08:57)
[2022-08-26 09:11] LABS: ALT 17 U/L (4-49); AST 18 U/L (17-59); African American GFR (CKD) >90 (>60 ml/min/1.73 sqM); Albumin 4.1 g/dL (3.5-5.0); Alkaline Phosphatase 56 U/L (38-126); Amylase 47 U/L (30-110); Anion Gap 9 mmol/L; Blood Urea Nitrogen 5 mg/dL (9-20); Calcium 8.8 mg/dL (8.4-10.2); Carbon Dioxide 29 mmol/L (22-30); Chloride 99 mmol/L (98-107); Glucose 107 mg/dL (74-99); Lipase 13 U/L (23-300); Non-African American GFR(CKD) >90 (>60 ml/min/1.73 sqM); Potassium 4.2 mmol/L (3.5-5.1); Sodium 137 mmol/L (137-145); Total Bilirubin 0.6 mg/dL (0.2-1.3); Total Protein 6.8 g/dL (6.3-8.2)
[2022-08-26] MEDS ORDERED: PROCHLORPERAZINE INJ 10 MG/2 ML VIAL IVP STA (09:34)
[2022-08-26] MEDS ORDERED: SODIUM CHLORIDE 0.9% 500 ML 500 ML IV ONE (09:34)
[2022-08-26] MEDS ORDERED: diphenhydrAMINE 50 MG/ML 1 ML VIAL IVP STA (09:35)
--- NOTE | 2022-08-26 10:18 | CT ---
EXAMINATION TYPE: CT brain wo con DATE OF EXAM: 08/26/2022 COMPARISON: CT neck 12/27/2018 HISTORY: 32-year-old male Headache, Hx of cancer TECHNIQUE: Examination was done in axial plane without intravenous contrast. Coronal and sagittal r econstructions performed. CT DLP: 1231.4 mGycm Automated exposure control for dose reduction was used. FINDINGS: 8 mm hypodensity right basal ganglia, possibly present on a 2019 exam. Appears less pronounced at jade t time. Given patient's history, further MRI evaluation may be indicated. Otherwise, there is no evidence of acute intracranial hemorrhage, acute ischemic changes, mass, mass -effect, or extra-axial fluid collection. There is no effacement of cerebral sulci or basal subarach noid cisterns. There is no hydrocephalus. There is no midline shift. Vera-white matter distinction is preserved. There is leftward nasal septal deviation. Paranasal sinuses and mastoid air cells well pneumatized. IMPRESSION: An 8 mm hypodensity right basal ganglia, possibly present on the 2019 CT of the neck. However, it leno eared less pronounced at that time. Given the patient's history and new symptoms, consider further co ntrast enhanced MRI evaluation to exclude a worrisome lesion. Otherwise, no acute intracranial abnorm ality seen.
[2022-08-26 11:20] VITALS: BP 124/71; PULSE 86; RESP 20
== END 2022-08-26 11:39 | disposition home or self-care (01) ==
LOC: EC 07:54
DX: R11.2 Nausea with vomiting, unspecified (principal); R19.7 Diarrhea, unspecified; R51.9 Headache, unspecified; F41.9 Anxiety disorder, unspecified; F32.A Depression, unspecified; F12.90 Cannabis use, unspecified, uncomplicated; Z79.899 Other long term (current) drug therapy; Z88.2 Allergy status to sulfonamides; Z88.8 Allergy status to other drugs, medicaments and biological substances; Z87.891 Personal history of nicotine dependence; Z20.822 Contact with and (suspected) exposure to COVID-19
CPT/HCPCS: 36415; 80053; 82150; 83690; 85025; 87636; 70450; 99285; 96374; 96375 ×4; 96361 ×2; J1200; J0780; J2405; J3010; J1885

== ENCOUNTER 2022-12-25 09:39 | Emergency (ER) | payer OTHER ==
[2022-12-25 09:57] VITALS: RESP 18; TEMP 98
[2022-12-25 11:00] LABS: Basophils % (A) 1 %; Eosinophils # (A) 0.2 k/uL (0-0.7); Eosinophils % (A) 2 %; HCT 42.6 % (39.0-53.0); HGB 14.4 gm/dL (13.0-17.5); Lymphocytes # (A) 2.2 k/uL (1.0-4.8); Lymphocytes % (A) 30 %; MCH 29.6 pg (25.0-35.0); MCHC 33.8 g/dL (31.0-37.0); MCV 87.5 fL (80.0-100.0); Monocytes # (A) 0.4 k/uL (0-1.0); Monocytes % (A) 5 %; Neutrophils # (A) 4.3 k/uL (1.3-7.7); Neutrophils % (A) 60 %; Platelet Count 324 k/uL (150-450); RBC 4.88 m/uL (4.30-5.90); RDW 13.7 % (11.5-15.5); WBC 7.2 k/uL (3.8-10.6)
--- NOTE | 2022-12-25 11:00 | XR ---
EXAMINATION TYPE: XR chest 2V DATE OF EXAM: 12/25/2022 COMPARISON: NONE HISTORY: Chest pain and headache. TECHNIQUE: Frontal and lateral views of the chest are obtained. FINDINGS: There is no focal air space opacity, pleural effusion, or pneumothorax seen. The cardiac silhouette size is within normal limits. The osseous structures are intact. IMPRESSION: No acute cardiopulmonary process.
[2022-12-25 11:07] LABS: Partial Thromboplastin Time 26.2 sec (22.0-30.0); Prothrombin Time 10.5 sec (9.0-12.0)
[2022-12-25] MEDS ORDERED: RX INFO: IV CONTRAST WAS GIVEN 1 EACH MISC MISCELLANE PRN (11:10)
[2022-12-25] MEDS ORDERED: SODIUM CHLORIDE 0.9% 1,000 ML IV STA (11:11)
[2022-12-25] MEDS ORDERED: MORPHINE SULFATE 4 MG/ML SYRINGE IVP STA ×2 (11:11→12:37)
[2022-12-25 11:20] LABS: ALT 20 U/L (4-49); AST 23 U/L (17-59); African American GFR (CKD) >90 (>60 ml/min/1.73 sqM); Albumin 4.5 g/dL (3.5-5.0); Alkaline Phosphatase 49 U/L (38-126); Anion Gap 8 mmol/L; Blood Urea Nitrogen 12 mg/dL (9-20); Calcium 9.6 mg/dL (8.4-10.2); Carbon Dioxide 28 mmol/L (22-30); Chloride 105 mmol/L (98-107); Glucose 96 mg/dL (74-99); Magnesium 2.1 mg/dL (1.6-2.3); Non-African American GFR(CKD) >90 (>60 ml/min/1.73 sqM); Potassium 4.3 mmol/L (3.5-5.1); Sodium 141 mmol/L (137-145); Total Bilirubin 0.6 mg/dL (0.2-1.3); Total Protein 7.5 g/dL (6.3-8.2)
[2022-12-25] MEDS ORDERED: ONDANSETRON 4 MG/2 ML VIAL IVP STA (11:25)
--- NOTE | 2022-12-25 11:26 | ED ---
Chest Pain HPI - General Chief Complaint: Chest Pain Stated Complaint: Chest Pain, Headache Time Seen by Provider: 12/25/22 10:20 Source: patient Mode of arrival: ambulatory Limitations: no limitations - History of Present Illness Initial Comments: 32-year-old male with past medical history significant for cancer of the oropharynx S/P tracheostomy presents with a chief complaint of chest pain. Patient states 2 days ago started to experience left sided chest pain. Patient states pain started while he was cutting the grass. Pain is sharp in nature. Patient states pain lasted approximately an hour nature. Denies any alleviating or aggravating factors. States is unsure if activity provokes pain. Additionally, patient notes headache. Patient states has history of headaches however notes over the past week Has been worsening. Patient notes that he had a PET scan last week that showed "spots in the brain". Also notes pain of his tailbone however patient states that this is chronic in nature. For his symptoms states that he charts taking ibuprofen 800 this morning without relief. Associated nausea. Denies shortness of breath abdominal pain or urinary changes. - Related Data Home Medications Medication Instructions Recorded Confirmed Ondansetron Odt [Zofran Odt] 4 mg SL Q8H PRN 04/03/22 08/03/22 ALPRAZolam [Xanax] 0.25 mg PO BID PRN 08/03/22 08/03/22 Amoxicillin [Amoxicillin 250 mg/5 500 mg PO TID 08/03/22 08/03/22 ml] Levothyroxine Sodium [Synthroid] 50 mcg PO DAILY 08/03/22 08/03/22 oxyCODONE HCL [oxyCODONE HCL (IR)] 10 mg PO Q4H PRN 08/03/22 08/03/22 oxyCODONE HCL [oxyCODONE HCL ER] 10 mg PO Q12H PRN 08/03/22 08/03/22 Previous Rx's Medication Instructions Recorded Ibuprofen Oral Susp [Motrin Oral 30 ml PO Q8HR #630 ml 08/03/22 Susp] Allergies Allergy/AdvReac Type Severity Reaction Status Date / Time sulfamethoxazole Allergy Itchy and Verified 12/25/22 09:50 [From Bactrim] red hands/feet trimethoprim [From Bactrim] Allergy Itchy and Verified 12/25/22 09:50 red hands/feet Review of Systems ROS Statement: Those systems with pertinent positive or pertinent negative responses have been documented in the HPI. ROS Other: All systems not noted in ROS Statement are negative. 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, larnyx cancer positive biopsy 2021, Speech box History of Any Multi-Drug Resistant Organisms: None Reported Past Surgical History: Orthopedic Surgery Additional Past Surgical History / Comment(s): B knee, tumor removal from larynx with lymph node removal, half of epigottis removed, Past Psychological History: Anxiety, Depression Smoking Status: Former smoker Past Alcohol Use History: Occasional Past Drug Use History: Marijuana General Exam Limitations: no limitations, language barrier (Tracheostomy) Eye exam: Present: normal appearance Respiratory exam: Present: normal lung sounds bilaterally Cardiovascular Exam: Present: regular rate, normal rhythm GI/Abdominal exam: Present: soft (No tenderness to palpation. No rebound guarding or rigidity.) Extremities exam: Present: normal inspection Neurological exam: Present: alert, oriented X3 Skin exam: Present: warm, dry Course Vital Signs 12/25/22 12/25/22 12/25/22 09:51 10:21 12:01 Temperature 98 F Pulse Rate 63 51 L Pulse Rate [ 56 L Photographic Colorist ] Respiratory 18 18 Rate Blood Pressure 148/75 119/71 O2 Sat by Pulse 100 99 Oximetry 12/25/22 14:14 Temperature Pulse Rate 52 L Pulse Rate [ Photographic Colorist ] Respiratory 18 Rate Blood Pressure 110/81 O2 Sat by Pulse 99 Oximetry Chest Pain MDM - MDM Was pt. sent in by a medical professional or institution (, PA, ACCORDION TUNER, urgent care, hospital, or skilled nursing...) When possible be specific @ -No Did you speak to anyone other than the patient for history (EMS, parent, family, police, friend...)? What history was obtained from this source @ -No Did you review nursing and triage notes (agree or disagree)? Why? @ -I reviewed and agree with nursing and triage notes Were old charts reviewed (outside hosp., previous admission, EMS record, old EKG, old radiological studies, urgent care reports/EKG's, skilled nursing records)? Report findings @ -No old charts were reviewed Differential Diagnosis (chest pain, altered mental status, abdominal pain women, abdominal pain men, vaginal bleeding, weakness, fever, dyspnea, syncope, headache, dizziness, GI bleed, back pain, seizure, CVA, palpatations, mental health, musculoskeletal)? @ -Differential Chest Pain: Stable Angina, Unstable Angina, STEMI, NSTEMI Aortic Dissection, Pneumothorax, Musculoskeletal, Esophageal Spasm GERD, Cholecystitis, Pancreatitis, Zoster, this is not meant to be an all-inclusive list. EKG interpreted by me (3pts min.). @ -EKG shows a sinus rhythm at [address] and T-wave changes. [place] 151, QRS 101, QT/QTc 421/414 X-rays interpreted by me (1pt min.). @ -Chest x-ray interpreted by me shows no acute process. CT interpreted by me (1pt min.). @ -The brain with contrast shows no evidence of enhancing lesions. No evidence of acute process. U/S interpreted by me (1pt. min.). @ -None done What testing was considered but not performed or refused? (CT, X-rays, U/S, labs)? Why? @ -None What meds were considered but not given or refused? Why? @ -None Did you discuss the management of the patient with other professionals (professionals i.e. , PA, ACCORDION TUNER, lab, RT, psych nurse, psychiatric social worker, orange picker, teacher, boating safety officer, leather case finisher)? Give summary @ -No Was smoking cessation discussed for >3mins.? @ -No Was critical care preformed (if so, how long)? @ -No Were there social determinants of health that impacted care today? How? (Homelessness, low income, unemployed, alcoholism, drug addiction, transportation, low edu. Level, literacy, decrease access to med. care, custodial, rehab)? @ -No Was there de-escalation of care discussed even if they declined (Discuss DNR or withdrawal of care, Hospice)? DNR status @ -No What co-morbidities impacted this encounter? (DM, HTN, Smoking, COPD, CAD, Cancer, CVA, ARF, Chemo, Hep., AIDS, mental health diagnosis, sleep apnea, morbid obesity)? @ -Cancer Was patient admitted / discharged? Hospital course, mention meds given and route, prescriptions, significant lab abnormalities, going to OR and other pertinent info. @ -Discharge Laboratory studies including troponin 2 unremarkable. Chest x-ray shows no acute process. CT of the brain with contrast shows no evidence of enhancing lesions or acute process. Patient pain well controlled at this time. Patient discharged home in stable condition. At this time, patient has a HEART score of 1. [place] low risk of MACE. Discussed return precautions with patient who verbalizes agreement. Undiagnosed new problem with uncertain prognosis? @ N Drug Therapy requiring intensive monitoring for toxicity (Heparin, Nitro, Insulin, Cardizem)? @ N Were any procedures done? @ N Diagnosis/symptom? @ -Chest pain, headache Acute, or Chronic, or Acute on Chronic? @ -Acute Uncomplicated (without systemic symptoms) or Complicated (systemic symptoms)? @ -Uncomplicated Side effects of treatment? @ N Exacerbation, Progression, or Severe Exacerbation? @ N Poses a threat to life or bodily function? How? (Chest pain, [place], [place], pneumonia, PE, COPD, DKA, ARF, appy, cholecystitis, CVA, Diverticulitis, Homicidal, Suicidal, threat to staff... and all critical care pts) @ N Disposition Clinical Impression: Chest pain Disposition: HOME SELF-CARE Condition: Good Instructions (If sedation given, give patient instructions): Chest Pain (ED) Additional Instructions: Please return to the Emergency Department if symptoms worsen or any other c oncerns. Is patient prescribed a controlled substance at d/c from ED?: No Referrals: Lamonte Schwab Jr, DO [Primary Care Provider] - 1-2 days Time of Disposition: 15:14
--- NOTE | 2022-12-25 12:14 | CT ---
CT Head with contrast. Date: 12/25/2022. Comparison: 08/26/2022. Clinical History: Headache with history of cancer. Rule out metastases. Technique: Axial images of the head were obtained following administration of 100 mL of Isovue-[address] dose lowering techniques were used, to include: automated exposure control, adjustme nt for patient size, and/or use of iterative reconstruction. Findings: There is no evidence of enhancing mass, large area of hemorrhage, mass effect, midline shift, extra-a xial fluid collections or hydrocephalus. The reyes-white distinction is intact without evidence of an acute major vessel infarct. The visualized paranasal sinuses and mastoid air cells are clear. The osseous structures are unremarkable. Impression: No definitive acute findings seen and no enhancing lesions. Unchanged subcentimeter hypoattenuating area within the right basal ganglia.
[2022-12-25] MEDS ORDERED: HYDROmorphone 1 MG/ML 1 ML SYRINGE IVP STA (15:10)
[2022-12-25 15:52] VITALS: BP 130/68; PULSE 78
== END 2022-12-25 15:49 | disposition home or self-care (01) ==
LOC: EC 09:39
DX: R07.89 Other chest pain (principal); F41.9 Anxiety disorder, unspecified; F32.A Depression, unspecified; Z87.891 Personal history of nicotine dependence; F12.90 Cannabis use, unspecified, uncomplicated; Z88.2 Allergy status to sulfonamides; Z79.899 Other long term (current) drug therapy; Z20.822 Contact with and (suspected) exposure to COVID-19
CPT/HCPCS: 36415; 93005; 85379; 80053; 83735; 84484; 85025; 85610; 85730; 87636; 71046; 70460; 99285; 96374; 96375; 96376; 96361; J2270; J2405; Q9967

== ENCOUNTER → 2023-04-09 | Outpatient (CLI) | payer OTHER ==
--- NOTE | 2023-04-12 21:37 | PE ---
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 Images are reviewed on the computer in the coronal, a xial, and sagittal planes. Reconstructed rotating images are created on independent workstation and reviewed on the computer. A non-contrast CT is performed in conjunction with the PET scan. Glucose level 96 mg/dL CT DLP: 746 9 mGycm, Automated exposure control for dose reduction was used. COMPARISON: CT None, PET/CT 12/26/2022., FINDINGS: Mediastinal SUV mean is 1.8. Hepatic parenchyma SUV mean is 2.1. SKULL BASE AND NECK: * Symmetrical uptake within the palatine tonsils: * Right max SUV 11.5 previously 2.2. * Left Max SUV 11.9 Previously 2.6. * Adenoid uptake max SUV 8.9 CHEST, MEDIASTINUM, AND HILAR REGION: No suspicious radiotracer activity. ABDOMEN AND PELVIS: No suspicious radiotracer activity. MUSCULOSKELETAL STRUCTURES: No suspicious radiotracer activity. OTHER CT: Tracheostomy device remains present. Bilateral gynecomastia changes. Fat-containing umbilic al hernia. IMPRESSION: Symmetric uptake within the palatine tonsils and uptake within the adenoids. Findings likely physiolo gic. No suspicious lymphadenopathy or uptake identified. Correlate for pharyngitis. Attention on foll ow-up imaging.
== END | disposition home or self-care (01) ==
LOC: RADPETMAIN 09:17
PROVIDERS: ATTEND Internal Medicine Hematology & Oncology
DX: C76.0 Malignant neoplasm of head, face and neck (principal)
CPT/HCPCS: 78815; A9552

== ENCOUNTER 2023-06-17 10:31 | Emergency (ER) | payer OTHER ==
[2023-06-17 11:09] VITALS: TEMP 98
--- NOTE | 2023-06-17 11:30 | ED ---
General Adult HPI - General Chief complaint: Back Pain/Injury Stated complaint: Fall Time Seen by Provider: 06/17/23 10:49 Source: patient, RN notes reviewed Mode of arrival: ambulatory Limitations: no limitations - History of Present Illness Initial comments: 33-year-old male presents to the emergency department for evaluation of back pain. Patient states that while walking down the stairs he took a fall. He states that he landed on his glutes and low back. He states that since then he has been experiencing some low back pain radiating down the left leg. He states that he has experienced this in the past. He states that he has not taken anything for the pain at home. He denies any other injury. Denies head injury. He denies loss of bowel or bladder function, saddle anesthesia, urinary retention.] - Related Data Home Medications Medication Instructions Recorded Confirmed Ondansetron Odt [Zofran Odt] 4 mg SL Q8H PRN 04/03/22 08/03/22 ALPRAZolam [Xanax] 0.25 mg PO BID PRN 08/03/22 08/03/22 Amoxicillin [Amoxicillin 250 mg/5 500 mg PO TID 08/03/22 08/03/22 ml] Levothyroxine Sodium [Synthroid] 50 mcg PO DAILY 08/03/22 08/03/22 oxyCODONE HCL [oxyCODONE HCL (IR)] 10 mg PO Q4H PRN 08/03/22 08/03/22 oxyCODONE HCL [oxyCODONE HCL ER] 10 mg PO Q12H PRN 08/03/22 08/03/22 Previous Rx's Medication Instructions Recorded Ibuprofen Oral Susp [Motrin Oral 30 ml PO Q8HR #630 ml 08/03/22 Susp] Allergies Allergy/AdvReac Type Severity Reaction Status Date / Time sulfamethoxazole Allergy Itchy and Verified 12/25/22 09:50 [From Bactrim] red hands/feet trimethoprim [From Bactrim] Allergy Itchy and Verified 12/25/22 09:50 red hands/feet Review of Systems ROS Statement: Those systems with pertinent positive or pertinent negative responses have been documented in the HPI. ROS Other: All systems not noted in ROS Statement are negative. 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, larnyx cancer positive biopsy 2021, Speech box History of Any Multi-Drug Resistant Organisms: None Reported Past Surgical History: Orthopedic Surgery Additional Past Surgical History / Comment(s): B knee, tumor removal from larynx with lymph node removal, half of epigottis removed, Past Psychological History: Anxiety, Depression Smoking Status: Former smoker Past Alcohol Use History: Occasional Past Drug Use History: Marijuana General Exam Limitations: no limitations General appearance: alert, in no apparent distress Head exam: Present: atraumatic, normocephalic, normal inspection Eye exam: Present: normal appearance, PERRL, EOMI. Absent: scleral icterus, conjunctival injection, periorbital swelling ENT exam: Present: normal exam, mucous membranes moist Neck exam: Present: normal inspection, full ROM. Absent: tenderness, meningismus, lymphadenopathy Respiratory exam: Present: normal lung sounds bilaterally. Absent: respiratory distress, wheezes, rales, rhonchi, stridor Cardiovascular Exam: Present: regular rate, normal rhythm, normal heart sounds. Absent: systolic murmur, diastolic murmur, rubs, gallop, clicks GI/Abdominal exam: Present: soft, normal bowel sounds. Absent: distended, tenderness, guarding, rebound, rigid Extremities exam: Present: normal inspection, full ROM, normal capillary refill, other (DP and PT pulses 2+). Absent: tenderness, pedal edema, joint swelling, calf tenderness Back exam: Present: normal inspection, full ROM, tenderness. Absent: CVA tenderness (R), CVA tenderness (L) Neurological exam: Present: alert, oriented X3 Psychiatric exam: Present: normal affect, normal mood Skin exam: Present: warm, dry, intact, normal color. Absent: rash Course Vital Signs 06/17/23 06/17/23 10:34 13:22 Temperature 98 F Pulse Rate 64 80 Respiratory 16 18 Rate Blood Pressure 153/84 132/78 O2 Sat by Pulse 98 100 Oximetry Medical Decision Making - Medical Decision Making Was pt. sent in by a medical professional or institution (, PA, HOSPITAL PERSONNEL DIRECTOR, urgent care, hospital, or snf...) When possible be specific @ -No Did you speak to anyone other than the patient for history (EMS, parent, family, police, friend...)? What history was obtained from this source @ -No Did you review nursing and triage notes (agree or disagree)? Why? @ -I reviewed and agree with nursing and triage notes Were old charts reviewed (outside hosp., previous admission, EMS record, old EKG, old radiological studies, urgent care reports/EKG's, snf records)? Report findings @ -No old charts were reviewed Differential Diagnosis (chest pain, altered mental status, abdominal pain women, abdominal pain men, vaginal bleeding, weakness, fever, dyspnea, syncope, headache, dizziness, GI bleed, back pain, seizure, CVA, palpatations, mental health, musculoskeletal)? @ -Differential Back Pain: Strain, zoster, cauda equina syndrome, epidural abscess, vertebral osteomyelitis, discitis, fracture, subluxation, disc herniation, DJD, spinal stenosis, dissection, AAA, pancreatitis, peptic ulcer disease, pyelonephritis, kidney stone, this is not meant to be an all-inclusive list. EKG interpreted by me (3pts min.). @ -None X-rays interpreted by me (1pt min.). @ -X-ray lumbosacral spine shows no acute fracture or malalignment CT interpreted by me (1pt min.). @ -None done U/S interpreted by me (1pt. min.). @ -None done What testing was considered but not performed or refused? (CT, X-rays, U/S, labs)? Why? @ -None What meds were considered but not given or refused? Why? @ -None Did you discuss the management of the patient with other professionals (professionals i.e. , PA, HOSPITAL PERSONNEL DIRECTOR, lab, RT, psych nurse, social services coordinator, pediatric clinical nurse specialist, teacher, privacy officer, upper caser)? Give summary @ -No Was smoking cessation discussed for >3mins.? @ -No Was critical care preformed (if so, how long)? @ -No Were there social determinants of health that impacted care today? How? (Homelessness, low income, unemployed, alcoholism, drug addiction, transportation, low edu. Level, literacy, decrease access to med. care, [facility]ci, rehab)? @ -No Was there de-escalation of care discussed even if they declined (Discuss DNR or withdrawal of care, Hospice)? DNR status @ -No What co-morbidities impacted this encounter? (DM, HTN, Smoking, COPD, CAD, Cancer, CVA, ARF, Chemo, Hep., AIDS, mental health diagnosis, sleep apnea, morbid obesity)? @ -None Was patient admitted / discharged? Hospital course, mention meds given and route, prescriptions, significant lab abnormalities, going to OR and other pertinent info. @ -Discharge. Patient presented to the emergency department evaluation of low back pain following fall. He denies any red flag symptoms. Denies any other injuries. X-rays obtained which show no acute fracture or malalignment. Patient provided medication for pain control in the emergency department. Patient advised on findings of x-ray. Advised symptomatic treatment at home. Patient understanding agreeable with plan. Patient stable at time of discharge. Case discussed with Dr. Dick. Undiagnosed new problem with uncertain prognosis? @ -No Drug Therapy requiring intensive monitoring for toxicity (Heparin, Nitro, Insulin, Cardizem)? @ -No Were any procedures done? @ -No Diagnosis/symptom? @ -Back pain Acute, or Chronic, or Acute on Chronic? @ -Acute Uncomplicated (without systemic symptoms) or Complicated (systemic symptoms)? @ -Uncomplicated Side effects of treatment? @ -No Exacerbation, Progression, or Severe Exacerbation? @ -No Poses a threat to life or bodily function? How? (Chest pain, [place], [place], pneumonia, PE, COPD, DKA, ARF, appy, cholecystitis, CVA, Diverticulitis, Homicidal, Suicidal, threat to staff... and all critical care pts) @ -No Disposition Clinical Impression: Fall, Back pain Disposition: HOME SELF-CARE Condition: Stable Instructions (If sedation given, give patient instructions): Acute Low Back Pain (ED) Additional Instructions: Please follow up with your primary care provider. Return to the emergency department for new or worsening symptoms. Is patient prescribed a controlled substance at d/c from ED?: No Referrals: Juan Kim MD [Primary Care Provider] - 1-2 days
[2023-06-17] MEDS: KETOROLAC 15 MG/ML 1 ML VIAL IM STA (11:49)
[2023-06-17] MEDS: ORPHENADRINE 30 MG/ML 2 ML VIAL IM STA (11:49)
--- NOTE | 2023-06-17 12:11 | XR ---
EXAMINATION TYPE: XR lumbosacral spine 5 views DATE OF EXAM: 06/17/2023 Comparison: None Clinical History: 33-year-old male pain after fall Findings: 5 lumbar type vertebral bodies. Facet arthropathy lower lumbar spine. Vertebral body heights are pres erved and alignment is maintained. Impression: Some facet arthropathy in the lower lumbar spine. No vertebral compression collapse or malalignment.
[2023-06-17] MEDS: MORPHINE SULFATE 4 MG/ML SYRINGE IM STA (13:18)
[2023-06-17 13:25] VITALS: BP 132/78; PULSE 80; RESP 18
== END 2023-06-17 13:26 | disposition home or self-care (01) ==
LOC: EC 10:31
DX: S39.92XA Unspecified injury of lower back, initial encounter (principal); Z88.2 Allergy status to sulfonamides; Z88.1 Allergy status to other antibiotic agents; Z87.891 Personal history of nicotine dependence; W10.9XXA Fall (on) (from) unspecified stairs and steps, initial encounter; Y93.01 Activity, walking, marching and hiking
CPT/HCPCS: 72110; 99283; 96372 ×3; J2270; J2360; J1885

== ENCOUNTER 2023-08-27 09:20 | Emergency (ER) | payer OTHER ==
--- NOTE | 2023-08-27 09:55 | ED ---
Nausea/Vomiting/Diarrhea HPI - General Chief complaint: Nausea/Vomiting/Diarrhea Stated complaint: N/V/D Time Seen by Provider: 08/27/23 09:53 Source: patient, RN notes reviewed Mode of arrival: ambulatory Limitations: no limitations - History of Present Illness Initial comments: 33-year-old male presenting to the ER with a chief complaint of nausea and vomiting. Patient has a past medical history significant for laryngeal cancer and is scheduled to have a PET scan tomorrow. Patient reports for the past couple of weeks he has been extremely nauseous and vomiting. Describes his emesis as clear. He has been taking Zofran with mild relief. He also reports recent diarrhea. Denies any abdominal pain, melena or bright red blood per stool. Patient states he has been having a sore throat and believes his cancer has returned. He states he has been getting night sweats and chills. He also is endorsing frequent headaches and visual disturbances. He denies any dizziness, lightheadedness, chest pain, shortness of breath, urinary complaints or peripheral edema. - Related Data Home Medications Medication Instructions Recorded Confirmed Ondansetron Odt [Zofran Odt] 4 mg SL Q8H PRN 04/03/22 08/03/22 ALPRAZolam [Xanax] 0.25 mg PO BID PRN 08/03/22 08/03/22 Amoxicillin [Amoxicillin 250 mg/5 500 mg PO TID 08/03/22 08/03/22 ml] Levothyroxine Sodium [Synthroid] 50 mcg PO DAILY 08/03/22 08/03/22 oxyCODONE HCL [oxyCODONE HCL (IR)] 10 mg PO Q4H PRN 08/03/22 08/03/22 oxyCODONE HCL [oxyCODONE HCL ER] 10 mg PO Q12H PRN 08/03/22 08/03/22 Previous Rx's Medication Instructions Recorded Ibuprofen Oral Susp [Motrin Oral 30 ml PO Q8HR #630 ml 08/03/22 Susp] Amoxicillin 7 ml PO BID #200 ml 08/27/23 Allergies Allergy/AdvReac Type Severity Reaction Status Date / Time sulfamethoxazole Allergy Itchy and Verified 08/27/23 09:36 [From Bactrim] red hands/feet trimethoprim [From Bactrim] Allergy Itchy and Verified 08/27/23 09:36 red hands/feet Review of Systems ROS Statement: Those systems with pertinent positive or pertinent negative responses have been documented in the HPI. ROS Other: All systems not noted in ROS Statement are negative. 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, larnyx cancer positive biopsy 2021, Speech box History of Any Multi-Drug Resistant Organisms: None Reported Past Surgical History: Orthopedic Surgery Additional Past Surgical History / Comment(s): B knee, tumor removal from larynx with lymph node removal, half of epigottis removed, Past Psychological History: Anxiety, Depression Smoking Status: Former smoker Past Alcohol Use History: Occasional Past Drug Use History: Marijuana General Exam Limitations: no limitations General appearance: alert, in no apparent distress Head exam: Present: atraumatic, normocephalic, normal inspection Eye exam: Present: normal appearance, PERRL, EOMI. Absent: scleral icterus, conjunctival injection, periorbital swelling Neck exam: Present: other (voice box in place) Respiratory exam: Present: normal lung sounds bilaterally. Absent: respiratory distress, wheezes, rales, rhonchi, stridor Cardiovascular Exam: Present: regular rate, normal rhythm, normal heart sounds. Absent: systolic murmur, diastolic murmur, rubs, gallop, clicks GI/Abdominal exam: Present: soft, normal bowel sounds. Absent: distended, tenderness, guarding, rebound, rigid Neurological exam: Present: alert, oriented X3, CN II-XII intact Psychiatric exam: Present: normal affect, normal mood Skin exam: Present: warm, intact, normal color, diaphoretic Course Vital Signs 08/27/23 08/27/23 08/27/23 09:34 13:00 15:22 Temperature 97.8 F Pulse Rate 66 82 50 L Respiratory 16 16 18 Rate Blood Pressure 168/91 131/86 136/80 O2 Sat by Pulse 100 97 96 Oximetry Medical Decision Making - Medical Decision Making Was pt. sent in by a medical professional or institution (, PA, SHIRT FINISHER, urgent care, hospital, or fdc...) When possible be specific @ -No Did you speak to anyone other than the patient for history (EMS, parent, family, police, friend...)? What history was obtained from this source @ -No Did you review nursing and triage notes (agree or disagree)? Why? @ -I reviewed and agree with nursing and triage notes Were old charts reviewed (outside hosp., previous admission, EMS record, old EKG, old radiological studies, urgent care reports/EKG's, fdc records)? Report findings @ -No old charts were reviewed Differential Diagnosis (chest pain, altered mental status, abdominal pain women, abdominal pain men, vaginal bleeding, weakness, fever, dyspnea, syncope, headache, dizziness, GI bleed, back pain, seizure, CVA, palpatations, mental health, musculoskeletal)? @ -Differential Fever:Pneumonia, viral URI, endocarditis, myocarditis, pericarditis, otitis, sinusitis, peritonsillar Abscess, retropharyngeal Abscess, epiglottitis, peritonitis, appendicitis, [place] cystitis, diverticulitis, hepatitis, colitis, UTI, PID, TOA, pyelonephritis, prostatitis, epididymitis, meningitis, encephalitis, pulmonary embolism, CVA, thyroid storm, pancreatitis, adrenal crisis, cavernous sinus thrombosis, this is not meant to be an all- inclusive list. EKG interpreted by me (3pts min.). @ -As above X-rays interpreted by me (1pt min.). @ -None done CT interpreted by me (1pt min.). @ -None done U/S interpreted by me (1pt. min.). @ -None done What testing was considered but not performed or refused? (CT, X-rays, U/S, labs)? Why? @ -None What meds were considered but not given or refused? Why? @ -None Did you discuss the management of the patient with other professionals (pro fessionals i.e. , PA, SHIRT FINISHER, lab, RT, psych nurse, social services specialist, radio despatcher, teacher, evp and chief operating officer, showcase maker)? Give summary @ -No Was smoking cessation discussed for >3mins.? @ -No Was critical care preformed (if so, how long)? @ -No Were there social determinants of health that impacted care today? How? (Homelessness, low income, unemployed, alcoholism, drug addiction, transportation, low edu. Level, literacy, decrease access to med. care, longterm, rehab)? @ -No Was there de-escalation of care discussed even if they declined (Discuss DNR or withdrawal of care, Hospice)? DNR status @ -No What co-morbidities impacted this encounter? (DM, HTN, Smoking, COPD, CAD, Cancer, CVA, ARF, Chemo, Hep., AIDS, mental health diagnosis, sleep apnea, morbid obesity)? @ -Hx Laryngeal cancer Was patient admitted / discharged? Hospital course, mention meds given and route, prescriptions, significant lab abnormalities, going to OR and other pertinent info. @ -Discharged. 33 year old male presenting to the ER with a chief complaint of nausea and vomiting. Patient report a past medical history of laryngeal cancer and is scheduled for PET scan tomorrow. History and physical exam completed. Vitals stable. Patient in no signs of acute distress and non toxic appearing. No focal abdominal tenderness to palpitation with normal bowel sounds. Oropharynx clear with mild erythema no exudates. Laboratory studies unimpressive. Urine with trace protein correlating to mild dehydration. Influenza, RSV, COVID negative. Strep positive. Patient will be started on amoxicillin. Due to patient's history of laryngeal cancer patient prescribed oral solution as he states that is easier for him to swallow. Patient received IV fluids, antiemetic and analgesic medications in the ER with improvement of symptoms. Results discussed with patient, all questions answered. Advised close follow-up with PCP. Return parameters discussed. Patient discharged in stable condition. Patient verbally expressed understanding and agreement with care plan. Case discussed with ED attending, Dr. Francois. Undiagnosed new problem with uncertain prognosis? @ -No Drug Therapy requiring intensive monitoring for toxicity (Heparin, Nitro, Insulin, Cardizem)? @ -No Were any procedures done? @ -No Diagnosis/symptom? @ -Strep pharyngitis Acute, or Chronic, or Acute on Chronic? @ -Acute Uncomplicated (without systemic symptoms) or Complicated (systemic symptoms)? @ -Uncomplicated Side effects of treatment? @ -No Exacerbation, Progression, or Severe Exacerbation? @ -No Poses a threat to life or bodily function? How? (Chest pain, [place], [place], pneumonia, PE, COPD, DKA, ARF, appy, cholecystitis, CVA, Diverticulitis, Homicidal, Suicidal, threat to staff... and all critical care pts) @ -No - Lab Data Result diagrams: 08/27/23 10:11 08/27/23 10:11 Lab Results 08/27/23 08/27/2308/26/24 Range/Units 10:11 10:11 10:11 WBC 4.4 (3.8-10.6) k/uL RBC 4.57 (4.30-5.90) m/uL Hgb 13.5 (13.0-17.5) gm/dL Hct 39.9 (39.0-53.0) % MCV 87.5 (80.0-100.0) fL MCH 29.5 (25.0-35.0) pg MCHC 33.7 (31.0-37.0) g/dL RDW 13.4 (11.5-15.5) % Plt Count 222 (150-450) k/uL MPV 7.6 Neutrophils % 52 % Lymphocytes % 33 % Monocytes % 8 % Eosinophils % 3 % Basophils % 1 % Neutrophils # 2.3 (1.3-7.7) k/uL Lymphocytes # 1.4 (1.0-4.8) k/uL Monocytes # 0.4 (0-1.0) k/uL Eosinophils # 0.1 (0-0.7) k/uL Basophils # 0.0 (0-0.2) k/uL Sodium 139 (137-145) mmol/L Potassium 4.3 (3.5-5.1) mmol/L Chloride 106 (98-107) mmol/L Carbon Dioxide 26 (22-30) mmol/L Anion Gap 7 mmol/L BUN 11 (9-20) mg/dL Creatinine 0.75 (0.66-1.25) mg/dL Est GFR (CKD-EPI)AfAm >90 (>60 ml/min/1.73 sqM) Est GFR (CKD-EPI)NonAf >90 (>60 ml/min/1.73 sqM) Glucose 100 H (74-99) mg/dL Plasma Lactic Acid New 0.9 (0.7-2.0) mmol/L Calcium 9.1 (8.4-10.2) mg/dL Total Bilirubin 0.5 (0.2-1.3) mg/dL AST 27 (17-59) U/L ALT 26 (4-49) U/L Alkaline Phosphatase 44 (38-126) U/L Total Protein 6.9 (6.3-8.2) g/dL Albumin 4.1 (3.5-5.0) g/dL Urine Color Urine Appearance (Clear) Urine pH (5.0-8.0) Ur Specific [place] (1.001-1.035) Urine Protein (Negative) Urine Glucose (UA) (Negative) Urine Ketones (Negative) Urine Blood (Negative) Urine Nitrite (Negative) Urine Bilirubin (Negative) Urine Urobilinogen (<2.0) mg/dL Ur Leukocyte Esterase (Negative) Influenza Type A (PCR) (Not Detectd) Influenza Type B (PCR) (Not Detectd) RSV (PCR) (Not Detectd) SARS-CoV-2 (PCR) (Not Detectd) Group A Strep (PCR) (Not Detectd) 08/27/23 08/27/23 08/27/23 Range/Units 12:16 12:16 12:16 WBC (3.8-10.6) k/uL RBC (4.30-5.90) m/uL Hgb (13.0-17.5) gm/dL Hct (39.0-53.0) % MCV (80.0-100.0) fL MCH (25.0-35.0) pg MCHC (31.0-37.0) g/dL RDW (11.5-15.5) % Plt Count (150-450) k/uL MPV Neutrophils % % Lymphocytes % % Monocytes % % Eosinophils % % Basophils % % Neutrophils # (1.3-7.7) k/uL Lymphocytes # (1.0-4.8) k/uL Monocytes # (0-1.0) k/uL Eosinophils # (0-0.7) k/uL Basophils # (0-0.2) k/uL Sodium (137-145) mmol/L Potassium (3.5-5.1) mmol/L Chloride (98-107) mmol/L Carbon Dioxide (22-30) mmol/L Anion Gap mmol/L BUN (9-20) mg/dL Creatinine (0.66-1.25) mg/dL Est GFR (CKD-EPI)AfAm (>60 ml/min/1.73 sqM) Est GFR (CKD-EPI)NonAf (>60 ml/min/1.73 sqM) Glucose (74-99) mg/dL Plasma Lactic Acid New (0.7-2.0) mmol/L Calcium (8.4-10.2) mg/dL Total Bilirubin (0.2-1.3) mg/dL AST (17-59) U/L ALT (4-49) U/L Alkaline Phosphatase (38-126) U/L Total Protein (6.3-8.2) g/dL Albumin (3.5-5.0) g/dL Urine Color Yellow Urine Appearance Clear (Clear) Urine pH 6.0 (5.0-8.0) Ur Specific [place] 1.021 (1.001-1.035) Urine Protein Trace H (Negative) Urine Glucose (UA) Negative (Negative) Urine Ketones Negative (Negative) Urine Blood Negative (Negative) Urine Nitrite Negative (Negative) Urine Bilirubin Negative (Negative) Urine Urobilinogen 2.0 (<2.0) mg/dL Ur Leukocyte Esterase Negative (Negative) Influenza Type A (PCR) Not Detected (Not Detectd) Influenza Type B (PCR) Not Detected (Not Detectd) RSV (PCR) Not Detected (Not Detectd) SARS-CoV-2 (PCR) Not Detected (Not Detectd) Group A Strep (PCR) DETECTED A (Not Detectd) - EKG Data -: EKG Interpreted by Me EKG Comments: EKG taken at 12: 27 showing a sinus rhythm with no acute ST segment or T wave abnormalities. Ventricular rate 60, OR interval 164, QRS duration 110, QT/QTc 434/434. Disposition Clinical Impression: Strep pharyngitis Disposition: HOME SELF-CARE Condition: Stable Instructions (If sedation given, give patient instructions): Strep Throat (DC) Additional Instructions: Please follow-up with PCP. Complete full course of amoxicillin. You may take [id number] Tylenol and Motrin for fever and pain control. Return to the ER for any new or worsening concerns. Prescriptions: Amoxicillin 7 ml PO BID #200 ml Is patient prescribed a controlled substance at d/c from ED?: No Referrals: Juan Kim MD [Primary Care Provider] - 1-2 days Time of Disposition: 15:02
[2023-08-27 10:13] VITALS: TEMP 97.8
[2023-08-27] MEDS: KETOROLAC 15 MG/ML 1 ML VIAL IVP STA (10:23)
[2023-08-27] MEDS: SODIUM CHLORIDE 0.9% 1,000 ML IV STA (10:24)
[2023-08-27] MEDS: ONDANSETRON 4 MG/2 ML VIAL IVP STA (10:24)
[2023-08-27 10:51] LABS: ALT 26 U/L (4-49); AST 27 U/L (17-59); African American GFR (CKD) >90 (>60 ml/min/1.73 sqM); Albumin 4.1 g/dL (3.5-5.0); Alkaline Phosphatase 44 U/L (38-126); Anion Gap 7 mmol/L; Blood Urea Nitrogen 11 mg/dL (9-20); Calcium 9.1 mg/dL (8.4-10.2); Carbon Dioxide 26 mmol/L (22-30); Chloride 106 mmol/L (98-107); Glucose 100 mg/dL (74-99); Non-African American GFR(CKD) >90 (>60 ml/min/1.73 sqM); Potassium 4.3 mmol/L (3.5-5.1); Sodium 139 mmol/L (137-145); Total Bilirubin 0.5 mg/dL (0.2-1.3); Total Protein 6.9 g/dL (6.3-8.2)
[2023-08-27 10:55] LABS: Basophils % (A) 1 %; Eosinophils # (A) 0.1 k/uL (0-0.7); Eosinophils % (A) 3 %; HCT 39.9 % (39.0-53.0); HGB 13.5 gm/dL (13.0-17.5); Lymphocytes # (A) 1.4 k/uL (1.0-4.8); Lymphocytes % (A) 33 %; MCH 29.5 pg (25.0-35.0); MCHC 33.7 g/dL (31.0-37.0); MCV 87.5 fL (80.0-100.0); Mean Platelet Volume 7.6; Monocytes # (A) 0.4 k/uL (0-1.0); Monocytes % (A) 8 %; Neutrophils # (A) 2.3 k/uL (1.3-7.7); Neutrophils % (A) 52 %; Platelet Count 222 k/uL (150-450); RBC 4.57 m/uL (4.30-5.90); RDW 13.4 % (11.5-15.5); WBC 4.4 k/uL (3.8-10.6)
[2023-08-27] MEDS: HYDROmorphone 0.5 MG/0.5 ML SYRINGE IVP STA ×2 (11:49→15:17)
[2023-08-27 12:36] LABS: Appearance,Urine Clear (Clear); Bilirubin,Urine Negative (Negative); Blood,Urine Negative (Negative); Color,Urine Yellow; Glucose,Urine (UA) Negative (Negative); Ketones,Urine Negative (Negative); Leukocyte Esterase,Urine Negative (Negative); Nitrite,Urine Negative (Negative); Protein,Urine Trace (Negative); Specific Gravity,Urine 1.021 (1.001-1.035)
[2023-08-27 15:58] VITALS: BP 136/80; PULSE 50; RESP 18
== END 2023-08-27 15:24 | disposition home or self-care (01) ==
LOC: EC 09:20
DX: J02.0 Streptococcal pharyngitis (principal); B95.0 Streptococcus, group A, as the cause of diseases classified elsewhere; Z85.21 Personal history of malignant neoplasm of larynx; Z87.891 Personal history of nicotine dependence; Z88.1 Allergy status to other antibiotic agents; Z88.2 Allergy status to sulfonamides
CPT/HCPCS: 36415; 93005; 87651; 80053; 83605; 85025; 81003; 87636; 99284; 96374; 96375 ×2; 96376; 96361 ×5; J2405; J1885; J1170

== ENCOUNTER → 2023-08-28 | Outpatient (CLI) | payer OTHER ==
--- NOTE | 2023-08-30 08:11 | PE ---
EXAMINATION TYPE: PET CT fusion skull to thigh DATE OF EXAM: 08/28/2023 CLINICAL INDICATION:Male, 33 years old with history of C76.0 MALIGNANT NEOPLASM OF HEAD, FACE AND NEC K; TECHNIQUE: Following the intravenous administration of 11.23 mCi of F-18 FDG, whole body images are performed from the skull base to the midthigh. Images are reviewed on the computer in the coronal, axial, and sagittal planes. Reconstructed rotating images are created on independent workstation and reviewed on the computer. A non-contrast CT is performed in conjunction with the PET scan. Glucose level 95 mg/dL CT DLP: 607.20 mGycm, Automated exposure control for dose reduction was used. COMPARISON: CT None, PET/CT 05/22/2018, 04/09/2023., FINDINGS: Mediastinal SUV mean is 1.84. Hepatic parenchyma SUV mean is 2.17. SKULL BASE AND NECK: * No suspicious radiotracer activity. * Physiologic uptake around the tracheostomy cannula max SUV 3.1 * [place] tonsil uptake max SUV on the right 5.3 and on the left 6.3 presumed physiologic. CHEST, MEDIASTINUM, AND HILAR REGION: No suspicious radiotracer activity. ABDOMEN AND PELVIS: No suspicious radiotracer activity. MUSCULOSKELETAL STRUCTURES: No suspicious radiotracer activity. OTHER CT: Postsurgical changes to the neck with tracheostomy cannula in place and surgical clips pres ent. Fat-containing umbilical hernia. IMPRESSION: No suspicious radiotracer activity.
== END | disposition home or self-care (01) ==
LOC: RADPETMAIN 06:31
PROVIDERS: ATTEND Internal Medicine Hematology & Oncology
DX: C76.0 Malignant neoplasm of head, face and neck (principal)
CPT/HCPCS: 78815

== ENCOUNTER 2023-09-19 14:08 | Emergency (ER) | payer OTHER ==
--- NOTE | 2023-09-19 15:03 | ED ---
Lower Extremity Injury HPI - General Chief Complaint: Extremity Injury, Lower Stated Complaint: Both Knee Pain Time Seen by Provider: 09/19/23 15:02 Source: patient, RN notes reviewed Mode of arrival: ambulatory Limitations: no limitations - History of Present Illness Initial Comments: This is a 33-year-old male who presents to the emergency department for bilateral knee pain. States that yesterday he was walking upstairs when he slipped on a step causing him to fall down about 4 stairs and land on both of his knees. He has a superficial abrasion to the left knee. Tetanus vaccine is up-to-date. Denies hitting his head or sustaining any other injuries. He is still able to ambulate. MD Complaint: knee injury - Related Data Home Medications Medication Instructions Recorded Confirmed Ondansetron Odt [Zofran Odt] 4 mg SL Q8H PRN 04/03/22 08/03/22 ALPRAZolam [Xanax] 0.25 mg PO BID PRN 08/03/22 08/03/22 Amoxicillin [Amoxicillin 250 mg/5 500 mg PO TID 08/03/22 08/03/22 ml] Levothyroxine Sodium [Synthroid] 50 mcg PO DAILY 08/03/22 08/03/22 oxyCODONE HCL [oxyCODONE HCL (IR)] 10 mg PO Q4H PRN 08/03/22 08/03/22 oxyCODONE HCL [oxyCODONE HCL ER] 10 mg PO Q12H PRN 08/03/22 08/03/22 Previous Rx's Medication Instructions Recorded Ibuprofen Oral Susp [Motrin Oral 30 ml PO Q8HR #630 ml 08/03/22 Susp] Amoxicillin 7 ml PO BID #200 ml 08/27/23 Allergies Allergy/AdvReac Type Severity Reaction Status Date / Time sulfamethoxazole Allergy Itchy and Verified 08/27/23 09:36 [From Bactrim] red hands/feet trimethoprim [From Bactrim] Allergy Itchy and Verified 08/27/23 09:36 red hands/feet Review of Systems ROS Statement: Those systems with pertinent positive or pertinent negative responses have been documented in the HPI. ROS Other: All systems not noted in ROS Statement are negative. 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, larnyx cancer positive biopsy 2021, Speech box History of Any Multi-Drug Resistant Organisms: None Reported Past Surgical History: Orthopedic Surgery Additional Past Surgical History / Comment(s): B knee, tumor removal from larynx with lymph node removal, half of epigottis removed, Past Psychological History: Anxiety, Depression Smoking Status: Former smoker Past Alcohol Use History: Occasional Past Drug Use History: Marijuana General Exam Limitations: no limitations General appearance: alert, in no apparent distress Head exam: Present: atraumatic, normocephalic, normal inspection Respiratory exam: Present: normal lung sounds bilaterally. Absent: respiratory distress, wheezes, rales, rhonchi, stridor Cardiovascular Exam: Present: regular rate, normal rhythm, normal heart sounds. Absent: systolic murmur, diastolic murmur, rubs, gallop, clicks Extremities exam: Present: other (Superficial abrasion to the left knee. No active bleeding. There is no swelling, ecchymosis, or notable tenderness to the bilateral patella. Full range of motion. 2+ DP and PT pulses bilaterally) Neurological exam: Present: alert, oriented X3, CN II-XII intact Psychiatric exam: Present: normal affect, normal mood Course Vital Signs 09/19/23 09/19/23 14:48 16:34 Temperature 97.8 F 98.2 F Pulse Rate 68 74 Respiratory 20 19 Rate Blood Pressure 137/73 146/74 O2 Sat by Pulse 99 99 Oximetry Medical Decision Making - Medical Decision Making This is a 33-year-old male who presents to the emergency department for knee pain after a fall. Was pt. sent in by a medical professional or institution? @ -No Did you speak to anyone other than the patient for history? @ -No Did you review nursing and triage notes? @ -Yes, and I agree, it is accurate with regards to the patient's symptoms. Were old charts reviewed? @ -No Differential Diagnosis? @ -Differential Musculoskeletal: Muscular strain, contusion, ligament sprain, fracture, arthritis, septic arthritis, bursitis, cellulitis, muscle spasm, nerve compression, DVT, arterial occlusion, herpes zoster, electrolyte abnormality, tumor.... This is not meant to be in all inclusive list EKG interpreted by me (3pts min.)? @ -Not obtained X-rays interpreted by me (1pt min.)? @ -X-ray of the bilateral knees obtained. My interpretation identifies no acute fractures. CT interpreted by me (1pt min.)? @ -Not obtained U/S interpreted by me (1pt. min.)? @ -Not obtained What testing was considered but not performed? (CT, X-rays, U/S, labs)? Why? @ -None What meds were considered but not given? Why? @ -None Did you discuss the management of the patient with other professionals? @ -No Did you reconcile home meds? @ -No Was smoking cessation discussed for >3mins.? @ -No Was critical care preformed (if so, how long)? @ -No Were there social determinants of health that impacted care today? How? (Homelessness, low income, unemployed, alcoholism, drug addiction, transportation, low edu. Level, literacy, decrease access to med. care, usp, rehab)? @ -No Was there de-escalation of care discussed even if they declined? (Discuss DNR or withdrawal of care, Hospice)? @ -No What co-morbidities impacted this encounter? (DM, HTN, Smoking, COPD, CAD, Cancer, CVA, Hep., AIDS, mental health diagnosis, sleep apnea, morbid obesity)? @ -None Was patient admitted / discharged? @ -Discharged. X-ray of the bilateral knees obtained revealing no acute injury. He has a superficial abrasion over the left knee. Tetanus vaccine is up-to-date. Pain was managed in the emergency department. Patient will continue to take his pain medication as prescribed. Advised ice and elevation as well. Patient discharged home in stable condition. Undiagnosed new problem with uncertain prognosis? @ -None Drug Therapy requiring intensive monitoring for toxicity (Heparin, Nitro, Insulin, Cardizem)? @ -None Were any procedures done? @ -None Diagnosis/symptom? @ -Fall, bilateral knee pain Acute, or Chronic, or Acute on Chronic? @ -Acute Uncomplicated (without systemic symptoms) or Complicated (systemic symptoms)? @ -Uncomplicated Side effects of treatment? @ -None Exacerbation, Progression, or Severe Exacerbation] @ -Not applicable Poses a threat to life or bodily function? @ -No Return precautions reviewed in depth, the patient is instructed to return to the emergency department with any new, worsening, or concerning symptoms. Patient verbalized understanding. This case was discussed in detail with the attending ED physician, Dr. Bacon. Presentation, findings, and treatment plan discussed in detail as well. - Radiology Data Radiology results: report reviewed, image reviewed Disposition Clinical Impression: Fall, Knee pain Disposition: HOME SELF-CARE Additional Instructions: Return to the emergency department with any new, worsening, or concerning symptoms. Try applying ice and taking your pain medications. Follow up with your primary care provider in 1-2 days. Is patient prescribed a controlled substance at d/c from ED?: No Referrals: Juan Kim MD [Primary Care Provider] - 1-2 days Time of Disposition: 16:09
--- NOTE | 2023-09-19 15:20 | XR ---
EXAMINATION TYPE: XR knee complete bilateral DATE OF EXAM: 09/19/2023 COMPARISON: NONE HISTORY: Pain TECHNIQUE: Three views are submitted. FINDINGS: Joint spaces are preserved. Osseous structures are intact. No acute fracture seen. Trace amount of fluid in the suprapatellar bursa. IMPRESSION: 1. No acute fracture or dislocation.
[2023-09-19] MEDS: MORPHINE SULFATE 4 MG/ML SYRINGE IM STA (16:31)
[2023-09-19 16:49] VITALS: BP 146/74; PULSE 74; RESP 19; TEMP 98.2
== END 2023-09-19 16:34 | disposition home or self-care (01) ==
LOC: EC 14:08
DX: S80.212A Abrasion, left knee, initial encounter (principal); M25.561 Pain in right knee; Z88.2 Allergy status to sulfonamides; Z87.891 Personal history of nicotine dependence; W10.9XXA Fall (on) (from) unspecified stairs and steps, initial encounter; Y93.01 Activity, walking, marching and hiking
CPT/HCPCS: 73562; 99283; 96372; J2270

== ENCOUNTER 2023-12-30 08:44 | Emergency (ER) | payer OTHER ==
--- NOTE | 2023-12-30 10:59 | ED ---
General Adult HPI - General Chief complaint: Shortness of Breath Stated complaint: hard time breathing Time Seen by Provider: 12/30/23 10:39 Source: patient, RN notes reviewed Mode of arrival: ambulatory Limitations: no limitations - History of Present Illness Initial comments: Patient is a 33-year-old male present to the emergency department with diffi culty in breathing. Patient has history of throat cancer with laryngectomy. Patient feels like breathing has worsened the past few days. Patient feels like the area may be swollen. Patient states kids recently had strep throat. Patient states he was in a different hospital in [place] a couple days ago and nebulizer treatments seem to help. Patient tested negative for COVID and negative for flu and negative for pneumonia on x-ray. - Related Data Home Medications Medication Instructions Recorded Confirmed oxyCODONE ER [OxyCONTIN] 15 mg PO Q12HR 12/30/23 12/30/23 oxyCODONE HCL [Oxycodone HCl] 10 - 20 mg PO Q4H PRN 12/30/23 12/30/23 Previous Rx's Medication Instructions Recorded Amoxicillin 500 mg PO Q8HR #300 ml 12/30/23 Allergies Allergy/AdvReac Type Severity Reaction Status Date / Time sulfamethoxazole Allergy Itchy and Verified 12/30/23 11:22 [From Bactrim] red hands/feet trimethoprim [From Bactrim] Allergy Itchy and Verified 12/30/23 11:22 red hands/feet Review of Systems ROS Statement: Those systems with pertinent positive or pertinent negative responses have been documented in the HPI. ROS Other: All systems not noted in ROS Statement are negative. Constitutional: Denies: fever Eyes: Denies: eye pain ENT: Reports: as per HPI, throat pain. Denies: ear pain Respiratory: Reports: as per HPI Cardiovascular: Denies: chest pain Endocrine: Denies: fatigue Gastrointestinal: Denies: abdominal pain Genitourinary: Denies: dysuria Musculoskeletal: Denies: back pain Skin: Denies: rash Neurological: Denies: weakness 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, larnyx cancer positive biopsy 2021, Speech box History of Any Multi-Drug Resistant Organisms: None Reported Past Surgical History: Orthopedic Surgery Additional Past Surgical History / Comment(s): B knee, tumor removal from larynx with lymph node removal, half of epigottis removed, Past Psychological History: Anxiety, Depression Smoking Status: Former smoker Past Alcohol Use History: Occasional Past Drug Use History: Marijuana General Exam Limitations: no limitations General appearance: alert, in no apparent distress Head exam: Present: normocephalic Eye exam: Present: normal appearance ENT exam: Present: other (Mild pharyngeal erythema. ) Neck exam: Present: other (Laryngectomy with tracheal site apparent open with good external visualization.) Respiratory exam: Present: rales (Mild left-sided) Cardiovascular Exam: Present: regular rate, normal rhythm GI/Abdominal exam: Present: soft. Absent: distended, tenderness Extremities exam: Present: normal inspection. Absent: pedal edema, calf te nderness Neurological exam: Present: alert Psychiatric exam: Present: normal affect, normal mood Skin exam: Present: normal color Course Vital Signs 12/30/23 12/30/23 12/30/23 08:46 10:50 11:17 Temperature 98.1 F 98.3 F Pulse Rate 69 68 Respiratory 22 20 20 Rate Blood Pressure 143/94 163/106 O2 Sat by Pulse 99 97 Oximetry 12/30/23 11:20 Temperature Pulse Rate Respiratory Rate Blood Pressure 151/92 O2 Sat by Pulse Oximetry EKG Findings - EKG Results: EKG: interpreted by ERMD, sinus rhythm, normal axis, normal QRS, normal ST/T Medical Decision Making - Medical Decision Making Was pt. sent in by a medical professional or institution (, PA, PARTNER MANAGEMENT CONSULTANT, urgent care, hospital, or usp...) When possible be specific @ -No Did you speak to anyone other than the patient for history (EMS, parent, family, police, friend...)? What history was obtained from this source @ -No Did you review nursing and triage notes (agree or disagree)? Why? @ -I reviewed and agree with nursing and triage notes Were old charts reviewed (outside hosp., previous admission, EMS record, old EKG, old radiological studies, urgent care reports/EKG's, usp records)? Report findings @ -No old charts were reviewed Differential Diagnosis (chest pain, altered mental status, abdominal pain women, abdominal pain men, vaginal bleeding, weakness, fever, dyspnea, syncope, headache, dizziness, GI bleed, back pain, seizure, CVA, palpatations, mental health, musculoskeletal)? @ -Differential Dyspnea: Coronary syndrome, arrhythmia, tamponade, asthma, COPD, pulmonary embolism, pneumonia, pneumothorax, pulmonary effusion, anaphylaxis, diabetic ketoacidosis, flailed chest, pulmonary contusion, diaphragmatic rupture, anemia, neuromuscular, this is not meant to be an all-inclusive list. EKG interpreted by me (3pts min.). @ -As above X-rays interpreted by me (1pt min.). @ -X-ray shows no acute process CT interpreted by me (1pt min.). @ -None done U/S interpreted by me (1pt. min.). @ -None done What testing was considered but not performed or refused? (CT, X-rays, U/S, labs)? Why? @ -Considered CT scan of the neck however patient is positive for strep. Further discussion had with the patient and he does not feel this is necessary and would like to be discharged. Patient states he can see his doctor tomorrow. What meds were considered but not given or refused? Why? @ -None Did you discuss the management of the patient with other professionals (professionals i.e. , PA, PARTNER MANAGEMENT CONSULTANT, lab, RT, psych nurse, licensed master social worker, air compressor operator, teacher, career services officer, manager rn case)? Give summary @ -No Was smoking cessation discussed for >3mins.? @ -No Was critical care preformed (if so, how long)? @ -No Were there social determinants of health that impacted care today? How? (Homelessness, low income, unemployed, alcoholism, drug addiction, transportation, low edu. Level, literacy, decrease access to med. care, senior living, rehab)? @ -No Was there de-escalation of care discussed even if they declined (Discuss DNR or withdrawal of care, Hospice)? DNR status @ -No What co-morbidities impacted this encounter? (DM, HTN, Smoking, COPD, CAD, Cancer, CVA, ARF, Chemo, Hep., AIDS, mental health diagnosis, sleep apnea, morbid obesity)? @ -History of throat cancer with laryngectomy Was patient admitted / discharged? Hospital course, mention meds given and route, prescriptions, significant lab abnormalities, going to OR and other pertinent info. @ -Patient presents with concern for swelling in the throat. Patient is positive for strep throat otherwise is feeling well. Patient will be discharged with antibiotics and recommended close follow-up Undiagnosed new problem with uncertain prognosis? @ -No Drug Therapy requiring intensive monitoring for toxicity (Heparin, Nitro, Insulin, Cardizem)? @ -No Were any procedures done? @ -No Diagnosis/symptom? @ -Strep pharyngitis Acute, or Chronic, or Acute on Chronic? @ -Acute Uncomplicated (without systemic symptoms) or Complicated (systemic symptoms)? @ -Default Side effects of treatment? @ -No Exacerbation, Progression, or Severe Exacerbation? @ -No Poses a threat to life or bodily function? How? (Chest pain, [place], [place], pneumonia, PE, COPD, DKA, ARF, appy, cholecystitis, CVA, Diverticulitis, Homicidal, Suicidal, threat to staff... and all critical care pts) @ -No - Lab Data Result diagrams: 12/30/23 11:10 12/30/23 11:10 Lab Results 12/30/23 12/30/23 12/30/23 Range/Units 11:10 11:10 11:10 WBC 14.0 H (3.8-10.6) k/uL RBC 5.40 (4.30-5.90) m/uL Hgb 16.1 (13.0-17.5) gm/dL Hct 49.2 (39.0-53.0) % MCV 91.1 (80.0-100.0) fL MCH 29.9 (25.0-35.0) pg MCHC 32.8 (31.0-37.0) g/dL RDW 12.9 (11.5-15.5) % Plt Count 413 (150-450) k/uL MPV 6.9 Neutrophils % 73 % Lymphocytes % 15 % Monocytes % 5 % Eosinophils % 5 % Basophils % 0 % Neutrophils # 10.2 H (1.3-7.7) k/uL Lymphocytes # 2.1 (1.0-4.8) k/uL Monocytes # 0.7 (0-1.0) k/uL Eosinophils # 0.7 (0-0.7) k/uL Basophils # 0.0 (0-0.2) k/uL PT 11.0 (10.0-12.5) sec INR 1.0 (<1.2) APTT 28.1 (22.0-30.0) sec D-Dimer 0.43 (<0.60) mg/L FEU Sodium 140 (137-145) mmol/L Potassium 4.4 (3.5-5.1) mmol/L Chloride 102 (98-107) mmol/L Carbon Dioxide 27 (22-30) mmol/L Anion Gap 11 mmol/L BUN 8 L (9-20) mg/dL Creatinine 0.87 (0.66-1.25) mg/dL Est GFR (CKD-EPI)AfAm >90 (>60 ml/min/1.73 sqM) Est GFR (CKD-EPI)NonAf >90 (>60 ml/min/1.73 sqM) Glucose 101 H (74-99) mg/dL Plasma Lactic Acid New (0.7-2.0) mmol/L Calcium 9.9 (8.4-10.2) mg/dL Magnesium 2.1 (1.6-2.3) mg/dL Total Bilirubin 0.9 (0.2-1.3) mg/dL AST 20 (17-59) U/L ALT 14 (4-49) U/L Alkaline Phosphatase 50 (38-126) U/L Troponin I (0.000-0.034) ng/mL NT-Pro-B Natriuret Pep 108 pg/mL Total Protein 8.1 (6.3-8.2) g/dL Albumin 4.9 (3.5-5.0) g/dL SARS-CoV-2 (PCR) (Not Detectd) Group A Strep (PCR) (Not Detectd) 12/30/23 12/30/23 12/30/23 Range/Units 11:10 11:10 11:10 WBC (3.8-10.6) k/uL RBC (4.30-5.90) m/uL Hgb (13.0-17.5) gm/dL Hct (39.0-53.0) % MCV (80.0-100.0) fL MCH (25.0-35.0) pg MCHC (31.0-37.0) g/dL RDW (11.5-15.5) % Plt Count (150-450) k/uL MPV Neutrophils % % Lymphocytes % % Monocytes % % Eosinophils % % Basophils % % Neutrophils # (1.3-7.7) k/uL Lymphocytes # (1.0-4.8) k/uL Monocytes # (0-1.0) k/uL Eosinophils # (0-0.7) k/uL Basophils # (0-0.2) k/uL PT (10.0-12.5) sec INR (<1.2) APTT (22.0-30.0) sec D-Dimer (<0.60) mg/L FEU Sodium (137-145) mmol/L Potassium (3.5-5.1) mmol/L Chloride (98-107) mmol/L Carbon Dioxide (22-30) mmol/L Anion Gap mmol/L BUN (9-20) mg/dL Creatinine (0.66-1.25) mg/dL Est GFR (CKD-EPI)AfAm (>60 ml/min/1.73 sqM) Est GFR (CKD-EPI)NonAf (>60 ml/min/1.73 sqM) Glucose (74-99) mg/dL Plasma Lactic Acid New 1.2 (0.7-2.0) mmol/L Calcium (8.4-10.2) mg/dL Magnesium (1.6-2.3) mg/dL Total Bilirubin (0.2-1.3) mg/dL AST (17-59) U/L ALT (4-49) U/L Alkaline Phosphatase (38-126) U/L Troponin I <0.012 (0.000-0.034) ng/mL NT-Pro-B Natriuret Pep pg/mL Total Protein (6.3-8.2) g/dL Albumin (3.5-5.0) g/dL SARS-CoV-2 (PCR) (Not Detectd) Group A Strep (PCR) DETECTED A (Not Detectd) 12/30/23 Range/Units 11:10 WBC (3.8-10.6) k/uL RBC (4.30-5.90) m/uL Hgb (13.0-17.5) gm/dL Hct (39.0-53.0) % MCV (80.0-100.0) fL MCH (25.0-35.0) pg MCHC (31.0-37.0) g/dL RDW (11.5-15.5) % Plt Count (150-450) k/uL MPV Neutrophils % % Lymphocytes % % Monocytes % % Eosinophils % % Basophils % % Neutrophils # (1.3-7.7) k/uL Lymphocytes # (1.0-4.8) k/uL Monocytes # (0-1.0) k/uL Eosinophils # (0-0.7) k/uL Basophils # (0-0.2) k/uL PT (10.0-12.5) sec INR (<1.2) APTT (22.0-30.0) sec D-Dimer (<0.60) mg/L FEU Sodium (137-145) mmol/L Potassium (3.5-5.1) mmol/L Chloride (98-107) mmol/L Carbon Dioxide (22-30) mmol/L Anion Gap mmol/L BUN (9-20) mg/dL Creatinine (0.66-1.25) mg/dL Est GFR (CKD-EPI)AfAm (>60 ml/min/1.73 sqM) Est GFR (CKD-EPI)NonAf (>60 ml/min/1.73 sqM) Glucose (74-99) mg/dL Plasma Lactic Acid New (0.7-2.0) mmol/L Calcium (8.4-10.2) mg/dL Magnesium (1.6-2.3) mg/dL Total Bilirubin (0.2-1.3) mg/dL AST (17-59) U/L ALT (4-49) U/L Alkaline Phosphatase (38-126) U/L Troponin I (0.000-0.034) ng/mL NT-Pro-B Natriuret Pep pg/mL Total Protein (6.3-8.2) g/dL Albumin (3.5-5.0) g/dL SARS-CoV-2 (PCR) Not Detected (Not Detectd) Group A Strep (PCR) (Not Detectd) Disposition Clinical Impression: Strep pharyngitis Disposition: HOME SELF-CARE Condition: Stable Instructions (If sedation given, give patient instructions): Strep Throat (ED) Additional Instructions: Please do follow-up with your primary care physician and ENT in the next 1 or 2 days for recheck. Return for difficulty breathing, swelling, uncontrolled fe vers, worsening symptoms or any other concerns. Prescription has been sent to pharmacy. Prescriptions: Amoxicillin 500 mg PO Q8HR #300 ml Is patient prescribed a controlled substance at d/c from ED?: No Referrals: Juan Kim MD [Primary Care Provider] - 1-2 days Time of Disposition: 13:50
[2023-12-30 11:17] VITALS: TEMP 98.3
[2023-12-30] MEDS: ONDANSETRON 4 MG/2 ML VIAL IVP STA (11:19)
[2023-12-30] MEDS: oxyCODONE-APAP 10-325MG 1 EACH TAB PO ONE (11:19)
[2023-12-30 11:30] LABS: Basophils % (A) 0 %; Eosinophils # (A) 0.7 k/uL (0-0.7); Eosinophils % (A) 5 %; HCT 49.2 % (39.0-53.0); HGB 16.1 gm/dL (13.0-17.5); Lymphocytes # (A) 2.1 k/uL (1.0-4.8); Lymphocytes % (A) 15 %; MCH 29.9 pg (25.0-35.0); MCHC 32.8 g/dL (31.0-37.0); MCV 91.1 fL (80.0-100.0); Mean Platelet Volume 6.9; Monocytes # (A) 0.7 k/uL (0-1.0); Monocytes % (A) 5 %; Neutrophils # (A) 10.2 k/uL (1.3-7.7); Neutrophils % (A) 73 %; Platelet Count 413 k/uL (150-450); RDW 12.9 % (11.5-15.5)
[2023-12-30 11:40] LABS: Partial Thromboplastin Time 28.1 sec (22.0-30.0)
[2023-12-30 11:52] LABS: ALT 14 U/L (4-49); AST 20 U/L (17-59); African American GFR (CKD) >90 (>60 ml/min/1.73 sqM); Albumin 4.9 g/dL (3.5-5.0); Alkaline Phosphatase 50 U/L (38-126); Anion Gap 11 mmol/L; Blood Urea Nitrogen 8 mg/dL (9-20); Calcium 9.9 mg/dL (8.4-10.2); Carbon Dioxide 27 mmol/L (22-30); Chloride 102 mmol/L (98-107); Glucose 101 mg/dL (74-99); Magnesium 2.1 mg/dL (1.6-2.3); Non-African American GFR(CKD) >90 (>60 ml/min/1.73 sqM); Potassium 4.4 mmol/L (3.5-5.1); Sodium 140 mmol/L (137-145); Total Bilirubin 0.9 mg/dL (0.2-1.3); Total Protein 8.1 g/dL (6.3-8.2)
[2023-12-30 11:58] LABS: NT-Pro-B-Type Natriuretic Pept 108 pg/mL
[2023-12-30] MEDS: KETOROLAC 15 MG/ML 1 ML VIAL IVP STA (13:00)
--- NOTE | 2023-12-30 13:27 | XR ---
EXAMINATION TYPE: XR chest 2V DATE OF EXAM: 12/30/2023 COMPARISON: 12/25/2022 INDICATION: Difficulty breathing TECHNIQUE: Frontal and lateral views of the chest are obtained. FINDINGS: The heart size is normal. The pulmonary vasculature is normal. The lungs are clear. Minimal tenting of the left diaphragm is present which can be related atelectas is. IMPRESSION: 1. Minimal left diaphragm atelectasis. 2. Lung saini otherwise appear unremarkable. [facility], , 12/30/2023 1:24 PM
[2023-12-30] MEDS: IPRATROPIUM-ALBUTEROL 3 ML NEB INHALATION STA (14:19)
[2023-12-30 14:20] VITALS: BP 152/90; RESP 18
[2023-12-30 14:30] VITALS: PULSE 60
[2023-12-30] MEDS: AMOXICILLIN 250 MG/5 ML 80 ML BOTTLE PO ONE (14:34)
== END 2023-12-30 14:34 | disposition home or self-care (01) ==
LOC: EC 08:44
CPT/HCPCS: 36415; 71046; 80053; 83605; 83735; 83880; 84484; 85025; 85379; 85610; 85730; 87635; 87651; 93005; 94640; 96374; 96375; 99285

== ENCOUNTER → 2024-01-29 | Outpatient (CLI) | payer OTHER ==
--- NOTE | 2024-01-29 16:25 | CT ---
EXAMINATION TYPE: CT neck chest w con DATE OF EXAM: 01/29/2024 COMPARISON: 05/27/2022 and 08/28/2023 HISTORY: 33-year-old male C32.19 Larynx Cancer. Presurgical planning for vocal cords. TECHNIQUE: Contiguous axial scanning of the soft tissues of the neck and chest performed with IV Cont rast, patient injected with 100ml mL of Isovue 370. Coronal/sagittal reconstructions performed. CT DLP: 862.4 mGycm Automated exposure control for dose reduction was used. FINDINGS: Neck: Redemonstrated extensive post surgical and reconstruction changes throughout the anterior neck with l aryngectomy. Tracheal stoma is noted. There appear to be enlarging right seventh interspace lymph nodes measuring up to 1.5 cm. An addition al soft tissue nodule anterior right upper neck adjacent to a surgical clip appears to have increased now 1.5 cm as well. Surgical clips along the left side of the neck. No other abnormal mass is seen. Leftward nasal septal deviation. Visualized intracranial structures, orbits and globes, paranasal sin uses, and mastoid air cells appear clear. Mild to moderate degenerative disc disease lower cervical spine especially C6-C7. The patient is rita tulous. CHEST: The heart is normal size without pericardial effusion. Aorta normal caliber with conventional branching anatomy. No thoracic lymphadenopathy by CT size criteria. Mild hazy dependent atelectasis posterior lung bases. Mild diffuse bronchial wall thickening. Minimal emphysematous changes suggested. No consolidation or pleural effusion. Visualized upper abdomen shows no gross abnormality. Bones: No osseous destructive process. Regarding artifact projects through the cervicothoracic juncti on. IMPRESSION: NECK: 1. EXTENSIVE LARYNGECTOMY AND RECONSTRUCTION CHANGES REDEMONSTRATED ALONG THE ANTERIOR NECK. 2. ENLARGING SUBMANDIBULAR SPACE LYMPH NODES MEASURING UP TO 1.5 CM. AN ADDITIONAL SOFT TISSUE NODULE /LYMPH NODE ANTERIOR RIGHT UPPER NECK ADJACENT TO A SURGICAL CLIP APPEARS TO HAVE INCREASED WELL A LSO MEASURING 1.5 CM. LOCAL RECURRENCE NOT EXCLUDED AT THIS TIME. CHEST: 3. COPD with minimal emphysema. 4. No evidence for metastatic disease within the chest. [facility], , 01/29/2024 4:23 PM
== END | disposition home or self-care (01) ==
LOC: RADCTMAIN 15:05
PROVIDERS: ATTEND Otolaryngology
CPT/HCPCS: 70491; 71260

== ENCOUNTER 2024-02-06 12:58 | Emergency (ER) | payer OTHER ==
[2024-02-06 13:05] VITALS: TEMP 98
--- NOTE | 2024-02-06 13:24 | ED ---
General Adult HPI - General Chief complaint: Back Pain/Injury Stated complaint: Back pain Time Seen by Provider: 02/06/24 13:07 Source: patient, RN notes reviewed Mode of arrival: wheelchair Limitations: no limitations - History of Present Illness Initial comments: 34-year-old male presents to the emergency department for evaluation of bilateral flank pain. He notes that this has been intermittent for the past month. He notes that over the past week his symptoms have progressively gotten worse. He denies any aggravating or alleviating factors. Reports that the pain radiates to his abdomen. He denies dysuria, hematuria. Denies fever. He does admit to cold sweats. Denies loss of bowel or bladder function, urinary retention, saddle anesthesia. - Related Data Home Medications Medication Instructions Recorded Confirmed oxyCODONE ER [OxyCONTIN] 15 mg PO Q12HR 12/30/23 12/30/23 oxyCODONE HCL [Oxycodone HCl] 10 - 20 mg PO Q4H PRN 12/30/23 12/30/23 Previous Rx's Medication Instructions Recorded Amoxicillin 500 mg PO Q8HR #300 ml 12/30/23 Allergies Allergy/AdvReac Type Severity Reaction Status Date / Time sulfamethoxazole Allergy Itchy and Verified 02/06/24 13:05 [From Bactrim] red hands/feet trimethoprim [From Bactrim] Allergy Itchy and Verified 02/06/24 13:05 red hands/feet Review of Systems ROS Statement: Those systems with pertinent positive or pertinent negative responses have been documented in the HPI. ROS Other: All systems not noted in ROS Statement are negative. 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, larnyx cancer positive biopsy 2021, Speech box History of Any Multi-Drug Resistant Organisms: None Reported Past Surgical History: Orthopedic Surgery Additional Past Surgical History / Comment(s): B knee, tumor removal from larynx with lymph node removal, half of epigottis removed, Past Psychological History: Anxiety, Depression Smoking Status: Former smoker Past Alcohol Use History: Occasional Past Drug Use History: Marijuana General Exam Limitations: no limitations General appearance: alert, in no apparent distress Head exam: Present: atraumatic, normocephalic, normal inspection Eye exam: Present: normal appearance, PERRL, EOMI. Absent: scleral icterus, conjunctival injection, periorbital swelling ENT exam: Present: normal exam, mucous membranes moist Respiratory exam: Present: normal lung sounds bilaterally. Absent: respiratory distress, wheezes, rales, rhonchi, stridor Cardiovascular Exam: Present: regular rate, normal rhythm, normal heart sounds. Absent: systolic murmur, diastolic murmur, rubs, gallop, clicks GI/Abdominal exam: Present: soft, normal bowel sounds. Absent: distended, tenderness, guarding, rebound, rigid Extremities exam: Present: normal inspection, full ROM, normal capillary refill. Absent: tenderness, pedal edema, joint swelling, calf tenderness Back exam: Present: tenderness (Bilateral flank). Absent: full ROM (Decreased due to pain) Neurological exam: Present: alert, oriented X3 Psychiatric exam: Present: normal affect, normal mood Skin exam: Present: warm, dry, intact, normal color. Absent: rash Course Vital Signs 02/06/24 02/06/24 13:03 17:01 Temperature 98.0 F Pulse Rate 74 86 Respiratory 16 18 Rate Blood Pressure 151/71 139/91 O2 Sat by Pulse 100 98 Oximetry Medical Decision Making - Medical Decision Making Was pt. sent in by a medical professional or institution (, PA, LEADERSHIP PROGRAM ASSOCIATE, urgent care, hospital, or detention...) When possible be specific @ -No Did you speak to anyone other than the patient for history (EMS, parent, family, police, friend...)? What history was obtained from this source @ -No Did you review nursing and triage notes (agree or disagree)? Why? @ -I reviewed and agree with nursing and triage notes Were old charts reviewed (outside hosp., previous admission, EMS record, old EKG, old radiological studies, urgent care reports/EKG's, detention records)? Report findings @ -No old charts were reviewed Differential Diagnosis (chest pain, altered mental status, abdominal pain women, abdominal pain men, vaginal bleeding, weakness, fever, dyspnea, syncope, headache, dizziness, GI bleed, back pain, seizure, CVA, palpatations, mental health, musculoskeletal)? @ -Differential Back Pain: Strain, zoster, cauda equina syndrome, epidural abscess, vertebral osteomyelitis, discitis, fracture, subluxation, disc herniation, DJD, spinal stenosis, dissection, AAA, pancreatitis, peptic ulcer disease, pyelonephritis, kidney stone, this is not meant to be an all-inclusive list. EKG interpreted by me (3pts min.). @ -None X-rays interpreted by me (1pt min.). @ -None done CT interpreted by me (1pt min.). @ -CT abdomen pelvis obtained reviewed large stool burden throughout the colon, no evidence of urolithiasis U/S interpreted by me (1pt. min.). @ -None done What testing was considered but not performed or refused? (CT, X-rays, U/S, labs)? Why? @ -None What meds were considered but not given or refused? Why? @ -None Did you discuss the management of the patient with other professionals (professionals i.e. , PA, LEADERSHIP PROGRAM ASSOCIATE, lab, RT, psych nurse, socially responsible investment adviser, interpreter and translator, teacher, [place] police officer, showcase maker)? Give summary @ -No Was smoking cessation discussed for >3mins.? @ -No Was critical care preformed (if so, how long)? @ -No Were there social determinants of health that impacted care today? How? (Homelessness, low income, unemployed, alcoholism, drug addiction, transpor tation, low edu. Level, literacy, decrease access to med. care, alf, rehab)? @ -No Was there de-escalation of care discussed even if they declined (Discuss DNR or withdrawal of care, Hospice)? DNR status @ -No What co-morbidities impacted this encounter? (DM, HTN, Smoking, COPD, CAD, Cancer, CVA, ARF, Chemo, Hep., AIDS, mental health diagnosis, sleep apnea, morbid obesity)? @ -None Was patient admitted / discharged? Hospital course, mention meds given and route, prescriptions, significant lab abnormalities, going to OR and other pertinent info. @ -Discharged. Patient presented to the emergency department for evaluation of bilateral flank pain x 1 month. Patient underwent laboratory studies revealing no significant leukocytosis.WBC of 11.5, stable hemoglobin. BUN and creatinine within normal limits, normal electrolytes; UA shows no evidence of infectious process, negative for blood. CT abdomen pelvis was obtained revealing large stool burden throughout the colon. No evidence of obstructive uropathy. Patient was provided symptomatic treatment while in the emergency department. He was advised on findings of laboratory studies and CT scan. Patient will be discharged home. He is understanding agreeable plan. Patient stable at time of discharge. Case discussed with Dr. Patel Undiagnosed new problem with uncertain prognosis? @ -No Drug Therapy requiring intensive monitoring for toxicity (Heparin, Nitro, Insulin, Cardizem)? @ -No Were any procedures done? @ -No Diagnosis/symptom? @ -Constipation, flank pain, abdominal pain Acute, or Chronic, or Acute on Chronic? @ -Acute Uncomplicated (without systemic symptoms) or Complicated (systemic symptoms)? @ -Uncomplicated Side effects of treatment? @ -No Exacerbation, Progression, or Severe Exacerbation? @ -No Poses a threat to life or bodily function? How? (Chest pain, [place], [place], pneumonia, PE, COPD, DKA, ARF, appy, cholecystitis, CVA, Diverticulitis, Homicidal, Suicidal, threat to staff... and all critical care pts) @ -No - Lab Data Result diagrams: 02/06/24 13:21 02/06/24 13:21 Lab Results 02/06/24 02/06/24 02/06/24 Range/Units 13:21 13:21 14:50 WBC 11.5 H (3.8-10.6) k/uL RBC 5.50 (4.30-5.90) m/uL Hgb 16.2 (13.0-17.5) gm/dL Hct 49.5 (39.0-53.0) % MCV 89.9 (80.0-100.0) fL MCH 29.4 (25.0-35.0) pg MCHC 32.7 (31.0-37.0) g/dL RDW 13.2 (11.5-15.5) % Plt Count 359 (150-450) k/uL MPV 6.9 Neutrophils % 64 % Lymphocytes % 26 % Monocytes % 4 % Eosinophils % 4 % Basophils % 1 % Neutrophils # 7.3 (1.3-7.7) k/uL Lymphocytes # 3.0 (1.0-4.8) k/uL Monocytes # 0.5 (0-1.0) k/uL Eosinophils # 0.5 (0-0.7) k/uL Basophils # 0.1 (0-0.2) k/uL Sodium 142 (137-145) mmol/L Potassium 4.0 (3.5-5.1) mmol/L Chloride 101 (98-107) mmol/L Carbon Dioxide 28 (22-30) mmol/L Anion Gap 13 mmol/L BUN 9 (9-20) mg/dL Creatinine 0.92 (0.66-1.25) mg/dL Est GFR (CKD-EPI)AfAm >90 (>60 ml/min/1.73 sqM) Est GFR (CKD-EPI)NonAf >90 (>60 ml/min/1.73 sqM) Glucose 69 L (74-99) mg/dL Calcium 9.8 (8.4-10.2) mg/dL Total Bilirubin 0.7 (0.2-1.3) mg/dL AST 19 (17-59) U/L ALT 16 (4-49) U/L Alkaline Phosphatase 42 (38-126) U/L Total Protein 8.9 H (6.3-8.2) g/dL Albumin 5.3 H (3.5-5.0) g/dL Urine Color Colorless Urine Appearance Clear (Clear) Urine pH 6.0 (5.0-8.0) Ur Specific Longs 1.003 (1.001-1.035) Urine Protein Negative (Negative) Urine Glucose (UA) Negative (Negative) Urine Ketones Negative (Negative) Urine Blood Negative (Negative) Urine Nitrite Negative (Negative) Urine Bilirubin Negative (Negative) Urine Urobilinogen <2.0 (<2.0) mg/dL Ur Leukocyte Esterase Negative (Negative) Disposition Clinical Impression: Flank pain, Constipation Disposition: HOME SELF-CARE Condition: Stable Instructions (If sedation given, give patient instructions): Constipation (ED), Acute Low Back Pain (ED) Additional Instructions: Please follow up with your primary care provider. Return to the emergency department for new or worsening symptoms. Is patient prescribed a controlled substance at d/c from ED?: No Referrals: Lamonte Schwab Jr, [Primary Care Provider] - 1-2 days
[2024-02-06 13:37] LABS: Basophils # (A) 0.1 k/uL (0-0.2); Basophils % (A) 1 %; Eosinophils # (A) 0.5 k/uL (0-0.7); Eosinophils % (A) 4 %; HCT 49.5 % (39.0-53.0); HGB 16.2 gm/dL (13.0-17.5); Lymphocytes % (A) 26 %; MCH 29.4 pg (25.0-35.0); MCHC 32.7 g/dL (31.0-37.0); MCV 89.9 fL (80.0-100.0); Mean Platelet Volume 6.9; Monocytes # (A) 0.5 k/uL (0-1.0); Monocytes % (A) 4 %; Neutrophils # (A) 7.3 k/uL (1.3-7.7); Neutrophils % (A) 64 %; Platelet Count 359 k/uL (150-450); RDW 13.2 % (11.5-15.5); WBC 11.5 k/uL (3.8-10.6)
[2024-02-06] MEDS: KETOROLAC 15 MG/ML 1 ML VIAL IVP STA ×2 (13:39→16:46)
[2024-02-06] MEDS: SODIUM CHLORIDE 0.9% 1,000 ML IV ONE (13:40)
[2024-02-06 13:53] LABS: ALT 16 U/L (4-49); AST 19 U/L (17-59); African American GFR (CKD) >90 (>60 ml/min/1.73 sqM); Albumin 5.3 g/dL (3.5-5.0); Alkaline Phosphatase 42 U/L (38-126); Anion Gap 13 mmol/L; Blood Urea Nitrogen 9 mg/dL (9-20); Calcium 9.8 mg/dL (8.4-10.2); Carbon Dioxide 28 mmol/L (22-30); Chloride 101 mmol/L (98-107); Glucose 69 mg/dL (74-99); Non-African American GFR(CKD) >90 (>60 ml/min/1.73 sqM); Sodium 142 mmol/L (137-145); Total Bilirubin 0.7 mg/dL (0.2-1.3); Total Protein 8.9 g/dL (6.3-8.2)
[2024-02-06] MEDS: HYDROmorphone 1 MG/ML 1 ML SYRINGE IVP STA (14:42)
[2024-02-06 14:57] LABS: Appearance,Urine Clear (Clear); Bilirubin,Urine Negative (Negative); Blood,Urine Negative (Negative); Color,Urine Colorless; Glucose,Urine (UA) Negative (Negative); Ketones,Urine Negative (Negative); Leukocyte Esterase,Urine Negative (Negative); Nitrite,Urine Negative (Negative); Protein,Urine Negative (Negative); Specific Gravity,Urine 1.003 (1.001-1.035); Urobilinogen,Urine <2.0 mg/dL (<2.0)
--- NOTE | 2024-02-06 15:17 | CT ---
EXAMINATION TYPE: CT abdomen pelvis wo con DATE OF EXAM: 02/06/2024 2:28 PM COMPARISON: 04/09/2023 CLINICAL INDICATION: Male, 34 years old with history of flank pain; flank pain TECHNIQUE: Axial CT abdomen pelvis wo con;Sagittal and coronal reformats were created on a separate workstation. Contrast used: mL of , (none if empty) Oral contrast used: without Oral Contrast (none if empty) CT DLP: 528.6 mGycm, Automated exposure control for dose reduction was used. FINDINGS: LOWER CHEST: Unremarkable ABDOMEN LIVER: Unremarkable GALLBLADDER AND BILE DUCTS: Unremarkable. PANCREAS: Unremarkable. SPLEEN: Unremarkable. ADRENAL GLANDS: Unremarkable. KIDNEYS AND URETERS: No evidence of hydronephrosis or renal calculus. The ureters are unremarkable. PELVIS BLADDER: No evidence for wall thickening or mass given limitations of exam. REPRODUCTIVE: Unremarkable. ABDOMEN & PELVIS STOMACH AND BOWEL: No evidence of bowel obstruction. Gaseous dilation of the sigmoid colon with moder ate to large amount stool present. PERITONEUM/RETROPERITONEUM: No evidence of pneumoperitoneum or free fluid. VASCULATURE: No evidence of aortic aneurysm. MUSCULOSKELETAL: No acute osseous abnormalities LYMPH NODES: No gross evidence for lymphadenopathy. SOFT TISSUE/ABDOMINAL WALL: Unremarkable IMPRESSION: 1. No evidence for acute process to explain the patient's flank pain. No obstructive uropathy or keli al calculus visualized. 2. Moderate to large amount stool in the colon with gaseous dilation present of the sigmoid colon. [facility], , 02/06/2024 3:14 PM
[2024-02-06] MEDS: HYDROmorphone 0.5 MG/0.5 ML SYRINGE IVP STA (16:45)
[2024-02-06] MEDS: PEG 3350 (236 GM/BTL) + LYTES 4,000 ML BOTTLE PO ONE (16:45)
[2024-02-06] MEDS: ONDANSETRON 4 MG/2 ML VIAL IVP STA (16:46)
[2024-02-06 17:02] VITALS: BP 139/91; PULSE 86; RESP 18
== END 2024-02-06 17:02 | disposition home or self-care (01) ==
LOC: EC 12:58
DX: K59.00 Constipation, unspecified (principal); Z87.891 Personal history of nicotine dependence; Z88.1 Allergy status to other antibiotic agents; Z88.2 Allergy status to sulfonamides
CPT/HCPCS: 36415; 80053; 85025; 81003; 74176; 99284; 96374; 96375 ×3; 96376; 96361; J2405; J1171 ×2; J1885

== ENCOUNTER → 2024-02-23 | Outpatient (CLI) | payer OTHER | LOC: CPPFTMAIN 16:53 | PROVIDERS: ATTEND Family Medicine | DX: Z53.9 Procedure and treatment not carried out, unspecified reason (principal) ==

== ENCOUNTER 2024-04-09 09:22 | Emergency (ER) | payer OTHER ==
[2024-04-09 09:35] VITALS: RESP 18
[2024-04-09] MEDS: METOCLOPRAMIDE 5 MG/ML 2 ML VIAL IVP STA (09:47)
--- NOTE | 2024-04-09 09:48 | ED ---
Headache HPI - General Chief Complaint: Headache Stated Complaint: headache nausea Time Seen by Provider: 04/09/24 09:39 Source: patient, RN notes reviewed Mode of arrival: ambulatory Limitations: no limitations - History of Present Illness Initial Comments: 34-year-old male presents emergency department complaining of migraine headache. Patient states he has headaches like this in the past states he woke up with a headache today states he feels like prior headaches unalleviated with home medications. He states he has nausea, light sensitivity states diffuse type headache denies any neck. Neck stiffness no fevers or chills no chest pain patient does have a history of laryngal cancer - Related Data Home Medications Medication Instructions Recorded Confirmed oxyCODONE ER [OxyCONTIN] 15 mg PO Q12HR 12/30/23 12/30/23 oxyCODONE HCL [Oxycodone HCl] 10 - 20 mg PO Q4H PRN 12/30/23 12/30/23 Previous Rx's Medication Instructions Recorded Amoxicillin 500 mg PO Q8HR #300 ml 12/30/23 Allergies Allergy/AdvReac Type Severity Reaction Status Date / Time sulfamethoxazole Allergy Itchy and Verified 04/09/24 09:29 [From Bactrim] red hands/feet trimethoprim [From Bactrim] Allergy Itchy and Verified 04/09/24 09:29 red hands/feet Review of Systems ROS Statement: Those systems with pertinent positive or pertinent negative responses have been documented in the HPI. ROS Other: All systems not noted in ROS Statement are negative. 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, larnyx cancer positive biopsy 2021, Speech box History of Any Multi-Drug Resistant Organisms: None Reported Past Surgical History: Orthopedic Surgery Additional Past Surgical History / Comment(s): B knee, tumor removal from larynx with lymph node removal, half of epigottis removed, Past Psychological History: Anxiety, Depression Smoking Status: Former smoker Past Alcohol Use History: Occasional Past Drug Use History: Marijuana General Exam Limitations: no limitations General appearance: alert, in no apparent distress Head exam: Present: atraumatic, normocephalic, normal inspection Eye exam: Present: normal appearance, PERRL, EOMI. Absent: scleral icterus, conjunctival injection, periorbital swelling ENT exam: Present: normal exam, mucous membranes moist Neck exam: Present: full ROM. Absent: normal inspection (Prior trach, surgery), tenderness, meningismus, lymphadenopathy Respiratory exam: Present: normal lung sounds bilaterally. Absent: respiratory distress, wheezes, rales, rhonchi, stridor Cardiovascular Exam: Present: regular rate, normal rhythm, normal heart sounds. Absent: systolic murmur, diastolic murmur, rubs, gallop, clicks Neurological exam: Present: alert, oriented X3, CN II-XII intact, reflexes normal. Absent: motor sensory deficit Course Vital Signs 04/09/24 04/09/24 04/09/24 09:29 11:00 12:26 Temperature 98.2 F 98.7 F 97.7 F Pulse Rate 85 71 51 L Respiratory 18 18 18 Rate Blood Pressure 142/90 105/59 114/70 O2 Sat by Pulse 98 99 97 Oximetry Medical Decision Making - Medical Decision Making Was pt. sent in by a medical professional or institution (, PA, BI SOLUTIONS ARCHITECT, urgent care, hospital, or custodial...) When possible be specific @ -No Did you speak to anyone other than the patient for history (EMS, parent, family, police, friend...)? What history was obtained from this source @ -No Did you review nursing and triage notes (agree or disagree)? Why? @ -I reviewed and agree with nursing and triage notes Were old charts reviewed (outside hosp., previous admission, EMS record, old EKG, old radiological studies, urgent care reports/EKG's, custodial records)? Report findings @ -No old charts were reviewed Differential Diagnosis (chest pain, altered mental status, abdominal pain women, abdominal pain men, vaginal bleeding, weakness, fever, dyspnea, syncope, headache, dizziness, GI bleed, back pain, seizure, CVA, palpatations, mental health, musculoskeletal)? @ -Differential Headache: Migraine, tension, cluster, carbon monoxide, central venous thrombosis, pension karma temporal arteritis, acute closure glaucoma, intercranial hemorrhage, mastoiditis, sinusitis, head injury, this is not meant to be an all-inclusive list. EKG interpreted by me (3pts min.). @ -[None X-rays interpreted by me (1pt min.). @ -None done CT interpreted by me (1pt min.). @ -CT brain showed no acute intracranial hemorrhage, mass effect no evidence of metastasis U/S interpreted by me (1pt. min.). @ -None done What testing was considered but not performed or refused? (CT, X-rays, U/S, labs)? Why? @ -None What meds were considered but not given or refused? Why? @ -None Did you discuss the management of the patient with other professionals (professionals i.e. DrCiera, PA, BI SOLUTIONS ARCHITECT, lab, RT, psych nurse, social media analyst, hoop bending machine operator, teacher, job placement officer, caser)? Give summary @ -No Was smoking cessation discussed for >3mins.? @ -No Was critical care preformed (if so, how long)? @ -No Were there social determinants of health that impacted care today? How? (Homelessness, low income, unemployed, alcoholism, drug addiction, transportation, low edu. Level, literacy, decrease access to med. care, senior living, rehab)? @ -No Was there de-escalation of care discussed even if they declined (Discuss DNR or withdrawal of care, Hospice)? DNR status @ -No What co-morbidities impacted this encounter? (DM, HTN, Smoking, COPD, CAD, Cancer, CVA, ARF, Chemo, Hep., AIDS, mental health diagnosis, sleep apnea, morbid obesity)? @ -Cancer Was patient admitted / discharged? Hospital course, mention meds given and route, prescriptions, significant lab abnormalities, going to OR and other pertinent info. @ -Discharge headache is improved. Patient presented for migraine headache CT was obtained given history of laryngal cancer no acute changes patient discharged in stable condition Undiagnosed new problem with uncertain prognosis? @ -No Drug Therapy requiring intensive monitoring for toxicity (Heparin, Nitro, Insulin, Cardizem)? @ -No Were any procedures done? @ -No Diagnosis/symptom? @ -Headache Acute, or Chronic, or Acute on Chronic? @ -Acute Uncomplicated (without systemic symptoms) or Complicated (systemic symptoms)? @ -Uncomplicated Side effects of treatment? @ -No Exacerbation, Progression, or Severe Exacerbation? @ -No Poses a threat to life or bodily function? How? (Chest pain, USA, [place], pneumonia, PE, COPD, DKA, ARF, appy, cholecystitis, CVA, Diverticulitis, Homicidal, Suicidal, threat to staff... and all critical care pts) @ -No Disposition Clinical Impression: Headache Disposition: HOME SELF-CARE Condition: Stable Instructions (If sedation given, give patient instructions): Acute Headache (ED) Additional Instructions: Please return to the Emergency Department if symptoms worsen or any other concerns. Is patient prescribed a controlled substance at d/c from ED?: No Referrals: Lamonte Schwab Jr, DO [Primary Care Provider] - 1-2 days Time of Disposition: 11:46
[2024-04-09] MEDS: diphenhydrAMINE 50 MG/ML 1 ML VIAL IVP STA (09:52)
[2024-04-09] MEDS: SODIUM CHLORIDE 0.9% 1,000 ML IV ONE (09:56)
[2024-04-09] MEDS: KETOROLAC 15 MG/ML 1 ML VIAL IVP STA ×2 (10:02→12:20)
[2024-04-09] MEDS: HYDROmorphone 0.5 MG/0.5 ML SYRINGE IVP STA ×2 (11:00→12:20)
--- NOTE | 2024-04-09 11:01 | CT ---
EXAMINATION TYPE: CT brain wo con DATE OF EXAM: 04/09/2024 COMPARISON: Prior CT brain August 26, 2022 HISTORY: Headache, hx of ca CT DLP: 1227.4 mGycm. Automated Exposure Control for Dose Reduction was Utilized. TECHNIQUE: CT scan of the head is performed without contrast. FINDINGS: There is no acute intracranial hemorrhage, mass effect, or midline shift identified. The ventricles and sulci are within normal limits in size. Vera-white matter differentiation is maintain ed. Persist an 8 mm hypodense area in inferior right basal ganglia image 28 could reflect old lacunar infarct or prominent Virchow-Mendoza space. Nasal septum remains deviated to left of midline. The glob es are intact and the visualized sinuses are clear. IMPRESSION: No acute intracranial hemorrhage or midline shift is seen. No significant change from pr ior CT. [facility], , 04/09/2024 10:58 AM
[2024-04-09 12:28] VITALS: BP 114/70; PULSE 51; TEMP 97.7
== END 2024-04-09 12:28 | disposition home or self-care (01) ==
LOC: EC 09:22
DX: R51.9 Headache, unspecified (principal); Z87.891 Personal history of nicotine dependence; Z88.2 Allergy status to sulfonamides; Z88.1 Allergy status to other antibiotic agents
CPT/HCPCS: 70450; 99284; 96374; 96375 ×3; 96376 ×2; 96361; J1200; J2765; J1885; J1171

== ENCOUNTER 2024-04-12 11:30 | Emergency (ER) | payer OTHER ==
[2024-04-12 11:36] VITALS: TEMP 98
[2024-04-12 12:37] LABS: Basophils % (A) 0 %; Eosinophils # (A) 0.2 k/uL (0-0.7); Eosinophils % (A) 1 %; HCT 38.4 % (39.0-53.0); HGB 13.3 gm/dL (13.0-17.5); Lymphocytes # (A) 2.8 k/uL (1.0-4.8); Lymphocytes % (A) 16 %; MCH 30.4 pg (25.0-35.0); MCHC 34.7 g/dL (31.0-37.0); MCV 87.6 fL (80.0-100.0); Mean Platelet Volume 7.2; Monocytes # (A) 0.8 k/uL (0-1.0); Monocytes % (A) 4 %; Neutrophils # (A) 13.7 k/uL (1.3-7.7); Neutrophils % (A) 78 %; Platelet Count 340 k/uL (150-450); RBC 4.38 m/uL (4.30-5.90); RDW 14.4 % (11.5-15.5); WBC 17.7 k/uL (3.8-10.6)
--- NOTE | 2024-04-12 12:41 | ED ---
General Adult HPI - General Chief complaint: Recheck/Abnormal Lab/Rx Stated complaint: Pain all over Time Seen by Provider: 04/12/24 11:47 Source: patient, EMS, RN notes reviewed Mode of arrival: EMS Limitations: no limitations - History of Present Illness Initial comments: 34-year-old male presents to the emergency department for evaluation of pain all over his body. Patient reports that he recently had a procedure on his voicebox. He states that today he started experiencing pain throughout his body that he reports is muscular pain. He denies any significant neck pain. Denies recent fever, chills. Denies nausea, vomiting. Denies upper respiratory symptoms. - Related Data Home Medications Medication Instructions Recorded Confirmed oxyCODONE ER [OxyCONTIN] 15 mg PO Q12HR 12/30/23 12/30/23 oxyCODONE HCL [Oxycodone HCl] 10 - 20 mg PO Q4H PRN 12/30/23 12/30/23 Previous Rx's Medication Instructions Recorded Amoxicillin 500 mg PO Q8HR #300 ml 12/30/23 Cyclobenzaprine [Flexeril] 5 mg PO TID PRN #15 tablet 04/12/24 Allergies Allergy/AdvReac Type Severity Reaction Status Date / Time sulfamethoxazole Allergy Itchy and Verified 04/12/24 11:37 [From Bactrim] red hands/feet trimethoprim [From Bactrim] Allergy Itchy and Verified 04/12/24 11:37 red hands/feet Review of Systems ROS Statement: Those systems with pertinent positive or pertinent negative responses have been documented in the HPI. ROS Other: All systems not noted in ROS Statement are negative. 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, larnyx cancer positive biopsy 2021, Speech box History of Any Multi-Drug Resistant Organisms: None Reported Past Surgical History: Orthopedic Surgery Additional Past Surgical History / Comment(s): B knee, tumor removal from larynx with lymph node removal, half of epigottis removed, Past Psychological History: Anxiety, Depression Smoking Status: Former smoker Past Alcohol Use History: Occasional Past Drug Use History: Marijuana General Exam Limitations: no limitations General appearance: alert, in no apparent distress Head exam: Present: atraumatic, normocephalic, normal inspection Eye exam: Present: normal appearance, PERRL, EOMI. Absent: scleral icterus, conjunctival injection, periorbital swelling ENT exam: Present: normal exam, mucous membranes moist Neck exam: Present: normal inspection. Absent: tenderness, meningismus, lymphadenopathy Respiratory exam: Present: normal lung sounds bilaterally. Absent: respiratory distress, wheezes, rales, rhonchi, stridor Cardiovascular Exam: Present: regular rate, normal rhythm, normal heart sounds. Absent: systolic murmur, diastolic murmur, rubs, gallop, clicks GI/Abdominal exam: Present: soft. Absent: distended, tenderness, guarding, rebound, rigid Extremities exam: Present: normal inspection, full ROM, normal capillary refill, other (Distal pulses 2+). Absent: tenderness, pedal edema, joint swelling, calf tenderness Back exam: Present: normal inspection Neurological exam: Present: alert, oriented X3 Psychiatric exam: Present: normal affect, normal mood Skin exam: Present: warm, dry, intact, normal color. Absent: rash Course Vital Signs 04/12/24 04/12/24 04/12/24 11:31 14:13 16:27 Temperature 98.0 F Pulse Rate 62 60 76 Respiratory 18 18 18 Rate Blood Pressure 130/67 142/87 129/78 O2 Sat by Pulse 98 99 97 Oximetry 04/12/24 17:40 Temperature Pulse Rate 87 Respiratory 16 Rate Blood Pressure 128/83 O2 Sat by Pulse 98 Oximetry Medical Decision Making - Medical Decision Making Was pt. sent in by a medical professional or institution (, PA, FIBER DRIER OPERATOR, urgent care, hospital, or halfway...) When possible be specific @ -No Did you speak to anyone other than the patient for history (EMS, parent, family, police, friend...)? What history was obtained from this source @ -No Did you review nursing and triage notes (agree or disagree)? Why? @ -I reviewed and agree with nursing and triage notes Were old charts reviewed (outside hosp., previous admission, EMS record, old EKG, old radiological studies, urgent care reports/EKG's, halfway records)? Report findings @ -No old charts were reviewed Differential Diagnosis (chest pain, altered mental status, abdominal pain women, abdominal pain men, vaginal bleeding, weakness, fever, dyspnea, syncope, headache, dizziness, GI bleed, back pain, seizure, CVA, palpatations, mental health, musculoskeletal)? @ -Differential Weakness: Hypoglycemia, shock, sepsis, hyponatremia, anemia, infection, NC, ETOH, adverse medicine reaction, overdose, stroke, this is not meant to be an all-inclusive list. EKG interpreted by me (3pts min.). @ -None X-rays interpreted by me (1pt min.). @ -None done CT interpreted by me (1pt min.). @ -None done U/S interpreted by me (1pt. min.). @ -None done What testing was considered but not performed or refused? (CT, X-rays, U/S, labs)? Why? @ -None What meds were considered but not given or refused? Why? @ -None Did you discuss the management of the patient with other professionals (professionals i.e. , PA, FIBER DRIER OPERATOR, lab, RT, psych nurse, social service liaison, crop nutrition scientist, teacher, civil preparedness officer, home health care case manager)? Give summary @ -No Was smoking cessation discussed for >3mins.? @ -No Was critical care preformed (if so, how long)? @ -No Were there social determinants of health that impacted care today? How? (Homelessness, low income, unemployed, alcoholism, drug addiction, transportati on, low edu. Level, literacy, decrease access to med. care, [place] [facility], rehab)? @ -No Was there de-escalation of care discussed even if they declined (Discuss DNR or withdrawal of care, Hospice)? DNR status @ -No What co-morbidities impacted this encounter? (DM, HTN, Smoking, COPD, CAD, Cancer, CVA, ARF, Chemo, Hep., AIDS, mental health diagnosis, sleep apnea, morbid obesity)? @ -None Was patient admitted / discharged? Hospital course, mention meds given and route, prescriptions, significant lab abnormalities, going to OR and other pertinent info. @ -Discharge. Patient presented emergency department for evaluation of pain all over. He reports this is a muscular pain. Laboratory studies were obtained revealing leukocytosis with WBC of 17.7 which is likely from his recent procedure. CMP shows electrolytes within normal limits. CPK mildly elevated at 457. UA shows no evidence of infectious process. Patient was negative for COVID, influenza, RSV. Patient was provided IV hydration with 2 L of normal saline in the ED along with medication for pain control. I discussed the case with patient's primary care provider Dr. Schwab who believes that the patient can follow-up in the office tomorrow. The patient was contacted prior to being discharged by his PCPs office to schedule an appointment. Patient stable at time of discharge. Case discussed with Dr. Dick Undiagnosed new problem with uncertain prognosis? @ -No Drug Therapy requiring intensive monitoring for toxicity (Heparin, Nitro, Insulin, Cardizem)? @ -No Were any procedures done? @ -No Diagnosis/symptom? @ -Myalgias Acute, or Chronic, or Acute on Chronic? @ -Acute Uncomplicated (without systemic symptoms) or Complicated (systemic symptoms)? @ -Uncomplicated Side effects of treatment? @ -No Exacerbation, Progression, or Severe Exacerbation? @ -No Poses a threat to life or bodily function? How? (Chest pain, USA, NC, pneumonia, PE, COPD, DKA, ARF, appy, cholecystitis, CVA, Diverticulitis, Homicidal, Vigil icidal, threat to staff... and all critical care pts) @ -No - Lab Data Result diagrams: 04/12/24 12:26 04/12/24 12:26 Lab Results 04/12/24 04/12/24 04/12/24 Range/Units 12:26 12:26 12:26 WBC 17.7 H (3.8-10.6) k/uL RBC 4.38 (4.30-5.90) m/uL Hgb 13.3 (13.0-17.5) gm/dL Hct 38.4 L (39.0-53.0) % MCV 87.6 (80.0-100.0) fL MCH 30.4 (25.0-35.0) pg MCHC 34.7 (31.0-37.0) g/dL RDW 14.4 (11.5-15.5) % Plt Count 340 (150-450) k/uL MPV 7.2 Neutrophils % 78 % Lymphocytes % 16 % Monocytes % 4 % Eosinophils % 1 % Basophils % 0 % Neutrophils # 13.7 H (1.3-7.7) k/uL Lymphocytes # 2.8 (1.0-4.8) k/uL Monocytes # 0.8 (0-1.0) k/uL Eosinophils # 0.2 (0-0.7) k/uL Basophils # 0.0 (0-0.2) k/uL Sodium 140 (137-145) mmol/L Potassium 4.0 (3.5-5.1) mmol/L Chloride 104 (98-107) mmol/L Carbon Dioxide 27 (22-30) mmol/L Anion Gap 9 mmol/L BUN 9 (9-20) mg/dL Creatinine 0.78 (0.66-1.25) mg/dL Est GFR (CKD-EPI)AfAm >90 (>60 ml/min/1.73 sqM) Est GFR (CKD-EPI)NonAf >90 (>60 ml/min/1.73 sqM) Glucose 101 H (74-99) mg/dL Plasma Lactic Acid New 1.1 (0.7-2.0) mmol/L Calcium 9.7 (8.4-10.2) mg/dL Total Bilirubin 0.5 (0.2-1.3) mg/dL AST 26 (17-59) U/L ALT 18 (4-49) U/L Alkaline Phosphatase 35 L (38-126) U/L Creatine Kinase 457 H (55-170) U/L Total Protein 7.0 (6.3-8.2) g/dL Albumin 4.6 (3.5-5.0) g/dL Urine Color Urine Appearance (Clear) Urine pH (5.0-8.0) Ur Specific [place] (1.001-1.035) Urine Protein (Negative) Urine Glucose (UA) (Negative) Urine Ketones (Negative) Urine Blood (Negative) Urine Nitrite (Negative) Urine Bilirubin (Negative) Urine Urobilinogen (<2.0) mg/dL Ur Leukocyte Esterase (Negative) Influenza Type A (PCR) (Not Detectd) Influenza Type B (PCR) (Not Detectd) RSV (PCR) (Not Detectd) SARS-CoV-2 (PCR) (Not Detectd) 04/12/24 04/12/24 Range/Units 12:26 13:36 WBC (3.8-10.6) k/uL RBC (4.30-5.90) m/uL Hgb (13.0-17.5) gm/dL Hct (39.0-53.0) % MCV (80.0-100.0) fL MCH (25.0-35.0) pg MCHC (31.0-37.0) g/dL RDW (11.5-15.5) % Plt Count (150-450) k/uL MPV Neutrophils % % Lymphocytes % % Monocytes % % Eosinophils % % Basophils % % Neutrophils # (1.3-7.7) k/uL Lymphocytes # (1.0-4.8) k/uL Monocytes # (0-1.0) k/uL Eosinophils # (0-0.7) k/uL Basophils # (0-0.2) k/uL Sodium (137-145) mmol/L Potassium (3.5-5.1) mmol/L Chloride (98-107) mmol/L Carbon Dioxide (22-30) mmol/L Anion Gap mmol/L BUN (9-20) mg/dL Creatinine (0.66-1.25) mg/dL Est GFR (CKD-EPI)AfAm (>60 ml/min/1.73 sqM) Est GFR (CKD-EPI)NonAf (>60 ml/min/1.73 sqM) Glucose (74-99) mg/dL Plasma Lactic Acid New (0.7-2.0) mmol/L Calcium (8.4-10.2) mg/dL Total Bilirubin (0.2-1.3) mg/dL AST (17-59) U/L ALT (4-49) U/L Alkaline Phosphatase (38-126) U/L Creatine Kinase (55-170) U/L Total Protein (6.3-8.2) g/dL Albumin (3.5-5.0) g/dL Urine Color Colorless Urine Appearance Clear (Clear) Urine pH 6.0 (5.0-8.0) Ur Specific [place] 1.008 (1.001-1.035) Urine Protein Negative (Negative) Urine Glucose (UA) Negative (Negative) Urine Ketones Negative (Negative) Urine Blood Negative (Negative) Urine Nitrite Negative (Negative) Urine Bilirubin Negative (Negative) Urine Urobilinogen <2.0 (<2.0) mg/dL Ur Leukocyte Esterase Negative (Negative) Influenza Type A (PCR) Not Detected (Not Detectd) Influenza Type B (PCR) Not Detected (Not Detectd) RSV (PCR) Not Detected (Not Detectd) SARS-CoV-2 (PCR) Not Detected (Not Detectd) Disposition Clinical Impression: Myalgia Disposition: HOME SELF-CARE Condition: Stable Instructions (If sedation given, give patient instructions): Musculoskeletal Pain (ED) Additional Instructions: Please follow up with your primary care provider. Return to the emergency department for new or worsening symptoms. Prescriptions: Cyclobenzaprine [Flexeril] 5 mg PO TID PRN #15 tablet PRN Reason: Muscle Spasm Is patient prescribed a controlled substance at d/c from ED?: No Referrals: Lamonte Schwab Jr, [Primary Care Provider] - 1-2 days
[2024-04-12] MEDS: KETOROLAC 15 MG/ML 1 ML VIAL IVP STA (12:45)
[2024-04-12] MEDS: MORPHINE SULFATE 4 MG/ML SYRINGE IVP STA (12:46)
[2024-04-12] MEDS: SODIUM CHLORIDE 0.9% 1,000 ML IV ONE ×2 (12:46→16:26)
[2024-04-12 12:51] LABS: ALT 18 U/L (4-49); AST 26 U/L (17-59); African American GFR (CKD) >90 (>60 ml/min/1.73 sqM); Albumin 4.6 g/dL (3.5-5.0); Alkaline Phosphatase 35 U/L (38-126); Anion Gap 9 mmol/L; Blood Urea Nitrogen 9 mg/dL (9-20); Calcium 9.7 mg/dL (8.4-10.2); Carbon Dioxide 27 mmol/L (22-30); Chloride 104 mmol/L (98-107); Creatine Kinase 457 U/L (55-170); Glucose 101 mg/dL (74-99); Non-African American GFR(CKD) >90 (>60 ml/min/1.73 sqM); Sodium 140 mmol/L (137-145); Total Bilirubin 0.5 mg/dL (0.2-1.3)
[2024-04-12 13:56] LABS: Appearance,Urine Clear (Clear); Bilirubin,Urine Negative (Negative); Blood,Urine Negative (Negative); Color,Urine Colorless; Glucose,Urine (UA) Negative (Negative); Ketones,Urine Negative (Negative); Leukocyte Esterase,Urine Negative (Negative); Nitrite,Urine Negative (Negative); Protein,Urine Negative (Negative); Specific Gravity,Urine 1.008 (1.001-1.035); Urobilinogen,Urine <2.0 mg/dL (<2.0)
[2024-04-12] MEDS: HYDROmorphone 1 MG/ML 1 ML SYRINGE IVP STA ×2 (14:14→16:26)
[2024-04-12] MEDS: ORPHENADRINE 30 MG/ML 2 ML VIAL IVP STA (16:26)
[2024-04-12] MEDS: HYDROmorphone 0.5 MG/0.5 ML SYRINGE IVP STA (17:31)
[2024-04-12 17:42] VITALS: BP 128/83; PULSE 87; RESP 16
== END 2024-04-12 17:42 | disposition home or self-care (01) ==
LOC: EC 11:30
DX: M79.10 Myalgia, unspecified site (principal); Z11.52 Encounter for screening for COVID-19; Z87.891 Personal history of nicotine dependence; Z88.2 Allergy status to sulfonamides; Z88.8 Allergy status to other drugs, medicaments and biological substances
CPT/HCPCS: 36415; 80053; 82550; 83605; 85025; 81003; 87636; 99284; 96374; 96375; 96376; 96361; J2270; J2360; J1171 ×2; J1885

== ENCOUNTER 2024-04-13 11:11 | Emergency (ER) | payer OTHER ==
[2024-04-13 11:18] VITALS: RESP 18; TEMP 97.9
--- NOTE | 2024-04-13 11:53 | ED ---
General Adult HPI - General Chief complaint: Recheck/Abnormal Lab/Rx Stated complaint: pain Time Seen by Provider: 04/13/24 11:19 Source: patient, EMS, RN notes reviewed Mode of arrival: EMS Limitations: no limitations - History of Present Illness Initial comments: This is a 34-year-old male who presents to the emergency department for pain all over. Patient has a history of laryngeal cancer. He had a procedure at [facility] in [place] 2 days ago related to an artificial voicebox to see if that would help the patient be able to speak better. States that since then he has had increasing pain in his neck and now throughout his whole body. States that he is unable to walk or move due to his pain. He was evaluated here yesterday and discharged home. When he woke up this morning, states that his whole body was cramping and he could not get out of bed. Currently takes oxycodone 10 mg every 4-6 hours, which has not been effective. His mother called the office of his call center professional, Dr. Moreno, who advised that he come down to their facilit y. However, patient states that due to the pain he would not be able to handle that drive and came here instead. - Related Data Home Medications Medication Instructions Recorded Confirmed oxyCODONE ER [OxyCONTIN] 15 mg PO Q12HR 12/30/23 12/30/23 oxyCODONE HCL [Oxycodone HCl] 10 - 20 mg PO Q4H PRN 12/30/23 12/30/23 Previous Rx's Medication Instructions Recorded Amoxicillin 500 mg PO Q8HR #300 ml 12/30/23 Cyclobenzaprine [Flexeril] 5 mg PO TID PRN #15 tablet 04/12/24 Allergies Allergy/AdvReac Type Severity Reaction Status Date / Time sulfamethoxazole Allergy Itchy and Verified 04/12/24 11:37 [From Bactrim] red hands/feet trimethoprim [From Bactrim] Allergy Itchy and Verified 04/12/24 11:37 red hands/feet Review of Systems ROS Statement: Those systems with pertinent positive or pertinent negative responses have been documented in the HPI. ROS Other: All systems not noted in ROS Statement are negative. 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, larnyx cancer positive biopsy 2021, Speech box History of Any Multi-Drug Resistant Organisms: None Reported Past Surgical History: Orthopedic Surgery Additional Past Surgical History / Comment(s): B knee, tumor removal from larynx with lymph node removal, half of epigottis removed, Past Psychological History: Anxiety, Depression Smoking Status: Former smoker Past Alcohol Use History: Occasional Past Drug Use History: Marijuana General Exam Limitations: no limitations General appearance: alert, in distress Head exam: Present: atraumatic, normocephalic, normal inspection Respiratory exam: Present: normal lung sounds bilaterally. Absent: respiratory distress, wheezes, rales, rhonchi, stridor Cardiovascular Exam: Present: regular rate, normal rhythm, normal heart sounds. Absent: systolic murmur, diastolic murmur, rubs, gallop, clicks Neurological exam: Present: alert, oriented X3, CN II-XII intact Psychiatric exam: Present: normal affect, normal mood Course Vital Signs 04/13/24 11:13 Temperature 97.9 F Pulse Rate 71 Respiratory 18 Rate Blood Pressure 139/87 O2 Sat by Pulse 99 Oximetry Medical Decision Making - Medical Decision Making This is a 34-year-old male who presents to the emergency department for neck pain and pain all over. Was pt. sent in by a medical professional or institution? @ -No Did you speak to anyone other than the patient for history? @ -No Did you review nursing and triage notes? @ -Yes, and I agree, it is accurate with regards to the patient's symptoms. Were old charts reviewed? @ -No Differential Diagnosis? @ -Surgical complication, infection, electrolyte irregularity, metastasis, this is not meant to be an all-inclusive list. EKG interpreted by me (3pts min.)? @ -EKG interpreted by me demonstrating the following: Sinus bradycardia. Ventricular rate 55 bpm, DE interval 145 ms, QRS duration 108 ms, QTc 387 ms. X-rays interpreted by me (1pt min.)? @ -Not obtained CT interpreted by me (1pt min.)? @ -CT scan of the soft tissue neck obtained. My interpretation identifies no evidence of abscess formation in the neck. U/S interpreted by me (1pt. min.)? @ -Not obtained What testing was considered but not performed? (CT, X-rays, U/S, labs)? Why? @ -None What meds were considered but not given? Why? @ -None Did you discuss the management of the patient with other professionals? @ -Yes, Dr. Moreno, otolaryngology, who advised that he could follow-up in their office tomorrow or be transferred to [facility] ED if needed. Dr. Albarran, ED physician, accepts the patient for transfer. Did you reconcile home meds? @ -No Was smoking cessation discussed for >3mins.? @ -No Was critical care preformed (if so, how long)? @ -No Were there social determinants of health that impacted care today? How? (Ho melessness, low income, unemployed, alcoholism, drug addiction, transportation, low edu. Level, literacy, decrease access to med. care, longterm, rehab)? @ -No Was there de-escalation of care discussed even if they declined? (Discuss DNR or withdrawal of care, Hospice)? @ -No What co-morbidities impacted this encounter? (DM, HTN, Smoking, COPD, CAD, Cancer, CVA, Hep., AIDS, mental health diagnosis, sleep apnea, morbid obesity)? @ -Laryngeal cancer Was patient admitted / discharged? @ -Transferred. Lab work entirely unremarkable. CT scan of the soft tissue neck demonstrates postsurgical changes of the laryngectomy. He has resolution of the previously described enlarged lymph nodes in the right submandibular region and right jugular chain. There is no lymphadenopathy or discrete fluid collection or abscess within the soft tissues of the neck. Patient's case was discussed with Dr. Moreno, patient's call center professional. He advised that the patient could follow-up with him in the office tomorrow morning or be transferred to [place] if needed. Patient would need to go ER to ER before getting a bed at [facility]. This would be to [facility] ED. Options were discussed with the patient. He was concerned that his whole body would cramp up again and he would be unable to move. He subsequently requested we transfer him down to [facility] to see his surgeon. Patient transferred to [facility] ED via EMS f or further evaluation. Dr. Albarran is the accepting ED physician. Case discussed with ED attending, Dr. Bacon. Undiagnosed new problem with uncertain prognosis? @ -None Drug Therapy requiring intensive monitoring for toxicity (Heparin, Nitro, Insulin, Cardizem)? @ -None Were any procedures done? @ -None Diagnosis/symptom? @ -Postoperative neck pain, whole body pain Acute, or Chronic, or Acute on Chronic? @ -Acute Uncomplicated (without systemic symptoms) or Complicated (systemic symptoms)? @ -Complicated Side effects of treatment? @ -None Exacerbation, Progression, or Severe Exacerbation] @ -Not applicable Poses a threat to life or bodily function? @ -Yes, patient states that he is unable to function as a result of his pain - Lab Data Result diagrams: 04/13/24 11:55 04/13/24 11:55 Lab Results 04/13/24 04/13/24 04/13/24 Range/Units 11:55 11:55 11:55 WBC 9.9 (3.8-10.6) k/uL RBC 4.07 L (4.30-5.90) m/uL Hgb 12.3 L (13.0-17.5) gm/dL Hct 36.9 L (39.0-53.0) % MCV 90.5 (80.0-100.0) fL MCH 30.2 (25.0-35.0) pg MCHC 33.3 (31.0-37.0) g/dL RDW 14.0 (11.5-15.5) % Plt Count 281 (150-450) k/uL MPV 6.7 Neutrophils % 64 % Lymphocytes % 28 % Monocytes % 4 % Eosinophils % 2 % Basophils % 0 % Neutrophils # 6.4 (1.3-7.7) k/uL Lymphocytes # 2.8 (1.0-4.8) k/uL Monocytes # 0.4 (0-1.0) k/uL Eosinophils # 0.2 (0-0.7) k/uL Basophils # 0.0 (0-0.2) k/uL Sodium 139 (137-145) mmol/L Potassium 3.5 (3.5-5.1) mmol/L Chloride 105 (98-107) mmol/L Carbon Dioxide 28 (22-30) mmol/L Anion Gap 6 mmol/L BUN 9 (9-20) mg/dL Creatinine 0.85 (0.66-1.25) mg/dL Est GFR (CKD-EPI)AfAm >90 (>60 ml/min/1.73 sqM) Est GFR (CKD-EPI)NonAf >90 (>60 ml/min/1.73 sqM) Glucose 94 (74-99) mg/dL Plasma Lactic Acid New 0.8 (0.7-2.0) mmol/L Calcium 8.5 (8.4-10.2) mg/dL Phosphorus 3.9 (2.5-4.5) mg/dL Magnesium 1.9 (1.6-2.3) mg/dL Total Bilirubin 0.2 (0.2-1.3) mg/dL AST 17 (17-59) U/L ALT 15 (4-49) U/L Alkaline Phosphatase 33 L (38-126) U/L Creatine Kinase 170 (55-170) U/L C-Reactive Protein <0.5 (<1.0) mg/dL Total Protein 6.0 L (6.3-8.2) g/dL Albumin 3.8 (3.5-5.0) g/dL - Radiology Data Radiology results: report reviewed, image reviewed Disposition Clinical Impression: Other acute postoperative pain, Whole body pain, Hx of laryngeal cancer Disposition: OTHER INSTITUTION NOT DEFINED Referrals: Lamonte Schwab Jr, [Primary Care Provider] - 1-2 days - Out of Hospital Transfer - Req. Specs Out of Hospital Transfer - Requested Specifics: Other Emergency Center ([facility] ED)
[2024-04-13 12:04] LABS: Basophils % (A) 0 %; Eosinophils # (A) 0.2 k/uL (0-0.7); Eosinophils % (A) 2 %; HCT 36.9 % (39.0-53.0); HGB 12.3 gm/dL (13.0-17.5); Lymphocytes # (A) 2.8 k/uL (1.0-4.8); Lymphocytes % (A) 28 %; MCH 30.2 pg (25.0-35.0); MCHC 33.3 g/dL (31.0-37.0); MCV 90.5 fL (80.0-100.0); Mean Platelet Volume 6.7; Monocytes # (A) 0.4 k/uL (0-1.0); Monocytes % (A) 4 %; Neutrophils # (A) 6.4 k/uL (1.3-7.7); Neutrophils % (A) 64 %; Platelet Count 281 k/uL (150-450); RBC 4.07 m/uL (4.30-5.90); WBC 9.9 k/uL (3.8-10.6)
[2024-04-13] MEDS: HYDROmorphone 1 MG/ML 1 ML SYRINGE IVP STA ×4 (12:08→17:50)
[2024-04-13] MEDS: KETOROLAC 15 MG/ML 1 ML VIAL IVP STA (12:10)
[2024-04-13 12:18] LABS: ALT 15 U/L (4-49); AST 17 U/L (17-59); African American GFR (CKD) >90 (>60 ml/min/1.73 sqM); Albumin 3.8 g/dL (3.5-5.0); Alkaline Phosphatase 33 U/L (38-126); Anion Gap 6 mmol/L; Blood Urea Nitrogen 9 mg/dL (9-20); C Reactive Protein <0.5 mg/dL (<1.0); Calcium 8.5 mg/dL (8.4-10.2); Carbon Dioxide 28 mmol/L (22-30); Chloride 105 mmol/L (98-107); Creatine Kinase 170 U/L (55-170); Glucose 94 mg/dL (74-99); Magnesium 1.9 mg/dL (1.6-2.3); Non-African American GFR(CKD) >90 (>60 ml/min/1.73 sqM); Phosphorus 3.9 mg/dL (2.5-4.5); Potassium 3.5 mmol/L (3.5-5.1); Sodium 139 mmol/L (137-145); Total Bilirubin 0.2 mg/dL (0.2-1.3)
[2024-04-13] MEDS: SODIUM CHLORIDE 0.9% 500 ML 500 ML IV STA ×2 (12:36→15:39)
--- NOTE | 2024-04-13 13:29 | CT ---
EXAMINATION TYPE: CT soft tissue neck w con DATE OF EXAM: 04/13/2024 1:17 PM COMPARISON: 01/29/2024 CLINICAL INDICATION: Male, 34 years old with history of Neck pain, hx of throat cancer, surgery 2 day s ago; [facility], Neck pain, hx of throat cancer, surgery 2 days ago TECHNIQUE: CT scan of the neck is performed following with IV Contrast, patient injected with 100 mL of Isovue 3 00. Axial images are obtained, coronal and sagittal reformatted images are reviewed. CT DLP: 260.[address] CTDI: mGy Automated exposure control for dose reduction was used. FINDINGS: There are stable extensive postsurgical changes of laryngectomy. The 2 right neck enlarged lymph node s have resolved in the interval. The parotid and submandibular glands are normal and symmetric. There is no tongue base mass. There is no lymphadenopathy. There is no discrete fluid collection or a bscess.. Note is made of a tracheal stoma unchanged in appearance. IMPRESSION: 1. Postsurgical changes of laryngectomy. 2. Resolution of the previously described enlarged lymph nodes in the right submandibular region and right jugular chain. 3. No lymphadenopathy. 4. No discrete fluid collection or abscess within the soft tissues of the neck. 5. The great vessels of the neck are normal. [facility], , 04/13/2024 1:27 PM
[2024-04-13] MEDS: ORPHENADRINE 30 MG/ML 2 ML VIAL IVP STA (15:37)
[2024-04-13] MEDS: HYDROmorphone 0.5 MG/0.5 ML SYRINGE IVP STA (15:43)
[2024-04-13 16:26] LABS: Erythrocyte Sedimentation Rate <1 mm/Hr (0-15)
[2024-04-13 17:47] VITALS: BP 119/79; PULSE 70
== END 2024-04-13 18:07 | disposition other institution (70) ==
LOC: EC 11:11
DX: G89.18 Other acute postprocedural pain (principal); C32.9 Malignant neoplasm of larynx, unspecified; M79.10 Myalgia, unspecified site; Z87.891 Personal history of nicotine dependence; Z88.2 Allergy status to sulfonamides; Z88.8 Allergy status to other drugs, medicaments and biological substances
CPT/HCPCS: 36415; 93005; 80053; 85652; 82550; 83605; 83735; 84100; 85025; 86140; 70491; 99285; 96374; 96375; 96376; J2360; J1171; J1885; Q9967

== ENCOUNTER 2024-06-01 10:22 | Emergency (ER) | payer OTHER ==
[2024-06-01 10:31] VITALS: TEMP 98
--- NOTE | 2024-06-01 11:20 | ED ---
Fall HPI - General Chief Complaint: Fall Stated Complaint: back and knee pain from a fall Time Seen by Provider: 06/01/24 11:17 Source: patient, RN notes reviewed Mode of arrival: wheelchair - History of Present Illness Initial Comments: 44-year-old male presenting for right knee injury 3 hours ago. States around 830 this morning he slipped and fell on ice, falling forward and landing on his right knee. Pain is worse with weightbearing and is located on the lateral aspect of anterior right knee. He is also endorsing low back pain however reports he did not directly fall on his back but believes he "tweaked" his back during the fall. Denies bowel or bladder incontinence, lower extremity weakness/numbness/tingling, or saddle anesthesia. Denies blood thinners. Denies head injury from the fall. - Related Data Home Medications Medication Instructions Recorded Confirmed oxyCODONE ER [OxyCONTIN] 15 mg PO Q12HR 12/30/23 12/30/23 oxyCODONE HCL [Oxycodone HCl] 10 - 20 mg PO Q4H PRN 12/30/23 12/30/23 Previous Rx's Medication Instructions Recorded Amoxicillin 500 mg PO Q8HR #300 ml 12/30/23 Cyclobenzaprine [Flexeril] 5 mg PO TID PRN #15 tablet 04/12/24 Cyclobenzaprine [Flexeril] 10 mg PO TID PRN #15 tab 06/01/24 Lidocaine 4% Patch 1 patch TOPICAL DAILY PRN 7 Days 06/01/24 #7 patch Naproxen [Naprosyn] 500 mg PO Q12H PRN #30 tablet 06/01/24 Allergies Allergy/AdvReac Type Severity Reaction Status Date / Time sulfamethoxazole Allergy Itchy and Verified 06/01/24 10:31 [From Bactrim] red hands/feet trimethoprim [From Bactrim] Allergy Itchy and Verified 06/01/24 10:31 red hands/feet Review of Systems ROS Statement: Those systems with pertinent positive or pertinent negative responses have been documented in the HPI. ROS Other: All systems not noted in ROS Statement are negative. 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, larnyx cancer positive biopsy 2021, Speech box History of Any Multi-Drug Resistant Organisms: None Reported Past Surgical History: Orthopedic Surgery Additional Past Surgical History / Comment(s): B knee, tumor removal from larynx with lymph node removal, half of epigottis removed, Past Psychological History: Anxiety, Depression Smoking Status: Former smoker Past Alcohol Use History: Occasional Past Drug Use History: Marijuana General Exam Limitations: language barrier General appearance: alert, in no apparent distress Head exam: Present: atraumatic, normocephalic, normal inspection Eye exam: Present: normal appearance, PERRL, EOMI. Absent: scleral icterus, conjunctival injection, periorbital swelling Right Hip exam: Present: normal inspection, full ROM. Absent: tenderness, swelling Upper Leg exam: Present: normal inspection, full ROM. Absent: tenderness, swelling Knee exam: Present: normal inspection, full ROM (Pain with flexion and extension of right knee), tenderness (Point tenderness to lateral aspect of anterior right knee). Absent: swelling, abrasion, laceration, deformity, erythema Lower Leg exam: Present: normal inspection, full ROM. Absent: tenderness, swelling Ankle exam: Present: normal inspection, full ROM. Absent: tenderness, swelling Foot/Toe exam: Present: normal inspection, full ROM. Absent: tenderness, swelling Neurovascular tendon exam: Present: no vascular compromise. Absent: pulse deficit, abnormal cap refill, sensory deficit Neurological exam: Present: alert, oriented X3 Psychiatric exam: Present: normal affect, normal mood Skin exam: Present: warm, dry, intact, normal color. Absent: rash Course Vital Signs 06/01/24 06/01/24 10:27 13:04 Temperature 98.0 F Pulse Rate 63 57 L Respiratory 18 20 Rate Blood Pressure 161/127 126/77 O2 Sat by Pulse 100 99 Oximetry Medical Decision Making - Medical Decision Making Was pt. sent in by a medical professional or institution (, PA, TRAIN STATION AGENT, urgent care, hospital, or half-way...) When possible be specific @ -No Did you speak to anyone other than the patient for history (EMS, parent, family, police, friend...)? What history was obtained from this source @ -No Did you review nursing and triage notes (agree or disagree)? Why? @ -I reviewed and agree with nursing and triage notes Were old charts reviewed (outside hosp., previous admission, EMS record, old EKG, old radiological studies, urgent care reports/EKG's, half-way records)? Report findings @ -No old charts were reviewed Differential Diagnosis (chest pain, altered mental status, abdominal pain women, abdominal pain men, vaginal bleeding, weakness, fever, dyspnea, syncope, headache, dizziness, GI bleed, back pain, seizure, CVA, palpatations, mental health, musculoskeletal)? @ -Differential Musculoskeletal Muscular strain, contusion, ligament sprain, fracture, arthritis, septic arthritis, bursitis, cellulitis, muscle spasm, nerve compression, DVT, arterial occlusion, herpes zoster, electrolyte abnormality, tumor.... This is not meant to be in all inclusive list EKG interpreted by me (3pts min.). @ -None X-rays interpreted by me (1pt min.). @ -X-ray right knee reveals no acute process CT interpreted by me (1pt min.). @ -None done U/S interpreted by me (1pt. min.). @ -None done What testing was considered but not performed or refused? (CT, X-rays, U/S, labs)? Why? @ -None What meds were considered but not given or refused? Why? @ -None Did you discuss the management of the patient with other professionals (professionals i.e. , PA, TRAIN STATION AGENT, lab, RT, psych nurse, long term care social worker, shuttle threader, teacher, chief information security officer, therapeutic case manager)? Give summary @ -No Was smoking cessation discussed for >3mins.? @ -No Was critical care preformed (if so, how long)? @ -No Were there social determinants of health that impacted care today? How? (Homelessness, low income, unemployed, alcoholism, drug addiction, transportation, low edu. Level, literacy, decrease access to med. care, [facility], rehab)? @ -No Was there de-escalation of care discussed even if they declined (Discuss DNR or withdrawal of care, Hospice)? DNR status @ -No What co-morbidities impacted this encounter? (DM, HTN, Smoking, COPD, CAD, Cancer, CVA, ARF, Chemo, Hep., AIDS, mental health diagnosis, sleep apnea, morbid obesity)? @ -None Was patient admitted / discharged? Hospital course, mention meds given and route, prescriptions, significant lab abnormalities, going to OR and other pertinent info. @ -Discharge. 34-year-old male with right knee pain status post mechanical fall prior to arrival. Able to ambulate. Neurovascularly intact. Patient is initially hypertensive at 161/127 however decreases to 126/77 upon reevaluation. Provided with analgesics for supportive care. X-ray right knee reveals no acute process. Discussed results with patient. Provided with Daniel wrap and outpatient prescription for naproxen, Flexeril, and lidocaine patches. Instructed to follow-up with orthopedics. Case was discussed with ED attending Dr. Orellana. Undiagnosed new problem with uncertain prognosis? @ -No Drug Therapy requiring intensive monitoring for toxicity (Heparin, Nitro, Insulin, Cardizem)? @ -No Were any procedures done? @ -No Diagnosis/symptom? @ -Right knee sprain Acute, or Chronic, or Acute on Chronic? @ -Acute Uncomplicated (without systemic symptoms) or Complicated (systemic symptoms)? @ -Uncomplicated Side effects of treatment? @ -No Exacerbation, Progression, or Severe Exacerbation? @ -No Poses a threat to life or bodily function? How? (Chest pain, [place], [place], pneumonia, PE, COPD, DKA, ARF, appy, cholecystitis, CVA, Diverticulitis, Homicidal, Suicidal, threat to staff... and all critical care pts) @ -No Disposition Clinical Impression: Strain of right knee Disposition: HOME SELF-CARE Condition: Stable Instructions (If sedation given, give patient instructions): Knee Sprain (ED) Additional Instructions: Follow-up with orthopedics. Please return to the Emergency Department if symptoms worsen or any other concerns. Prescriptions: Cyclobenzaprine [Flexeril] 10 mg PO TID PRN #15 tab PRN Reason: Muscle Spasm Lidocaine 4% Patch 1 patch TOPICAL DAILY PRN 7 Days #7 patch PRN Reason: Pain Naproxen [Naprosyn] 500 mg PO Q12H PRN #30 tablet PRN Reason: Pain Is patient prescribed a controlled substance at d/c from ED?: No Referrals: Juan Kim MD [Primary Care Provider] - 1-2 days Omar Diego MD [STAFF PHYSICIAN] - 1-2 days Time of Disposition: 13:22
[2024-06-01] MEDS: ORPHENADRINE 30 MG/ML 2 ML VIAL IM STA (11:30)
[2024-06-01] MEDS: LIDOCAINE 4% PATCH TOPICAL ONE (11:31)
[2024-06-01] MEDS: KETOROLAC 15 MG/ML 1 ML VIAL IM STA (11:31)
--- NOTE | 2024-06-01 12:16 | XR ---
EXAMINATION TYPE: XR knee complete RT DATE OF EXAM: 06/01/2024 11:50 AM COMPARISON: None. CLINICAL INDICATION: Male, 34 years old with history of right knee injury, pain TECHNIQUE: 3 view(s) obtained. FINDINGS: No acute fractures or dislocations evident. Joint space is preserved. No joint effusion is evident. T here are follow up exams can be performed 7-10 days from acute trauma for continued pain. IMPRESSION: 1. No acute osseous abnormality three-view right knee X-Ray Xena Elias, , 06/01/2024 12:14 PM
[2024-06-01 13:05] VITALS: BP 126/77; PULSE 57; RESP 20
[2024-06-01] MEDS: ACETAMINOPHEN TAB 500 MG TAB PO STA (13:09)
== END 2024-06-01 13:28 | disposition home or self-care (01) ==
LOC: EC 10:22
DX: S86.911A Strain of unspecified muscle(s) and tendon(s) at lower leg level, right leg, initial encounter (principal); M54.50 Low back pain, unspecified; Z87.891 Personal history of nicotine dependence; Z88.1 Allergy status to other antibiotic agents; Z88.2 Allergy status to sulfonamides; W00.0XXA Fall on same level due to ice and snow, initial encounter
CPT/HCPCS: 73562; 99284; 96372 ×2; J2360; J1885

== ENCOUNTER 2024-07-05 07:14 | Emergency (ER) | payer OTHER ==
[2024-07-05 07:28] VITALS: TEMP 98
--- NOTE | 2024-07-05 07:43 | ED ---
General Adult HPI - General Chief complaint: Nausea/Vomiting/Diarrhea Stated complaint: NVD Time Seen by Provider: 07/05/24 07:16 Source: patient, RN notes reviewed, old records reviewed Mode of arrival: ambulatory Limitations: no limitations - History of Present Illness Initial comments: 34-year-old presents for evaluation of nausea vomiting diarrhea. Patient states his children have similar symptoms over the past 24 to 48 hours. He has some cramping abdominal pain as well. 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 Patient is unable to take his oral pain medication due to vomiting. No measured fever. He has had subjective chills. - Related Data Home Medications Medication Instructions Recorded Confirmed oxyCODONE ER [OxyCONTIN] 15 mg PO Q12HR 12/30/23 12/30/23 oxyCODONE HCL [Oxycodone HCl] 10 - 20 mg PO Q4H PRN 12/30/23 12/30/23 Previous Rx's Medication Instructions Recorded Amoxicillin 500 mg PO Q8HR #300 ml 12/30/23 Cyclobenzaprine [Flexeril] 5 mg PO TID PRN #15 tablet 04/12/24 Cyclobenzaprine [Flexeril] 10 mg PO TID PRN #15 tab 06/01/24 Lidocaine 4% Patch 1 patch TOPICAL DAILY PRN 7 Days 06/01/24 #7 patch Naproxen [Naprosyn] 500 mg PO Q12H PRN #30 tablet 06/01/24 Allergies Allergy/AdvReac Type Severity Reaction Status Date / Time sulfamethoxazole Allergy Itchy and Verified 07/05/24 07:28 [From Bactrim] red hands/feet trimethoprim [From Bactrim] Allergy Itchy and Verified 07/05/24 07:28 red hands/feet Review of Systems ROS Statement: Those systems with pertinent positive or pertinent negative responses have been documented in the HPI. ROS Other: All systems not noted in ROS Statement are negative. 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, larnyx cancer positive biopsy 2021, Speech box History of Any Multi-Drug Resistant Organisms: None Reported Past Surgical History: Orthopedic Surgery Additional Past Surgical History / Comment(s): B knee, tumor removal from larynx with lymph node removal, half of epigottis removed, Past Psychological History: Anxiety, Depression Smoking Status: Former smoker Past Alcohol Use History: Occasional Past Drug Use History: Marijuana General Exam Limitations: no limitations General appearance: alert, in no apparent distress Head exam: Present: atraumatic, normocephalic Eye exam: Present: normal appearance ENT exam: Present: mucous membranes moist Respiratory exam: Present: normal lung sounds bilaterally. Absent: respiratory distress, wheezes Cardiovascular Exam: Present: regular rate, normal rhythm GI/Abdominal exam: Present: soft. Absent: distended Extremities exam: Present: normal inspection, normal capillary refill Neurological exam: Present: alert, oriented X3 Psychiatric exam: Present: normal affect, normal mood Skin exam: Present: warm, dry, intact Course Vital Signs 07/05/24 07/05/24 07:25 08:38 Temperature 98 F Pulse Rate 132 H 114 H Respiratory 22 18 Rate Blood Pressure 131/84 119/76 O2 Sat by Pulse 99 96 Oximetry Medical Decision Making - Medical Decision Making Was pt. sent in by a medical professional or institution (, PA, GUIDE TRAVEL, urgent care, hospital, or halfway...) When possible be specific @ -No Did you speak to anyone other than the patient for history (EMS, parent, family, police, friend...)? What history was obtained from this source @ -No Did you review nursing and triage notes (agree or disagree)? Why? @ -I reviewed and agree with nursing and triage notes Were old charts reviewed (outside hosp., previous admission, EMS record, old EKG, old radiological studies, urgent care reports/EKG's, halfway records)? Report findings @ -No old charts were reviewed Differential Abdominal Pain Men: Appendicitis, cholecystitis, diverticulosis, ischemic bowel, pancreatitis, hepatitis, UTI, gastroenteritis, AAA, incarcerated hernia, bowel obstruction, constipation, inflammatory bowel, hepatitis, peptic ulcer disease, splenic infarction, perforated viscus, testicular torsion, this is not meant to be an all-inclusive list EKG interpreted by me (3pts min.). @ -As above X-rays interpreted by me (1pt min.). @ -None done CT interpreted by me (1pt min.). @ -None done U/S interpreted by me (1pt. min.). @ -None done What testing was considered but not performed or refused? (CT, X-rays, U/S, labs)? Why? @ -None What meds were considered but not given or refused? Why? @ -None Did you discuss the management of the patient with other professionals (professionals i.e. , PA, GUIDE TRAVEL, lab, RT, psych nurse, pediatric social worker, coater operator, teacher, ship officer, case resource manager)? Give summary @ -No Was smoking cessation discussed for >3mins.? @ -No Was critical care preformed (if so, how long)? @ -No Were there social determinants of health that impacted care today? How? (Homelessness, low income, unemployed, alcoholism, drug addiction, transportation, low edu. Level, literacy, decrease access to med. care, [facility], rehab)? @ -No Was there de-escalation of care discussed even if they declined (Discuss DNR or withdrawal of care, Hospice)? DNR status @ -No What co-morbidities impacted this encounter? (DM, HTN, Smoking, COPD, CAD, Cancer, CVA, ARF, Chemo, Hep., AIDS, mental health diagnosis, sleep apnea, morbid obesity)? @ -History of head neck cancer Was patient admitted / discharged? Hospital course, mention meds given and route, prescriptions, significant lab abnormalities, going to OR and other pertinent info. @ -34-year-old male with nausea vomiting diarrhea similar symptoms in his children. I did obtain laboratory testing and provided IV hydration and symptomatic treatment. Patient reevaluated significantly improved. He has a mild leukocytosis likely reactive. He will monitor symptoms closely and return to the emergency department as needed. Is scheduled to take his oral pain medication at 4 PM if he is unable to tolerate this secondary to persistent vomiting he will return to the emergency department. Undiagnosed new problem with uncertain prognosis? @ -No Drug Therapy requiring intensive monitoring for toxicity (Heparin, Nitro, Insuli n, Cardizem)? @ -No Were any procedures done? @ -No Diagnosis/symptom? @ -[Nausea vomiting diarrhea Acute, or Chronic, or Acute on Chronic? @Acute Uncomplicated (without systemic symptoms) or Complicated (systemic symptoms)? @ -Default Side effects of treatment? @ -No Exacerbation, Progression, or Severe Exacerbation? @ -No Poses a threat to life or bodily function? How? (Chest pain, [place], [place], pneumonia, PE, COPD, DKA, ARF, appy, cholecystitis, CVA, Diverticulitis, Homicidal, Suicidal, threat to staff... and all critical care pts) @ -No - Lab Data Result diagrams: 07/05/24 07:53 07/05/24 07:53 Lab Results 07/05/24 07/05/24 Range/Units 07:53 07:53 WBC 14.2 H (3.8-10.6) k/uL RBC 5.43 (4.30-5.90) m/uL Hgb 16.0 (13.0-17.5) gm/dL Hct 48.5 (39.0-53.0) % MCV 89.2 (80.0-100.0) fL MCH 29.4 (25.0-35.0) pg MCHC 32.9 (31.0-37.0) g/dL RDW 13.8 (11.5-15.5) % Plt Count 327 (150-450) k/uL MPV 6.6 Neutrophils % 85 % Lymphocytes % 8 % Monocytes % 3 % Eosinophils % 3 % Basophils % 0 % Neutrophils # 12.1 H (1.3-7.7) k/uL Lymphocytes # 1.2 (1.0-4.8) k/uL Monocytes # 0.4 (0-1.0) k/uL Eosinophils # 0.5 (0-0.7) k/uL Basophils # 0.0 (0-0.2) k/uL Sodium 139 (137-145) mmol/L Potassium 4.6 (3.5-5.1) mmol/L Chloride 103 (98-107) mmol/L Carbon Dioxide 25 (22-30) mmol/L Anion Gap 11 mmol/L BUN 16 (9-20) mg/dL Creatinine 0.85 (0.66-1.25) mg/dL Est GFR (CKD-EPI)AfAm >90 (>60 ml/min/1.73 sqM) Est GFR (CKD-EPI)NonAf >90 (>60 ml/min/1.73 sqM) Glucose 117 H (74-99) mg/dL Calcium 9.8 (8.4-10.2) mg/dL Total Bilirubin 0.6 (0.2-1.3) mg/dL AST 20 (17-59) U/L ALT 18 (4-49) U/L Alkaline Phosphatase 52 (38-126) U/L Total Protein 8.3 H (6.3-8.2) g/dL Albumin 5.2 H (3.5-5.0) g/dL Disposition Clinical Impression: Nausea & vomiting, Diarrhea Disposition: HOME SELF-CARE Condition: Fair Instructions (If sedation given, give patient instructions): Acute Nausea and Vomiting (ED), Acute Diarrhea (ED) Is patient prescribed a controlled substance at d/c from ED?: No Referrals: Lamonte Schwab Jr, [Primary Care Provider] - 1-2 days Time of Disposition: 09:10
[2024-07-05] MEDS: SODIUM CHLORIDE 0.9% 1,000 ML IV ONE (07:53)
[2024-07-05] MEDS: HYDROmorphone 1 MG/ML 1 ML SYRINGE IVP STA ×2 (08:00→08:45)
[2024-07-05 08:01] LABS: Basophils % (A) 0 %; Eosinophils # (A) 0.5 k/uL (0-0.7); Eosinophils % (A) 3 %; HCT 48.5 % (39.0-53.0); Lymphocytes # (A) 1.2 k/uL (1.0-4.8); Lymphocytes % (A) 8 %; MCH 29.4 pg (25.0-35.0); MCHC 32.9 g/dL (31.0-37.0); MCV 89.2 fL (80.0-100.0); Mean Platelet Volume 6.6; Monocytes # (A) 0.4 k/uL (0-1.0); Monocytes % (A) 3 %; Neutrophils # (A) 12.1 k/uL (1.3-7.7); Neutrophils % (A) 85 %; Platelet Count 327 k/uL (150-450); RBC 5.43 m/uL (4.30-5.90); RDW 13.8 % (11.5-15.5); WBC 14.2 k/uL (3.8-10.6)
[2024-07-05] MEDS: ONDANSETRON 4 MG/2 ML VIAL IVP STA (08:01)
[2024-07-05 08:24] LABS: ALT 18 U/L (4-49); AST 20 U/L (17-59); African American GFR (CKD) >90 (>60 ml/min/1.73 sqM); Albumin 5.2 g/dL (3.5-5.0); Alkaline Phosphatase 52 U/L (38-126); Anion Gap 11 mmol/L; Blood Urea Nitrogen 16 mg/dL (9-20); Calcium 9.8 mg/dL (8.4-10.2); Carbon Dioxide 25 mmol/L (22-30); Chloride 103 mmol/L (98-107); Glucose 117 mg/dL (74-99); Non-African American GFR(CKD) >90 (>60 ml/min/1.73 sqM); Potassium 4.6 mmol/L (3.5-5.1); Sodium 139 mmol/L (137-145); Total Bilirubin 0.6 mg/dL (0.2-1.3); Total Protein 8.3 g/dL (6.3-8.2)
[2024-07-05 08:38] VITALS: RESP 18
[2024-07-05] MEDS: SODIUM CHLORIDE 0.9% 500 ML 500 ML IV ONE (08:46)
[2024-07-05 09:23] VITALS: BP 125/79; PULSE 111
== END 2024-07-05 09:25 | disposition home or self-care (01) ==
LOC: EC 07:14
DX: R11.2 Nausea with vomiting, unspecified (principal); R19.7 Diarrhea, unspecified; Z85.21 Personal history of malignant neoplasm of larynx; Z87.891 Personal history of nicotine dependence; Z88.2 Allergy status to sulfonamides
CPT/HCPCS: 36415; 80053; 85025; 99284; 96374; 96375; 96376; 96361 ×2; J2405; J1171

== ENCOUNTER 2024-07-05 15:23 | Emergency (ER) | payer OTHER ==
[2024-07-05] MEDS: SODIUM CHLORIDE 0.9% 1,000 ML IV ONE (16:37)
[2024-07-05] MEDS: ONDANSETRON 4 MG/2 ML VIAL IVP STA (16:38)
[2024-07-05] MEDS: HYDROmorphone 1 MG/ML 1 ML SYRINGE IVP STA ×2 (16:39→18:06)
--- NOTE | 2024-07-05 16:42 | ED ---
Nausea/Vomiting/Diarrhea HPI - General Chief complaint: Nausea/Vomiting/Diarrhea Stated complaint: Vomiting Time Seen by Provider: 07/05/24 16:41 Source: patient, RN notes reviewed, old records reviewed Mode of arrival: ambulatory Limitations: no limitations - History of Present Illness Initial comments: 34-year-old male presenting to the ER for evaluation of nausea and vomiting. Patient was discharged this morning after symptomatic control for similar complaint. Patient states throughout the day he has attempted to consume liquids without success which prompted repeat visit. He reports a generalized abdominal cramping discomfort. He also admits to intermittent diarrhea. He denies any hematochezia, hematic emesis, melena or coffee-ground emesis. Patient states his symptoms started yesterday with bodyaches, chills and mild lightheadedness. Patient reports his son is also ill with similar complaints. Patient denies any headache, cough, congestion, chest pain, shortness of breath, fevers, urinary complaints or other complaints at this time. - Related Data Home Medications Medication Instructions Recorded Confirmed oxyCODONE ER [OxyCONTIN] 15 mg PO Q12HR 12/30/23 12/30/23 oxyCODONE HCL [Oxycodone HCl] 10 - 20 mg PO Q4H PRN 12/30/23 12/30/23 Previous Rx's Medication Instructions Recorded Amoxicillin 500 mg PO Q8HR #300 ml 12/30/23 Cyclobenzaprine [Flexeril] 5 mg PO TID PRN #15 tablet 04/12/24 Cyclobenzaprine [Flexeril] 10 mg PO TID PRN #15 tab 06/01/24 Lidocaine 4% Patch 1 patch TOPICAL DAILY PRN 7 Days 06/01/24 #7 patch Naproxen [Naprosyn] 500 mg PO Q12H PRN #30 tablet 06/01/24 Allergies Allergy/AdvReac Type Severity Reaction Status Date / Time sulfamethoxazole Allergy Itchy and Verified 07/05/24 15:36 [From Bactrim] red hands/feet trimethoprim [From Bactrim] Allergy Itchy and Verified 07/05/24 15:36 red hands/feet Review of Systems ROS Statement: Those systems with pertinent positive or pertinent negative responses have been documented in the HPI. ROS Other: All systems not noted in ROS Statement are negative. 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, larnyx cancer positive biopsy 2021, Speech box History of Any Multi-Drug Resistant Organisms: None Reported Past Surgical History: Orthopedic Surgery Additional Past Surgical History / Comment(s): B knee, tumor removal from larynx with lymph node removal, half of epigottis removed, Past Psychological History: Anxiety, Depression Smoking Status: Former smoker Past Alcohol Use History: Occasional Past Drug Use History: Marijuana General Exam Limitations: no limitations General appearance: alert, in no apparent distress ENT exam: Present: normal exam, normal oropharynx, mucous membranes moist Neck exam: Present: normal inspection, other (Voicebox noted). Absent: tenderness, meningismus, lymphadenopathy Respiratory exam: Present: normal lung sounds bilaterally. Absent: respiratory distress, wheezes, rales, rhonchi, stridor Cardiovascular Exam: Present: regular rate, normal rhythm, normal heart sounds. Absent: systolic murmur, diastolic murmur, rubs, gallop, clicks GI/Abdominal exam: Present: soft, tenderness (Generalized), normal bowel sounds Neurological exam: Present: alert, oriented X3, CN II-XII intact Skin exam: Present: warm, dry, intact, normal color. Absent: rash Course Vital Signs 07/05/24 07/05/24 15:33 19:19 Temperature 99 F 98.4 F Pulse Rate 137 H 90 Respiratory 20 18 Rate Blood Pressure 120/74 128/78 O2 Sat by Pulse 98 96 Oximetry - Reevaluation(s) Reevaluation #1: 07/05/24 17:49 Patient reevaluated. No signs of acute distress. Patient provided with water a nd crackers for p.o. challenge. Patient states he would ultimately like to go home. 07/05/24 18:[address] Schwab. He states patient can follow-up tomorrow in office as he has open appointments. Patient will be discharged with Zofran starter pack. Medical Decision Making - Medical Decision Making Was pt. sent in by a medical professional or institution (, PA, STOCK WORKER, urgent care, hospital, or prison...) When possible be specific @ -No Did you speak to anyone other than the patient for history (EMS, parent, family, police, friend...)? What history was obtained from this source @ -No Did you review nursing and triage notes (agree or disagree)? Why? @ -I reviewed and agree with nursing and triage notes Were old charts reviewed (outside hosp., previous admission, EMS record, old EKG, old radiological studies, urgent care reports/EKG's, prison records)? Report findings @ -ER visit from 04 09 24 patient seen for nausea and vomiting. Patient received symptomatic treatment and was discharged home. Differential Diagnosis (chest pain, altered mental status, abdominal pain women, abdominal pain men, vaginal bleeding, weakness, fever, dyspnea, syncope, headache, dizziness, GI bleed, back pain, seizure, CVA, palpatations, mental health, musculoskeletal)? @ -Gastritis, cholecystitis, cannabis hyperemesis syndrome, pancreatitis, gastroenteritis, viral illness, diverticulitis, colitis, Crohn's disease, ulcerative colitis, IBS processes, to be all-inclusive EKG interpreted by me (3pts min.). @ -None done X-rays interpreted by me (1pt min.). @ -None done CT interpreted by me (1pt min.). @ -None done U/S interpreted by me (1pt. min.). @ -None done What testing was considered but not performed or refused? (CT, X-rays, U/S, labs)? Why? @ -Abdominal imaging was considered but not performed as patient has generalized abdominal tenderness. Patient is agreeable. What meds were considered but not given or refused? Why? @ -None Did you discuss the management of the patient with other professionals (professionals i.e. , PA, STOCK WORKER, lab, RT, psych nurse, director of social services, advertising sales executive, t eacher, chief scientific officer, case assembler)? Give summary @ -Yes, case was discussed with patient's PCP, Dr. Schwab. He states patient should be discharged home and instructed to follow-up in office tomorrow morning. Was smoking cessation discussed for >3mins.? @ -No Was critical care preformed (if so, how long)? @ -No Were there social determinants of health that impacted care today? How? (Homelessness, low income, unemployed, alcoholism, drug addiction, transportation, low edu. Level, literacy, decrease access to med. care, alf, rehab)? @ -No Was there de-escalation of care discussed even if they declined (Discuss DNR or withdrawal of care, Hospice)? DNR status @ -No What co-morbidities impacted this encounter? (DM, HTN, Smoking, COPD, CAD, Cancer, CVA, ARF, Chemo, Hep., AIDS, mental health diagnosis, sleep apnea, morbid obesity)? @ -History of larynx cancer Was patient admitted / discharged? Hospital course, mention meds given and route, prescriptions, significant lab abnormalities, going to OR and other pertinent info. @ -Discharge. 34-year-old male presented the ER for evaluation of nausea and vomiting. Vitals acceptable limits. Patient no signs of distress nontoxic- appearing. Laboratory studies obtained unimpressive. Viral swabs negative. Patient given symptomatic control in the emergency department. No recurrent bouts of vomiting while in the emergency department. Patient tolerating water and crackers in ER. Given patient continued complaints of generalized pain and repeat ER visit, case was discussed with patient's PCP, Dr. Schwab. He states patient can follow-up with him tomorrow morning in office. Patient discharged with a Zofran starter pack. Patient discharged stable condition. Return parameters discussed. Case discussed with ED attending, Dr. العلي. Undiagnosed new problem with uncertain prognosis? @ -No Drug Therapy requiring intensive monitoring for toxicity (Heparin, Nitro, Insulin, Cardizem)? @ -No Were any procedures done? @ -No Diagnosis/symptom? @ -Nausea and vomiting Acute, or Chronic, or Acute on Chronic? @ -Acute Uncomplicated (without systemic symptoms) or Complicated (systemic symptoms)? @ -Uncomplicated Side effects of treatment? @ -No Exacerbation, Progression, or Severe Exacerbation? @ -No Poses a threat to life or bodily function? How? (Chest pain, [place], CO, pneumonia, PE, COPD, DKA, ARF, appy, cholecystitis, CVA, Diverticulitis, Homicidal, Suicidal, threat to staff... and all critical care pts) @ -No - Lab Data Result diagrams: 07/05/24 16:29 07/05/24 16:29 Lab Results 07/05/24 07/05/24 07/05/24 Range/Units 16:17 16:29 16:29 WBC 8.5 (3.8-10.6) k/uL RBC 4.93 (4.30-5.90) m/uL Hgb 14.5 (13.0-17.5) gm/dL Hct 43.7 (39.0-53.0) % MCV 88.6 (80.0-100.0) fL MCH 29.3 (25.0-35.0) pg MCHC 33.1 (31.0-37.0) g/dL RDW 13.8 (11.5-15.5) % Plt Count 292 (150-450) k/uL MPV 6.5 Neutrophils % 92 % Lymphocytes % 5 % Monocytes % 2 % Eosinophils % 1 % Basophils % 0 % Neutrophils # 7.8 H (1.3-7.7) k/uL Lymphocytes # 0.5 L (1.0-4.8) k/uL Monocytes # 0.1 (0-1.0) k/uL Eosinophils # 0.1 (0-0.7) k/uL Basophils # 0.0 (0-0.2) k/uL Sodium 136 L (137-145) mmol/L Potassium 4.5 (3.5-5.1) mmol/L Chloride 104 (98-107) mmol/L Carbon Dioxide 23 (22-30) mmol/L Anion Gap 9 mmol/L BUN 15 (9-20) mg/dL Creatinine 0.71 (0.66-1.25) mg/dL Est GFR (CKD-EPI)AfAm >90 (>60 ml/min/1.73 sqM) Est GFR (CKD-EPI)NonAf >90 (>60 ml/min/1.73 sqM) Glucose 123 H (74-99) mg/dL Plasma Lactic Acid New (0.7-2.0) mmol/L Calcium 8.9 (8.4-10.2) mg/dL Total Bilirubin 0.6 (0.2-1.3) mg/dL AST 19 (17-59) U/L ALT 17 (4-49) U/L Alkaline Phosphatase 36 L (38-126) U/L Total Protein 7.0 (6.3-8.2) g/dL Albumin 4.3 (3.5-5.0) g/dL Influenza Type A (PCR) Not Detected (Not Detectd) Influenza Type B (PCR) Not Detected (Not Detectd) RSV (PCR) Not Detected (Not Detectd) SARS-CoV-2 (PCR) Not Detected (Not Detectd) 07/05/24 Range/Units 16:29 WBC (3.8-10.6) k/uL RBC (4.30-5.90) m/uL Hgb (13.0-17.5) gm/dL Hct (39.0-53.0) % MCV (80.0-100.0) fL MCH (25.0-35.0) pg MCHC (31.0-37.0) g/dL RDW (11.5-15.5) % Plt Count (150-450) k/uL MPV Neutrophils % % Lymphocytes % % Monocytes % % Eosinophils % % Basophils % % Neutrophils # (1.3-7.7) k/uL Lymphocytes # (1.0-4.8) k/uL Monocytes # (0-1.0) k/uL Eosinophils # (0-0.7) k/uL Basophils # (0-0.2) k/uL Sodium (137-145) mmol/L Potassium (3.5-5.1) mmol/L Chloride (98-107) mmol/L Carbon Dioxide (22-30) mmol/L Anion Gap mmol/L BUN (9-20) mg/dL Creatinine (0.66-1.25) mg/dL Est GFR (CKD-EPI)AfAm (>60 ml/min/1.73 sqM) Est GFR (CKD-EPI)NonAf (>60 ml/min/1.73 sqM) Glucose (74-99) mg/dL Plasma Lactic Acid New 1.4 (0.7-2.0) mmol/L Calcium (8.4-10.2) mg/dL Total Bilirubin (0.2-1.3) mg/dL AST (17-59) U/L ALT (4-49) U/L Alkaline Phosphatase (38-126) U/L Total Protein (6.3-8.2) g/dL Albumin (3.5-5.0) g/dL Influenza Type A (PCR) (Not Detectd) Influenza Type B (PCR) (Not Detectd) RSV (PCR) (Not Detectd) SARS-CoV-2 (PCR) (Not Detectd) Disposition Clinical Impression: Nausea & vomiting Disposition: HOME SELF-CARE Condition: Stable Instructions (If sedation given, give patient instructions): Acute Nausea and Vomiting (ED) Additional Instructions: Follow-up with Dr. Schwab tomorrow in office. Take Zofran every 8 hours as needed for nausea. Return to the ER for any new or worsening concerns. Is patient prescribed a controlled substance at d/c from ED?: No Referrals: Lamonte Schwab Jr, DO [Primary Care Provider] - 1-2 days Time of Disposition: 18:58
[2024-07-05 16:57] LABS: Basophils % (A) 0 %; Eosinophils # (A) 0.1 k/uL (0-0.7); Eosinophils % (A) 1 %; HCT 43.7 % (39.0-53.0); HGB 14.5 gm/dL (13.0-17.5); Lymphocytes # (A) 0.5 k/uL (1.0-4.8); Lymphocytes % (A) 5 %; MCH 29.3 pg (25.0-35.0); MCHC 33.1 g/dL (31.0-37.0); MCV 88.6 fL (80.0-100.0); Mean Platelet Volume 6.5; Monocytes # (A) 0.1 k/uL (0-1.0); Monocytes % (A) 2 %; Neutrophils # (A) 7.8 k/uL (1.3-7.7); Neutrophils % (A) 92 %; Platelet Count 292 k/uL (150-450); RBC 4.93 m/uL (4.30-5.90); RDW 13.8 % (11.5-15.5); WBC 8.5 k/uL (3.8-10.6)
[2024-07-05 16:59] LABS: ALT 17 U/L (4-49); AST 19 U/L (17-59); African American GFR (CKD) >90 (>60 ml/min/1.73 sqM); Albumin 4.3 g/dL (3.5-5.0); Alkaline Phosphatase 36 U/L (38-126); Anion Gap 9 mmol/L; Blood Urea Nitrogen 15 mg/dL (9-20); Calcium 8.9 mg/dL (8.4-10.2); Carbon Dioxide 23 mmol/L (22-30); Chloride 104 mmol/L (98-107); Glucose 123 mg/dL (74-99); Non-African American GFR(CKD) >90 (>60 ml/min/1.73 sqM); Potassium 4.5 mmol/L (3.5-5.1); Sodium 136 mmol/L (137-145); Total Bilirubin 0.6 mg/dL (0.2-1.3)
[2024-07-05 17:06] LABS: Influenza A Not Detected (Not Detectd); Influenza B Not Detected (Not Detectd); RSV Not Detected (Not Detectd)
[2024-07-05] MEDS: ONDANSETRON 4 MG ODT STARTER PACK 2 TAB BTL PO STA (19:12)
[2024-07-05] MEDS: ACETAMINOPHEN TAB 325 MG TAB PO STA (19:14)
[2024-07-05 19:20] VITALS: BP 128/78; PULSE 90; RESP 18; TEMP 98.4
== END 2024-07-05 19:23 | disposition home or self-care (01) ==
LOC: EC 15:23
DX: R11.2 Nausea with vomiting, unspecified (principal); Z85.21 Personal history of malignant neoplasm of larynx; Z87.891 Personal history of nicotine dependence; Z88.2 Allergy status to sulfonamides; Z88.1 Allergy status to other antibiotic agents
CPT/HCPCS: 36415; 80053; 83605; 85025; 87636; 99284; 96374; 96375; 96376; 96361; J2405; J1171; S0119

== ENCOUNTER → 2024-07-07 | Outpatient (CLI) | payer OTHER ==
--- NOTE | 2024-07-07 18:38 | CT ---
EXAMINATION TYPE: CT soft tissue neck w con CT DLP: 404.9 mGycm, Automated exposure control for dose reduction was used. DATE OF EXAM: 07/07/2024 4:59 PM COMPARISON: CT soft tissue neck 04/13/2024, 05/27/2022, CT neck chest 01/29/2024, PET/CT 08/28/2023, 2023, 12/26/2022. CLINICAL INDICATION:Male, 34 years old with history of C76.0 MALIGNANT NEOPLASM OF HEAD, FACE AND NEC K; PHH, neoplasm of neck/head/face TECHNIQUE: Standard enhanced CT of the neck following intravenous administration of 100 cc of Isovue 300. Axial sections with coronal and sagittal reformats were obtained. FINDINGS: Brain: Visualized portions are grossly unremarkable. Orbits: Unremarkable Sinuses: Grossly unremarkable. Suprahyoid/infrahyoid Neck: Post surgical changes from laryngectomy without suspicious soft tissue in the surgical bed. No tongue base mass identified. The oropharynx and oral cavity appear unremarkable . No definitive retroperitoneal fluid collection. The nasopharynx appears unremarkable. Parotid Glands: No significant findings. Submandibular Glands: No significant findings. Musculoskeletal: No acute osseous pathology. No aggressive osseous lesion. Degenerative changes at C6 -C7. The tympanomandibular joints are symmetric and unremarkable. Lymph nodes: No pathologically enlarged lymph nodes. Vascular structures: Visualized major arteries are patent without evidence of aneurysm. Thoracic Inlet/airway: Postsurgical changes of the trachea with valve connection with the esophagus. Please refer to dedicated CT chest abdomen pelvis of the day for findings. Soft tissues/Thyroid: Postsurgical changes demonstrated with the left thyroid lobe appears surgically absent. Surgical clips demonstrated within the bilateral supraclavicular regions again. Other: none. IMPRESSION Postsurgical changes from laryngectomy without evidence recurrence or lymphadenopathy. [facility], , 07/07/2024 6:36 PM
--- NOTE | 2024-07-07 18:53 | CT ---
EXAMINATION TYPE: CT ChestAbdPelvis w con CT DLP: 1534.4 mGycm, Automated exposure control for dose reduction was used. DATE OF EXAM: 07/07/2024 4:58 PM COMPARISON: CT abdomen and pelvis 02/06/2024, CT neck chest 01/29/2024, PET/CT 08/28/2023, 04/09/2023, CLINICAL INDICATION:Male, 34 years old with history of C76.0 MALIGNANT NEOPLASM OF HEAD, FACE AND NEC K; PHH, neoplasm of neck/head/face Technique: Multiple axial images of the chest, abdomen, and pelvis were obtained following the intrav enous administration of 100 mL Isovue-300. Oral contrast was administered. Two-dimensional coronal an d sagittal reconstructions were obtained. Findings: CHEST: LUNGS/ PLEURA: The lung parenchyma appears unremarkable. No suspicious pulmonary nodule or mass. AIRWAY: Patent. Postsurgical changes of the trachea with valvular device between the esophagus and tr achea. HEART: Size within normal limits.No pericardial effusion. No significant coronary artery calcificatio ns. MEDIASTINUM: No evidence of adenopathy. VASCULATURE: No aortic aneurysm. MUSCULOSKELETAL: No acute osseous abnormalities. No aggressive osseous lesion. SOFT TISSUES/LYMPH NODES: Minimal bilateral gynecomastia. LOWER NECK: Please refer to dedicated CT soft tissue neck of the same day for findings. ABDOMEN: ABDOMEN LIVER: Unremarkable GALLBLADDER AND BILE DUCTS: Unremarkable. PANCREAS: Unremarkable. SPLEEN: Unremarkable. ADRENAL GLANDS: Unremarkable. KIDNEYS AND URETERS: No evidence of hydronephrosis or renal calculus. The kidneys enhance symmetrical ly. Contrast is demonstrated within both collecting systems on the delayed phase. PELVIS BLADDER: Unremarkable REPRODUCTIVE: Unremarkable. ABDOMEN & PELVIS STOMACH AND BOWEL: Stomach and duodenum are unremarkable. Enteric contrast reaches the distal small b owel. The appendix is within normal limits. No focal bowel wall thickening or surrounding inflammator y changes. No evidence of bowel obstruction. PERITONEUM: No evidence of pneumoperitoneum or free fluid. VASCULATURE: No evidence of aortic aneurysm. Couple left-sided pelvic phleboliths. MUSCULOSKELETAL: No acute osseous abnormalities LYMPH NODES: No evidence for lymphadenopathy. SOFT TISSUE/ABDOMINAL WALL: Surgical clip along the anterior epigastric wall. IMPRESSION: No CT evidence for metastasis. No lymphadenopathy. [facility], , 07/07/2024 6:51 PM
== END | disposition home or self-care (01) ==
LOC: RADCTMAIN 14:18
PROVIDERS: ATTEND Internal Medicine Hematology & Oncology
DX: Z03.89 Encounter for observation for other suspected diseases and conditions ruled out (principal); C76.0 Malignant neoplasm of head, face and neck; Z98.890 Other specified postprocedural states
CPT/HCPCS: 70491; 71260; 74177; Q9967

== ENCOUNTER → 2024-07-07 | Outpatient (CLI) | payer OTHER ==
--- NOTE | 2024-07-07 18:19 | CT ---
EXAMINATION TYPE: CT lumbar spine wo con CT DLP: 590.2 mGycm, Automated exposure control for dose reduction was used. DATE OF EXAM: 07/07/2024 4:52 PM COMPARISON: CT abdomen pelvis 02/06/2024, PET/CT 08/28/2023, lumbosacral spine radiographs 06/17/2023. CLINICAL INDICATION:Male, 34 years old with history of M54.50 LOW BACK PAIN, W00.9XXA; PHH, back pain after fall, pain TECHNIQUE: Multiple axial images were obtained from the midportion of T11 through the sacroiliac ricardo nts. Soft tissue and bone windows in coronal and sagittal planes were obtained and reviewed. Contrast used: none. Oral contrast used: Yes FINDINGS: Alignment: There are 5 lumbar type vertebral bodies within normal alignment. Bone: No evidence of fracture is identified. No aggressive osseous lesion. The bilateral SI joints a re intact with mild degenerative changes. Discs: T12-L1: No spinal canal or neural foraminal stenosis is identified. L1-L2: No spinal canal or neural foraminal stenosis is identified. L2-L3: Broad-based disc bulge with mild effacement of the anterior thecal sac. Mild central canal bala nosis. No neural foraminal stenosis. L3-L4: Broad-based disc bulge without effacement of the anterior thecal sac. No significant central c anal stenosis. Mild bilateral neural foraminal stenosis. L4-L5: Disc space narrowing with endplate sclerosis. Broad-based disc bulge with minimal effacement o f the anterior thecal sac. No significant central canal stenosis. Mild bilateral neural foraminal bala nosis. L5-S1: Vacuum disc disease with disc space narrowing and endplate sclerosis. Broad-based disc bulge w ith minimal effacement of the anterior thecal sac. No significant central canal stenosis. Moderate bi lateral neural foraminal stenosis. Other: Please refer to dedicated CT chest, abdomen and pelvis of the same day for findings. IMPRESSION: 1. No evidence for spinal fracture. 2. Mild multilevel degenerative disc disease as described above. [facility], , 07/07/2024 6:17 PM
== END | disposition home or self-care (01) ==
LOC: RADCTMAIN 14:16
PROVIDERS: ATTEND Family Medicine
DX: M51.360 Other intervertebral disc degeneration, lumbar region with discogenic back pain only (principal); M99.73 Connective tissue and disc stenosis of intervertebral foramina of lumbar region; W00.9XXA Unspecified fall due to ice and snow, initial encounter
CPT/HCPCS: 72131

== ENCOUNTER 2024-08-02 12:15 | Emergency (ER) | payer OTHER ==
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
[2024-08-02 12:54] LABS: Basophils # (A) 0.07 10*3/uL (0.00-0.10); Eosinophils # (A) 0.25 10*3/uL (0.04-0.35); Eosinophils % (A) 3.7 %; HGB 14.3 g/dL (13.0-17.0); Lymphocytes # (A) 2.45 10*3/uL (0.90-5.00); Lymphocytes % (A) 36.5 %; MCH 30.3 pg (27.0-32.0); MCHC 34.9 g/dL (32.0-37.0); MCV 86.9 fL (80.0-97.0); Mean Platelet Volume 8.6 fL (9.5-12.2); Monocytes # (A) 0.48 10*3/uL (0.20-1.00); Monocytes % (A) 7.2 %; Neutrophils # (A) 3.44 10*3/uL (1.80-7.70); Neutrophils % (A) 51.3 %; Platelet Count 294 10*3/uL (140-440); RBC 4.72 10*6/uL (4.40-5.60); RDW 13.6 % (11.5-14.5); WBC 6.71 10*3/uL (4.50-10.00)
[2024-08-02 13:04] LABS: Partial Thromboplastin Time 25.2 sec (22.0-30.0); Prothrombin Time 10.6 sec (10.0-12.5)
[2024-08-02 13:11] LABS: ALT 28 U/L (4-49); AST 23 U/L (17-59); African American GFR (CKD) >90 (>60 ml/min/1.73 sqM); Albumin 4.9 g/dL (3.5-5.0); Alkaline Phosphatase 46 U/L (38-126); Anion Gap 12 mmol/L; Blood Urea Nitrogen 9 mg/dL (9-20); Carbon Dioxide 26 mmol/L (22-30); Chloride 101 mmol/L (98-107); Glucose 93 mg/dL (74-99); Magnesium 2.1 mg/dL (1.6-2.3); Non-African American GFR(CKD) >90 (>60 ml/min/1.73 sqM); Potassium 4.5 mmol/L (3.5-5.1); Sodium 139 mmol/L (137-145); Total Bilirubin 0.6 mg/dL (0.2-1.3); Total Protein 7.7 g/dL (6.3-8.2)
--- NOTE | 2024-08-02 13:25 | XR ---
EXAMINATION TYPE: XR chest 2V DATE OF EXAM: 08/02/2024 1:18 PM COMPARISON: 12/30/2023 CLINICAL INDICATION: Male, 34 years old with history of Chest Pain, , TECHNIQUE: PA and lateral views FINDINGS: Biapical surgical clips noted. Heart normal size. Mild hyperinflation. Some strandy atelectasis left base. No consolidation or pleural effusion. IMPRESSION: Mild hyperinflation may relate to a depth of inspiration or underlying emphysema. Clinically correlat e. Some surgical clips are noted at the lung apices. No definite acute process. [facility], Workstation: [id number], 08/02/2024 1:22 PM
[2024-08-02] MEDS: SODIUM CHLORIDE 0.9% 500 ML 500 ML IV ONE (13:45)
[2024-08-02] MEDS: KETOROLAC 15 MG/ML 1 ML VIAL IVP STA (13:46)
[2024-08-02] MEDS: HYDROmorphone 2 MG/ML 1 ML SYRINGE IVP STA ×2 (13:46→16:06)
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
--- NOTE | 2024-08-02 15:21 | CT ---
EXAMINATION TYPE: CT soft tissue neck w con DATE OF EXAM: 08/02/2024 3:01 PM COMPARISON: 07/07/2024 CLINICAL INDICATION: Male, 34 years old with history of pain; PHH, Pain, hx larynx ca TECHNIQUE: CT scan of the neck is performed following with IV Contrast, patient injected with 100 ml mL of Isovu e 370. Axial images are obtained, coronal and sagittal reformatted images are reviewed. CT DLP: 254.[address] CTDI: mGy Automated exposure control for dose reduction was used. FINDINGS: Postsurgical changes of total laryngectomy. There is a valvular connection between the upper trachea and esophagus. Tongue base appears normal without mass. The vallecula and piriform sinuses are not well displayed. T here is no pharyngeal parapharyngeal soft tissue mass There is no oral or nasal pharyngeal or parapharyngeal or pharyngeal soft tissue mass or enhancement. The submandibular glands and parotid glands are normal and symmetric. The great vessels of the neck are normal. There is no adenopathy or abscess within the neck. Visualized osseous structures are intact.. IMPRESSION: 1. Total laryngectomy. 2. No evidence of recurrent disease. 3. No interval change compared to 07/07/2024 [facility], , 08/02/2024 3:19 PM
[2024-08-02] MEDS: ACETAMINOPHEN TAB 500 MG TAB PO STA (16:00)
[2024-08-02] MEDS: ACET/COD 300 MG/30 MG STARTER PACK 6 TAB BTL PO STA (16:04)
[2024-08-02 16:31] VITALS: BP 132/79; PULSE 62; RESP 18; TEMP 97.4
== END 2024-08-02 16:31 | disposition home or self-care (01) ==
LOC: EC 12:15
DX: R07.89 Other chest pain (principal); R91.1 Solitary pulmonary nodule; Z88.2 Allergy status to sulfonamides; Z88.1 Allergy status to other antibiotic agents; Z87.891 Personal history of nicotine dependence
CPT/HCPCS: 36415; 93005; 85379; 80053; 83735; 84484; 85025; 85610; 85730; 71046; 70491; 71275; 99285; 96374; 96375; 96376; J1171; J1885; Q9967

== ENCOUNTER 2024-09-08 08:56 | Emergency (ER) | payer OTHER ==
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
[2024-09-08] MEDS: HYDROmorphone 1 MG/ML 1 ML SYRINGE IVP STA ×2 (09:17→11:26)
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
[2024-09-08 09:27] LABS: Basophils # (A) 0.06 10*3/uL (0.00-0.10); Basophils % (A) 0.8 %; Eosinophils # (A) 0.39 10*3/uL (0.04-0.35); Eosinophils % (A) 5.4 %; HCT 38.5 % (39.6-50.0); HGB 13.2 g/dL (13.0-17.0); Lymphocytes # (A) 2.67 10*3/uL (0.90-5.00); Lymphocytes % (A) 36.8 %; MCH 30.2 pg (27.0-32.0); MCHC 34.3 g/dL (32.0-37.0); MCV 88.1 fL (80.0-97.0); Mean Platelet Volume 8.7 fL (9.5-12.2); Monocytes % (A) 6.9 %; Neutrophils # (A) 3.62 10*3/uL (1.80-7.70); Neutrophils % (A) 49.8 %; Platelet Count 275 10*3/uL (140-440); RBC 4.37 10*6/uL (4.40-5.60); RDW 13.7 % (11.5-14.5); WBC 7.26 10*3/uL (4.50-10.00)
[2024-09-08 09:47] LABS: ALT 34 U/L (4-49); AST 32 U/L (17-59); African American GFR (CKD) >90 (>60 ml/min/1.73 sqM); Albumin 4.4 g/dL (3.5-5.0); Alkaline Phosphatase 41 U/L (38-126); Anion Gap 8 mmol/L; Blood Urea Nitrogen 12 mg/dL (9-20); Calcium 9.3 mg/dL (8.4-10.2); Carbon Dioxide 30 mmol/L (22-30); Chloride 103 mmol/L (98-107); Glucose 99 mg/dL (74-99); Non-African American GFR(CKD) >90 (>60 ml/min/1.73 sqM); Potassium 3.8 mmol/L (3.5-5.1); Sodium 141 mmol/L (137-145); Total Bilirubin 0.3 mg/dL (0.2-1.3)
[2024-09-08 09:55] LABS: INR 0.9 (<1.2); Partial Thromboplastin Time 24.4 sec (22.0-30.0)
[2024-09-08 10:33] VITALS: RESP 16; TEMP 98
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
[2024-09-08] MEDS: ONDANSETRON 4 MG/2 ML VIAL IVP STA (11:26)
[2024-09-08 11:47] VITALS: BP 144/86; PULSE 70
== END 2024-09-08 11:47 | disposition home or self-care (01) ==
LOC: EC 08:56
DX: M54.50 Low back pain, unspecified (principal); Z87.891 Personal history of nicotine dependence; Z88.1 Allergy status to other antibiotic agents; Z88.2 Allergy status to sulfonamides; V89.2XXA Person injured in unspecified motor-vehicle accident, traffic, initial encounter; Y93.I9 Activity, other involving external motion
CPT/HCPCS: 36415; 93005; 80053; 85025; 85610; 85730; 71045; 72125; 74177; 99285; 96374; 96375; 96376; J2405; J1171; Q9967